=== PATIENT | male | born 1940 | race Caucasian/White ===

== ENCOUNTER 2020-01-06 02:38 | Emergency (ER) | payer MEDICARE, SELFPAY ==
[2020-01-06 02:37] VITALS: BP 156/94; PULSE 100; RESP 24; TEMP 36.9; O2SAT 93
[2020-01-06 03:03] LABS: Basophils Absolute Auto 0.1 K/mm3 (0.0-0.1); Basophils Percent Auto 0.7 % (0.2-1.2); Eosinophils Absolute Auto 0.2 K/mm3 (0-0.3); Eosinophils Percent Auto 2.2 % (0-4.4); Hematocrit 47.7 % (42.0-52.0); Hemoglobin 14.7 g/dL (14.0-18.0); Immature Granulocyte Absolute 0.06 K/mm3 (0.00-0.031); Immature Granulocyte Percent A 0.6 % (0-0.5); Lymphocytes Absolute Auto 1.24 K/mm3 (0.9-3.2); Lymphocytes Percent Auto 13.1 % (18.3-44.2); Mean Corpuscular HGB Conc 30.8 g/dl (32-36); Mean Corpuscular Hemoglobin 24.8 pg (26-34); Mean Corpuscular Volume 80.4 fl (80-100); Mean Platelet Volume 10.3 fl (7.4-10.4); Monocytes Absolute Auto 0.8 K/mm3 (0.1-0.6); Monocytes Percent Auto 8.5 % (2.6-8.5); Neutrophils Absolute Auto 7.1 K/mm3 (1.3-6.7); Neutrophils Percent Auto 74.9 % (45.5-73.1); Platelet Count Result 261 k/mm3 (150-375); Red Blood Count 5.93 M/mm3 (4.6-6.20); Red Cell Distribution Width 16.4 % (11.5-14.5); White Blood Count 9.5 K/mm3 (4.5-10.0)
[2020-01-06 03:16] LABS: INR 2.8
[2020-01-06 03:17] LABS: Partial Thromboplastin Time 42.1 SECONDS (22.3-36.8)
--- NOTE | 2020-01-06 04:16 | ED.EPISTAXIS ---
HPI - Epistaxis General Chief complaint: Epistaxis Stated complaint: EPISTAXIS Time Seen by Provider: 01/06/20 02:44 Source: RN notes reviewed History of Present Illness HPI Narrative: Patient presents emergency department from home via EMS for epistaxis. Patient states approximately 1 hour ago he began to have bleeding out of his right nostril. He states that at this time he replaces pressure on his right nostril began to bleed out of his left nostril. He states he is on Coumadin and his INR is not been checked in the past several months he is he has not been out of his house since the beginning of the COVID pandemic. He denies any trauma or injury denies any other symptoms at this time Related Data Allergies Allergy/AdvReac Type Severity Reaction Status Date / Time No Known Allergies Allergy Mild Verified 01/06/20 02:59 Review of Systems Review of Systems: Narrative: Gen.: Denies fevers or chills Eyes: Denies eye pain or visual change ENT: See HPI Respiratory: Denies shortness of breath CV: Denies chest pain GI: Denies abdominal pain nausea, emesis Neuro: Denies headache or weakness Skin: Denies rash Except as documented, all other systems reviewed and negative FOR[facility]LY [facility] Past Medical History Medical History (Updated 01/06/20 @ 04:20 by Hipolito Veras DO) Atrial fibrillation Family History Family History (Updated 01/12/14 @ 07:13 by DOCTOR UNKNOWN) Sibling Family history of heart disease in male family member before age 55 Father Acute myocardial infarction Other Diabetes mellitus Family history of cardiovascular disease Hypertension Social History Social History Smoking status: Former smoker Smoking end date: 05/18/79 Alcohol intake: never Exam Narrative: Exam Narrative: APPEARANCE: No acute distress, nontoxic, resting in bed EYES: EOMI HEENT: Normocephalic, atraumatic, oral mucosa moist, blood seen in posterior pharynx, active epistaxis out of the right nare left nare with dried blood RESPIRATORY: No respiratory distress Clear to auscultation bilaterally with no rhonchi wheezing or rales. CARDIOVASCULAR: Regular rate and rhythm without murmurs rubs or gallops. ABDOMINAL: Soft, nontender, MUSCULOSKELETAl: Moves all extremities. NEURO: Awake and alert. Following commands, speech normal, no focal deficits SKIN:: Warm, dry. No rashes lesions or abrasions PSYCHIATRIC: Normal affect/mood, Course Course Emergency Course: Rapid Rhino placed in right nare with resolution of bleeding Discussed with patient results of workup and diagnosis. Discussed need for follow-up with primary care, proper use of medication, and reasons to return to the emergency department. Patient understands and agrees to current treatment plan Vital Signs Vital signs: Vital Signs Temperature 98.4 F 01/06/20 02:37 Pulse Rate 100 01/06/20 02:37 Respiratory Rate 24 H 01/06/20 02:37 Blood Pressure 156/94 H 01/06/20 02:37 Pulse Oximetry 93 01/06/20 02:37 Temperature 98.4 F 01/06/20 02:37 Pulse Rate 100 01/06/20 02:37 Respiratory Rate 24 H 01/06/20 02:37 Blood Pressure 156/94 H 01/06/20 02:37 Pulse Oximetry 93 01/06/20 02:37 Procedures Epistaxis Control right: Direct Inspection: yes and unable to visualize Clots Removed by: blowing nose Device Inserted: nasal tampon (5.5 cm rapid Rhino) Patient Tolerated Procedure: well MDM - Epistaxis Lab Data Result diagrams: 01/06/20 02:58 Labs: Lab Results 01/06/20 01/06/20 Range/Units 02:58 02:58 WBC 9.5 (4.5-10.0) K/mm3 RBC 5.93 (4.6-6.20) M/mm3 Hgb 14.7 (14.0-18.0) g/dL Hct 47.7 (42.0-52.0) % MCV 80.4 (80-100) fl MCH 24.8 L (26-34) pg MCHC 30.8 L (32-36) g/dl RDW 16.4 H (11.5-14.5) % Plt Count 261 (150-375) k/mm3 MPV 10.3 (7.4-10.4) fl Immature Gran % (Auto) 0.6 H (0-0.5) % Neut % (Au
[2020-01-06 04:45] VITALS: BP 133/84; PULSE 79; RESP 20; O2SAT 93
== END 2020-01-06 04:45 | disposition home or self-care (01) ==
PROVIDERS: Emergency Provider Emergency Medicine; PCP Internal Medicine
DX: R04.0 Epistaxis (principal); I48.91 Unspecified atrial fibrillation; Z79.01 Long term (current) use of anticoagulants; Z87.891 Personal history of nicotine dependence
CPT/HCPCS: 30901; 36415; 85025; 85610; 85730; 99283; A9270

== ENCOUNTER 2021-03-14 13:55 | Outpatient (CLI) | payer MEDICARE, SELFPAY ==
[2021-03-14 14:41] LABS: Alanine Aminotransferase 18 U/L (4-50); Albumin Level 4.1 g/dL (3.5-5.1); Alkaline Phosphatase 92 U/L (38-126); Anion Gap 10 mmol/L (8-16); Aspartate Amino Transferase 19 U/L (17-59); Bilirubin,Total 0.4 mg/dL (0.2-1.3); Blood Urea Nitrogen 21 mg/dL (9-20); Calcium 9.2 mg/dL (8.4-10.2); Carbon Dioxide 27 mmol/L (22-30); Chloride 102 mmol/L (98-107); Cholesterol 156 mg/dL (0-200); Estimated Glomerular Filt Rate 58; Glucose 111 mg/dL (65-110); HDL Direct 46 mg/dL; Potassium 4.4 mmol/L (3.4-5.0); Sodium 139 mmol/L (137-145); Triglycerides 98 mg/dL (<150)
[2021-03-14 14:52] LABS: LDL Cholesterol Direct 86 mg/dL
[2021-03-14 15:08] LABS: Creatinine Urine 51.6 mg/dL
[2021-03-14 15:13] LABS: MALB Creatinine Ratio 137.2 mg/g (0-30); Microalbumin Urine Random 70.8 mg/L (0-16.7)
== END 2021-03-14 13:56 | disposition home or self-care (01) ==
PROVIDERS: PCP Internal Medicine; Visit Provider Nurse Practitioner
DX: R79.89 Other specified abnormal findings of blood chemistry (principal); I10 Essential (primary) hypertension; Z79.899 Other long term (current) drug therapy; E11.9 Type 2 diabetes mellitus without complications; E78.5 Hyperlipidemia, unspecified
CPT/HCPCS: 36415; 80053; 80061; 82043; 83036; 84443

== ENCOUNTER 2021-05-06 14:33 | Inpatient (IN) | payer MEDICARE, MEDICAID, SELFPAY ==
[2021-05-06] VITALS (22 sets, daily range): BP systolic 132–219; BP diastolic 84–170; PULSE 79–99; RESP 13–28; O2SAT 76–100
--- NOTE | ~2021-05-06 | XR_ITS ---
XR chest 2V 05/06/2021 15:26 Indication: Shortness of breath. Bilateral lower extremity swelling. Procedure: 2 view chest Comparison: 11/22/2011 Findings: Cardiomegaly. Bilateral airspace disease, most likely interstitial edema. Pneumonia less fa vored. No significant effusion or pneumothorax. Impression: 1: Diffuse bilateral airspace disease, likely edema. Pneumonia less favored. Reviewed, dictated and finalized at location A. STANT OPERATIONS MANAGER Impression: 1: Diffuse bilateral airspace disease, likely edema. Pneumonia less favored.
--- NOTE | ~2021-05-06 | XR_ITS ---
EXAMINATION: XR chest 1V portable DATE: 05/08/2021 09:39 INDICATION: Pulmonary edema. TECHNIQUE: A single frontal view of the chest was obtained. COMPARISON: Chest 2 views 05/06/2021, chest CT 11/30/2015 FINDINGS: Sensitivity is decreased by obesity. There are mild bilateral perihilar airspace opacities. No pleural effusion or pneumothorax. Cardiomegaly is noted. IMPRESSION: 1. Mild bilateral perihilar airspace opacities, likely mild pulmonary edema. Pneumonia is less likely . 2. Cardiomegaly. Reviewed, dictated and finalized at location A. INE OPERATOR IMPRESSION: 1. Mild bilateral perihilar airspace opacities, likely mild pulmonary edema. Pn eumonia is less likely. 2. Cardiomegaly.
--- NOTE | ~2021-05-06 | CT_ITS ---
EXAMINATION:CT diagnostic chest wo con DATE: 05/08/2021 15:00 INDICATION: Congestive heart failure. TECHNIQUE: Computed tomography (CT) of the chest was performed without intravenous contrast. Automate d exposure control and iterative reconstruction technique were employed. The dose-length product (DLP ) was 969.42 mGy-cm. COMPARISON: Chest CT 11/30/2015, chest single view 05/08/2021 FINDINGS: The lungs demonstrate mosaic attenuation, likely small airways disease. There is smooth sep belinda thickening in the lungs, consistent with mild pulmonary edema. There is a 7 mm nodule in right up per lobe. There is a 5 mm nodule in right middle lobe. No pleural effusion. Cardiomegaly is noted. No pericardial effusion. There are coronary artery calcifications. There is severe osteoarthritis of th e glenohumeral joints. There are bridging endplate osteophytes at multiple levels in the spine, consi stent with diffuse idiopathic skeletal hyperostosis (DISH). There is mild chronic anterior wedging of multiple vertebral bodies. IMPRESSION: 1. Mild pulmonary edema. 2. Mosaic attenuation in the lungs, likely small airways disease. 3. 7 mm and 5 mm pulmonary nodules, probably benign. Noncontrast low-dose chest CT is recommended in 6 months. Reviewed, dictated and finalized at location A. CTURAL IRON WORKER
--- NOTE | ~2021-05-06 | CT_ITS ---
EXAMINATION: CT brain wo con DATE: 05/06/2021 15:22 INDICATION: Slurred speech TECHNIQUE: Computed tomography (CT) of the head was performed without intravenous contrast. The mA wa s adjusted according to patient size. Iterative reconstruction technique was employed. Exam dose: 75 6.67 mGy-cm total exam DLP. COMPARISON: None FINDINGS: No intracranial mass lesion or hemorrhage or cerebrovascular accident is evident. CT is not sensitive for hyperacute ischemic cerebrovascular accident. No midline shift or mass effect effect. No subdural or epidural hematoma. There is moderate cerebral volume loss consistent with patient age. Paranasal sinuses and mastoid air cells are normally developed and aerated. No fracture or bone destruction of the cranial vault. Orbital contents are unremarkable. IMPRESSION: No acute intracranial finding Reviewed, dictated and finalized at Location A. Reviewed, dictated and finalized at location B. AWAKE COUNSELOR
--- NOTE | 2021-05-06 14:45 | ECG_ITS ---
Measurements Intervals Silver Rate: 89 P: WY: 0 QRS: 74 QRSD: 94 T: -2 QT: 366 QTc: 447 Interpretive Statements ATRIAL FIBRILLATION LOW QRS VOLTAGE IN PRECORDIAL LEADS INCOMPLETE RIGHT BUNDLE BRANCH BLOCK BORDERLINE ST-T WAVE ABNORMALITY- ANT/INF LEADS BASELINE ARTIFACT- I, III, AVR, AVL, AVF, V1 ABNORMAL ECG Electronically Signed On 05-06-2021 15:04:24 SUCTION OPERATOR by Derek Phillips D.O.
[2021-05-06 15:14] LABS: Basophils Absolute Auto 0.1 K/mm3 (0.0-0.1); Basophils Percent Auto 0.6 % (0.2-1.2); Eosinophils Absolute Auto 0.1 K/mm3 (0-0.3); Hematocrit 37.9 % (42.0-52.0); Hemoglobin 10.6 g/dL (14.0-18.0); Immature Granulocyte Absolute 0.05 K/mm3 (0.00-0.031); Immature Granulocyte Percent A 0.5 % (0-0.5); Lymphocytes Percent Auto 6.6 % (18.3-44.2); Mean Corpuscular Hemoglobin 22.5 pg (26-34); Mean Corpuscular Volume 80.3 fl (80-100); Mean Platelet Volume 9.3 fl (7.4-10.4); Monocytes Absolute Auto 1.1 K/mm3 (0.1-0.6); Monocytes Percent Auto 10.2 % (2.6-8.5); Neutrophils Absolute Auto 8.6 K/mm3 (1.3-6.7); Neutrophils Percent Auto 81.1 % (45.5-73.1); Platelet Count Result 280 k/mm3 (150-375); Red Blood Count 4.72 M/mm3 (4.6-6.20); Red Cell Distribution Width 19.8 % (11.5-14.5); White Blood Count 10.6 K/mm3 (4.5-10.0)
[2021-05-06 15:39] LABS: Alveolar/Arterial O2 Gradient 93.8 mmHg; Base Excess ABG 0.3 mEq/l (+/-2.0); Carboxyhemoglobin 1.1 % THb (0-2.0); Fractional Inspired Oxygen 36 %; HCO3 ABG 29.2 mEq/l (22.0-26.0); Methemoglobin ABG 0.2 %THb (0-1.5); Oxygen Content ABG 15.4 %vol (16.0-22.0); Oxygen Saturation ABG 93.6 % (95.0-100.0); Oxyhemoglobin 92.2 % THb (90.0-100.0); PO2 ABG 81.5 mmHg (80.0-100.0); PO2 FiO2 Ratio Arterial Blood 2.26 %; Reduced Hemoglobin 6.5 %THb (0-5.0); Total Hemoglobin 11.8 g/dL (12.0-18.0); pH ABG 7.237 (7.350-7.450)
[2021-05-06 15:40] LABS: PCO2 ABG 70.2 mmHg (35.0-45.0)
[2021-05-06 15:41] LABS: Device NASAL CANNULA; Modified Allen's Test Pass; Site Drawn RIGHT RADIAL
[2021-05-06 15:54] LABS: Alanine Aminotransferase 35 U/L (4-50); Albumin Level 3.7 g/dL (3.5-5.1); Alkaline Phosphatase 102 U/L (38-126); Anion Gap 10 mmol/L (8-16); Aspartate Amino Transferase 26 U/L (17-59); Bilirubin,Total 0.5 mg/dL (0.2-1.3); Blood Urea Nitrogen 29 mg/dL (9-20); Calcium 8.3 mg/dL (8.4-10.2); Carbon Dioxide 29 mmol/L (22-30); Chloride 104 mmol/L (98-107); Estimated Glomerular Filt Rate 53; Glucose 130 mg/dL (65-110); Potassium 4.1 mmol/L (3.4-5.0); Sodium 143 mmol/L (137-145)
[2021-05-06 15:56] LABS: NT Pro B Type Natriuretic Pept 3440 pg/mL (5-100); Troponin I < 0.012 ng/mL (0.000-0.034)
[2021-05-06 16:04] LABS: Anisocytosis 3+ (NORMAL); Hypochromasia 1+ (NORMAL); Platelet Estimate Adequate (Adequate)
--- NOTE | 2021-05-06 16:20 | PC.NURSE ---
pt tolerating cpap well. sleep apnea noted. pt arouses with touch. states is breathing better. family remains at bedside
--- NOTE | 2021-05-06 16:37 | ED.GENADULT ---
HPI - General Adult General Chief complaint: Shortness of Breath/Dyspnea Stated complaint: weak, sob Time Seen by Provider: 05/06/21 14:49 History of Present Illness HPI narrative: Patient is an 81-year-old male who presents ER with weakness and shortness of breath. Patient reports he has had increasing edema for several months in his legs. He has become more short of breath recently. He has difficulty giving any additional details. Son present and reports that patient had been refusing to let them bring him to the hospital over the last couple days. Son feels patient has had facial droop and slurring of his speech for the last 4 days and has also been having. Follow-up left side of his mouth. There is been no extremity weakness. Patient is for the most part bedbound and can only stand up to pee. 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 There is a planned surgery to remove these in late May. Patient had been on immunologic therapy that shrink the tumors prior to that. Related Data Home Medications Medication Instructions Recorded Confirmed buspirone 15 mg PO BID 05/06/21 Allergies Allergy/AdvReac Type Severity Reaction Status Date / Time No Known Allergies Allergy Mild Verified 05/06/21 19:30 Review of Systems Review of Systems: ROS unobtainable: Yes unobtainable due to mental status PMFSH Past Medical History Medical History (Updated 05/06/21 @ 20:43 by Ajay Blake MD) Anxiety Atrial fibrillation Benign prostatic hyperplasia with lower urinary tract symptoms Central apnea Depression Essential (primary) hypertension Mixed hyperlipidemia Type 2 diabetes mellitus without complication, without long-term current use of insulin Surgical History Surgical History (Updated 05/06/21 @ 18:23 by Ajay Blake MD) History of tonsillectomy Family History Family History (Updated 01/12/14 @ 07:13 by DOCTOR UNKNOWN) Sibling Family history of heart disease in male family member before age 55 Father Acute myocardial infarction Other Diabetes mellitus Family history of cardiovascular disease Hypertension Social History Social History (Updated 03/21/21 @ 14:14 by Mere Knight [facility]LY [facility]) Smoking packs per day: 2 Smoking cigarettes per day: 40.0 Years smoked: 24 Smoking pack-years: 48.00 Smoking status: Former smoker Second hand tobacco smoke exposure: No Smoking end date: 05/18/79 Alcohol intake: never Substance use: never Substance use type: does not use Gender identity (if verbalized by the patient): Male Exam Narrative: GENERAL: Chronically ill-appearing, morbidly obese. HEAD: Normocephalic, atraumatic. EYES: PERRL and EOMI. ENT: Mucous membranes moist. CHEST: Clear to auscultation with poor instrument volumes. Moderate respiratory distress. HEART: Irregular regular rate and rhythm. Normal peripheral pulses. ABDOMEN: Soft, nontender, large protuberant abdomen.. EXTREMITIES: Normal range of motion. No edema. SKIN: Warm, dry, no rash. NEURO: Alert and oriented x2. Cranial nerves II through XII intact. PSYCH: Normal mood and affect. Course Course Emergency Course: Admit to the hospitalist service. Patient placed on BiPAP. Increased backup rate to 20 breaths/min. Discussed with patient and son. They would prefer for him to be a full code at this time. Discussed there is a possibility that he fails BiPAP and may need to be on a ventilator. Vital Signs Vital signs: Vital Signs Pulse Rate 99 05/06/21 14:35 Respiratory Rate 20 05/06/21 14:35 Blood Pressure 219/170 H 05/06/21 14:35 Pulse Oximetry 100 05/06/21 14:35 Pulse Rate 85 05/06/21 19:28 Respiratory Rate 23 H 05/06/21 19:28 Blood Pressure 132/102 H 05/06/21 19:28 Pulse Oximetry 99 05/06/21 20:00 Medical Decision Making Vital Signs Vital Signs: Vital Signs Pulse Rate 99 05/06/21 14:35 Respiratory Rate
[2021-05-06 17:11] LABS: INR 2.1; Prothrombin Time 22.9 Seconds (11.1-14.7)
[2021-05-06 17:12] LABS: Partial Thromboplastin Time 40.8 SECONDS (22.3-36.8)
[2021-05-06] MEDS: FUROSEMIDE INJ 40 MG/4 ML VIAL IV PUSH ×2 (17:39→21:21)
[2021-05-06 20:15] LABS: Alveolar/Arterial O2 Gradient 286.7 mmHg; Base Excess ABG -0.8 mEq/l (+/-2.0); Fractional Inspired Oxygen 80 %; Oxygen Content ABG 16.8 %vol (16.0-22.0); Oxygen Saturation ABG 99.1 % (95.0-100.0); Oxyhemoglobin 98.5 % THb (90.0-100.0); PO2 FiO2 Ratio Arterial Blood 2.53 %; Total Hemoglobin 11.8 g/dL (12.0-18.0)
[2021-05-06 20:17] LABS: PCO2 ABG 77.8 mmHg (35.0-45.0); pH ABG 7.189 (7.350-7.450)
[2021-05-06 20:18] LABS: Device NON-INVASIVE VENT; Modified Allen's Test Pass; Non-Invasive Expiratory Pressure 8 CMH2O; Non-Invasive Inspiratory Pressure 16 CMH2O; Non-Invasive Vent Rate 20 /MIN; Site Drawn LEFT RADIAL
--- NOTE | 2021-05-06 20:23 | PM.IMHP ---
H&P: HPI History of Present Illness Date/Time: 05/06/21 20:23 Chief Complaint: Shortness of breath Narrative: Source of information: Patient and family report, review of past medical records 81-year-old male with a past medical history of anxiety, diabetes, CHF and chronic atrial fibrillation on chronic anticoagulation who presented to the ER with progressive shortness of breath and dyspnea on exertion for the last 4 weeks. His symptoms have been accompanied by increased lower extremity swelling. His son reports that the patient has a chronic cough that is worse when the patient tries to speak. The patient does have complex obstructive sleep apnea syndrome for which he never went and had his ASV titration. His son reports that the patient has not been physically active in approximately 10 years. The patient will get up and ambulate to the bathroom and will laid back in bed. He mostly spends his time laying on his left side with the head of the bed elevated. The patient has had increased lower extremity swelling for approximately 4 weeks. He has been compliant with his home Lasix. However son reports that the patient is not good at being compliant with his diet. The patient does not eat iron containing foods and does not follow a low-salt diet. The patient has not had any recent ill contacts. He has never been vaccinated against COVID-19. His son reports that the patient never leaves the home except for to go to doctor's visits. He does not eyes any chest pain or palpitations. He does have a history of AFib but his rate was controlled in the ER. The patient is adequately anticoagulated on Coumadin. He denies any nausea or vomiting. He has had multiple episodes of urinary incontinence after receiving Lasix in the ER. He denies any dysuria. He denies any chest pain. His son as noted stat over the last 4 days the patient has become progressively more short of breath and is having increasingly slurred speech over the last several days. Son was concerned the patient may have had a stroke. Patient has no significant increased localizing weakness. The patient does have an uneven gait due to severe osteoarthritis of bilateral hips. 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 The patient does have poor dentition. He has been having increased depression since onset of COVID and being isolated at home. Patient's son reports the patient has chronic lower extremity edema. He reports the patient always lays on his left side and thusly is left lower extremity is always more swollen than the right. Review of Systems Review of Systems: 12 systems were reviewed with pertinent positives and negatives per HPI. Except as documented in the HPI, all other systems were reviewed and are negative. [facility] Past Medical History Medical History (Updated 05/06/21 @ 23:38 by Arely Mobley DO) Anxiety Atrial fibrillation Benign prostatic hyperplasia with lower urinary tract symptoms CHF (congestive heart failure) Echocardiogram December 2015: Difficult study with poor sonographic images demonstrate mild concentric left ventricular hypertrophy, diastolic dysfunction and increased left heart filling pressures based on elevated E/E. Ejection fraction 55-60%. Mild enlargement of left atrium Complex sleep apnea syndrome Polysomnogram 2018: Mild obstructive sleep apnea. Difficult titration with CPAP and then BiPAP without optimum pressure achieved with emergence of central sleep apnea noted during titration consistent with complex sleep apnea syndrome. ASV titration was recommended Depression Essential (primary) hypertension Mixed hyperlipidemia Type 2 diabetes mellitus without complication, without long-term current use of insulin Surgical History Surgical History (Updated 05/06/21 @ 23:16 by Arely Mobley DO) History of cardiac catheterization (2011) Mild nonobstructive coronary artery disease with 40-50% stenosis of the mid LAD wi
--- NOTE | 2021-05-06 20:59 | PC.NURSE ---
[address] DR ELIAS, SOLU MEDROL 80MG Q 8, RAPID COVID TEST, INSERT MCCARTNEY, AND FOREHEAD PULSE OX.
[2021-05-06 21:21] LABS: EDCOVIDSCREEN Negative (Negative)
--- NOTE | 2021-05-06 21:52 | PC.NURSE ---
bedding changed saturated with urine
[2021-05-06 22:44] LABS: Alveolar/Arterial O2 Gradient 124.7 mmHg; Base Excess ABG -1.9 mEq/l (+/-2.0); Carboxyhemoglobin 0.4 % THb (0-2.0); Fractional Inspired Oxygen 40 %; Methemoglobin ABG 0.3 %THb (0-1.5); Oxygen Content ABG 15.9 %vol (16.0-22.0); Oxygen Saturation ABG 95.7 % (95.0-100.0); Oxyhemoglobin 95.4 % THb (90.0-100.0); PCO2 ABG 59.6 mmHg (35.0-45.0); Reduced Hemoglobin 3.9 %THb (0-5.0); Total Hemoglobin 11.8 g/dL (12.0-18.0); pH ABG 7.258 (7.350-7.450)
[2021-05-06 22:45] LABS: Device NON-INVASIVE VENT; Modified Allen's Test Pass; Non-Invasive Expiratory Pressure 6 CMH2O; Non-Invasive Inspiratory Pressure 18 CMH2O; Non-Invasive Vent Rate 26 /MIN; Site Drawn LEFT RADIAL
[2021-05-06] MEDS: methylPREDNISolone SOD SUCC 125 MG VIAL 80 MG IV PUSH (23:03)
[2021-05-07] VITALS (14 sets, daily range): BP systolic 108–129; BP diastolic 49–73; PULSE 78–102; RESP 20–28; O2SAT 95–100
--- NOTE | 2021-05-07 | ECHO_ITS ---
Patient Info Name: Rommel Bran Age: 81 years : 1940 Gender: Male Ht: 73 in Wt: 418 lbs BSA: 3.23 m2 HR: 78 bpm BP: 129 / 54 mmHg Heart Rhythm: Atrial Fibrillation Technical Quality: Poor Exam Date: 05/07/2021 9:53 AM Exam Location: [facility] Pulmonary Patient Status: Inpatient Admit Date: 05/06/2021 Staff Ordering Physician: Arely Mobley DO Graphic User Interface Designer: Missy Cody RDCS Attending Provider: Erica Sexton MD Referring Physician: Leandra MCCLAIN; Exam Type: CA echo doppler color flow Study Info Indications - lower extremity edema Summary 1. Technically suboptimal study due to poor sonographic images. 2. Definity contrast administered improved wall motion interpretation. 3. Left ventricular chamber dimension is normal. 4. Left ventricular systolic function is normal, estimated at 60-65%. 5. There is moderately increased left ventricular wall thickness. 6. The left ventricular diastolic function is indeterminate. 7. Atrial fibrillation. 8. Left atrial chamber dimension is moderately enlarged. 9. Right atrial chamber dimension is mildly enlarged. 10. No pulmonary hypertension, estimated pulmonary arterial systolic pressure is 14 mmHg. 11. Dilated inferior vena cava with >50% collapse upon inspiration consistent with elevated right atrial pressure, 10 mmHg. 12. There is small circumferential pericardial effusion. No cardiac tamponade. Left Ventricle Technically suboptimal study due to poor sonographic images. Definity contrast administered improved wall motion interpretation. Tissue doppler is not performed. Atrial fibrillation. Left ventricular chamber dimension is normal. Left ventricular systolic function is normal, estimated at 60-65%. There is moderately increased left ventricular wall thickness. The left ventricular diastolic function is indeterminate. Right Ventricle Right ventricular chamber dimension is normal. Right ventricular systolic function is normal. Left Atria Left atrial chamber dimension is moderately enlarged. Right Atria Right atrial chamber dimension is mildly enlarged. Aortic Valve The aortic valve is not well visualized. Cannot determine number of aortic valve leaflets. There is no aortic valve stenosis based on valve area and gradients. There is no aortic valve regurgitation. Pulmonic Valve There is no pulmonic regurgitation. Mitral Valve There is no mitral valve stenosis. There is no mitral valve regurgitation. Tricuspid Valve There is no tricuspid valve regurgitation. No pulmonary hypertension, estimated pulmonary arterial systolic pressure is 14 mmHg. Pericardium/Pleural There is small circumferential pericardial effusion. No cardiac tamponade. Inferior Vena Cava Dilated inferior vena cava with >50% collapse upon inspiration consistent with elevated right atrial pressure, 10 mmHg. Aorta The aortic root size at the sinus of Valsalva is normal. Left Ventricular Outflow Tract Name Value Normal LVOT 2D LVOT Diameter 2.3 cm LVOT Doppler LVOT Peak Gradient 3 mmHg LVOT Mean Gradient
[2021-05-07 03:56] LABS: Glucose Point of Care 134 mg/dl (65-105)
[2021-05-07 06:44] LABS: Hemoglobin 10.1 g/dL (14.0-18.0); Mean Corpuscular HGB Conc 28.9 g/dl (32-36); Mean Corpuscular Hemoglobin 22.5 pg (26-34); Mean Corpuscular Volume 78.1 fl (80-100); Mean Platelet Volume 9.8 fl (7.4-10.4); Platelet Count Result 265 k/mm3 (150-375); Red Blood Count 4.48 M/mm3 (4.6-6.20); Red Cell Distribution Width 19.2 % (11.5-14.5); White Blood Count 10.3 K/mm3 (4.5-10.0)
[2021-05-07] MEDS: methylPREDNISolone SOD SUCC 125 MG VIAL 80 MG IV PUSH ×3 (06:55→20:58)
[2021-05-07 07:20] LABS: Iron 22 ug/dL (49-181)
[2021-05-07 07:29] LABS: Percent Iron Saturation 7 % (20-50)
--- NOTE | 2021-05-07 08:05 | PC.NURSE ---
Attempted to call Dr. Mobley about pt request for Xanex
[2021-05-07 08:09] LABS: Glucose Point of Care 124 mg/dl (65-105)
[2021-05-07 08:45] LABS: Anion Gap 4 mmol/L (8-16); Blood Urea Nitrogen 24 mg/dL (9-20); Calcium 8.2 mg/dL (8.4-10.2); Carbon Dioxide 31 mmol/L (22-30); Chloride 102 mmol/L (98-107); Estimated CRCL calculation 84 ml/min; Estimated Glomerular Filt Rate > 60; Glucose 131 mg/dL (65-110); Potassium 4.4 mmol/L (3.4-5.0); Sodium 137 mmol/L (137-145)
[2021-05-07] MEDS: FUROSEMIDE INJ 40 MG/4 ML VIAL IV PUSH ×2 (09:24→20:58)
--- NOTE | 2021-05-07 10:09 | PC.NURSE ---
Pt back in bed, Cardiology at bedside for Echo
--- NOTE | 2021-05-07 10:27 | PC.NURSE ---
This nurse discussed MRI with pt, and pt refused the MRI. MRI and MD made aware
--- NOTE | 2021-05-07 11:00 | PC.NURSE ---
This nurse placed on 15L O2 NC for meal. Pt will be placed on BIPAP after meal is finished
[2021-05-07] MEDS: PERFLUTREN LIPID MICROSPHERES 1.5 ML VIAL DILUTED TO 10 ML TOTAL VOLUME IV PUSH (11:21)
--- NOTE | 2021-05-07 11:33 | PC.NURSE ---
This nurse notified the pt that pt states that his clothing and phone is at home. This nurse also called for a lunch room tray and coffee for the pt as requested.
--- NOTE | 2021-05-07 11:54 | PM.IMPN ---
Progress Note: A&P Assessment and Plan (1) Acute and chronic respiratory failure with hypercapnia: Code(s): J96.22 - Acute and chronic respiratory failure with hypercapnia Status: Acute Assessment and Plan: Continue BiPAP 18/6 with 40% FiO2. (2) Obesity hypoventilation syndrome: Code(s): E66.2 - Morbid (severe) obesity with alveolar hypoventilation Status: Acute Assessment and Plan: Continue BiPAP night. (3) Chronic anticoagulation: Code(s): Z79.01 - middle or intermediate school principal (current) use of anticoagulants Status: Acute Assessment and Plan: Continue warfarin and monitor daily INR (4) Complex sleep apnea syndrome: Code(s): G47.31 - Primary central sleep apnea Status: Inactive (5) Benign prostatic hyperplasia with lower urinary tract symptoms: Qualifiers: Lower urinary tract symptom detail: urinary frequency Qualified Code(s): N40.1 - Benign prostatic hyperplasia with lower urinary tract symptoms; R35.0 - Frequency of micturition Code(s): N40.1 - Benign prostatic hyperplasia with lower urinary tract symptoms Status: Acute Assessment and Plan: No obstructive symptoms. Continue tamsulosin. (6) Type 2 diabetes mellitus without complication, without long-term current use of insulin: Code(s): E11.9 - Type 2 diabetes mellitus without complications Status: Acute Assessment and Plan: Fasting blood glucose was 131. Accu-Cheks are in the 124-170 range. (7) Iron deficiency anemia: Code(s): D50.9 - Iron deficiency anemia, unspecified Status: Acute Assessment and Plan: Microcytic hypochromic anemia, stable and well tolerated with hemoglobin of 10.1. Baseline hemoglobin in the 13-14 range a couple years ago. Iron stores are on the low side. We ordered daily Venofer 100 mg IV daily for 10 days. Additional Plan Patient has acute on chronic hypercapnic respiratory failure. His affect is hypercapnia is due to a combination of complex obstructive sleep apnea syndrome and obesity hypoventilation plus or minus some underlying previously undiagnosed COPD. The patient had been started on BiPAP in the ER and repeat ABG demonstrated worsening respiratory acidosis with worsening hypercapnia. I subsequently went down to the patient's bedside and made adjustments to BiPAP increasing his inspiratory pressure to 18 and dropping his expiratory pressure to 6 and decreasing his FiO2 down to 40%. Acid increased his respiratory rate from 07/07/2025. Repeat ABG 1-1/2 hours later demonstrated improving pH and pCO2. Given his decreased air movement on exam I did start the patient on IV Solu-Medrol and scheduled nebulizer treatments. His x-ray did appear to be more consistent with pulmonary edema but given he was not vaccinated against COVID-19 a rapid COVID swab was performed and was found to be negative. The patient was started on Lasix in the ER and he had had multiple incontinent voids and in order to adequately monitor his output a Johnson catheter has been ordered. The patient does have chronic atrial fibrillation but his rate is controlled. He is adequately anticoagulated on Coumadin. Will resume warfarin whenever med rec has been verified by nursing staff. Will continue Lasix and will check an echocardiogram to evaluate the patient's cardiac structure and function given his worsening lower extremity edema. I would not be surprised if the patient did not have some right-sided heart failure in addition to his previously known diastolic dysfunction. The patient does have type 2 diabetes mellitus but his glucoses are currently adequately controlled on oral hypoglycemic agents. Will place the patient on sliding scale insulin as Solu-Medrol has been added to his therapeutic regimen. Patient does have new anemia compared to last year. He denies having melena, hematochezia or changes in his bowel movements. His son does report that the patient does not
--- NOTE | 2021-05-07 12:17 | PC.NURSE ---
ordered pt. food tray
[2021-05-07 12:46] LABS: Glucose Point of Care 170 mg/dl (65-105)
--- NOTE | 2021-05-07 14:59 | PC.NURSE ---
This nurse called for pt meal tray for dinner for 1700. Pt made aware.
[2021-05-07 16:42] LABS: Glucose Point of Care 153 mg/dl (65-105)
[2021-05-07] MEDS: WARFARIN (*PBKC) 7.5 MG TABLET PO (18:12)
[2021-05-07 21:02] LABS: Glucose Point of Care 133 mg/dl (65-105)
[2021-05-07] MEDS: busPIRone HCL 5 MG TABLET 15 MG PO (21:52)
[2021-05-07] MEDS: SODIUM CHLORIDE 0.9% IV 50 ML ×2 (21:52→22:14)
[2021-05-07] MEDS: IRON SUCROSE COMPLEX 100 MG in SODIUM CHLORIDE 0.9% IV 50 ML 220 MG IVPB (21:52)
[2021-05-08] VITALS (13 sets, daily range): BP systolic 105–122; BP diastolic 52–89; PULSE 63–104; RESP 18–26; TEMP 36.3–36.9; O2SAT 93–98
[2021-05-08 02:25] LABS: Alveolar/Arterial O2 Gradient 114.2 mmHg; Carboxyhemoglobin 1.2 % THb (0-2.0); Fractional Inspired Oxygen 36 %; Methemoglobin ABG 0.3 %THb (0-1.5); Oxygen Content ABG 14.3 %vol (16.0-22.0); Oxygen Saturation ABG 93.5 % (95.0-100.0); Oxyhemoglobin 91.4 % THb (90.0-100.0); PO2 ABG 72.3 mmHg (80.0-100.0); PO2 FiO2 Ratio Arterial Blood 2.01 %; Reduced Hemoglobin 7.1 %THb (0-5.0); Total Hemoglobin 11.1 g/dL (12.0-18.0); pH ABG 7.354 (7.350-7.450)
[2021-05-08 02:27] LABS: Device NASAL CANNULA; Modified Allen's Test Pass; PCO2 ABG 60.5 mmHg (35.0-45.0); Site Drawn LEFT RADIAL
--- NOTE | 2021-05-08 04:21 | PC.NURSE ---
This patient, Rommel Bran, was received from [ER] on 05/08/21 at 0400. Patient/family oriented to unit policies and routines
[2021-05-08] MEDS: WARFARIN (*PBKC) 7.5 MG TABLET PO ×2 (04:36→17:25)
[2021-05-08 08:39] LABS: Glucose Point of Care 87 mg/dl (65-105)
[2021-05-08] MEDS: TAMSULOSIN HCL 0.4 MG CAPSULE PO (09:19)
[2021-05-08] MEDS: busPIRone HCL 5 MG TABLET 15 MG PO ×3 (09:19→17:24)
[2021-05-08] MEDS: PRAVASTATIN SODIUM 20 MG TABLET BY MOUTH (09:19)
[2021-05-08] MEDS: METOPROLOL SUCCINATE EXT REL 25 MG TABCR BY MOUTH (09:19)
[2021-05-08] MEDS: FUROSEMIDE INJ 40 MG/4 ML VIAL IV PUSH ×2 (09:19→20:21)
[2021-05-08] MEDS: lisinopriL 10 MG TABLET PO (09:20)
[2021-05-08] MEDS: IRON SUCROSE COMPLEX 100 MG in SODIUM CHLORIDE 0.9% IV 50 ML 220 MG IVPB (09:20)
[2021-05-08 12:21] LABS: Glucose Point of Care 92 mg/dl (65-105)
[2021-05-08 12:28] LABS: Influenza Control Positive
[2021-05-08] MEDS: methylPREDNISolone SOD SUCC 125 MG VIAL 80 MG IV PUSH (12:42)
--- NOTE | 2021-05-08 12:52 | PM.CNPUL ---
Assessment and Plan Assessment and plan (1) Acute and chronic respiratory failure with hypercapnia: Code(s): J96.22 - Acute and chronic respiratory failure with hypercapnia Status: Acute Assessment and Plan: this 81-year-old man with a history of morbid obesity, history of obstructive sleep apnea on previous testing 3 years ago, not on any treatment for sleep disordere breathing, history of diastolic heart failure, chronic AFib on anticoagulation presented with progressively increasing shortness of breath and lower extremity edema, and acute on chronic hypercapnic respiratory failure. Hypercapnic respiratory failure has responded to treatment with noninvasive ventilatory support. Patient is currently receiving supplemental oxygen via nasal cannula. the patient has acute hypercapnic respiratory failure which is related to untreated sleep disordered breathing and also possible congestive heart failure as chest x-ray showed bilateral infiltrates compatible with pulmonary edema. We will proceed with chest CT regarding the bilateral infiltrates and to exclude pleural effusions. I would continue with BiPAP support at night using lower pressures for example 14/10 and supplemental oxygen to maintain an O2 saturation greater than 92%. I have discontinued the IV steroids as he has no evidence of COPD exacerbation. I would also decrease the Lasix to once daily. The patient will need a new sleep study for his untreated sleep disordered breathing. (2) Diastolic heart failure: Qualifiers: Heart failure chronicity: unspecified Qualified Code(s): I50.30 - Unspecified diastolic (congestive) heart failure Code(s): I50.30 - Unspecified diastolic (congestive) heart failure Status: Acute (3) Atrial fibrillation: Qualifiers: Atrial fibrillation type: unspecified chronic Qualified Code(s): I48.20 - Chronic atrial fibrillation, unspecified Code(s): I48.91 - Unspecified atrial fibrillation Status: Acute (4) Sleep apnea: Qualifiers: Sleep apnea type: obstructive Qualified Code(s): G47.33 - Obstructive sleep apnea (adult) (pediatric) Code(s): G47.30 - Sleep apnea, unspecified Status: Acute History of Present Illness History of Present Illness Consult date: 05/08/21 Chief complaint: Hypercapnic Respiratory Failure,CHF Exacerbation Narrative: This 81-year-old man was admitted 2 days ago with progressively increasing shortness of breath of 1 month duration. The patient has history of medical problems including diabetes mellitus, chronic atrial fibrillation, congestive heart failure, history of anxiety, history of morbid obesity. He also has history of obstructive sleep apnea, on no treatment. Sleep study in January of 2018 showed mild obstructive apnea with an AHI of 6.3 associated with multiple oxygen desaturations. The patient during that sleep study was difficult to titrate with CPAP and no optimal pressure achieved with CPAP or BiPAP. During the titration, he developed central apneas. ASV titration was recommended but patient never had a repeat sleep study. over the last weeks the patient has developed lower extremity edema and also progressively increasing shortness of breath on exertion. He had no other respiratory symptoms such as fever chills hemoptysis cough or wheezing. When he was evaluated in the emergency room he was found to have acute on chronic hypercapnic respiratory failure. The patient was treated with noninvasive ventilatory support via BiPAP using pressures 16/8 with significant improvement of his hypercapnic respiratory failure. Currently he is on just supplemental oxygen via nasal cannula. Review of Systems Review of Systems: All systems reviewed & are unremarkable except as noted in HPI and below (H andp and below.) [facility] Past Medical History Medical History (Updated 05/08/21 @ 13:02 by Hill Avila MD) Anxiety Atrial fibrillatio
--- NOTE | 2021-05-08 15:52 | PM.IMPN ---
Progress Note: A&P Assessment and Plan (1) Acute and chronic respiratory failure with hypercapnia: Code(s): J96.22 - Acute and chronic respiratory failure with hypercapnia Status: Acute Assessment and Plan: Continue BiPAP 14/10 with 40% FiO2. [facility] history of obstructive sleep apnea on previous testing done 3 years ago. Is not on any treatment for sleep disordered breathing. Apnea link. (2) Obesity hypoventilation syndrome: Code(s): E66.2 - Morbid (severe) obesity with alveolar hypoventilation Status: Acute Assessment and Plan: Continue BiPAP night. (3) Chronic anticoagulation: Code(s): Z79.01 - termite inspector (current) use of anticoagulants Status: Acute Assessment and Plan: Patient is on chronic anticoagulation with Coumadin for atrial fibrillation. Currently INR is therapeutic at 2.1. Continue daily INR monitoring. Patient is currently rate control with daily metoprolol. (4) Complex sleep apnea syndrome: Code(s): G47.31 - Primary central sleep apnea Status: Inactive Assessment and Plan: Apnea link (5) Benign prostatic hyperplasia with lower urinary tract symptoms: Qualifiers: Lower urinary tract symptom detail: urinary frequency Qualified Code(s): N40.1 - Benign prostatic hyperplasia with lower urinary tract symptoms; R35.0 - Frequency of micturition Code(s): N40.1 - Benign prostatic hyperplasia with lower urinary tract symptoms Status: Acute Assessment and Plan: No obstructive symptoms. Continue tamsulosin. (6) Type 2 diabetes mellitus without complication, without long-term current use of insulin: Code(s): E11.9 - Type 2 diabetes mellitus without complications Status: Acute Assessment and Plan: Fasting blood glucose was 131. Accu-Cheks are in the 124-170 range. (7) Iron deficiency anemia: Code(s): D50.9 - Iron deficiency anemia, unspecified Status: Acute Assessment and Plan: Microcytic hypochromic anemia, stable and well tolerated with hemoglobin of 10.1. Baseline hemoglobin in the 13-14 range a couple years ago. Iron stores are on the low side. We ordered daily Venofer 100 mg IV daily for 10 days. (8) Diastolic heart failure: Qualifiers: Heart failure chronicity: unspecified Qualified Code(s): I50.30 - Unspecified diastolic (congestive) heart failure Code(s): I50.30 - Unspecified diastolic (congestive) heart failure Status: Acute Assessment and Plan: Decrease Lasix to once a day Additional Plan Patient has acute on chronic hypercapnic respiratory failure. His affect is hypercapnia is due to a combination of complex obstructive sleep apnea syndrome and obesity hypoventilation plus or minus some underlying previously undiagnosed COPD. The patient had been started on BiPAP in the ER and repeat ABG demonstrated worsening respiratory acidosis with worsening hypercapnia. I subsequently went down to the patient's bedside and made adjustments to BiPAP increasing his inspiratory pressure to 18 and dropping his expiratory pressure to 6 and decreasing his FiO2 down to 40%. Acid increased his respiratory rate from 07/07/2025. Repeat ABG 1-1/2 hours later demonstrated improving pH and pCO2. Given his decreased air movement on exam I did start the patient on IV Solu-Medrol and scheduled nebulizer treatments. His x-ray did appear to be more consistent with pulmonary edema but given he was not vaccinated against COVID-19 a rapid COVID swab was performed and was found to be negative. The patient was started on Lasix in the ER and he had had multiple incontinent voids and in order to adequately monitor his output a Johnson catheter has been ordered. The patient does have chronic atrial fibrillation but his rate is controlled. He is adequately anticoagulated on Coumadin. Will resume warfarin whenever med rec has been verified by nursing staff. Will continue L
[2021-05-08 16:33] LABS: Glucose Point of Care 136 mg/dl (65-105)
[2021-05-08] MEDS: SERTRALINE HCL 50 MG TABLET BY MOUTH (18:04)
--- NOTE | 2021-05-08 19:02 | PC.NURSE ---
This patient, Rommel Bran, was transferred to [[id number]] on 05/08/21 at 1902. Personal belongings sent with patient. Report given to [Vanda @ [phone] ]. Appropriate documentation sent with patient.
[2021-05-08 20:57] LABS: Glucose Point of Care 159 mg/dl (65-105)
[2021-05-09 03:51] VITALS: BP 114/60; PULSE 94; RESP 224; TEMP 36.1; O2SAT 92
[2021-05-09 06:35] LABS: INR 2.1; Prothrombin Time 22.9 Seconds (11.1-14.7)
[2021-05-09 07:43] LABS: Glucose Point of Care 88 mg/dl (65-105)
[2021-05-09 08:34] VITALS: BP 147/67; PULSE 64; RESP 18; TEMP 36.2; O2SAT 95
[2021-05-09] MEDS: busPIRone HCL 5 MG TABLET 15 MG PO ×3 (08:52→17:03)
[2021-05-09] MEDS: lisinopriL 10 MG TABLET PO (08:53)
[2021-05-09] MEDS: METOPROLOL SUCCINATE EXT REL 25 MG TABCR BY MOUTH (08:53)
[2021-05-09] MEDS: SERTRALINE HCL 50 MG TABLET BY MOUTH ×2 (08:53→17:03)
[2021-05-09] MEDS: TAMSULOSIN HCL 0.4 MG CAPSULE PO (08:53)
[2021-05-09] MEDS: FUROSEMIDE INJ 40 MG/4 ML VIAL IV PUSH ×2 (08:53→21:12)
[2021-05-09] MEDS: PRAVASTATIN SODIUM 20 MG TABLET BY MOUTH (08:53)
[2021-05-09 09:04] LABS: Basophils Percent Auto 0.2 % (0.2-1.2); Eosinophils Percent Auto 0.1 % (0-4.4); Hematocrit 33.4 % (42.0-52.0); Hemoglobin 9.5 g/dL (14.0-18.0); Immature Granulocyte Absolute 0.05 K/mm3 (0.00-0.031); Immature Granulocyte Percent A 0.4 % (0-0.5); Lymphocytes Absolute Auto 0.66 K/mm3 (0.9-3.2); Lymphocytes Percent Auto 5.7 % (18.3-44.2); Mean Corpuscular HGB Conc 28.4 g/dl (32-36); Mean Corpuscular Hemoglobin 22.4 pg (26-34); Mean Corpuscular Volume 78.8 fl (80-100); Mean Platelet Volume 10.3 fl (7.4-10.4); Monocytes Absolute Auto 1.3 K/mm3 (0.1-0.6); Monocytes Percent Auto 10.9 % (2.6-8.5); Neutrophils Absolute Auto 9.7 K/mm3 (1.3-6.7); Neutrophils Percent Auto 82.7 % (45.5-73.1); Nucleated Red Blood Cells Perc 0.2 % (0.0-0.2); Platelet Count Result 265 k/mm3 (150-375); Red Blood Count 4.24 M/mm3 (4.6-6.20); Red Cell Distribution Width 19.2 % (11.5-14.5); White Blood Count 11.7 K/mm3 (4.5-10.0)
[2021-05-09 09:13] LABS: Anion Gap 7 mmol/L (8-16); Blood Urea Nitrogen 34 mg/dL (9-20); Calcium 8.1 mg/dL (8.4-10.2); Carbon Dioxide 32 mmol/L (22-30); Chloride 99 mmol/L (98-107); Estimated CRCL calculation 67 ml/min; Estimated Glomerular Filt Rate 53; Glucose 98 mg/dL (65-110); Potassium 4.2 mmol/L (3.4-5.0); Sodium 138 mmol/L (137-145)
[2021-05-09 09:24] LABS: Platelet Estimate Adequate (Adequate)
[2021-05-09 09:25] LABS: Hypochromasia 2+ (NORMAL); Microcytosis 1+ (NORMAL)
--- NOTE | 2021-05-09 10:05 | WPDNEURCNPN ---
Assessment and Plan Additional Plan negative CT scan of the head with respiratory failure, congestive heart failure with atrial fibrillation will follow question possibility of TIA Consult date: 05/09/21 HPI: Rommel Bran is a 81 year old male admitted to the hospital through the ER for the complaints of progressive shortness of breath of 4 weeks duration along with the edema of lower extremities patient reportedly has not been active for the last 10 years as per the information from the family he does carry the ongoing diagnosis of atrial fibrillation and has been on Coumadin lately he has had multiple episodes of bladder incontinence recently has been the coming more short of breath in addition to developing the dysarthria over the last several days and question has been raised regarding the possibility of stroke. As mentioned before his past history is consistent with 1. Atrial fibrillation 2. Congestive heart failure 3. Complex sleep apnea syndrome 4. Hypertension and 5. Type 2 diabetes mellitus. He history of smoking pack years 48 but at present former smoker and does not drink alcohol. Evaluation up until now included the EKG which is compatible with atrial fibrillation, routine labs with mild leukocytosis, BUN 34 and serology for influenza type BB and starts COVID are negative in addition initial CT scan of the head revealed no evidence of bleed or space-occupying lesion as well as x-ray of the chest compatible with cardiomegaly, patient has already been seen by the heel seat laster with documentation of acute and chronic respiratory failure with hypercapnia Review of Systems Review of Systems: All systems reviewed & are unremarkable except as noted in HPI and below PMFSH Past Medical History Medical History Anxiety Atrial fibrillation Benign prostatic hyperplasia with lower urinary tract symptoms CHF (congestive heart failure) Echocardiogram December 2015: Difficult study with poor sonographic images demonstrate mild concentric left ventricular hypertrophy, diastolic dysfunction and increased left heart filling pressures based on elevated E/E. Ejection fraction 55-60%. Mild enlargement of left atrium Complex sleep apnea syndrome Polysomnogram 2018: Mild obstructive sleep apnea. Difficult titration with CPAP and then BiPAP without optimum pressure achieved with emergence of central sleep apnea noted during titration consistent with complex sleep apnea syndrome. ASV titration was recommended Depression Essential (primary) hypertension Mixed hyperlipidemia Type 2 diabetes mellitus without complication, without long-term current use of insulin Surgical History Surgical History History of cardiac catheterization (2011) Mild nonobstructive coronary artery disease with 40-50% stenosis of the mid LAD with preserved left ventricular systolic function with EF of 60 65% History of tonsillectomy Family History Family History Sibling Family history of heart disease in male family member before age 55 Father Acute myocardial infarction Other Diabetes mellitus Hypertension Social History Social History Social History: He lives with his of over 50 years. He is for the most part bedbound. He and his have 5 children. He does not drink alcohol. Primary care physician: Dr. Von Mayfield Code status: Full code Surrogate decision maker: Smoking packs per day: 2 Smoking cigarettes per day: 40.0 Years smoked: 24 Smoking pack-years: 48.00 Smoking status: Former smoker Second hand tobacco smoke exposure: No Smoking end date: 05/18/79 Alcohol intake: never Substance use: never Substance use type: does not use Gender identity (if verbalized by the patient): Male Spiritual care concerns: No M
--- NOTE | 2021-05-09 11:00 | PM.IMPN ---
Progress Note: A&P Assessment and Plan (1) Acute and chronic respiratory failure with hypercapnia: Code(s): J96.22 - Acute and chronic respiratory failure with hypercapnia Status: Acute Assessment and Plan: Continue BiPAP 28/02 with 40% FiO2. [employer] [employer] [facility] [employer] history of obstructive sleep apnea on previous testing done 3 years ago. Is not on any treatment for sleep disordered breathing. Apnea link. (2) Obesity hypoventilation syndrome: Code(s): E66.2 - Morbid (severe) obesity with alveolar hypoventilation Status: Acute Assessment and Plan: Continue BiPAP night. Home oxygen set up. (3) Chronic anticoagulation: Code(s): Z79.01 - skilled nursing (current) use of anticoagulants Status: Acute Assessment and Plan: Patient is on chronic anticoagulation with Coumadin for atrial fibrillation. Currently INR is therapeutic at 2.1. Continue daily INR monitoring. Patient is currently rate control with daily metoprolol. (4) Complex sleep apnea syndrome: Code(s): G47.31 - Primary central sleep apnea Status: Inactive Assessment and Plan: Apnea link. Please evaluate for CPAP as an outpatient. Referral to Pulmonary for sleep study at discharge. (5) Benign prostatic hyperplasia with lower urinary tract symptoms: Qualifiers: Lower urinary tract symptom detail: urinary frequency Qualified Code(s): N40.1 - Benign prostatic hyperplasia with lower urinary tract symptoms; R35.0 - Frequency of micturition Code(s): N40.1 - Benign prostatic hyperplasia with lower urinary tract symptoms Status: Acute Assessment and Plan: No obstructive symptoms. Continue tamsulosin. (6) Type 2 diabetes mellitus without complication, without long-term current use of insulin: Code(s): E11.9 - Type 2 diabetes mellitus without complications Status: Acute Assessment and Plan: Fasting blood glucose was 98. Accu-Cheks are in the 88-201 range. (7) Iron deficiency anemia: Code(s): D50.9 - Iron deficiency anemia, unspecified Status: Acute Assessment and Plan: Microcytic hypochromic anemia, stable and well tolerated with hemoglobin of 10.1. Baseline hemoglobin in the 13-14 range a couple years ago. Iron stores are on the low side. We ordered daily Venofer 100 mg IV daily for 10 days. (8) Diastolic heart failure: Qualifiers: Heart failure chronicity: unspecified Qualified Code(s): I50.30 - Unspecified diastolic (congestive) heart failure Code(s): I50.30 - Unspecified diastolic (congestive) heart failure Status: Acute Assessment and Plan: Decrease Lasix to once a day Subjective Date/time seen: 05/09/21 12:07 S: Patient was examined at the bedside. He still desaturates at bedtime. Persistent lower extremity swelling and shortness of breath with minimal effort. He refused BiPAP support class night. Patient is awake alert and oriented. Review of Systems Review of Systems: All systems reviewed & are unremarkable except as noted in HPI and below Constitutional: Constitutional: Reports as per HPI, Reports no additional constitutional complaints, Denies chills, Reports daytime sleepiness, Denies fever(s), Denies headache(s) and Denies night sweats Eyes: Eyes: Reports as per HPI and Denies blurry vision ENT: Reports system reviewed and no additional complaints, except as documented and Denies epistaxis Cardiovascular: Cardiovascular: Reports as per HPI, Reports pedal edema, Reports dyspnea, Reports dyspnea on exertion and Reports orthopnea Respiratory: Respiratory: Reports as per HPI, Denies cough, Reports dyspnea, Reports dyspnea on exertion, Reports snoring and Denies wheezing Gastrointestinal: Gastrointestinal: Reports as per HPI, Denies abdominal pain, Denies nausea and Denies vomiting Genitourinary: Genitourinary: Reports no additional male genitourinary complaints and Reports as per HPI Musculoskele
--- NOTE | 2021-05-09 11:04 | PM.PNPUL ---
Progress Note: A&P Assessment and Plan (1) Acute and chronic respiratory failure with hypercapnia: Code(s): J96.22 - Acute and chronic respiratory failure with hypercapnia Status: Acute Assessment and Plan: Patient with history of morbid obesity, Atrial fibrillation, sleep disordered breathing, on no treatment presented with shortness of breath and lower extremity edema. Respiratory status significantly improved following treatment with BiPAP support and diuretics. patient refuses BiPAP support. I had a discussion with the patient regarding a repeat sleep study with CPAP titration. The patient was not keen about having this sleep study but the time to decide. If he decides to undergo sleep study he may need to be bridged with BiPAP support at home until the sleep study. I would continue with current regimen at this point. (2) Obesity hypoventilation syndrome: Code(s): E66.2 - Morbid (severe) obesity with alveolar hypoventilation Status: Acute (3) Diastolic heart failure: Qualifiers: Heart failure chronicity: unspecified Qualified Code(s): I50.30 - Unspecified diastolic (congestive) heart failure Code(s): I50.30 - Unspecified diastolic (congestive) heart failure Status: Acute (4) Atrial fibrillation: Qualifiers: Atrial fibrillation type: unspecified chronic Qualified Code(s): I48.20 - Chronic atrial fibrillation, unspecified Code(s): I48.91 - Unspecified atrial fibrillation Status: Acute Subjective Date/time seen: 05/09/21 11:04 Patient refused BiPAP support last night. He remains on supplemental oxygen via nasal cannula. He feels better. He continues to have lower extremity edema. He remains fully awake and cooperative. Review of Systems Review of Systems: All systems reviewed & are unremarkable except as noted in HPI and below Exam Narrative: GENERAL APPEARANCE: Well developed, well nourished, alert and cooperative, morbidly obese man who appears in mild respiratory distress while on supplemental oxygen via nasal cannula. HEENT: Sclerae anicteric and conjunctivae pink and moist. Extraocular movements were intact and pupils were equal, round. NECK: Supple. There was no thyroid enlargement, and no tenderness, or masses were felt. LUNGS: Auscultation of the lungs revealed Crackles at bases posteriorly no wheezing CARDIAC: There was a regular rate and rhythm without any murmurs, gallops, rubs. ABDOMEN: Soft and nontender with normal bowel sounds. LYMPH NODES: No lymphadenopathy was appreciated in the neck. EXTREMITIES: No cyanosis, clubbing 2+ pedal edema. NEUROLOGIC: Alert and oriented x 3. Normal affect. Objective Data Vital Signs Vital Signs: Vital Signs - 24 hr 05/08/21 16:00 05/08/21 19:51 05/08/21 20:00 Temperature 36.3 C L 36.9 C Pulse Rate 91 91 Respiratory Rate 18 22 H Blood Pressure 105/52 L 121/89 Pulse Oximetry 94 93 95 05/08/21 23:40 05/08/21 23:48 05/09/21 03:51 Temperature 36.6 C 36.1 C L Pulse Rate 63 94 Respiratory Rate 20 224 H Blood Pressure 108/54 L 114/60 Pulse Oximetry 95 93 92 05/09/21 08:34 Temperature 36.2 C L Pulse Rate 64 Respiratory Rate 18 Blood Pressure 147/67 H Pulse Oximetry 95 Intake/Output Intake/Output: Intake & Output 05/06/21 05/07/21 05/08/21 05/09/21 23:59 23:59 23:59 23:59 Intake Total 155 1015 430 Output Total 2850 1000 1200 Balance -2695 15 -770 Meds/Results Medications: Active Medications Generic Name Dose Route Start Last Admin Trade Name Freq PRN Reason Stop Dose Admin Acetaminophen 650 mg 05/06/21 16:57 Acetaminophen 325 Mg Tablet PO Q4H PRN Mild Pain (1-3) or Fever Hydrocodone Bitart/Acetaminophen 1 tab 05/06/21 16:57 Hydrocodone/Acetaminophen (*Crx) 5-325 Mg Tablet PO Q4H PRN Pain Rated 4-6 Buspirone HCl 15 mg 05/07/21 20:45 05/09/21 08:52 Buspirone Hcl 5 Mg Tablet PO 15 mg TID [facility] Ad
[2021-05-09 11:30] LABS: Glucose Point of Care 201 mg/dl (65-105)
[2021-05-09] MEDS: INSULIN ASPART (*BKC) 100 UNITS/ML SUB-Q (12:24)
[2021-05-09] MEDS: IRON SUCROSE COMPLEX 100 MG in SODIUM CHLORIDE 0.9% IV 50 ML 220 MG IVPB (12:35)
[2021-05-09 16:27] LABS: Glucose Point of Care 126 mg/dl (65-105)
[2021-05-09] MEDS: WARFARIN (*PBKC) 7.5 MG TABLET PO (17:02)
[2021-05-09 17:04] VITALS: BP 138/74; PULSE 84; RESP 18; TEMP 36.2; O2SAT 93
[2021-05-09 19:53] VITALS: O2SAT 93
[2021-05-09 20:52] LABS: Glucose Point of Care 138 mg/dl (65-105)
[2021-05-09 21:22] VITALS: BP 105/77; PULSE 61; RESP 22; TEMP 36.2; O2SAT 93
[2021-05-09 21:30] VITALS: PULSE 69; O2SAT 94
[2021-05-10] VITALS (8 sets, daily range): BP systolic 119–145; BP diastolic 54–99; PULSE 66–93; RESP 22–24; TEMP 35.8–36.2; O2SAT 95–98
[2021-05-10 05:44] LABS: Basophils Percent Auto 0.2 % (0.2-1.2); Eosinophils Absolute Auto 0.1 K/mm3 (0-0.3); Eosinophils Percent Auto 0.6 % (0-4.4); Hematocrit 33.7 % (42.0-52.0); Hemoglobin 9.5 g/dL (14.0-18.0); Immature Granulocyte Absolute 0.08 K/mm3 (0.00-0.031); Immature Granulocyte Percent A 0.7 % (0-0.5); Lymphocytes Absolute Auto 0.61 K/mm3 (0.9-3.2); Lymphocytes Percent Auto 5.3 % (18.3-44.2); Mean Corpuscular HGB Conc 28.2 g/dl (32-36); Mean Corpuscular Hemoglobin 22.1 pg (26-34); Mean Corpuscular Volume 78.6 fl (80-100); Mean Platelet Volume 10.2 fl (7.4-10.4); Monocytes Absolute Auto 1.3 K/mm3 (0.1-0.6); Monocytes Percent Auto 11.4 % (2.6-8.5); Neutrophils Absolute Auto 9.5 K/mm3 (1.3-6.7); Neutrophils Percent Auto 81.8 % (45.5-73.1); Platelet Count Result 253 k/mm3 (150-375); Red Blood Count 4.29 M/mm3 (4.6-6.20); Red Cell Distribution Width 19.3 % (11.5-14.5); White Blood Count 11.5 K/mm3 (4.5-10.0)
[2021-05-10 05:48] LABS: INR 2.2; Prothrombin Time 24.1 Seconds (11.1-14.7)
[2021-05-10 07:48] LABS: Anisocytosis 2+ (NORMAL); Hypochromasia 2+ (NORMAL); Microcytosis 1+ (NORMAL); Platelet Estimate Adequate (Adequate)
[2021-05-10 08:23] LABS: Glucose Point of Care 84 mg/dl (65-105)
[2021-05-10] MEDS: METOPROLOL SUCCINATE EXT REL 25 MG TABCR BY MOUTH (08:55)
[2021-05-10] MEDS: PRAVASTATIN SODIUM 20 MG TABLET BY MOUTH (08:55)
[2021-05-10] MEDS: SERTRALINE HCL 50 MG TABLET BY MOUTH ×2 (08:55→16:57)
[2021-05-10] MEDS: busPIRone HCL 5 MG TABLET 15 MG PO ×3 (08:55→16:56)
[2021-05-10] MEDS: TAMSULOSIN HCL 0.4 MG CAPSULE PO (08:55)
[2021-05-10] MEDS: FUROSEMIDE INJ 40 MG/4 ML VIAL IV PUSH ×2 (08:55→16:57)
[2021-05-10] MEDS: lisinopriL 10 MG TABLET PO (08:55)
[2021-05-10] MEDS: IRON SUCROSE COMPLEX 100 MG in SODIUM CHLORIDE 0.9% IV 50 ML 220 MG IVPB (08:55)
--- NOTE | 2021-05-10 09:31 | PM.PNPUL ---
Progress Note: A&P Assessment and Plan (1) Acute and chronic respiratory failure with hypercapnia: Code(s): J96.22 - Acute and chronic respiratory failure with hypercapnia Status: Acute Assessment and Plan: Patient with history of morbid obesity, Atrial fibrillation, sleep disordered breathing, on no treatment presented with shortness of breath and lower extremity edema. Respiratory status significantly improved following treatment with BiPAP support and diuretics. patient refuses BiPAP support. I had a discussion with the patient regarding a repeat sleep study with CPAP titration. The patient was not keen about having this sleep study but needed time to decide.He may consider Auto CPAP treatment without new sleep study. I have discontinued the IV lasix ? creatinine higher. Consider po Lasix starting on 05/11. (2) Obesity hypoventilation syndrome: Code(s): E66.2 - Morbid (severe) obesity with alveolar hypoventilation Status: Acute (3) Diastolic heart failure: Qualifiers: Heart failure chronicity: unspecified Qualified Code(s): I50.30 - Unspecified diastolic (congestive) heart failure Code(s): I50.30 - Unspecified diastolic (congestive) heart failure Status: Acute (4) Atrial fibrillation: Qualifiers: Atrial fibrillation type: unspecified chronic Qualified Code(s): I48.20 - Chronic atrial fibrillation, unspecified Code(s): I48.91 - Unspecified atrial fibrillation Status: Acute Subjective Date/time seen: 05/10/21 09:31 Patient has no new respiratory symptoms. He stated he slept well last night on just supplemental oxygen. Currently out of bed in chair having breakfast. Fully alert cooperative. Review of Systems Review of Systems: All systems reviewed & are unremarkable except as noted in HPI and below Exam Narrative: GENERAL APPEARANCE: Well developed, well nourished, alert and cooperative, morbidly obese man who appears in mild respiratory distress while on supplemental oxygen via nasal cannula. HEENT: Sclerae anicteric and conjunctivae pink and moist. Extraocular movements were intact and pupils were equal, round. NECK: Supple. There was no thyroid enlargement, and no tenderness, or masses were felt. LUNGS: Auscultation of the lungs revealed Crackles at bases posteriorly no wheezing CARDIAC: There was a regular rate and rhythm without any murmurs, gallops, rubs. ABDOMEN: Soft and nontender with normal bowel sounds. LYMPH NODES: No lymphadenopathy was appreciated in the neck. EXTREMITIES: No cyanosis, clubbing 2+ pedal edema. NEUROLOGIC: Alert and oriented x 3. Normal affect. Objective Data Vital Signs Vital Signs: Vital Signs - 24 hr 05/09/21 17:04 05/09/21 19:53 05/09/21 21:22 Temperature 36.2 C L 36.2 C L Pulse Rate 84 61 Respiratory Rate 18 22 H Blood Pressure 138/74 105/77 Pulse Oximetry 93 93 93 05/09/21 21:30 05/10/21 00:00 05/10/21 04:04 Temperature 35.8 C L 36.1 C L Pulse Rate 69 74 92 Respiratory Rate 22 H 22 H Blood Pressure 125/58 L 127/69 Pulse Oximetry 94 95 96 05/10/21 08:55 05/10/21 09:00 Temperature Pulse Rate 66 Respiratory Rate Blood Pressure Pulse Oximetry 96 Intake/Output Intake/Output: Intake & Output 05/07/21 05/08/21 05/09/21 05/10/21 23:59 23:59 23:59 23:59 Intake Total 155 1015 1085 770 Output Total 2850 1000 1750 600 Balance -2695 15 -665 170 Meds/Results Medications: Active Medications Generic Name Dose Route Start Last Admin Trade Name Freq PRN Reason Stop Dose Admin Acetaminophen 650 mg 05/06/21 16:57 Acetaminophen 325 Mg Tablet PO Q4H PRN Mild Pain (1-3) or Fever Hydrocodone Bitart/Acetaminophen 1 tab 05/06/21 16:57 Hydrocodone/Acetaminophen (*Crx) 5-325 Mg Tablet PO Q4H PRN Pain Rated 4-6 Buspirone HCl 15 mg 05/07/21 20:45 05/10/21 08:55 Buspirone Hcl 5 Mg Tablet PO 15 mg TID RODNEY Administration
--- NOTE | 2021-05-10 11:13 | PM.IMPN ---
Progress Note: A&P Assessment and Plan (1) Acute and chronic respiratory failure with hypercapnia: Code(s): J96.22 - Acute and chronic respiratory failure with hypercapnia Status: Acute Assessment and Plan: Continue BiPAP 28/02 with 40% FiO2. [facility] history of obstructive sleep apnea on previous testing done 3 years ago. Is not on any treatment for sleep disordered breathing. Apnea link. (2) Obesity hypoventilation syndrome: Code(s): E66.2 - Morbid (severe) obesity with alveolar hypoventilation Status: Acute Assessment and Plan: Continue BiPAP night. Home oxygen set up. (3) Chronic anticoagulation: Code(s): Z79.01 - halfway (current) use of anticoagulants Status: Acute Assessment and Plan: Patient is on chronic anticoagulation with Coumadin for atrial fibrillation. Currently INR is therapeutic at 2.1. Continue daily INR monitoring. Patient is currently rate control with daily metoprolol. (4) Complex sleep apnea syndrome: Code(s): G47.31 - Primary central sleep apnea Status: Inactive Assessment and Plan: Apnea link. Please evaluate for CPAP as an outpatient. Referral to Pulmonary for sleep study at discharge. (5) Benign prostatic hyperplasia with lower urinary tract symptoms: Qualifiers: Lower urinary tract symptom detail: urinary frequency Qualified Code(s): N40.1 - Benign prostatic hyperplasia with lower urinary tract symptoms; R35.0 - Frequency of micturition Code(s): N40.1 - Benign prostatic hyperplasia with lower urinary tract symptoms Status: Acute Assessment and Plan: No obstructive symptoms. Continue tamsulosin. (6) Type 2 diabetes mellitus without complication, without long-term current use of insulin: Code(s): E11.9 - Type 2 diabetes mellitus without complications Status: Acute Assessment and Plan: Fasting blood glucose was 98. Accu-Cheks are in the 88-201 range. (7) Iron deficiency anemia: Code(s): D50.9 - Iron deficiency anemia, unspecified Status: Acute Assessment and Plan: Microcytic hypochromic anemia, stable and well tolerated with hemoglobin of 10.1. Baseline hemoglobin in the 13-14 range a couple years ago. Iron stores are on the low side. We ordered daily Venofer 100 mg IV daily for 10 days. (8) Diastolic heart failure: Qualifiers: Heart failure chronicity: unspecified Qualified Code(s): I50.30 - Unspecified diastolic (congestive) heart failure Code(s): I50.30 - Unspecified diastolic (congestive) heart failure Status: Acute Assessment and Plan: Decrease Lasix to once a day Additional Plan 05/10/2021. Patient is feeling slightly better. Has few crackles at the left lung base. Will continue diuresis. If stays okay will discharge back to [facility] tomorrow morning. Subjective Date/time seen: 05/10/21 11:13 Patient was seen during the morning rounds today. Mild shortness of breath no chest pain. No abdominal pain, nausea, no vomiting. Mood stable. Review of Systems Review of Systems: All systems reviewed & are unremarkable except as noted in HPI and below ROS unobtainable: Yes unobtainable due to medical condition Constitutional: Constitutional: Reports as per HPI, Reports no additional constitutional complaints, Denies chills, Reports daytime sleepiness, Denies fever(s), Denies headache(s), Denies night sweats and Reports snoring Eyes: Eyes: Reports as per HPI and Denies blurry vision ENT: Reports system reviewed and no additional complaints, except as documented, Denies headache(s) and Denies epistaxis Cardiovascular: Cardiovascular: Reports as per HPI, Reports pedal edema, Reports dyspnea, Reports dyspnea on exertion and Reports orthopnea Respiratory: Respiratory: Reports as per HPI, Denies cough, Reports dyspnea, Reports dyspnea on exertion, Reports snoring and Denies wheezing Gastrointestinal: Ga
[2021-05-10 12:14] LABS: Glucose Point of Care 118 mg/dl (65-105)
--- NOTE | 2021-05-10 13:12 | PCRCNOTE ---
RN STATED PT D/C TO SNF.
[2021-05-10 16:48] LABS: Glucose Point of Care 131 mg/dl (65-105)
[2021-05-10] MEDS: WARFARIN (*PBKC) 7.5 MG TABLET PO (16:57)
[2021-05-10 21:41] LABS: Glucose Point of Care 157 mg/dl (65-105)
[2021-05-11] VITALS (8 sets, daily range): BP systolic 118–133; BP diastolic 74–84; PULSE 80–102; RESP 18–20; TEMP 36.1–36.7; O2SAT 90–96
[2021-05-11 05:40] LABS: INR 2.4; Prothrombin Time 25.7 Seconds (11.1-14.7)
--- NOTE | 2021-05-11 07:31 | PM.IMPN ---
Progress Note: A&P Assessment and Plan (1) Acute and chronic respiratory failure with hypercapnia: Code(s): J96.22 - Acute and chronic respiratory failure with hypercapnia Status: Acute Assessment and Plan: Continue BiPAP 28/02 with 40% FiO2. [facility] history of obstructive sleep apnea on previous testing done 3 years ago. Is not on any treatment for sleep disordered breathing. Apnea link. (2) Obesity hypoventilation syndrome: Code(s): E66.2 - Morbid (severe) obesity with alveolar hypoventilation Status: Acute Assessment and Plan: Continue BiPAP night. Home oxygen set up. (3) Chronic anticoagulation: Code(s): Z79.01 - senior living (current) use of anticoagulants Status: Acute Assessment and Plan: Patient is on chronic anticoagulation with Coumadin for atrial fibrillation. Currently INR is therapeutic at 2.1. Continue daily INR monitoring. Patient is currently rate control with daily metoprolol. (4) Complex sleep apnea syndrome: Code(s): G47.31 - Primary central sleep apnea Status: Inactive Assessment and Plan: Apnea link. Please evaluate for CPAP as an outpatient. Referral to Pulmonary for sleep study at discharge. (5) Benign prostatic hyperplasia with lower urinary tract symptoms: Qualifiers: Lower urinary tract symptom detail: urinary frequency Qualified Code(s): N40.1 - Benign prostatic hyperplasia with lower urinary tract symptoms; R35.0 - Frequency of micturition Code(s): N40.1 - Benign prostatic hyperplasia with lower urinary tract symptoms Status: Acute Assessment and Plan: No obstructive symptoms. Continue tamsulosin. (6) Type 2 diabetes mellitus without complication, without long-term current use of insulin: Code(s): E11.9 - Type 2 diabetes mellitus without complications Status: Acute Assessment and Plan: Fasting blood glucose was 98. Accu-Cheks are in the 88-201 range. (7) Iron deficiency anemia: Code(s): D50.9 - Iron deficiency anemia, unspecified Status: Acute Assessment and Plan: Microcytic hypochromic anemia, stable and well tolerated with hemoglobin of 10.1. Baseline hemoglobin in the 13-14 range a couple years ago. Iron stores are on the low side. We ordered daily Venofer 100 mg IV daily for 10 days. (8) Diastolic heart failure: Qualifiers: Heart failure chronicity: unspecified Qualified Code(s): I50.30 - Unspecified diastolic (congestive) heart failure Code(s): I50.30 - Unspecified diastolic (congestive) heart failure Status: Acute Assessment and Plan: Decrease Lasix to once a day Additional Plan 05/10/2021. Patient is feeling slightly better. Has few crackles at the left lung base. Will continue diuresis. If stays okay will discharge back to long term tomorrow morning. 05/11/2021 Patient still have crackles in the lungs and edema the lower extremity Plan is to continue with IV Lasix for today his stays okay will discharge in the morning. Subjective Date/time seen: 05/11/21 07:31 Patient was seen during the morning rounds today. Feeling slightly better. Decreased shortness of breath. No chest pain. No abdominal pain, no nausea, no vomiting. Mood stable. Review of Systems Review of Systems: All systems reviewed & are unremarkable except as noted in HPI and below ROS unobtainable: Yes unobtainable due to medical condition Constitutional: Constitutional: Reports as per HPI, Reports no additional constitutional complaints, Denies chills, Reports daytime sleepiness, Denies fever(s), Denies headache(s), Denies night sweats and Reports snoring Eyes: Eyes: Reports as per HPI and Denies blurry vision ENT: Reports system reviewed and no additional complaints, except as documented, Denies headache(s) and Denies epistaxis Cardiovascular: Cardiovascular: Reports as per HPI, Reports pedal edema, Reports dyspnea, Reports d
[2021-05-11 07:46] LABS: Glucose Point of Care 136 mg/dl (65-105)
[2021-05-11] MEDS: PRAVASTATIN SODIUM 20 MG TABLET BY MOUTH (08:55)
[2021-05-11] MEDS: SERTRALINE HCL 50 MG TABLET BY MOUTH ×2 (08:55→17:05)
[2021-05-11] MEDS: IRON SUCROSE COMPLEX 100 MG in SODIUM CHLORIDE 0.9% IV 50 ML 220 MG IVPB (08:55)
[2021-05-11] MEDS: METOPROLOL SUCCINATE EXT REL 25 MG TABCR BY MOUTH (08:55)
[2021-05-11] MEDS: TAMSULOSIN HCL 0.4 MG CAPSULE PO (08:55)
[2021-05-11] MEDS: busPIRone HCL 5 MG TABLET 15 MG PO ×3 (08:58→17:05)
[2021-05-11] MEDS: FUROSEMIDE INJ 40 MG/4 ML VIAL IV PUSH ×2 (08:58→17:05)
[2021-05-11] MEDS: POTASSIUM CHLORIDE 20 MEQ PACKET (FOR LIQUID) PO (08:58)
[2021-05-11] MEDS: lisinopriL 10 MG TABLET PO (08:58)
[2021-05-11 11:44] LABS: Glucose Point of Care 174 mg/dl (65-105)
[2021-05-11 16:52] LABS: Glucose Point of Care 157 mg/dl (65-105)
[2021-05-11] MEDS: WARFARIN (*PBKC) 7.5 MG TABLET PO (17:05)
[2021-05-11 21:39] LABS: Glucose Point of Care 140 mg/dl (65-105)
[2021-05-11] MEDS: SIMETHICONE 80 MG TAB.CHEW PO (23:32)
[2021-05-12 05:28] LABS: Anion Gap 4 mmol/L (8-16); Blood Urea Nitrogen 38 mg/dL (9-20); Calcium 8.2 mg/dL (8.4-10.2); Carbon Dioxide 34 mmol/L (22-30); Chloride 99 mmol/L (98-107); Estimated CRCL calculation 44 ml/min; Estimated Glomerular Filt Rate 32; Glucose 132 mg/dL (65-110); Potassium 4.9 mmol/L (3.4-5.0); Sodium 137 mmol/L (137-145)
[2021-05-12 05:30] LABS: INR 2.6; Prothrombin Time 27.4 Seconds (11.1-14.7)
[2021-05-12 06:00] VITALS: BP 140/75; PULSE 97; RESP 18; TEMP 36.6; O2SAT 95
[2021-05-12 07:48] LABS: Glucose Point of Care 121 mg/dl (65-105)
[2021-05-12] MEDS: POTASSIUM CHLORIDE 20 MEQ PACKET (FOR LIQUID) PO (08:08)
[2021-05-12] MEDS: FUROSEMIDE INJ 40 MG/4 ML VIAL IV PUSH ×2 (08:08→17:56)
[2021-05-12] MEDS: lisinopriL 10 MG TABLET PO (08:08)
[2021-05-12] MEDS: IRON SUCROSE COMPLEX 100 MG in SODIUM CHLORIDE 0.9% IV 50 ML 220 MG IVPB (08:08)
[2021-05-12 08:09] VITALS: PULSE 72
[2021-05-12] MEDS: PRAVASTATIN SODIUM 20 MG TABLET BY MOUTH (08:09)
[2021-05-12] MEDS: METOPROLOL SUCCINATE EXT REL 25 MG TABCR BY MOUTH (08:09)
[2021-05-12] MEDS: MAGNESIUM OXIDE 400 MG TABLET PO (08:09)
[2021-05-12] MEDS: busPIRone HCL 5 MG TABLET 15 MG PO ×3 (08:09→17:57)
[2021-05-12] MEDS: TAMSULOSIN HCL 0.4 MG CAPSULE PO (08:09)
[2021-05-12] MEDS: SERTRALINE HCL 50 MG TABLET BY MOUTH ×2 (08:10→17:56)
[2021-05-12 08:20] VITALS: O2SAT 95
[2021-05-12] MEDS: SIMETHICONE 80 MG TAB.CHEW PO (08:24)
--- NOTE | 2021-05-12 10:27 | PCOTNOTE ---
Spoke with hospitalist Melvin, who reports pt. is Activity as Tolerated , and will cancel current bedrest, up to commode orders
--- NOTE | 2021-05-12 10:39 | PM.IMPN ---
Progress Note: A&P Assessment and Plan (1) Acute and chronic respiratory failure with hypercapnia: Code(s): J96.22 - Acute and chronic respiratory failure with hypercapnia Status: Acute Assessment and Plan: Continue BiPAP 28/02 with 40% FiO2. [facility] history of obstructive sleep apnea on previous testing done 3 years ago. Is not on any treatment for sleep disordered breathing. Apnea link. (2) Obesity hypoventilation syndrome: Code(s): E66.2 - Morbid (severe) obesity with alveolar hypoventilation Status: Acute Assessment and Plan: Continue BiPAP night. Home oxygen set up. (3) Chronic anticoagulation: Code(s): Z79.01 - alf (current) use of anticoagulants Status: Acute Assessment and Plan: Patient is on chronic anticoagulation with Coumadin for atrial fibrillation. Currently INR is therapeutic at 2.1. Continue daily INR monitoring. Patient is currently rate control with daily metoprolol. (4) Complex sleep apnea syndrome: Code(s): G47.31 - Primary central sleep apnea Status: Inactive Assessment and Plan: Apnea link. Please evaluate for CPAP as an outpatient. Referral to Pulmonary for sleep study at discharge. (5) Benign prostatic hyperplasia with lower urinary tract symptoms: Qualifiers: Lower urinary tract symptom detail: urinary frequency Qualified Code(s): N40.1 - Benign prostatic hyperplasia with lower urinary tract symptoms; R35.0 - Frequency of micturition Code(s): N40.1 - Benign prostatic hyperplasia with lower urinary tract symptoms Status: Acute Assessment and Plan: No obstructive symptoms. Continue tamsulosin. (6) Type 2 diabetes mellitus without complication, without long-term current use of insulin: Code(s): E11.9 - Type 2 diabetes mellitus without complications Status: Acute Assessment and Plan: Fasting blood glucose was 98. Accu-Cheks are in the 88-201 range. (7) Iron deficiency anemia: Code(s): D50.9 - Iron deficiency anemia, unspecified Status: Acute Assessment and Plan: Microcytic hypochromic anemia, stable and well tolerated with hemoglobin of 10.1. Baseline hemoglobin in the 13-14 range a couple years ago. Iron stores are on the low side. We ordered daily Venofer 100 mg IV daily for 10 days. (8) Diastolic heart failure: Qualifiers: Heart failure chronicity: unspecified Qualified Code(s): I50.30 - Unspecified diastolic (congestive) heart failure Code(s): I50.30 - Unspecified diastolic (congestive) heart failure Status: Acute Assessment and Plan: Decrease Lasix to once a day Additional Plan 05/10/2021. Patient is feeling slightly better. Has few crackles at the left lung base. Will continue diuresis. If stays okay will discharge back to alf tomorrow morning. 05/11/2021 Patient still have crackles in the lungs and edema the lower extremity Plan is to continue with IV Lasix for today his stays okay will discharge in the morning. 05/12/2021 Patient is improving gradually and is feeling better now. Patient wants to go to alf. Will arrange alf, continue current treatment present time, activity as tolerated, physical therapy to see patient, discharged to alf when bed available. Subjective Date/time seen: 05/12/21 10:39 Patient was seen during the morning rounds today. Patient is feeling much better. Decreased shortness of breath, no chest pain. No abdominal pain, no vomiting, no nausea. Mood stable. Review of Systems Review of Systems: All systems reviewed & are unremarkable except as noted in HPI and below ROS unobtainable: Yes unobtainable due to medical condition Constitutional: Constitutional: Reports as per HPI, Reports no additional constitutional complaints, Denies chills, Reports daytime sleepiness, Denies fever(s), Denies headache(s), Denies night sweats and Reports sn
[2021-05-12 11:54] LABS: Glucose Point of Care 161 mg/dl (65-105)
--- NOTE | 2021-05-12 12:54 | PM.DS ---
DS: Admitting Diagnosis Discharge Date 05/12/2012 Admitting Diagnosis Acute respiratory failure with hypercapnia acute on chronic diastolic heart failure chronic anticoagulation Type 2 diabetes DS: Discharge Diagnosis Discharge Diagnosis (1) Acute and chronic respiratory failure with hypercapnia: Code(s): J96.22 - Acute and chronic respiratory failure with hypercapnia Status: Acute Assessment and Plan: Continue BiPAP 14/10 with 40% FiO2. [facility] history of obstructive sleep apnea on previous testing done 3 years ago. Is not on any treatment for sleep disordered breathing. Apnea link. (2) Obesity hypoventilation syndrome: Code(s): E66.2 - Morbid (severe) obesity with alveolar hypoventilation Status: Acute Assessment and Plan: Continue BiPAP night. Home oxygen set up. (3) Chronic anticoagulation: Code(s): Z79.01 - [facility] (current) use of anticoagulants Status: Acute Assessment and Plan: Patient is on chronic anticoagulation with Coumadin for atrial fibrillation. Currently INR is therapeutic at 2.1. Continue daily INR monitoring. Patient is currently rate control with daily metoprolol. (4) Complex sleep apnea syndrome: Code(s): G47.31 - Primary central sleep apnea Status: Inactive Assessment and Plan: Apnea link. Please evaluate for CPAP as an outpatient. Referral to Pulmonary for sleep study at discharge. (5) Benign prostatic hyperplasia with lower urinary tract symptoms: Qualifiers: Lower urinary tract symptom detail: urinary frequency Qualified Code(s): N40.1 - Benign prostatic hyperplasia with lower urinary tract symptoms; R35.0 - Frequency of micturition Code(s): N40.1 - Benign prostatic hyperplasia with lower urinary tract symptoms Status: Acute Assessment and Plan: No obstructive symptoms. Continue tamsulosin. (6) Type 2 diabetes mellitus without complication, without long-term current use of insulin: Code(s): E11.9 - Type 2 diabetes mellitus without complications Status: Acute Assessment and Plan: Fasting blood glucose was 98. Accu-Cheks are in the 88-201 range. (7) Iron deficiency anemia: Code(s): D50.9 - Iron deficiency anemia, unspecified Status: Acute Assessment and Plan: Microcytic hypochromic anemia, stable and well tolerated with hemoglobin of 10.1. Baseline hemoglobin in the 13-14 range a couple years ago. Iron stores are on the low side. We ordered daily Venofer 100 mg IV daily for 10 days. (8) Diastolic heart failure: Qualifiers: Heart failure chronicity: unspecified Qualified Code(s): I50.30 - Unspecified diastolic (congestive) heart failure Code(s): I50.30 - Unspecified diastolic (congestive) heart failure Status: Acute Assessment and Plan: Decrease Lasix to once a day DS: Summary Hospital Course Reason for hospitalization: Acute on chronic respiratory failure with hypercapnia Acute on chronic diastolic heart failure Chronic anticoagulation Type 2 diabetes Hospital Course: Patient is 81 years old male was admitted complained of having shortness of breath patient was found to have acute on chronic respiratory failure with hypercapnia. Patient also have diastolic heart failure have edema of the extremity. Patient was given diuresis and continued treatment for diabetes. Patient was given oxygen and continued on anticoagulation. Today patient is feeling better so patient discharged to longterm stable condition. Time spent discussing smoking cessation with patient: more than 10 minutes Status at Discharge Cognitive/behavioral status at discharge: Stable Functional status at discharge: independent ambulation Overall status at discharge: patient is back to baseline Time Spent with Patient Time attestation: Total time spent providing and/or coordinating discharge services: Time spent: Greater than 30 minutes
[2021-05-12 14:00] VITALS: BP 128/65; PULSE 87; RESP 22; TEMP 36.3; O2SAT 95
[2021-05-12 14:26] LABS: EDCOVIDSCREEN Negative (Negative)
--- NOTE | 2021-05-12 16:20 | PM.PNPUL ---
Progress Note: A&P Assessment and Plan (1) Acute and chronic respiratory failure with hypercapnia: Code(s): J96.22 - Acute and chronic respiratory failure with hypercapnia Status: Acute Assessment and Plan: Patient with history of morbid obesity, atrial fibrillation, sleep disordered breathing, on no treatment presented with shortness of breath and lower extremity edema. Respiratory status significantly improved following treatment with BiPAP support and diuretics. He initially refused BiPAP support. He did use it while he was here, and after a discussion with the patient regarding using bipap at discharge, he is agreeable to this. Basedo n his ABG, he is a candidate for NPPV. THe decision regarding NPPV vs BiPAP will depned on where he is going at discharge as some facilities can cover NPPV and others do not. (2) Obesity hypoventilation syndrome: Code(s): E66.2 - Morbid (severe) obesity with alveolar hypoventilation Status: Acute Assessment and Plan: He meets criteria for this, BMI 48, pCO2 > 55, althoug he does have other diagnoses that may contribute. He has dCHF however had high CO2 before the dCHF developed. (3) Diastolic heart failure: Qualifiers: Heart failure chronicity: unspecified Qualified Code(s): I50.30 - Unspecified diastolic (congestive) heart failure Code(s): I50.30 - Unspecified diastolic (congestive) heart failure Status: Acute Assessment and Plan: defer to medical team (4) Atrial fibrillation: Qualifiers: Atrial fibrillation type: unspecified chronic Qualified Code(s): I48.20 - Chronic atrial fibrillation, unspecified Code(s): I48.91 - Unspecified atrial fibrillation Status: Acute Assessment and Plan: contrilled rate Subjective Date/time seen: 05/12/21 16:20 Rommel Bran is an 81 year old man who is seen in follow up for acute on chronic respiratory failure, was living at home, will be discharged to [facility] which is a [place] facility in [place]. He is starting a new prescription for supplemental O2. He is not able to return to his home with his at this point because he is in worse condition. He has morbid obesity, atrial fibrillation, sleep disordered breathing, on no treatment for his apnea. He was admitted with shortness of breath and lower extremity edema. Respiratory status significantly improved following treatment with BiPAP support and diuretics. He says that he has been wearing BiPAP since admission. Respiratory therapy notes indicate that he used BiPAP 14/10 with a rate of 12 and 35% with sleep and tolerated this well. He was not using O2 at home prior to this admission, however he will be discharged on O2 at rest and exertion. He is not walking although his RN says that he is not making much effort to walk. He had 2 prior sleep studies, one in 2011 and 2017. In 2018, he had central apneas predominantly, and was recommended to have an ASV titraiton. THis can only be performed in a sleep lab. Since he does not want to have an in-lab study, BiPAP is the next best thing. Review of Systems Review of Systems: He is short of breath, does not feel that he is quite back to his baseline. Exam Narrative: GENERAL APPEARANCE: Well developed, well nourished, alert and cooperative, morbidly obese man who appears in mild respiratory distress while on supplemental oxygen via nasal cannula. On 3 L/min his saturation is 90-95%. LUNGS: Auscultation of the lungs revealed Crackles at bases posteriorly no wheezing CARDIAC: There was a regular rate and rhythm without any murmurs, gallops, rubs. ABDOMEN: Soft and nontender with normal bowel sound
[2021-05-12 17:11] LABS: Glucose Point of Care 103 mg/dl (65-105)
[2021-05-12] MEDS: WARFARIN (*PBKC) 7.5 MG TABLET PO (17:56)
[2021-05-12 20:00] VITALS: O2SAT 95
[2021-05-12 20:58] LABS: Glucose Point of Care 180 mg/dl (65-105)
[2021-05-12 21:32] VITALS: BP 138/89; PULSE 90; RESP 20; TEMP 36.8; O2SAT 97
[2021-05-13 04:40] VITALS: BP 114/63; PULSE 90; RESP 22; TEMP 36.6; O2SAT 97
[2021-05-13 05:52] LABS: INR 3.8; Prothrombin Time 36.2 Seconds (11.1-14.7)
[2021-05-13 07:39] LABS: Glucose Point of Care 122 mg/dl (65-105)
[2021-05-13] MEDS: busPIRone HCL 5 MG TABLET 15 MG PO (08:05)
[2021-05-13] MEDS: PRAVASTATIN SODIUM 20 MG TABLET BY MOUTH (08:05)
[2021-05-13] MEDS: IRON SUCROSE COMPLEX 100 MG in SODIUM CHLORIDE 0.9% IV 50 ML 220 MG IVPB (08:05)
[2021-05-13] MEDS: SERTRALINE HCL 50 MG TABLET BY MOUTH (08:05)
[2021-05-13] MEDS: METOPROLOL SUCCINATE EXT REL 25 MG TABCR BY MOUTH (08:05)
[2021-05-13] MEDS: lisinopriL 10 MG TABLET PO (08:06)
[2021-05-13] MEDS: MAGNESIUM OXIDE 400 MG TABLET PO (08:06)
[2021-05-13] MEDS: TAMSULOSIN HCL 0.4 MG CAPSULE PO (08:06)
[2021-05-13] MEDS: POTASSIUM CHLORIDE 20 MEQ PACKET (FOR LIQUID) PO (08:06)
[2021-05-13] MEDS: FUROSEMIDE INJ 40 MG/4 ML VIAL IV PUSH (08:07)
--- NOTE | 2021-05-13 08:21 | PCRCNOTE ---
Confirmed with Glass Silverer, Radhika, that bipap at [facility] has been arranged. Instructed Radhika to call Respiratory with any additional discharge needs.
[2021-05-13 11:47] LABS: Glucose Point of Care 153 mg/dl (65-105)
--- NOTE | 2021-05-13 12:26 | PCNWS ---
Weekly nutritional screen. Patient is tolerating current diet with adequate intake. No weight loss reported. No nutritional needs at this time.
== END 2021-05-13 13:00 | DRG 189 ==
LOC: ANHED 14:59 → ANHICU 20:43 → ANH2MED 05-12 12:54 → ANHICU 05-15 15:26 → ANHIMU 05-15 15:26
PROVIDERS: Emergency Medicine; Internal Medicine; Nurse Practitioner; Admitting Provider Family Medicine; Emergency Provider Emergency Medicine; PCP Internal Medicine; Visit Provider Internal Medicine
DX: J96.22 Acute and chronic respiratory failure with hypercapnia (principal); I50.33 Acute on chronic diastolic (congestive) heart failure; E66.2 Morbid (severe) obesity with alveolar hypoventilation; I48.20 Chronic atrial fibrillation, unspecified; Z68.43 Body mass index [BMI] 50.0-59.9, adult; I11.0 Hypertensive heart disease with heart failure; Z20.822 Contact with and (suspected) exposure to COVID-19; G47.31 Primary central sleep apnea; E78.2 Mixed hyperlipidemia; N40.1 Benign prostatic hyperplasia with lower urinary tract symptoms; R35.0 Frequency of micturition; E11.9 Type 2 diabetes mellitus without complications; D50.9 Iron deficiency anemia, unspecified; Z79.01 Long term (current) use of anticoagulants; Z79.84 Long term (current) use of oral hypoglycemic drugs; Z79.899 Other long term (current) drug therapy; Z87.891 Personal history of nicotine dependence
CPT/HCPCS: 36415; 36600; 70450; 71045; 71046; 71250; 80048; 80053; 82375; 82607; 82728; 82746; 82805; 82948; 83050; 83540; 83550; 83880; 84443; 84484; 85025; 85027; 85610; 85730; 87426; 87804; 93005; 93306; 94002; 94003; 94762; 96374; 97110; 97161; 97166; 97530; 97535; 99291; A9270; C9803; G0378; J1756; J1815; J1940; J2930; Q9957

== ENCOUNTER 2021-05-19 10:40 | Inpatient (IN) | payer MEDICARE, SELFPAY ==
[2021-05-19] VITALS (7 sets, daily range): BP systolic 98–146; BP diastolic 53–87; PULSE 96–121; RESP 19–28; TEMP 37.5; O2SAT 93–99
--- NOTE | ~2021-05-19 | CT_ITS ---
EXAMINATION: CT abdomen pelvis wo con EXAM DATE: 05/19/2021 12:48 INDICATION: Abdominal pain. TECHNIQUE: Spiral CT of the abdomen and pelvis was performed without contrast. Axial, coronal and s agittal images of the abdomen and pelvis were reviewed. The dose-length product (DLP) for this exami [place] was 1777.96 mGy-cm. The exposure was tailored according to patient size (auto mA exposure con trol), and iterative reconstruction (ASIR) was used as additional dose reduction technique. There is no prior study for comparison. FINDINGS: Bilateral lateral regions of subcutaneous fat, and portion of the left side of the abdomen unable to be imaged with wide [id number]. Portion of the descending colon was not imaged. There is cardiomegaly. Small pleural and pericardial effusions. Bibasilar subsegmental atelectasis. L iver, spleen, adrenal glands, pancreas are unremarkable. Mild bilateral renal atrophy. Johnson catheter within collapsed bladder. There is inflammation surrounding the bladder with wall thickening. Some i nflammation along the right renal pelvis, possible upper urinary tract infection. There are left johan l peripelvic cysts. Prostate unremarkable. There is mild sigmoid colonic diverticulosis. There is no adjacent inflammatory change to suggest diverticulitis. Normal appendix. No small bowel obstruction. No retroperitoneal or pelvic lymphadenopathy. Mild reactive right inguinal lymph node. Moderate-size d umbilical fat-containing hernia. There are no osteoblastic or osteolytic lesions identified. IMPRESSION: 1. Cystitis and possible right-sided upper urinary tract infection. Johnson in position. 2. Cardiomegaly. Small pleural and pericardial effusions. 3. Basilar subsegmental atelectasis. 4. Limitations from patient's body habitus. Reviewed, dictated and finalized at location A. EMBEDDED SOFTWARE ENGINEER IMPRESSION: 1. Cystitis and possible right-sided upper urinary tract infection. Johnson in p osition. 2. Cardiomegaly. Small pleural and pericardial effusions. 3. Basilar subsegmental atelectasis. 4. Limitations from patient's body habitus.
--- NOTE | ~2021-05-19 | XR_ITS ---
EXAMINATION: XR chest 1V portable DATE: 05/27/2021 06:13 INDICATION: Pneumonia TECHNIQUE: frontal view of the chest was obtained. COMPARISON: Chest radiograph dated 05/21/2021 FINDINGS: Persistent opacities in the left mid and lower lung zones. New bandlike opacity at the right midlung zone. No pneumothorax or right-sided pleural effusion. Small left pleural effusion not excludable. Mi ld cardiomegaly. Atherosclerotic aorta. IMPRESSION: 1. Persistent opacities in the left mid and lower lung zone which could represent atelectasis, pneumo edd, small pleural effusion or some combination thereof. 2. New bandlike opacity at the right midlung zone and favor atelectasis over pneumonia. 3. Cardiomegaly. Reviewed, dictated and finalized at location A. GER TRADE MARKETING IMPRESSION: 1. Persistent opacities in the left mid and lower lung zone which could represe nt atelectasis, pneumonia, small pleural effusion or some combination thereof. 2. New bandlike opacity at the right midlung zone and favor atelectasis over pn eumonia. 3. Cardiomegaly.
--- NOTE | ~2021-05-19 | XR_ITS ---
XR chest 1V portable DATE: 05/21/2021 06:15 INDICATION: Respiratory failure TECHNIQUE: Portable AP chest on 05/21/2021 at 0541 hours COMPARISON: 05/19/2021 portable AP chest at 1122 hours FINDINGS: Limited portable single AP examination with patient rotated to the left. Cardiomegaly. Aortic calcification. Bilateral primarily central and particularly lower lung zone infiltrates and/or atelectasis, increase d since 05/20/2021. Small pleural effusions are not excluded. No pneumothorax. Diffuse osteopenia. Extensive scoliosis and degenerative spurring of the thoracic spine. IMPRESSION: Patchy central and particularly lower lung zone infiltrates, increased since 05/19/2021. Di fferential diagnosis includes pulmonary edema as well as pneumonia. Reviewed, dictated and finalized at location A. PUMPING STATION HELPER IMPRESSION: Patchy central and particularly lower lung zone infiltrates, increa sed since 05/19/2021. Differential diagnosis includes pulmonary edema as well as pneumonia.
--- NOTE | ~2021-05-19 | XR_ITS ---
EXAMINATION: XR chest 1V portable EXAM DATE: 05/19/2021 11:25 INDICATION: Cough and fluid retention. TECHNIQUE: Portable AP frontal chest x-ray was obtained. Comparison is made to prior examination from 05/08/2021. FINDINGS: There is cardiomegaly. Small right, small to moderate left pleural effusions. Bibasilar salma ma or pneumonia. No pneumothorax. There are bony degenerative changes. There is aortic arterioscleros is. IMPRESSION: 1. Findings consistent with CHF exacerbation. 2. Pneumonia not excludable. Reviewed, dictated and finalized at location A. E CLEANER
--- NOTE | 2021-05-19 10:47 | ECG_ITS ---
Measurements Intervals [place] Rate: 110 P: FL: 0 QRS: 73 QRSD: 85 T: 17 QT: 298 QTc: 404 Interpretive Statements ATRIAL FIBRILLATION WITH RAPID VENTRICULAR RESPONSE INCOMPLETE RIGHT BUNDLE BRANCH BLOCK LOW QRS VOLTAGE IN PRECORDIAL LEADS BASELINE ARTIFACT- II, III, AVF, V1-V6 ABNORMAL ECG Electronically Signed On 05-19-2021 17:28:43 [employer] by Derek Phillips D.O.
[2021-05-19 11:23] LABS: Alveolar/Arterial O2 Gradient 68.3 mmHg; Base Excess ABG -0.4 mEq/l (+/-2.0); Fractional Inspired Oxygen 28 %; Oxygen Content ABG 14.3 %vol (16.0-22.0); Oxygen Saturation ABG 93.1 % (95.0-100.0); Oxyhemoglobin 90.5 % THb (90.0-100.0); PCO2 ABG 50.8 mmHg (35.0-45.0); PO2 ABG 71.4 mmHg (80.0-100.0); PO2 FiO2 Ratio Arterial Blood 2.55 %; Total Hemoglobin 11.2 g/dL (12.0-18.0); pH ABG 7.327 (7.350-7.450)
[2021-05-19 11:24] LABS: Device NASAL CANNULA; Site Drawn LEFT BRACHIAL
[2021-05-19 11:28] LABS: Basophils Percent Auto 0.1 % (0.2-1.2); Eosinophils Percent Auto 0.1 % (0-4.4); Hematocrit 34.4 % (42.0-52.0); Hemoglobin 9.9 g/dL (14.0-18.0); Immature Granulocyte Absolute 0.11 K/mm3 (0.00-0.031); Immature Granulocyte Percent A 0.7 % (0-0.5); Lymphocytes Absolute Auto 0.23 K/mm3 (0.9-3.2); Lymphocytes Percent Auto 1.5 % (18.3-44.2); Mean Corpuscular HGB Conc 28.8 g/dl (32-36); Mean Corpuscular Hemoglobin 22.3 pg (26-34); Mean Corpuscular Volume 77.5 fl (80-100); Mean Platelet Volume 11.1 fl (7.4-10.4); Monocytes Absolute Auto 0.9 K/mm3 (0.1-0.6); Monocytes Percent Auto 5.9 % (2.6-8.5); Neutrophils Absolute Auto 14.2 K/mm3 (1.3-6.7); Neutrophils Percent Auto 91.7 % (45.5-73.1); Nucleated Red Blood Cells Perc 0.1 % (0.0-0.2); Platelet Count Result 292 k/mm3 (150-375); Red Blood Count 4.44 M/mm3 (4.6-6.20); Red Cell Distribution Width 19.2 % (11.5-14.5); White Blood Count 15.5 K/mm3 (4.5-10.0)
[2021-05-19 11:38] LABS: INR 4.6; Prothrombin Time 42.2 Seconds (11.1-14.7)
[2021-05-19 11:39] LABS: Alanine Aminotransferase 23 U/L (4-50); Alkaline Phosphatase 92 U/L (38-126); Anion Gap 7 mmol/L (8-16); Aspartate Amino Transferase 27 U/L (17-59); Bilirubin,Total 0.4 mg/dL (0.2-1.3); Blood Urea Nitrogen 83 mg/dL (9-20); Calcium 8.5 mg/dL (8.4-10.2); Carbon Dioxide 31 mmol/L (22-30); Chloride 99 mmol/L (98-107); Estimated CRCL calculation 39 ml/min; Estimated Glomerular Filt Rate 32; Glucose 116 mg/dL (65-110); Lipase 59 U/L (23-300); Partial Thromboplastin Time 75.4 SECONDS (22.3-36.8); Potassium 5.3 mmol/L (3.4-5.0); Sodium 137 mmol/L (137-145)
[2021-05-19 11:40] LABS: Lactic Acid Reflex 1.1 mmol/L (0.7-2.1)
[2021-05-19 11:51] LABS: NT Pro B Type Natriuretic Pept 4350 pg/mL (5-100); Troponin I 0.018 ng/mL (0.000-0.034)
--- NOTE | 2021-05-19 12:00 | PC.NURSE ---
indwelling esparza removed with chunks noted to cath. new esparza placed with 1500 cc cloudy, thick, red tinged urine drained. at bedside.
[2021-05-19 12:11] LABS: Add Urine Microscopic? YES; Appearance Urine Turbid (Clear); Bilirubin Urine Negative (Negative); Blood Urine 3+ (Negative); Color Urine Yellow (Yellow); Glucose Urine UA Negative (Negative); Ketones Urine Negative (Negative); Leukocyte Esterase Ur 2+ LEU/UL (Negative); Nitrate Urine Negative (Negative); Protein Urine 2+ mg/dL (Negative); RBC Urine >75 /hpf (0-2); Squamous Epithelial Cell Urine Occasional /hpf (Few); Urobilinogen Urine Negative mg/dL (<2.0); WBC Urine >75 /hpf
[2021-05-19] MEDS: MORPHINE SULFATE (*CRX) 4 MG/ML INJ 2 MG IV PUSH (12:21)
--- NOTE | 2021-05-19 13:41 | ED.GENADULT ---
HPI - General Adult General Chief complaint: Shortness of Breath/Dyspnea Stated complaint: Altered Source: RN notes reviewed History of Present Illness HPI narrative: Patient presents emergency department from [facility] via EMS for shortness of breath. Per staff the patient was noted to be short of breath at facility and EMS was called the patient is normally on 2 L nasal cannula at all times and was noted to have an O2 saturation of 90 and was placed on nonrebreather that time patient states he has been having abdominal pain for the past day and a half and has a chronic indwelling Johnson he is unsure when it was last changed she denies any fevers or chills chest pain nausea vomiting diarrhea or any other Related Data Home Medications Medication Instructions Recorded Confirmed buspirone 15 mg PO TID 05/06/21 05/07/21 Allergies Allergy/AdvReac Type Severity Reaction Status Date / Time No Known Allergies Allergy Mild Verified 05/07/21 10:54 Review of Systems Review of Systems: Gen.: Denies fevers or chills ENT: Denies congestion Respiratory: Denies shortness of breath or cough CV: Denies chest pain or palpitations GI: Reports abdominal pain denies nausea vomiting diarrhea chronic indwelling Johnson Musculoskeletal: Denies back pain or muscle pain Neuro: Denies numbness, tingling, weakness or focal weakness Skin: Denies rash Except as documented, all other systems reviewed and negative [facility] Past Medical History Medical History Anxiety Atrial fibrillation Benign prostatic hyperplasia with lower urinary tract symptoms CHF (congestive heart failure) Echocardiogram December 2015: Difficult study with poor sonographic images demonstrate mild concentric left ventricular hypertrophy, diastolic dysfunction and increased left heart filling pressures based on elevated E/E. Ejection fraction 55-60%. Mild enlargement of left atrium Complex sleep apnea syndrome Polysomnogram 2018: Mild obstructive sleep apnea. Difficult titration with CPAP and then BiPAP without optimum pressure achieved with emergence of central sleep apnea noted during titration consistent with complex sleep apnea syndrome. ASV titration was recommended Depression Essential (primary) hypertension Mixed hyperlipidemia Type 2 diabetes mellitus without complication, without long-term current use of insulin Surgical History Surgical History History of cardiac catheterization (2011) Mild nonobstructive coronary artery disease with 40-50% stenosis of the mid LAD with preserved left ventricular systolic function with EF of 60 65% History of tonsillectomy Family History Family History Sibling Family history of heart disease in male family member before age 55 Father Acute myocardial infarction Other Diabetes mellitus Hypertension Social History Social History Social History: He lives with his of over 50 years. He is for the most part bedbound. He and his have 5 children. He does not drink alcohol. Primary care physician: Dr. Von Mayfield Code status: Full code Surrogate decision maker: Smoking packs per day: 2 Smoking cigarettes per day: 40.0 Years smoked: 24 Smoking pack-years: 48.00 Smoking status: Former smoker Second hand tobacco smoke exposure: No Smoking end date: 05/18/79 Alcohol intake: never Substance use: never Substance use type: does not use Gender identity (if verbalized by the patient): Male Spiritual care concerns: No Exam Narrative: APPEARANCE: No acute distress, nontoxic, resting in bed EYES: EOMI HEENT: Normocephalic, atraumatic, OMM RESPIRATORY: No respiratory distress crackles in bilateral lung bases CARDIOVASCULAR: Irregular irregular without murmurs rubs or gallop
[2021-05-19 16:50] LABS: Troponin I 0.029 ng/mL (0.000-0.034)
[2021-05-19 19:06] LABS: Troponin I 0.028 ng/mL (0.000-0.034)
[2021-05-20] VITALS (23 sets, daily range): BP systolic 68–129; BP diastolic 40–74; PULSE 80–116; RESP 20–33; TEMP 36–36.8; O2SAT 91–100; BMI 47.9
[2021-05-20 03:38] LABS: Glucose Point of Care 112 mg/dl (65-105)
--- NOTE | 2021-05-20 03:38 | PC.NURSE ---
RN to pt room when pt found to have systolic pressure in the 70's and O2 sat in the 80's. Pt placed on 2L non rebreather at this time, sats back up to mid 90's. Second IV placed. supervisor billposting and charge nurse at bedside. Waiting for hospitalist to arrive. Multiple RN's in room.
[2021-05-20] MEDS: SODIUM CHLORIDE 0.9% IV 1,000 ML 50 ML IV CONT (03:48)
--- NOTE | 2021-05-20 04:42 | PM.IMHP ---
H&P: HPI History of Present Illness Date/Time: 05/20/21 04:42 Chief Complaint: low oxygen staurations Narrative: 81-year-old male with a past medical history of central sleep apnea, atrial fibrillation, diastolic CHF, elevated right atrial pressures, hypertension and diabetes who presented to the ER from [facility] in [place] due to low oxygen saturations. The patient is on chronic home O2 of 2 L after his recent hospitalization in May 06 through the due to CHF and acute hypercapnic respiratory failure. The patient was satting 90% when EMS arrived to the facility. He was brought in on a non-rebreather. The patient was switched to 4 L nasal cannula. However as the night progressed he had episodes of hypoxia. It is unclear if the patient was using his BiPAP at the shelter. He was not receiving his BiPAP in the ER either as he was boarded due to since his. When I arrived in the patient's release at 100% on non-rebreather. He had coarse crackles and accessory muscle use. The patient had a frequent cough that sounded moist. His temperature on arrival to the ER was 99.5. Repeat temperature has not been documented since he arrived to the ER. The patient is NOT vaccinated against COVID-19 he was alert oriented to person place and date. However, he would mumble many answers in made history process difficult. And from what I can understand of what he was saying he was stated I do not know or was requesting water. The patient had a Johnson catheter in place when he arrived to the ER as he was discharged with the Johnson catheter during his last hospitalization. His the catheter was exchanged while in the ER. He has had at least 2.2 L of urine output overnight. His urine was noted to be cloudy thick and reddish brown in appearance. He was started on empiric antibiotic therapy with Rocephin and blood cultures were obtained. Around 1:00 a.m. the patient's blood pressures dropped as low as the 60s. The patient had not received any antihypertensive medications or diuretic therapy. He does have generalized edema which is pretty much his baseline. His x-ray was suggestive of CHF however given the patient's low-grade temperature, recent hospitalization and group living situation I requested the patient be COVID swab. The patient's COVID antigen testing was positive. I suspect the patient's x-ray findings are more due to COVID pneumonia. The patient placed on gentle IV fluid hydration and after an hour and half on in as at 50 mL an hour patient's blood pressures rebounded to 110 systolic. The patient was in AFib but for most part rate was in the low 100s. Review of Systems Review of Systems: patient is a poor historian and states I don't know when asked ROSRogerio [facility] Past Medical History Medical History (Updated 05/20/21 @ 07:15 by Arely Mobley DO) Anxiety Atrial fibrillation Benign prostatic hyperplasia with lower urinary tract symptoms CHF (congestive heart failure) Echocardiogram December 2015: Difficult study with poor sonographic images demonstrate mild concentric left ventricular hypertrophy, diastolic dysfunction and increased left heart filling pressures based on elevated E/E. Ejection fraction 55-60%. Mild enlargement of left atrium Complex sleep apnea syndrome Polysomnogram 2018: Mild obstructive sleep apnea. Difficult titration with CPAP and then BiPAP without optimum pressure achieved with emergence of central sleep apnea noted during titration consistent with complex sleep apnea syndrome. ASV titration was recommended Depression Essential (primary) hypertension Iron deficiency anemia Mixed hyperlipidemia Type 2 diabetes mellitus without complication, without long-term current use of insulin Surgical History Surgical History History of cardiac catheterization (2011) Mild nonobstructive coronary artery disease with 40-50% stenosis of the
[2021-05-20 04:47] LABS: Basophils Percent Auto 0.2 % (0.2-1.2); Eosinophils Percent Auto 0.3 % (0-4.4); Hematocrit 33.9 % (42.0-52.0); Hemoglobin 9.4 g/dL (14.0-18.0); Immature Granulocyte Percent A 0.9 % (0-0.5); Lymphocytes Absolute Auto 0.39 K/mm3 (0.9-3.2); Lymphocytes Percent Auto 3.7 % (18.3-44.2); Mean Corpuscular HGB Conc 27.7 g/dl (32-36); Mean Corpuscular Volume 79.2 fl (80-100); Mean Platelet Volume 11.2 fl (7.4-10.4); Monocytes Absolute Auto 0.8 K/mm3 (0.1-0.6); Monocytes Percent Auto 7.9 % (2.6-8.5); Neutrophils Absolute Auto 9.2 K/mm3 (1.3-6.7); Platelet Count Result 301 k/mm3 (150-375); Red Blood Count 4.28 M/mm3 (4.6-6.20); Red Cell Distribution Width 19.4 % (11.5-14.5); White Blood Count 10.6 K/mm3 (4.5-10.0)
[2021-05-20 04:55] LABS: EDCOVIDSCREEN Positive (Negative)
[2021-05-20 05:31] LABS: INR 3.8; Prothrombin Time 36.3 Seconds (11.1-14.7)
[2021-05-20 05:39] LABS: Ovalocytes 1+ (NORMAL); Platelet Estimate Adequate (Adequate)
[2021-05-20 05:40] LABS: Anisocytosis 2+ (NORMAL)
[2021-05-20 05:51] LABS: Alanine Aminotransferase 25 U/L (4-50); Alkaline Phosphatase 82 U/L (38-126); Anion Gap 6 mmol/L (8-16); Aspartate Amino Transferase 33 U/L (17-59); Bilirubin,Total 0.3 mg/dL (0.2-1.3); Blood Urea Nitrogen 96 mg/dL (9-20); Calcium 8.4 mg/dL (8.4-10.2); Carbon Dioxide 31 mmol/L (22-30); Chloride 99 mmol/L (98-107); Estimated CRCL calculation 41 ml/min; Estimated Glomerular Filt Rate 34; Glucose 111 mg/dL (65-110); Potassium 5.4 mmol/L (3.4-5.0); Sodium 136 mmol/L (137-145)
[2021-05-20] MEDS: REMDESIVIR 200 MG/NS 250 ML 200 MG/250 ML BAG 250 MG IVPB (07:42)
--- NOTE | 2021-05-20 08:24 | PC.NURSE ---
Hospitalist contacted regarding patient vitals. 500ml LR bolus ordered.
[2021-05-20] MEDS: IPRATROPIUM BR 0.02% INH SOLN 0.5 MG/2.5 ML VIAL INHALATION ×3 (08:46→21:35)
--- NOTE | 2021-05-20 08:54 | PM.IMPN ---
Progress Note: A&P Assessment and Plan (1) Sepsis: Qualifiers: Acute renal failure type: unspecified Sepsis acute organ dysfunction status: with acute organ dysfunction Sepsis type: sepsis due to unspecified organism Severe sepsis acute organ dysfunction type: acute renal failure Severe sepsis shock status: without septic shock Qualified Code(s): A41.9 - Sepsis, unspecified organism; R65.20 - Severe sepsis without septic shock; N17.9 - Acute kidney failure, unspecified Code(s): A41.9 - Sepsis, unspecified organism Status: Acute Assessment and Plan: Likely multifactorial in the setting of sepsis, COVID pneumonia. (2) Acute UTI: Code(s): N39.0 - Urinary tract infection, site not specified Status: Acute Assessment and Plan: Curled triggers have been sent and pending at the time of this dictation. Patient was started on Rocephin. (3) Pneumonia due to COVID-19 virus: Code(s): U07.1 - COVID-19; J12.82 - Pneumonia due to coronavirus disease 2018 Status: Acute Assessment and Plan: Patient presented with acute on chronic respiratory failure. He was diagnosed with COVID-19 pneumonia and appropriately started on remdesivir steroid. Due to comorbidities 6, including for possible obstructive sleep apnea, acute on chronic respiratory failure [facility] has been consulted. Patient is currently saturating 95% on BiPAP at 16/10. (4) Acute renal insufficiency: Code(s): N28.9 - Disorder of kidney and ureter, unspecified Status: Acute Assessment and Plan: Acute nonoliguric kidney injury, likely prerenal versus ischemic ATN in the setting of hypotension, sepsis and COVID-19 pneumonia. Baseline creatinine .1-1.3. (5) Sleep apnea: Qualifiers: Sleep apnea type: obstructive Qualified Code(s): G47.33 - Obstructive sleep apnea (adult) (pediatric) Code(s): G47.30 - Sleep apnea, unspecified Status: Acute Assessment and Plan: Apnea link. Sleep study as an outpatient. (6) Type 2 diabetes mellitus without complication, without long-term current use of insulin: Code(s): E11.9 - Type 2 diabetes mellitus without complications Status: Acute Assessment and Plan: Monitor Accu-Chek every 6 hours. Continue insulin sliding scale coverage. (7) Supratherapeutic INR: Code(s): R79.1 - Abnormal coagulation profile Status: Acute (8) CHF (congestive heart failure): Qualifiers: Heart failure chronicity: chronic Heart failure type: unspecified Qualified Code(s): I50.9 - Heart failure, unspecified Code(s): I50.9 - Heart failure, unspecified Status: Acute Assessment and Plan: Currently patient is symptomatic with worsening respiratory status, and congestion on chest x-ray. He would benefit from diarrhea S is. However patient is hypotensive; will attempt cautious diuresis when he improved hemodynamically. Additional Plan The patient has sepsis that is likely multifactorial. Patient has Johnson catheter with a UA that is suggestive of UTI. He has been placed on empiric antibiotic therapy with Rocephin. Urine cultures and blood cultures are pending. Given the patient's respiratory symptoms in his recent healthcare exposures and the fact that he is not vaccinated against COVID-19 left him at higher risk for COVID infection. Subsequently COVID antigen testing was completed and was positive. Patient has subsequently been placed on isolation. Will start therapy with Decadron, Remdesivir and baricitinib. Will also place patient on nebulizer treatments with Xopenex and Atrovent. The patient does have acute renal insufficiency a suspect due to his sepsis. Will continue gentle IV fluid hydration. There may have been some component of urinary retention with obstructing the patient's Johnson catheter as he had 2.2 L of urine output after his catheter was exchanged in the ER. Will monitor urine output silvia
[2021-05-20] MEDS: LACTATED RINGERS 500 ML 999 ML IV CONT (08:55)
[2021-05-20] MEDS: BARICITINIB 2 MG TABLET PO (09:04)
--- NOTE | 2021-05-20 11:54 | P.CDI_ITS ---
CDI Query Clarification Request -UTI has been documented -Chronic indwelling esparza catheter has been documented Please clarify if UTI is: * Due to /associated with chronic indwelling catheter * Not due to/associated with chronic indwelling catheter * Unable to determine
--- NOTE | 2021-05-20 11:54 | WPDCDIQUERY2 ---
CDI Query Clarification Request -UTI has been documented -Chronic indwelling esparza catheter has been documented Please clarify if UTI is: Due to /associated with chronic indwelling catheter Not due to/associated with chronic indwelling catheter Unable to determine
[2021-05-20 17:50] LABS: Glucose Point of Care 94 mg/dl (65-105)
--- NOTE | 2021-05-20 18:00 | ADMGEN ---
This patient, Rommel Bran, was admitted to IMU Room 209-. Patient/family oriented to hospital policies and general routines including ID bracelet, bed and alarms, visiting hours, pain management, procedures, bathroom and other care routines, personal items, smoking policy, room service/diet, and visiting hours. Information on how to activate the Rapid Response Team has been discussed. Patient/Family are encouraged to report perceived risks to care and to ask questions if they do not understand what they are told or what they should do.
[2021-05-20 21:11] LABS: Glucose Point of Care 83 mg/dl (65-105)
[2021-05-21] VITALS (22 sets, daily range): BP systolic 106–130; BP diastolic 53–90; PULSE 87–109; RESP 18–22; TEMP 36.4–36.8; O2SAT 90–96
[2021-05-21] MEDS: IPRATROPIUM BR 0.02% INH SOLN 0.5 MG/2.5 ML VIAL INHALATION ×3 (03:25→20:40)
[2021-05-21 06:34] LABS: Hematocrit 32.9 % (42.0-52.0); Hemoglobin 9.2 g/dL (14.0-18.0); Mean Corpuscular Hemoglobin 21.7 pg (26-34); Mean Corpuscular Volume 77.8 fl (80-100); Mean Platelet Volume 10.6 fl (7.4-10.4); Platelet Count Result 313 k/mm3 (150-375); Red Blood Count 4.23 M/mm3 (4.6-6.20); White Blood Count 9.2 K/mm3 (4.5-10.0)
[2021-05-21 06:35] LABS: INR 3.8; Prothrombin Time 36.6 Seconds (11.1-14.7)
[2021-05-21 06:36] LABS: Alanine Aminotransferase 38 U/L (4-50); Estimated CRCL calculation 58 ml/min; Estimated Glomerular Filt Rate 45
[2021-05-21 07:49] LABS: Anion Gap 7 mmol/L (8-16); Blood Urea Nitrogen 90 mg/dL (9-20); Calcium 8.4 mg/dL (8.4-10.2); Carbon Dioxide 31 mmol/L (22-30); Chloride 100 mmol/L (98-107); Estimated CRCL calculation 55 ml/min; Estimated Glomerular Filt Rate 42; Glucose 104 mg/dL (65-110); Potassium 4.7 mmol/L (3.4-5.0); Sodium 138 mmol/L (137-145)
[2021-05-21 08:41] LABS: Aspartate Amino Transferase 89 U/L (17-59)
--- NOTE | 2021-05-21 09:06 | PCWOUND ---
WOCN NOTE wound photo taken on 05-21-2021 has the wrong patient retail loss prevention investigator it. the photo is the correct patient of Rommel Bran.
[2021-05-21] MEDS: BARICITINIB 2 MG TABLET PO (09:30)
[2021-05-21] MEDS: REMDESIVIR 100 MG/NS 250 ML 100 MG/250 ML BAG 250 MG IVPB (11:30)
--- NOTE | 2021-05-21 13:43 | PM.IMPN ---
Progress Note: A&P Assessment and Plan (1) Pneumonia due to COVID-19 virus: Code(s): U07.1 - COVID-19; J12.82 - Pneumonia due to coronavirus disease 2018 Status: Acute (2) Supratherapeutic INR: Code(s): R79.1 - Abnormal coagulation profile Status: Acute (3) Sepsis: Qualifiers: Acute renal failure type: unspecified Sepsis acute organ dysfunction status: with acute organ dysfunction Sepsis type: sepsis due to unspecified organism Severe sepsis acute organ dysfunction type: acute renal failure Severe sepsis shock status: without septic shock Qualified Code(s): A41.9 - Sepsis, unspecified organism; R65.20 - Severe sepsis without septic shock; N17.9 - Acute kidney failure, unspecified Code(s): A41.9 - Sepsis, unspecified organism Status: Acute (4) CHF (congestive heart failure): Qualifiers: Heart failure chronicity: chronic Heart failure type: unspecified Qualified Code(s): I50.9 - Heart failure, unspecified Code(s): I50.9 - Heart failure, unspecified Status: Acute (5) Acute UTI: Code(s): N39.0 - Urinary tract infection, site not specified Status: Acute (6) Acute renal insufficiency: Code(s): N28.9 - Disorder of kidney and ureter, unspecified Status: Acute (7) Sleep apnea: Qualifiers: Sleep apnea type: obstructive Qualified Code(s): G47.33 - Obstructive sleep apnea (adult) (pediatric) Code(s): G47.30 - Sleep apnea, unspecified Status: Acute Additional Plan # COVID-19 pneumonia # acute hypercapnic and hypoxic respiratory failure -diagnosed positive 05/20/2021 -keep oxygen saturation greater than 90%, up to 7 L oxygen by high-flow nasal cannula, with his hypercarbia and acidosis he will benefit from BiPAP as needed when sleeping. BiPAP is essentially on always other than when eating meals -treatment: Continue baricitinib renal dose, remdesivir -DuoNebs -bowel regimen: P.r.n. Dulcolax, Mag citrate # supratherapeutic INR -holding home warfarin, home regimen is warfarin 1 mg Thursday and 2 mg other days # persistent atrial fibrillation -holding anticoagulation warfarin because of elevated INR # urinary tract infection secondary to indwelling Johnson present on admission -patient was recently discharged with Johnson catheter after fluid overload hospitalization, now presenting with urinary tract infection from Johnson catheter -antibiotic: Continue Rocephin, will have extended course for catheter-related infection -on Flomax # acute kidney injury -IV fluids given # chronic conditions -hyperlipidemia: Continue Lipitor -anxiety/depression: Continue home BuSpar 15 mg t.i.d., sertraline -BPH: Flomax Diet: Cardiac diabetic diet DVT prophylaxis: Supratherapeutic INR, SCDs Code status: Do not resuscitate Disposition: Pending clinical course, continue in IMU with p.r.n. BiPAP Subjective Date/time seen: 05/21/21 13:43 Patient seen and examined. Patient is on BiPAP for somnolence and hypercapnia. He is doing much better. PH is normalizing. Patient to use BiPAP whenever sleeping and overnight. Otherwise he is on 7 L high-flow oxygen, continue COVID-19 treatment. We are also treating his urinary tract infection. Likely had urinary tract infection secondary to indwelling Johnson catheter present on admission. His supratherapeutic INRs being trended. IV fluids for prerenal azotemia. Nurse states patient is tolerating p.o. diet very well. BiPAP is only for as needed when sleeping. Patient denies fever, chills, nausea vomiting, diarrhea. He feels comfortable on the BiPAP. Review of Systems Review of Systems: Somnolent this morning, more alert in the afternoon on re-evaluation All systems reviewed & are unremarkable except as noted in HPI and below Exam Narrative: - GENERAL: Morbidly obese male chronically ill-appearing breathing comfortably with BiPAP - EYES: EOMI. Anicteric. -
--- NOTE | 2021-05-21 13:47 | PCRCNOTE ---
Window of time for administration has passed. See next scheduled administration.
[2021-05-21 15:25] LABS: Lymphocytes Absolute Manual 0.55 K/mm3 (1.1-4.5); Monocytes Absolute Manual 0.55 K/mm3 (0.1-0.90); Monocytes Percent Manual 6 % (3-9); Neutrophils Percent Manual 88 % (46-73); Platelet Estimate Adequate (Adequate); Total Cells Counted 100
[2021-05-21 15:26] LABS: Anisocytosis 2+ (NORMAL); Hypochromasia 1+ (NORMAL)
[2021-05-21] MEDS: ATORVASTATIN 20 MG TABLET PO (18:39)
[2021-05-21] MEDS: busPIRone HCL 10 MG TABLET PO (18:39)
[2021-05-21] MEDS: busPIRone HCL 5 MG TABLET PO (18:40)
[2021-05-21] MEDS: TAMSULOSIN HCL 0.4 MG CAPSULE PO (18:40)
[2021-05-21 20:29] LABS: Glucose Point of Care 116 mg/dl (65-105)
[2021-05-21] MEDS: SERTRALINE HCL 50 MG TABLET PO (20:52)
[2021-05-22] VITALS (22 sets, daily range): BP systolic 100–125; BP diastolic 43–86; PULSE 79–110; RESP 16–26; TEMP 36.4–36.8; O2SAT 91–98; BMI 10.0; BMI 47.3
[2021-05-22] MEDS: IPRATROPIUM BR 0.02% INH SOLN 0.5 MG/2.5 ML VIAL INHALATION ×3 (02:32→22:19)
[2021-05-22 05:45] LABS: Alveolar/Arterial O2 Gradient 158.3 mmHg; Base Excess ABG 4.9 mEq/l (+/-2.0); Carboxyhemoglobin 0.6 % THb (0-2.0); Device BIPAP; Fractional Inspired Oxygen 40 %; HCO3 ABG 30.6 mEq/l (22.0-26.0); Methemoglobin ABG 0.3 %THb (0-1.5); Modified Allen's Test Pass; Oxygen Content ABG 12.6 %vol (16.0-22.0); Oxygen Saturation ABG 92.9 % (95.0-100.0); Oxyhemoglobin 92.7 % THb (90.0-100.0); PCO2 ABG 51.9 mmHg (35.0-45.0); PO2 ABG 67.2 mmHg (80.0-100.0); PO2 FiO2 Ratio Arterial Blood 1.68 %; Reduced Hemoglobin 6.4 %THb (0-5.0); Site Drawn RIGHT RADIAL; Total Hemoglobin 9.6 g/dL (12.0-18.0); pH ABG 7.389 (7.350-7.450)
[2021-05-22 05:46] LABS: Expiratory Pressure 10 cmH2O; Inspiratory Pressure 16 cmH2O
[2021-05-22 07:13] LABS: Alanine Aminotransferase 39 U/L (4-50); Albumin Level 2.7 g/dL (3.5-5.1); Alkaline Phosphatase 72 U/L (38-126); Anion Gap 4 mmol/L (8-16); Aspartate Amino Transferase 64 U/L (17-59); Bilirubin,Total 0.2 mg/dL (0.2-1.3); Blood Urea Nitrogen 70 mg/dL (9-20); Calcium 8.1 mg/dL (8.4-10.2); Carbon Dioxide 29 mmol/L (22-30); Chloride 104 mmol/L (98-107); Estimated CRCL calculation 72 ml/min; Estimated Glomerular Filt Rate 58; Glucose 98 mg/dL (65-110); Potassium 4.7 mmol/L (3.4-5.0); Sodium 137 mmol/L (137-145)
[2021-05-22 07:15] LABS: Basophils Percent Auto 0.1 % (0.2-1.2); Eosinophils Percent Auto 0.5 % (0-4.4); Hematocrit 31.7 % (42.0-52.0); Hemoglobin 8.7 g/dL (14.0-18.0); Immature Granulocyte Absolute 0.09 K/mm3 (0.00-0.031); Immature Granulocyte Percent A 1.1 % (0-0.5); Lymphocytes Absolute Auto 0.53 K/mm3 (0.9-3.2); Lymphocytes Percent Auto 6.3 % (18.3-44.2); Mean Corpuscular HGB Conc 27.4 g/dl (32-36); Mean Corpuscular Hemoglobin 22.2 pg (26-34); Mean Corpuscular Volume 80.9 fl (80-100); Mean Platelet Volume 11.1 fl (7.4-10.4); Monocytes Absolute Auto 0.7 K/mm3 (0.1-0.6); Monocytes Percent Auto 7.9 % (2.6-8.5); Neutrophils Absolute Auto 7.1 K/mm3 (1.3-6.7); Neutrophils Percent Auto 84.1 % (45.5-73.1); Nucleated Red Blood Cells Perc 0.2 % (0.0-0.2); Platelet Count Result 329 k/mm3 (150-375); Red Blood Count 3.92 M/mm3 (4.6-6.20); Red Cell Distribution Width 19.3 % (11.5-14.5); White Blood Count 8.5 K/mm3 (4.5-10.0)
[2021-05-22 07:20] LABS: INR 4.6; Prothrombin Time 41.7 Seconds (11.1-14.7)
[2021-05-22 08:11] LABS: Anisocytosis 2+ (NORMAL); Hypochromasia 2+ (NORMAL); Platelet Estimate Adequate (Adequate)
[2021-05-22 08:52] LABS: Glucose Point of Care 78 mg/dl (65-105)
--- NOTE | 2021-05-22 09:31 | PM.IMPN ---
Progress Note: A&P Assessment and Plan (1) Pneumonia due to COVID-19 virus: Code(s): U07.1 - COVID-19; J12.82 - Pneumonia due to coronavirus disease 2018 Status: Acute (2) Supratherapeutic INR: Code(s): R79.1 - Abnormal coagulation profile Status: Acute (3) Sepsis: Qualifiers: Acute renal failure type: unspecified Sepsis acute organ dysfunction status: with acute organ dysfunction Sepsis type: sepsis due to unspecified organism Severe sepsis acute organ dysfunction type: acute renal failure Severe sepsis shock status: without septic shock Qualified Code(s): A41.9 - Sepsis, unspecified organism; R65.20 - Severe sepsis without septic shock; N17.9 - Acute kidney failure, unspecified Code(s): A41.9 - Sepsis, unspecified organism Status: Acute (4) CHF (congestive heart failure): Qualifiers: Heart failure chronicity: chronic Heart failure type: unspecified Qualified Code(s): I50.9 - Heart failure, unspecified Code(s): I50.9 - Heart failure, unspecified Status: Acute (5) Acute UTI: Code(s): N39.0 - Urinary tract infection, site not specified Status: Acute (6) Acute renal insufficiency: Code(s): N28.9 - Disorder of kidney and ureter, unspecified Status: Acute Additional Plan # COVID-19 pneumonia # acute hypercapnic and hypoxic respiratory failure -diagnosed positive 05/20/2021 -keep oxygen saturation greater than 90%, down to 6L oxygen by high-flow nasal cannula -off continuous BiPAP, his pH has normalized and pCO2 50 likely baseline -treatment: Continue baricitinib renal dose, remdesivir -DuoNebs # supratherapeutic INR -INR 4.6, continue holding warfarin -holding home warfarin, home regimen is warfarin 1 mg Thursday and 2 mg other days # persistent atrial fibrillation -holding anticoagulation warfarin because of elevated INR -restarting home metoprolol 25 mg daily which was held for hypotension on admission # urinary tract infection secondary to indwelling Johnson present on admission -patient was recently discharged with Johnson catheter after fluid overload hospitalization, now presenting with urinary tract infection from Johnson catheter -antibiotic: Continue Rocephin 05/20- -on Flomax -patient should not use Johnson catheter for life, discussed removing Johnson catheter however he was reluctant as he has limited mobility, will consult PT and OT, plan for removing Johnson catheter tomorrow # acute kidney injury, resolved -IV fluids given # chronic conditions -hyperlipidemia: Continue Lipitor -anxiety/depression: Continue home BuSpar 15 mg t.i.d., sertraline -BPH: Flomax -borderline type 2 diabetic as per patient: Blood sugars have been stable, held home metformin, checking hemoglobin A1c -home Lasix has been held for hypertension and patient had acute kidney injury from hypovolemia on admission, may need to restart soon -essential hypertension: Lisinopril, metoprolol -chronic constipation: P.r.n. 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 He is doing much better today. ABG shows normal pH, his mentation is back to baseline. He is doing well on the high-flow oxygen 6 L. Continue weaning with COVID-19 treatment plan. For his urine infection, labs are normalizing, he appears to be urinating well, we discussed taking Johnson catheter out as he only had Johnson catheter placed from last hospitalization a week prior to admission for retention. He is not a long-term chronic indw
[2021-05-22] MEDS: BARICITINIB 2 MG TABLET PO (09:50)
[2021-05-22] MEDS: REMDESIVIR 100 MG/NS 250 ML 100 MG/250 ML BAG 250 MG IVPB (09:50)
[2021-05-22] MEDS: busPIRone HCL 10 MG TABLET PO ×3 (09:51→17:37)
[2021-05-22] MEDS: ATORVASTATIN 20 MG TABLET PO (09:51)
[2021-05-22] MEDS: TAMSULOSIN HCL 0.4 MG CAPSULE PO (09:51)
[2021-05-22] MEDS: busPIRone HCL 5 MG TABLET PO ×3 (09:51→17:37)
[2021-05-22] MEDS: SERTRALINE HCL 50 MG TABLET PO ×2 (09:51→21:27)
--- NOTE | 2021-05-22 10:25 | PCPTNOTE ---
attempted PT eval ~ 1015, pt was not available, was on the bed maynard having a bowel movement;
[2021-05-22 13:05] LABS: Glucose Point of Care 147 mg/dl (65-105)
--- NOTE | 2021-05-22 14:49 | PCRCNOTE ---
Past window of treatment time.
[2021-05-22 17:54] LABS: Glucose Point of Care 117 mg/dl (65-105)
[2021-05-23] VITALS (19 sets, daily range): BP systolic 112–128; BP diastolic 55–96; PULSE 78–110; RESP 20–24; TEMP 36.3–36.7; O2SAT 90–98
[2021-05-23] MEDS: IPRATROPIUM BR 0.02% INH SOLN 0.5 MG/2.5 ML VIAL INHALATION ×3 (02:16→14:32)
[2021-05-23 05:15] LABS: Basophils Percent Auto 0.1 % (0.2-1.2); Eosinophils Percent Auto 0.4 % (0-4.4); Hematocrit 29.3 % (42.0-52.0); Hemoglobin 8.4 g/dL (14.0-18.0); Immature Granulocyte Percent A 1.4 % (0-0.5); Lymphocytes Absolute Auto 0.81 K/mm3 (0.9-3.2); Lymphocytes Percent Auto 10.9 % (18.3-44.2); Mean Corpuscular HGB Conc 28.7 g/dl (32-36); Mean Corpuscular Hemoglobin 22.3 pg (26-34); Mean Corpuscular Volume 77.7 fl (80-100); Mean Platelet Volume 10.6 fl (7.4-10.4); Monocytes Absolute Auto 0.7 K/mm3 (0.1-0.6); Neutrophils Absolute Auto 5.7 K/mm3 (1.3-6.7); Neutrophils Percent Auto 77.2 % (45.5-73.1); Nucleated Red Blood Cells Perc 0.3 % (0.0-0.2); Platelet Count Result 332 k/mm3 (150-375); Red Blood Count 3.77 M/mm3 (4.6-6.20); White Blood Count 7.4 K/mm3 (4.5-10.0)
[2021-05-23 05:28] LABS: INR 2.3; Prothrombin Time 24.8 Seconds (11.1-14.7)
[2021-05-23 05:31] LABS: Alanine Aminotransferase 41 U/L (4-50); Anion Gap 1 mmol/L (8-16); Aspartate Amino Transferase 56 U/L (17-59); Blood Urea Nitrogen 49 mg/dL (9-20); Calcium 7.7 mg/dL (8.4-10.2); Carbon Dioxide 35 mmol/L (22-30); Chloride 100 mmol/L (98-107); Estimated CRCL calculation 72 ml/min; Estimated Glomerular Filt Rate 58; Glucose 98 mg/dL (65-110); Potassium 4.4 mmol/L (3.4-5.0); Sodium 136 mmol/L (137-145)
[2021-05-23 06:47] LABS: Anisocytosis 2+ (NORMAL); Hypochromasia 1+ (NORMAL); Ovalocytes 1+ (NORMAL); Platelet Estimate Adequate (Adequate)
[2021-05-23 08:47] LABS: Glucose Point of Care 102 mg/dl (65-105)
[2021-05-23] MEDS: ATORVASTATIN 20 MG TABLET PO (10:23)
[2021-05-23] MEDS: BARICITINIB 2 MG TABLET PO (10:23)
[2021-05-23] MEDS: METOPROLOL SUCCINATE EXT REL 25 MG TABCR PO (10:23)
[2021-05-23] MEDS: busPIRone HCL 5 MG TABLET PO ×3 (10:23→16:19)
[2021-05-23] MEDS: TAMSULOSIN HCL 0.4 MG CAPSULE PO (10:24)
[2021-05-23] MEDS: SERTRALINE HCL 50 MG TABLET PO ×2 (10:24→20:32)
[2021-05-23] MEDS: REMDESIVIR 100 MG/NS 250 ML 100 MG/250 ML BAG 250 MG IVPB (10:25)
[2021-05-23] MEDS: busPIRone HCL 10 MG TABLET PO ×3 (10:25→16:19)
[2021-05-23 11:21] LABS: Hemoglobin A1C 6.3 % (<5.7)
[2021-05-23 13:18] LABS: Glucose Point of Care 172 mg/dl (65-105)
--- NOTE | 2021-05-23 14:20 | PM.IMPN ---
Progress Note: A&P Assessment and Plan (1) Acute and chronic respiratory failure: Code(s): J96.20 - Acute and chronic respiratory failure, unspecified whether with hypoxia or hypercapnia Status: Acute Assessment and Plan: Patient is on chronic home O2 at 2 L after his last hospitalization on May 06. He is also known to have chronic hypercapnia. He has been compliant with noninvasive ventilation here. Blood gas yesterday shows 7.39/52/67 on BiPAP. He has been able to be weaned to 6 L. Continue to wean oxygen as tolerated. (2) Pneumonia due to COVID-19 virus: Code(s): U07.1 - COVID-19; J12.82 - Pneumonia due to coronavirus disease 2019 Status: Acute Assessment and Plan: Patient presented with acute on chronic respiratory failure. He was diagnosed with COVID-19 pneumonia by rapid testing on 05/20/2021. He is currently on remdesivir, dexamethasone and baricitinib. Continues to improved. Continue noninvasive ventilation at night and with naps. Wean oxygen down to his baseline 2 L as tolerated. Continue nebulized treatments. Urine culture felt to be contaminant or colonizer. Blood cultures no growth today. He has completed 5 days of Rocephin so will stop. (3) Supratherapeutic INR: Code(s): R79.1 - Abnormal coagulation profile Status: Acute Assessment and Plan: INR was 4.6 on admission as trend down to 2.3 today. Will resume Coumadin today. Daily INR (4) Acute renal insufficiency: Code(s): N28.9 - Disorder of kidney and ureter, unspecified Status: Acute Assessment and Plan: Baseline creatinine is normal. Patient was here on 05/12 with a creatinine 2.0. When patient was admitted on 05/19/2021, his creatinine was 2.0 but since that time has trended downward to 1.2 which is within his baseline. It appears his acute kidney injury has resolved. It was felt that acute kidney injury was related to ATN, hypotension, sepsis and COVID. Resume low-dose Lasix to see how he tolerates this. Monitor closely. (5) Sepsis: Qualifiers: Acute renal failure type: unspecified Sepsis acute organ dysfunction status: with acute organ dysfunction Sepsis type: sepsis due to unspecified organism Severe sepsis acute organ dysfunction type: acute renal failure Severe sepsis shock status: without septic shock Qualified Code(s): A41.9 - Sepsis, unspecified organism; R65.20 - Severe sepsis without septic shock; N17.9 - Acute kidney failure, unspecified Code(s): A41.9 - Sepsis, unspecified organism Status: Acute Assessment and Plan: Present admission with leukocytosis, tachycardia acute respiratory failure related to COVID. He also became hypotensive on 05/20/2021. Treatment as above. (6) CHF (congestive heart failure): Qualifiers: Heart failure chronicity: chronic Heart failure type: unspecified Qualified Code(s): I50.9 - Heart failure, unspecified Code(s): I50.9 - Heart failure, unspecified Status: Acute Assessment and Plan: BNP is 4300. Chest x-ray could be consistent with CHF or least a component of such. Lasix was held because of the hypotension and acute kidney injury. Creatinine has normalized. Will resume half dose of Lasix tonight to see how he tolerates this. (7) Acute UTI: Code(s): N39.0 - Urinary tract infection, site not specified Status: Acute Assessment and Plan: UA noted. Urine culture more suggestive of colonization. He has completed 5 days of Rocephin. Stop antibiotics. UTI ruled out. (8) DVT prophylaxis: Code(s): Z29.9 - Encounter for prophylactic measures, unspecified Status: Acute Subjective Date/time seen: 05/23/21 14:20 Interval history: 81yo male with AFib on [facility] anticoagulation, chronic resp failure on 2L (since 05/06 from a recent hospitalization), chronic indwelling Johnson, central sleep apnea, HTN and DM here for hyp
[2021-05-23] MEDS: WARFARIN (*PBKC) 2 MG TABLET PO (16:18)
[2021-05-23 17:36] LABS: Glucose Point of Care 114 mg/dl (65-105)
[2021-05-23 20:13] LABS: Glucose Point of Care 132 mg/dl (65-105)
[2021-05-23] MEDS: FUROSEMIDE 20 MG TABLET PO (20:32)
[2021-05-24] VITALS (12 sets, daily range): BP systolic 106–122; BP diastolic 56–76; PULSE 75–106; RESP 14–21; TEMP 36.2–36.9; O2SAT 90–99; BMI 10.0
--- NOTE | 2021-05-24 00:06 | PCRCNOTE ---
Window of time for administration has passed. See next scheduled administration.
--- NOTE | 2021-05-24 01:09 | PC.NURSE ---
patient transferred to [facility] med surg at 0045.
--- NOTE | 2021-05-24 01:34 | PC.NURSE ---
Patient was transferred from IMU 209 at 0110 to room 309. All belongings were transferred with the patient and are at the bedside. Patient was oriented to the room and equipment use. Patient is currently on 6 L Hi Flow NC.
[2021-05-24] MEDS: IPRATROPIUM BR 0.02% INH SOLN 0.5 MG/2.5 ML VIAL INHALATION ×3 (02:58→14:53)
[2021-05-24 06:42] LABS: Basophils Percent Auto 0.1 % (0.2-1.2); Eosinophils Percent Auto 0.6 % (0-4.4); Hematocrit 30.8 % (42.0-52.0); Hemoglobin 8.5 g/dL (14.0-18.0); Immature Granulocyte Absolute 0.13 K/mm3 (0.00-0.031); Immature Granulocyte Percent A 1.8 % (0-0.5); Lymphocytes Absolute Auto 0.96 K/mm3 (0.9-3.2); Lymphocytes Percent Auto 13.6 % (18.3-44.2); Mean Corpuscular HGB Conc 27.6 g/dl (32-36); Mean Corpuscular Hemoglobin 21.8 pg (26-34); Mean Platelet Volume 10.3 fl (7.4-10.4); Monocytes Absolute Auto 0.7 K/mm3 (0.1-0.6); Monocytes Percent Auto 9.6 % (2.6-8.5); Neutrophils Absolute Auto 5.2 K/mm3 (1.3-6.7); Neutrophils Percent Auto 74.3 % (45.5-73.1); Platelet Count Result 354 k/mm3 (150-375); Red Cell Distribution Width 19.1 % (11.5-14.5); White Blood Count 7.1 K/mm3 (4.5-10.0)
[2021-05-24 06:54] LABS: INR 1.6; Prothrombin Time 18.4 Seconds (11.1-14.7)
[2021-05-24 07:00] LABS: Alanine Aminotransferase 47 U/L (4-50); Albumin Level 2.6 g/dL (3.5-5.1); Anion Gap 1 mmol/L (8-16); Aspartate Amino Transferase 51 U/L (17-59); Blood Urea Nitrogen 33 mg/dL (9-20); Calcium 7.6 mg/dL (8.4-10.2); Carbon Dioxide 36 mmol/L (22-30); Chloride 101 mmol/L (98-107); Estimated CRCL calculation 77 ml/min; Estimated Glomerular Filt Rate > 60; Glucose 98 mg/dL (65-110); Potassium 4.7 mmol/L (3.4-5.0); Sodium 138 mmol/L (137-145)
[2021-05-24 07:41] LABS: Hypochromasia 1+ (NORMAL); Platelet Estimate Adequate (Adequate)
[2021-05-24 07:42] LABS: Anisocytosis 1+ (NORMAL); Ovalocytes 1+ (NORMAL); Target Cells 1+ (NORMAL)
[2021-05-24] MEDS: REMDESIVIR 100 MG/NS 250 ML 100 MG/250 ML BAG 250 MG IVPB (10:56)
--- NOTE | 2021-05-24 11:52 | PCNFU ---
Nutrition Follow-Up Complete: Inadequate oral intake related to sepsi, UTI, and acute renal insufficiency as evidenced by reported intake of 10% Goal: Meet nutritional needs Pt. is progressing towards goal. No new goal at this time. Pt current nutrition is a diabetic consistent carbohydrate diet as well as a heart healthy diet. Last recorded weight is 164 kg. Recommend re-weighing pt. prior to discharge to assess any significant weight fluctuations. Bowel Motility: + BM 05/24/2021 Labs Reviewed: Hgb 8.5, Hct 30.8, Alb 2.6, BUN 33 Meds Noted: Lipitor, Bisacodyl, Lasix, Atrovent neb, Zoloft, Toprol Xl, Coumadin, Flomax Skin: left buttocks deep tissue pressure injury and a medial coccyx pressure injury Additional Notes: Pt. is COVID positive so unable to physically speak with him regarding current nutritional status. He has a decent appetite consuming on average 71% of meals ordered. He is also receiving Glucerna BID providing an additional 220 calories and 10 grams of protein to increase oral intake as well as aid in wound healing. He is on oxygen as tolerated. Will monitor pt labs, medications, wt, and reported intake every 3 days.
[2021-05-24] MEDS: BARICITINIB 2 MG TABLET PO (12:17)
[2021-05-24] MEDS: TAMSULOSIN HCL 0.4 MG CAPSULE PO (12:17)
[2021-05-24] MEDS: METOPROLOL SUCCINATE EXT REL 25 MG TABCR PO (12:17)
[2021-05-24] MEDS: ATORVASTATIN 20 MG TABLET PO (12:18)
[2021-05-24] MEDS: busPIRone HCL 5 MG TABLET PO ×2 (12:18→18:23)
[2021-05-24] MEDS: busPIRone HCL 10 MG TABLET PO ×2 (12:18→18:23)
[2021-05-24] MEDS: SERTRALINE HCL 50 MG TABLET PO ×2 (12:18→20:28)
--- NOTE | 2021-05-24 14:01 | PM.IMPN ---
Progress Note: A&P Assessment and Plan (1) Acute and chronic respiratory failure: Code(s): J96.20 - Acute and chronic respiratory failure, unspecified whether with hypoxia or hypercapnia Status: Acute Assessment and Plan: Patient is on chronic home O2 at 2 L after his last hospitalization on May 06. He is also known to have chronic hypercapnia. He has been compliant with noninvasive ventilation here. He has been weaned to RA (despite requiring O2 chronically). Resolved. Continue to monitor. Placement being arranged. (2) Pneumonia due to COVID-19 virus: Code(s): U07.1 - COVID-19; J12.82 - Pneumonia due to coronavirus disease 2018 Status: Acute Assessment and Plan: Patient presented with acute on chronic respiratory failure. He was diagnosed with COVID-19 pneumonia by rapid testing on 05/20/2021. He has completed remdesivir. He remains on dexamethasone and baricitinib. He continues to improve. He was weaned to RA today. Continue noninvasive ventilation at night and with naps. Continue nebulized treatments but change to prn. Urine culture felt to be contaminant or colonizer. Blood cultures negative. He completed 5 days of Rocephin. Given that he has been weaned to room air, will stop dexamethasone and baricitinib. (3) Acute renal insufficiency: Code(s): N28.9 - Disorder of kidney and ureter, unspecified Status: Acute Assessment and Plan: Baseline creatinine is normal. Patient was here on 05/12 with a creatinine 2.0. When patient was admitted on 05/19/2021, his creatinine was 2.0 but since that time has trended downward to 1.1 today which is within his baseline. It appears his acute kidney injury has resolved. It was felt that acute kidney injury was related to ATN, hypotension, sepsis and COVID. Advance Lasix. (4) Atrial fibrillation: Qualifiers: Atrial fibrillation type: unspecified chronic Qualified Code(s): I48.20 - Chronic atrial fibrillation, unspecified Code(s): I48.91 - Unspecified atrial fibrillation Status: Acute Assessment and Plan: HR stable. Continue Toprol. Warfarin resumed yesterday. INR subtherapeutic now. Extra Coumadin today. May need bridging if INR does not improve in 1-2 days. (5) Supratherapeutic INR: Code(s): R79.1 - Abnormal coagulation profile Status: Acute Assessment and Plan: INR was 4.6 on admission as trend down to 2.3 yesterday. Coumadin was resumed and INR 1.6 today. Suspect this will improve tomorrow. Extra dose of Coumadin today. Continue daily INR. (6) Sepsis: Qualifiers: Acute renal failure type: unspecified Sepsis acute organ dysfunction status: with acute organ dysfunction Sepsis type: sepsis due to unspecified organism Severe sepsis acute organ dysfunction type: acute renal failure Severe sepsis shock status: without septic shock Qualified Code(s): A41.9 - Sepsis, unspecified organism; R65.20 - Severe sepsis without septic shock; N17.9 - Acute kidney failure, unspecified Code(s): A41.9 - Sepsis, unspecified organism Status: Acute Assessment and Plan: Present on admission with leukocytosis, tachycardia and acute respiratory failure related to COVID. He also became hypotensive on 05/20/2021. BP better. Treatment as above. (7) CHF (congestive heart failure): Qualifiers: Heart failure chronicity: chronic Heart failure type: unspecified Qualified Code(s): I50.9 - Heart failure, unspecified Code(s): I50.9 - Heart failure, unspecified Status: Acute Assessment and Plan: BNP is 4300. Chest x-ray could be consistent with CHF or least a component of such. Lasix was held because of the hypotension and acute kidney injury. Creatinine has normalized. We resumed half dose of Lasix and he tolerated this. Will advance Lasix to home dose (8) Acute UTI: Code(s): N39.0 - Urinary tract infection, site not
[2021-05-24] MEDS: WARFARIN (*PBKC) 1 MG TABLET PO ×2 (18:23)
[2021-05-24] MEDS: FUROSEMIDE 40 MG TABLET PO (20:54)
[2021-05-25] VITALS (11 sets, daily range): BP systolic 113–140; BP diastolic 58–94; PULSE 72–82; RESP 12–22; TEMP 36.5–37.3; O2SAT 90–96
[2021-05-25 08:11] LABS: Albumin Level 2.6 g/dL (3.5-5.1); Anion Gap 4 mmol/L (8-16); Blood Urea Nitrogen 26 mg/dL (9-20); Calcium 7.5 mg/dL (8.4-10.2); Carbon Dioxide 34 mmol/L (22-30); Chloride 100 mmol/L (98-107); Estimated CRCL calculation 77 ml/min; Estimated Glomerular Filt Rate > 60; Glucose 104 mg/dL (65-110); Magnesium 1.9 mg/dL (1.6-2.3); Potassium 4.6 mmol/L (3.4-5.0); Sodium 138 mmol/L (137-145)
[2021-05-25 08:40] LABS: Basophils Percent Auto 0.2 % (0.2-1.2); Eosinophils Percent Auto 0.4 % (0-4.4); Hematocrit 30.9 % (42.0-52.0); Hemoglobin 8.7 g/dL (14.0-18.0); Immature Granulocyte Absolute 0.24 K/mm3 (0.00-0.031); Immature Granulocyte Percent A 2.5 % (0-0.5); Lymphocytes Absolute Auto 1.06 K/mm3 (0.9-3.2); Mean Corpuscular HGB Conc 28.2 g/dl (32-36); Mean Corpuscular Hemoglobin 22.3 pg (26-34); Mean Corpuscular Volume 79.2 fl (80-100); Mean Platelet Volume 10.4 fl (7.4-10.4); Monocytes Absolute Auto 0.7 K/mm3 (0.1-0.6); Monocytes Percent Auto 7.7 % (2.6-8.5); Neutrophils Absolute Auto 7.6 K/mm3 (1.3-6.7); Neutrophils Percent Auto 78.2 % (45.5-73.1); Nucleated Red Blood Cells Perc 0.2 % (0.0-0.2); Platelet Count Result 390 k/mm3 (150-375); Red Cell Distribution Width 19.1 % (11.5-14.5); White Blood Count 9.7 K/mm3 (4.5-10.0)
[2021-05-25 08:55] LABS: INR 1.5; Prothrombin Time 17.6 Seconds (11.1-14.7)
[2021-05-25 09:10] LABS: Hypochromasia 2+ (NORMAL); Ovalocytes 1+ (NORMAL); Platelet Estimate Adequate (Adequate)
[2021-05-25 09:11] LABS: Tear Drop Cells 1+ (NORMAL)
[2021-05-25] MEDS: busPIRone HCL 5 MG TABLET PO ×3 (09:42→18:02)
[2021-05-25] MEDS: METOPROLOL SUCCINATE EXT REL 25 MG TABCR PO (09:42)
[2021-05-25] MEDS: busPIRone HCL 10 MG TABLET PO ×3 (09:42→18:02)
[2021-05-25] MEDS: TAMSULOSIN HCL 0.4 MG CAPSULE PO (09:42)
[2021-05-25] MEDS: SERTRALINE HCL 50 MG TABLET PO ×2 (09:42→20:12)
[2021-05-25] MEDS: ATORVASTATIN 20 MG TABLET PO (09:43)
--- NOTE | 2021-05-25 13:20 | PM.IMPN ---
Progress Note: A&P Assessment and Plan (1) Acute and chronic respiratory failure: Code(s): J96.20 - Acute and chronic respiratory failure, unspecified whether with hypoxia or hypercapnia Status: Acute Assessment and Plan: Patient is on chronic home O2 at 2 L after his last hospitalization on May 06. He is also known to have chronic hypercapnia. He has been compliant with noninvasive ventilation here. Blood gas yesterday shows 7.39/52/67 on BiPAP. He has been able to be weaned to 6 L. Continue to wean oxygen as tolerated. More somnolent today will recheck his ABG does not look like he was on a BiPAP last night oxygen requirement has gone up from yesterday as well. (2) Pneumonia due to COVID-19 virus: Code(s): U07.1 - COVID-19; J12.82 - Pneumonia due to coronavirus disease 2019 Status: Acute Assessment and Plan: Patient presented with acute on chronic respiratory failure. He was diagnosed with COVID-19 pneumonia by rapid testing on 05/20/2021. He is currently on remdesivir, dexamethasone and baricitinib. Continues to improved. Continue noninvasive ventilation at night and with naps. Wean oxygen down to his baseline 2 L as tolerated. Continue nebulized treatments. Urine culture felt to be contaminant or colonizer. Blood cultures no growth today. He has completed 5 days of Rocephin so will stop. (3) Supratherapeutic INR: Code(s): R79.1 - Abnormal coagulation profile Status: Acute Assessment and Plan: INR was 4.6 on admission as trend down to 2.3 today. Will resume Coumadin today. Daily INR (4) Acute renal insufficiency: Code(s): N28.9 - Disorder of kidney and ureter, unspecified Status: Acute Assessment and Plan: Baseline creatinine is normal. Patient was here on 05/12 with a creatinine 2.0. When patient was admitted on 05/19/2021, his creatinine was 2.0 but since that time has trended downward to 1.2 which is within his baseline. It appears his acute kidney injury has resolved. It was felt that acute kidney injury was related to ATN, hypotension, sepsis and COVID. Resume low-dose Lasix to see how he tolerates this. Monitor closely. (5) Sepsis: Qualifiers: Acute renal failure type: unspecified Sepsis acute organ dysfunction status: with acute organ dysfunction Sepsis type: sepsis due to unspecified organism Severe sepsis acute organ dysfunction type: acute renal failure Severe sepsis shock status: without septic shock Qualified Code(s): A41.9 - Sepsis, unspecified organism; R65.20 - Severe sepsis without septic shock; N17.9 - Acute kidney failure, unspecified Code(s): A41.9 - Sepsis, unspecified organism Status: Acute Assessment and Plan: Present admission with leukocytosis, tachycardia acute respiratory failure related to COVID. He also became hypotensive on 05/20/2021. Treatment as above. (6) CHF (congestive heart failure): Qualifiers: Heart failure chronicity: chronic Heart failure type: unspecified Qualified Code(s): I50.9 - Heart failure, unspecified Code(s): I50.9 - Heart failure, unspecified Status: Acute Assessment and Plan: BNP is 4300. Chest x-ray could be consistent with CHF or least a component of such. Lasix was held because of the hypotension and acute kidney injury. Creatinine has normalized. Will resume half dose of Lasix tonight to see how he tolerates this. (7) Acute UTI: Code(s): N39.0 - Urinary tract infection, site not specified Status: Acute Assessment and Plan: UA noted. Urine culture more suggestive of colonization. He has completed 5 days of Rocephin. Stop antibiotics. UTI ruled out. (8) DVT prophylaxis: Code(s): Z29.9 - Encounter for prophylactic measures, unspecified Status: Acute Assessment and Plan: subtherapeutic INR currently after warfarin has been held since admission. Vaughn
[2021-05-25 14:29] LABS: Alveolar/Arterial O2 Gradient 55.1 mmHg; Fractional Inspired Oxygen 28 %; HCO3 ABG 35.3 mEq/l (22.0-26.0); Oxygen Content ABG 12.8 %vol (16.0-22.0); Oxygen Saturation ABG 91.7 % (95.0-100.0); Oxyhemoglobin 91.3 % THb (90.0-100.0); PO2 ABG 66.9 mmHg (80.0-100.0); PO2 FiO2 Ratio Arterial Blood 2.39 %; Total Hemoglobin 9.9 g/dL (12.0-18.0); pH ABG 7.347 (7.350-7.450)
[2021-05-25 14:31] LABS: Device NASAL CANNULA; Modified Allen's Test Pass; PCO2 ABG 65.8 mmHg (35.0-45.0); Site Drawn LEFT RADIAL
[2021-05-25] MEDS: WARFARIN (*PBKC) 1 MG TABLET PO (18:02)
[2021-05-25] MEDS: WARFARIN (*PBKC) 2 MG TABLET PO (18:02)
[2021-05-25] MEDS: FUROSEMIDE 40 MG TABLET PO (20:12)
[2021-05-26] VITALS (8 sets, daily range): BP systolic 106–145; BP diastolic 47–96; PULSE 69–86; RESP 14–21; TEMP 35.9–36.8; O2SAT 90–97
[2021-05-26 06:47] LABS: Basophils Percent Auto 0.2 % (0.2-1.2); Immature Granulocyte Absolute 0.29 K/mm3 (0.00-0.031); Immature Granulocyte Percent A 2.2 % (0-0.5); Lymphocytes Absolute Auto 0.52 K/mm3 (0.9-3.2); Mean Corpuscular Hemoglobin 22.4 pg (26-34); Mean Corpuscular Volume 77.1 fl (80-100); Mean Platelet Volume 10.5 fl (7.4-10.4); Monocytes Absolute Auto 0.8 K/mm3 (0.1-0.6); Monocytes Percent Auto 6.3 % (2.6-8.5); Neutrophils Absolute Auto 11.4 K/mm3 (1.3-6.7); Neutrophils Percent Auto 87.3 % (45.5-73.1); Nucleated Red Blood Cells Perc 0.2 % (0.0-0.2); Platelet Count Result 444 k/mm3 (150-375); Red Blood Count 4.02 M/mm3 (4.6-6.20)
[2021-05-26 06:56] LABS: Alanine Aminotransferase 49 U/L (4-50); Albumin Level 2.8 g/dL (3.5-5.1); Alkaline Phosphatase 89 U/L (38-126); Anion Gap 4 mmol/L (8-16); Aspartate Amino Transferase 38 U/L (17-59); Bilirubin,Total 0.4 mg/dL (0.2-1.3); Blood Urea Nitrogen 24 mg/dL (9-20); Calcium 7.5 mg/dL (8.4-10.2); Carbon Dioxide 33 mmol/L (22-30); Chloride 98 mmol/L (98-107); Estimated CRCL calculation 78 ml/min; Estimated Glomerular Filt Rate > 60; Glucose 108 mg/dL (65-110); Potassium 4.7 mmol/L (3.4-5.0); Sodium 135 mmol/L (137-145)
[2021-05-26 07:15] LABS: INR 1.4; Prothrombin Time 16.7 Seconds (11.1-14.7)
[2021-05-26 08:04] LABS: Alveolar/Arterial O2 Gradient 73.2 mmHg; Base Excess ABG 9.3 mEq/l (+/-2.0); Device NASAL CANNULA; Fractional Inspired Oxygen 28 %; Modified Allen's Test Pass; Oxygen Content ABG 13.2 %vol (16.0-22.0); Oxygen Saturation ABG 92.1 % (95.0-100.0); Oxyhemoglobin 91.7 % THb (90.0-100.0); PO2 ABG 62.7 mmHg (80.0-100.0); PO2 FiO2 Ratio Arterial Blood 2.24 %; Site Drawn LEFT RADIAL; Total Hemoglobin 10.2 g/dL (12.0-18.0); pH ABG 7.429 (7.350-7.450)
[2021-05-26] MEDS: ATORVASTATIN 20 MG TABLET PO (10:19)
[2021-05-26] MEDS: busPIRone HCL 10 MG TABLET PO ×3 (10:19→17:47)
[2021-05-26] MEDS: TAMSULOSIN HCL 0.4 MG CAPSULE PO (10:19)
[2021-05-26] MEDS: busPIRone HCL 5 MG TABLET PO ×3 (10:19→17:47)
[2021-05-26] MEDS: SERTRALINE HCL 50 MG TABLET PO ×2 (10:20→20:47)
[2021-05-26] MEDS: METOPROLOL SUCCINATE EXT REL 25 MG TABCR PO (10:20)
[2021-05-26] MEDS: WARFARIN (*PBKC) 2 MG TABLET PO (17:48)
[2021-05-26] MEDS: FUROSEMIDE 40 MG TABLET PO (20:46)
[2021-05-27] VITALS: BP 121/64; PULSE 70; RESP 18; TEMP 36.7; O2SAT 97
[2021-05-27 08:00] VITALS: BP 120/51; PULSE 76; RESP 14; TEMP 36.2; O2SAT 99
[2021-05-27 08:14] LABS: Hematocrit 31.1 % (42.0-52.0); Hemoglobin 8.6 g/dL (14.0-18.0); Mean Corpuscular HGB Conc 27.7 g/dl (32-36); Mean Corpuscular Hemoglobin 21.8 pg (26-34); Mean Corpuscular Volume 78.7 fl (80-100); Mean Platelet Volume 10.5 fl (7.4-10.4); Platelet Count Result 466 k/mm3 (150-375); Red Blood Count 3.95 M/mm3 (4.6-6.20); Red Cell Distribution Width 19.4 % (11.5-14.5); White Blood Count 10.2 K/mm3 (4.5-10.0)
[2021-05-27 08:26] LABS: INR 1.3; Prothrombin Time 16.1 Seconds (11.1-14.7)
[2021-05-27] MEDS: ATORVASTATIN 20 MG TABLET PO (10:01)
[2021-05-27] MEDS: AZITHROMYCIN 250 MG TABLET PO (10:01)
[2021-05-27 10:02] VITALS: PULSE 76
[2021-05-27] MEDS: SERTRALINE HCL 50 MG TABLET PO ×2 (10:02→20:57)
[2021-05-27] MEDS: busPIRone HCL 10 MG TABLET PO ×3 (10:02→17:27)
[2021-05-27] MEDS: METOPROLOL SUCCINATE EXT REL 25 MG TABCR PO (10:02)
[2021-05-27] MEDS: busPIRone HCL 5 MG TABLET PO ×3 (10:02→17:27)
[2021-05-27] MEDS: TAMSULOSIN HCL 0.4 MG CAPSULE PO (10:02)
[2021-05-27 11:54] VITALS: BP 102/50; PULSE 78; RESP 20; TEMP 36.2; O2SAT 95
--- NOTE | 2021-05-27 12:00 | PM.IMPN ---
Progress Note: A&P Assessment and Plan (1) Acute and chronic respiratory failure: Code(s): J96.20 - Acute and chronic respiratory failure, unspecified whether with hypoxia or hypercapnia Status: Acute Assessment and Plan: Patient is on chronic home O2 at 2 L after his last hospitalization in April. He is also known to have chronic hypercapnia. He has been compliant with noninvasive ventilation here. Blood gas yesterday shows 7.42/54/63 on BiPAP. He has been able to be weaned to 2L. Continue to wean oxygen as tolerated. (2) Pneumonia due to COVID-19 virus: Code(s): U07.1 - COVID-19; J12.82 - Pneumonia due to coronavirus disease 2019 Status: Acute Assessment and Plan: Patient presented with acute on chronic respiratory failure. He was diagnosed with COVID-19 pneumonia by rapid testing on 05/20/2021. He completed 5 days of remdesivir. Was also on baricitinib but stopped when he was weaned to baseline O2 requirement. He has been continued on Dexamethasone. Blood cultures negative. He completed 5 days of Rocephin and now Azithro added. Back down to 2L O2. Will continue noninvasive ventilation at night and with naps. Continue nebulized treatments. (3) Atrial fibrillation: Qualifiers: Atrial fibrillation type: unspecified chronic Qualified Code(s): I48.20 - Chronic atrial fibrillation, unspecified Code(s): I48.91 - Unspecified atrial fibrillation Status: Acute Assessment and Plan: Ruba has chronic AFib. HR well controlled. His INR remains subtherapeutic despite being back on his Coumadin. Last admission, he was on 7.5mg daily but now listed as 1mg/2mg alternating. Will have GI see before deciding on changing Coumadin dosing. (4) Supratherapeutic INR: Code(s): R79.1 - Abnormal coagulation profile Status: Acute Assessment and Plan: INR was 4.6 on admission and trended down. Resolved. Continue Coumadin. Continue daily INR. As above. (5) Acute renal insufficiency: Code(s): N28.9 - Disorder of kidney and ureter, unspecified Status: Acute Assessment and Plan: Baseline creatinine is normal. Patient was here on 05/12 with a creatinine 2.0. When patient was admitted on 05/19/2021, his creatinine was 2.0 but since that time has trended downward to 1.1 which is within his baseline. It was felt that acute kidney injury was related to ATN, hypotension, sepsis and COVID. It appears his acute kidney injury has resolved. Lasix was held but has since be resumed and he is toelrating this. Monitor closely. (6) Sepsis: Qualifiers: Acute renal failure type: unspecified Sepsis acute organ dysfunction status: with acute organ dysfunction Sepsis type: sepsis due to unspecified organism Severe sepsis acute organ dysfunction type: acute renal failure Severe sepsis shock status: without septic shock Qualified Code(s): A41.9 - Sepsis, unspecified organism; R65.20 - Severe sepsis without septic shock; N17.9 - Acute kidney failure, unspecified Code(s): A41.9 - Sepsis, unspecified organism Status: Acute Assessment and Plan: Present on admission with leukocytosis, tachycardia acute respiratory failure related to COVID. He also became hypotensive on 05/20/2021. Symptoms have resolved. Treatment as above. (7) CHF (congestive heart failure): Qualifiers: Heart failure chronicity: chronic Heart failure type: unspecified Qualified Code(s): I50.9 - Heart failure, unspecified Code(s): I50.9 - Heart failure, unspecified Status: Acute Assessment and Plan: BNP is 4300. Chest x-ray could be consistent with CHF or least a component of such. Lasix was held because of the hypotension and acute kidney injury. Creatinine has normalized. Lasix resumed and he is tolerating this. CXR from today reviewed and feel more likely related to COVID then CHF. (8) Acute UTI: Code(s): N3
--- NOTE | 2021-05-27 12:21 | PCNFU ---
Nutrition Follow-Up Complete: Inadequate oral intake related to sepsi, UTI, and acute renal insufficiency as evidenced by reported intake of 10% Goal: Meet nutritional needs Pt is progressing towards goal Pt current nutrition is carb consistent/heart healthy diet and dietary supplement Last recorded weight is 167 kg. Bowel Motility: +BM 05/26/21 Labs Reviewed: hgb 8.6, hct 31.1, alb 2.8, Na 135, CO2 33, Ca 7.5, BUN 24 Meds Noted: lipitor, zithromax, buspar, toprol XL, zoloft, flomax Skin: medial coccyx wound, left buttock pressure ulcer, left elbow skin tear Additional Notes: Unable to visit with pt due to following covid precautions. Per EMR, pt is on a carb consistent/heart healthy diet and dietary supplement of glucerna shake BID providing an additional 220kcal and 10g of protein to increase caloric intake and aid in wound healing. Per EMR, reported intake is 100% x4 and 75%. Recommend increasing glucerna shake from BID to TID if intake is under 50%. Agree with diet order at this time. Will continue to follow. Will monitor pt labs, medications, wt, and reported intake every 5 days.
[2021-05-27] MEDS: MENTHOL 10% / METHYL SALICYLATE 15% 57 GM TUBE 1 APPLIC TOPICAL (13:42)
[2021-05-27 15:23] LABS: Iron 37 ug/dL (49-181); Percent Iron Saturation 17 % (20-50)
[2021-05-27 16:00] VITALS: BP 113/53; PULSE 77; RESP 18; TEMP 37.1; O2SAT 96
[2021-05-27] MEDS: WARFARIN (*PBKC) 5 MG TABLET PO (17:26)
[2021-05-27] MEDS: PANTOPRAZOLE 40 MG TABLET PO ×2 (17:27→20:57)
[2021-05-27 17:41] LABS: IFOB Positive Control Positive; Immunochemical Fecal Occult Bl Positive (N)
--- NOTE | 2021-05-27 17:50 | WPDGICN ---
Assessment and Plan Assessment and plan (1) Iron deficiency anemia: Code(s): D50.9 - Iron deficiency anemia, unspecified Status: Acute Assessment and Plan: hb low but has been stable since admission I do not think that right now is best timing to complete work up for ALFREDO since he is still recovering from respiratory failure due to COVID pneumonia and he is on isolation he can make an appointment to see me in office in 3-4 weeks after fully recovered and then we can set up scopes if indicated he has been on coumadin for over 4-5 years and denies overt gib, ok to continue of course if obvious GIB then will need to do it while he is in the hospital (2) Pneumonia due to COVID-19 virus: Code(s): U07.1 - COVID-19; J12.82 - Pneumonia due to coronavirus disease 2019 Status: Acute Assessment and Plan: on treatment, still on isolation (3) Acute and chronic respiratory failure: Code(s): J96.20 - Acute and chronic respiratory failure, unspecified whether with hypoxia or hypercapnia Status: Acute Assessment and Plan: improved (4) Sleep apnea: Qualifiers: Sleep apnea type: obstructive Qualified Code(s): G47.33 - Obstructive sleep apnea (adult) (pediatric) Code(s): G47.30 - Sleep apnea, unspecified Status: Acute (5) Obesity hypoventilation syndrome: Code(s): E66.2 - Morbid (severe) obesity with alveolar hypoventilation Status: Acute (6) Type 2 diabetes mellitus without complication, without long-term current use of insulin: Code(s): E11.9 - Type 2 diabetes mellitus without complications Status: Acute (7) Chronic anticoagulation: Code(s): Z79.01 - correction (current) use of anticoagulants Status: Acute Assessment and Plan: on coumading because pAfib GI Consult Note Consult date/time: 05/27/21 17:50 Reason for consult: ALFREDO HPI: Rommel Bran is a 81 year old male with past medical history of central sleep apnea, atrial fibrillation who has been on coumadin for almost 5 years, diastolic CHF, hypertension and diabetes who presented to the ER from [facility] in [place] with progressive respiratory distress and diagnosis with COVID pneumonia on 05/20/21. The patient is on chronic home O2 of 2 L after his recent hospitalization in May 06 through the due to CHF and acute hypercapnic respiratory failure. He also was treated for sepsis and slowly recovering from COVID but still feeling tired. He also has anemia with hb 8.5-9, denies overt gib or change in bowels. He says that had both egd and colonoscopy about 10 years ago. He is diagnosed with ALFREDO. Review of Systems Constitutional: Constitutional: Reports fatigue Eyes: Eyes: Reports no additional eye complaints ENT: Reports Normal hearing present Cardiovascular: Cardiovascular: Denies chest pain Respiratory: Respiratory: Reports dyspnea on exertion Gastrointestinal: Gastrointestinal: Denies bloating and Denies nausea Genitourinary: Genitourinary: Denies dysuria Musculoskeletal: Musculoskeletal: Denies neck pain Integumentary/Breasts: Skin/Breast: Denies dry skin Neurologic: Denies headache(s) Psychiatric: Psychiatric: Denies behavioral changes [facility] Past Medical History Medical History (Updated 05/27/21 @ 17:54 by Ed Singer MD) Anxiety Atrial fibrillation Benign prostatic hyperplasia with lower urinary tract symptoms CHF (congestive heart failure) Echocardiogram December 2015: Difficult study with poor sonographic images demonstrate mild concentric left ventricular hypertrophy, diastolic dysfunction and increased left heart filling pressures based on elevated E/E. Ejection fraction 55-60%. Mild enlargement of left atrium Complex sleep apnea syndrome Polysomnogram 2018: Mild obstructive sleep apnea. Difficult titration with CPAP and then BiPAP without optimum pressure achieved with emergence o
[2021-05-27 20:00] VITALS: BP 112/73; PULSE 88; RESP 18; TEMP 36.9; O2SAT 95
[2021-05-27] MEDS: FUROSEMIDE 40 MG TABLET PO (20:57)
[2021-05-28] VITALS (7 sets, daily range): BP systolic 100–142; BP diastolic 57–85; PULSE 72–81; RESP 14–18; TEMP 35.7–36.5; O2SAT 90–94
[2021-05-28 06:46] LABS: Hematocrit 30.9 % (42.0-52.0); Hemoglobin 8.7 g/dL (14.0-18.0); Mean Corpuscular HGB Conc 28.2 g/dl (32-36); Mean Corpuscular Hemoglobin 22.4 pg (26-34); Mean Corpuscular Volume 79.4 fl (80-100); Mean Platelet Volume 10.4 fl (7.4-10.4); Platelet Count Result 455 k/mm3 (150-375); Red Blood Count 3.89 M/mm3 (4.6-6.20); White Blood Count 10.3 K/mm3 (4.5-10.0)
[2021-05-28 07:03] LABS: INR 1.3; Prothrombin Time 16.4 Seconds (11.1-14.7)
[2021-05-28 07:08] LABS: Anion Gap 5 mmol/L (8-16); Blood Urea Nitrogen 20 mg/dL (9-20); Calcium 7.6 mg/dL (8.4-10.2); Carbon Dioxide 35 mmol/L (22-30); Chloride 94 mmol/L (98-107); Estimated CRCL calculation 70 ml/min; Estimated Glomerular Filt Rate 58; Glucose 130 mg/dL (65-110); Potassium 4.2 mmol/L (3.4-5.0); Sodium 134 mmol/L (137-145)
[2021-05-28] MEDS: METOPROLOL SUCCINATE EXT REL 25 MG TABCR PO (10:44)
[2021-05-28] MEDS: busPIRone HCL 10 MG TABLET PO ×3 (10:44→16:51)
[2021-05-28] MEDS: PANTOPRAZOLE 40 MG TABLET PO ×2 (10:44→20:34)
[2021-05-28] MEDS: ATORVASTATIN 20 MG TABLET PO (10:44)
[2021-05-28] MEDS: AZITHROMYCIN 250 MG TABLET PO (10:44)
[2021-05-28] MEDS: busPIRone HCL 5 MG TABLET PO ×3 (10:44→16:51)
[2021-05-28] MEDS: FERROUS SULFATE 324 MG TABLET PO ×2 (10:44→16:51)
[2021-05-28] MEDS: SERTRALINE HCL 50 MG TABLET PO ×2 (10:44→20:34)
[2021-05-28] MEDS: TAMSULOSIN HCL 0.4 MG CAPSULE PO (10:45)
--- NOTE | 2021-05-28 13:03 | PM.IMPN ---
Progress Note: A&P Assessment and Plan (1) Acute and chronic respiratory failure: Code(s): J96.20 - Acute and chronic respiratory failure, unspecified whether with hypoxia or hypercapnia Status: Acute Assessment and Plan: Patient is on chronic home O2 at 2 L after his last hospitalization in April. He is also known to have chronic hypercapnia. He has been mostly compliant with noninvasive ventilation here. Blood gas 05/26/21 shows 7.42/54/63 on BiPAP. He has been able to be weaned to 2L. Continue to wean oxygen as tolerated. (2) Pneumonia due to COVID-19 virus: Code(s): U07.1 - COVID-19; J12.82 - Pneumonia due to coronavirus disease 2019 Status: Acute Assessment and Plan: Patient presented with acute on chronic respiratory failure. He was diagnosed with COVID-19 pneumonia by rapid testing on 05/20/2021. He completed 5 days of remdesivir. Was also on baricitinib but stopped when he was weaned to baseline O2 requirement. He has been continued on Dexamethasone. Blood cultures negative. He completed 5 days of Rocephin and now Azithro added. Back down to 2L O2. Will continue noninvasive ventilation at night and with naps. Continue nebulized treatments. (3) Atrial fibrillation: Qualifiers: Atrial fibrillation type: unspecified chronic Qualified Code(s): I48.20 - Chronic atrial fibrillation, unspecified Code(s): I48.91 - Unspecified atrial fibrillation Status: Acute Assessment and Plan: Ruba has chronic AFib. HR well controlled. His INR remains subtherapeutic despite being back on his Coumadin. Last admission, he was on 7.5mg daily but now listed as 1mg/2mg alternating. GI holding off on further evaluation and was okay with resuming COumadin. He received 5mg dose last night but INR still 1.3. Will advance to 7.5mg and follow. (4) Supratherapeutic INR: Code(s): R79.1 - Abnormal coagulation profile Status: Acute Assessment and Plan: INR was 4.6 on admission and trended down. Resolved. Continue Coumadin. Continue daily INR. As above. (5) Acute renal insufficiency: Code(s): N28.9 - Disorder of kidney and ureter, unspecified Status: Acute Assessment and Plan: Baseline creatinine is normal. On admission (05/18/21), his creatinine was 2.0 but since that time has trended downward to 1.2 which is within his baseline. It was felt that acute kidney injury was related to ATN, hypotension, sepsis and COVID. It appears his acute kidney injury has resolved. Lasix was held but has since be resumed and he is tolerating this. Monitor closely. (6) Sepsis: Qualifiers: Acute renal failure type: unspecified Sepsis acute organ dysfunction status: with acute organ dysfunction Sepsis type: sepsis due to unspecified organism Severe sepsis acute organ dysfunction type: acute renal failure Severe sepsis shock status: without septic shock Qualified Code(s): A41.9 - Sepsis, unspecified organism; R65.20 - Severe sepsis without septic shock; N17.9 - Acute kidney failure, unspecified Code(s): A41.9 - Sepsis, unspecified organism Status: Acute Assessment and Plan: Present on admission with leukocytosis, tachycardia acute respiratory failure related to COVID. He also became hypotensive on 05/20/2021. Symptoms have resolved. Treatment as above. (7) CHF (congestive heart failure): Qualifiers: Heart failure chronicity: chronic Heart failure type: unspecified Qualified Code(s): I50.9 - Heart failure, unspecified Code(s): I50.9 - Heart failure, unspecified Status: Acute Assessment and Plan: BNP is 4300. Chest x-ray could be consistent with CHF or least a component of such vs COVID. Lasix was held because of the hypotension and acute kidney injury. Creatinine has normalized. Lasix resumed and he is tolerating this well. CXR 05/27 showing persistent findings but probbaly more COVID then
--- NOTE | 2021-05-28 13:29 | WPDGIPROGNO ---
Progress Note: A&P Assessment and Plan (1) Iron deficiency anemia: Code(s): D50.9 - Iron deficiency anemia, unspecified Status: Acute Assessment and Plan: hb low but has been stable for some time, no signs of overt gib occult blood positive instructed patient to follow-up in office in 3-4 weeks after he is fully recoved from pneumonia and covid, then we can complete endoscopic evaluation call if questions (2) Occult blood in stools: Code(s): R19.5 - Other fecal abnormalities Status: Acute Assessment and Plan: hb stable, no melena (3) Acute and chronic respiratory failure: Code(s): J96.20 - Acute and chronic respiratory failure, unspecified whether with hypoxia or hypercapnia Status: Acute Assessment and Plan: improving (4) Pneumonia due to COVID-19 virus: Code(s): U07.1 - COVID-19; J12.82 - Pneumonia due to coronavirus disease 2018 Status: Acute (5) Type 2 diabetes mellitus without complication, without long-term current use of insulin: Code(s): E11.9 - Type 2 diabetes mellitus without complications Status: Acute (6) Atrial fibrillation: Qualifiers: Atrial fibrillation type: unspecified chronic Qualified Code(s): I48.20 - Chronic atrial fibrillation, unspecified Code(s): I48.91 - Unspecified atrial fibrillation Status: Acute Assessment and Plan: on coumadin for 4-5 years (7) Supratherapeutic INR: Code(s): R79.1 - Abnormal coagulation profile Status: Acute Subjective Date/time seen: 05/28/21 13:29 Interval history: no new events, no signs of gib Review of Systems Review of Systems: All systems reviewed & are unremarkable except as noted in HPI and below Exam Const: General: comfortable Other: obese, using oxygen HENMT: General nose exam: Normal nares present Eyes: General: appearance normal, both eyes and all related structures Neck: Neck: supple Resp: Auscultation: diminished lung sounds Cardio: Rhythm: abnormal rhythm irregularly irregular GI: Inspection: non-distended GI Palp: Yes Soft to palpation and No Tenderness to palpation present (GI) Auscultation: normal bowel sounds Skin: General skin exam: no rashes or lesions noted Neuro: Speech: normal speech Motor exam (neuro): Normal motor muscle tone present throughout Extrem: General: pedal edema (trace edema) Psych: Mental Status: mental status grossly normal Objective Data Vital Signs Vital Signs: Vital Signs - 24 hr 05/27/21 16:00 05/27/21 20:00 05/28/21 00:00 Temperature 98.8 F 98.4 F 97.2 F L Pulse Rate 77 88 72 Respiratory Rate 18 18 18 Blood Pressure 113/53 L 112/73 136/85 Pulse Oximetry 96 95 93 05/28/21 04:00 05/28/21 08:00 05/28/21 10:44 Temperature 96.3 F L 96.9 F L Pulse Rate 80 77 77 Respiratory Rate 14 16 Blood Pressure 114/57 L 102/61 Pulse Oximetry 92 90 05/28/21 11:59 Temperature 97.1 F L Pulse Rate 73 Respiratory Rate 16 Blood Pressure 100/58 L Pulse Oximetry 92 Intake/Output Intake/Output: Intake & Output 05/25/21 05/26/21 05/27/21 05/28/21 23:59 23:59 23:59 23:59 Intake Total 2850 3170 2888 600 Output Total 2450 2400 1050 1350 Balance 222 914 2646 -750 Meds/Results Medications: Active Medications Generic Name Dose Route Start Last Admin Trade Name Freq PRN Reason Stop Dose Admin Atorvastatin Calcium 20 mg 05/21/21 14:30 05/28/21 10:44 Atorvastatin 20 Mg Tablet PO 20 mg DAILY RODNEY Administration Azithromycin 250 mg 05/27/21 09:00 05/28/21 10:44 Azithromycin 250 Mg Tablet PO 05/30/21 09:01 250 mg DAILY RODNEY Administration Bisacodyl 10 mg 05/21/21 13:41 Bisacodyl 10 Mg Suppository RECTAL DAILY PRN Constipation Buspirone HCl 10 mg 05/21/21 17:00 05/28/21 10:44 Buspirone Hcl 10 Mg Tablet PO 10 mg TID RODNEY Administration Buspirone HCl 5 mg 05/21/21 17:00 05/28/21 10:44 Buspirone Hcl 5 Mg Table
--- NOTE | 2021-05-28 13:30 | PCPTNOTE ---
The patient treatment was not able to be completed on 05/28 due to pt not feeling too well this afternoon. Will plan to continue treatment per plan of care.
[2021-05-28] MEDS: ENOXAPARIN 40 MG/0.4 ML SYRINGE SUB-Q (14:35)
[2021-05-28] MEDS: WARFARIN (*PBKC) 7.5 MG TABLET PO (16:51)
[2021-05-28] MEDS: FUROSEMIDE 40 MG TABLET PO (20:34)
[2021-05-29] VITALS: BP 125/80; PULSE 79; RESP 18; TEMP 36.3; O2SAT 94
[2021-05-29 01:38] VITALS: O2SAT 95
--- NOTE | 2021-05-29 01:45 | PCRCNOTE ---
PT. REFUSED BIPAP, SAID WAITING TO SPEAK TO DOCTOR IN THE MORNING. PT. STATES CLAUSTROPHOBIC & THE MASK IS TOO SMALL, I CHANGED MASK & PT. STILL REFUSED BIPAP UNTIL SPEAKS WITH DOCTOR
[2021-05-29 04:00] VITALS: BP 133/75; PULSE 87; RESP 18; TEMP 36.3; O2SAT 95
[2021-05-29 07:34] LABS: Hematocrit 31.7 % (42.0-52.0); Mean Corpuscular HGB Conc 28.4 g/dl (32-36); Mean Corpuscular Volume 77.5 fl (80-100); Mean Platelet Volume 10.5 fl (7.4-10.4); Platelet Count Result 484 k/mm3 (150-375); Red Blood Count 4.09 M/mm3 (4.6-6.20); Red Cell Distribution Width 20.2 % (11.5-14.5)
[2021-05-29 07:55] LABS: Albumin Level 2.8 g/dL (3.5-5.1); Anion Gap 4 mmol/L (8-16); Blood Urea Nitrogen 20 mg/dL (9-20); CRP 1.7 mg/dL (<1.0); Calcium 7.6 mg/dL (8.4-10.2); Carbon Dioxide 36 mmol/L (22-30); Chloride 93 mmol/L (98-107); Estimated CRCL calculation 76 ml/min; Estimated Glomerular Filt Rate > 60; Glucose 95 mg/dL (65-110); Phosphorus 3.3 mg/dL (2.5-4.5); Potassium 4.3 mmol/L (3.4-5.0); Sodium 133 mmol/L (137-145)
[2021-05-29 08:00] VITALS: BP 137/73; PULSE 83; RESP 14; TEMP 35.9; O2SAT 91
[2021-05-29 08:07] LABS: INR 1.4; Prothrombin Time 17.2 Seconds (11.1-14.7)
[2021-05-29] MEDS: ENOXAPARIN 40 MG/0.4 ML SYRINGE SUB-Q (08:12)
[2021-05-29] MEDS: busPIRone HCL 5 MG TABLET PO ×2 (08:14→12:39)
[2021-05-29] MEDS: FERROUS SULFATE 324 MG TABLET PO (08:14)
[2021-05-29] MEDS: busPIRone HCL 10 MG TABLET PO ×2 (08:14→12:39)
[2021-05-29] MEDS: PANTOPRAZOLE 40 MG TABLET PO (08:14)
[2021-05-29] MEDS: AZITHROMYCIN 250 MG TABLET PO (08:14)
[2021-05-29 08:15] VITALS: PULSE 80
[2021-05-29] MEDS: ATORVASTATIN 20 MG TABLET PO (08:15)
[2021-05-29] MEDS: TAMSULOSIN HCL 0.4 MG CAPSULE PO (08:15)
[2021-05-29] MEDS: SERTRALINE HCL 50 MG TABLET PO (08:15)
[2021-05-29] MEDS: METOPROLOL SUCCINATE EXT REL 25 MG TABCR PO (08:15)
[2021-05-29] MEDS: FUROSEMIDE 20 MG TABLET PO (11:38)
[2021-05-29] MEDS: APIXABAN 5 MG TABLET PO (11:38)
[2021-05-29 12:00] VITALS: BP 135/66; PULSE 80; RESP 14; TEMP 36.8; O2SAT 91
--- NOTE | 2021-05-29 12:14 | PM.DS ---
DS: Admitting Diagnosis Discharge Date 05/29/21 Admitting Diagnosis Hypoxia DS: Discharge Diagnosis Discharge Diagnosis (1) Acute and chronic respiratory failure: Code(s): J96.20 - Acute and chronic respiratory failure, unspecified whether with hypoxia or hypercapnia Status: Acute Assessment and Plan: Patient is on chronic home O2 at 2 L after his last hospitalization in April. He is also known to have chronic hypercapnia. It was felt that his symptoms were multifactorial from COVID, CHF, PHUONG. He has been mostly compliant with noninvasive ventilation here. Blood gas 05/26/21 shows 7.42/54/63 on BiPAP. He was able to be weaned to 2L. He did not wear o2 prior to his initial hospitalization in April. (2) Pneumonia due to COVID-19 virus: Code(s): U07.1 - COVID-19; J12.82 - Pneumonia due to coronavirus disease 2019 Status: Acute Assessment and Plan: Patient presented with acute on chronic respiratory failure. He was diagnosed with COVID-19 pneumonia by rapid testing on 05/20/2021. He completed a curse of dexamethasone and remdesivir. Was also on baricitinib but stopped when he was weaned to baseline O2 requirement. Blood cultures negative. He completed 5 days of Rocephin; Azithro added for productive cough. He was weaned back down to 2L O2. Will continue noninvasive ventilation at night and with naps and O2 while awake at the facility. (3) Atrial fibrillation: Qualifiers: Atrial fibrillation type: unspecified chronic Qualified Code(s): I48.20 - Chronic atrial fibrillation, unspecified Code(s): I48.91 - Unspecified atrial fibrillation Status: Acute Assessment and Plan: Ruba has chronic AFib. HR well controlled. His INR was supratherapeutic on admission so Coumadin held. INR drifted down ans COumadin resumed at 1mg/2mg alternating. INR continued to drop and it was discovered that he was on 7.5mg last admission in April. Since he was subtherapeutic, it was decided to change him to Elquis after discussing with him and his . (4) Supratherapeutic INR: Code(s): R79.1 - Abnormal coagulation profile Status: Acute Assessment and Plan: INR was 4.6 on admission and trended down. Resolved. As above. (5) Acute renal insufficiency: Code(s): N28.9 - Disorder of kidney and ureter, unspecified Status: Acute Assessment and Plan: Baseline creatinine is normal. On admission (05/18/21), his creatinine was 2.0 but since that time has trended downward to 1.1 today which is within his baseline. It was felt that acute kidney injury was related to ATN, hypotension, sepsis and COVID. Lasix was held but was able to be resumed which he tolerated well. (6) Sepsis: Qualifiers: Acute renal failure type: unspecified Sepsis acute organ dysfunction status: with acute organ dysfunction Sepsis type: sepsis due to unspecified organism Severe sepsis acute organ dysfunction type: acute renal failure Severe sepsis shock status: without septic shock Qualified Code(s): A41.9 - Sepsis, unspecified organism; R65.20 - Severe sepsis without septic shock; N17.9 - Acute kidney failure, unspecified Code(s): A41.9 - Sepsis, unspecified organism Status: Acute Assessment and Plan: Present on admission with leukocytosis, tachycardia acute respiratory failure related to COVID. He also became hypotensive on 05/20/2021. Symptoms have resolved. Treatment as above. (7) CHF (congestive heart failure): Qualifiers: Heart failure chronicity: chronic Heart failure type: unspecified Qualified Code(s): I50.9 - Heart failure, unspecified Code(s): I50.9 - Heart failure, unspecified Status: Acute Assessment and Plan: BNP is 4300. Chest x-ray could be consistent with CHF or least a component of such vs COVID. Lasix was held because of the hypotension and acute kidney injury. Creatinine normaliz
--- NOTE | 2021-05-29 15:33 | PC.NURSE ---
[facility] picked up this patient at 1540. This nurse accidentally discharged pt at wrong time.
== END 2021-05-29 14:36 | DRG 871 ==
LOC: ANHED 11:26 → ANH3MEDSUR 15:34 → ANHIMU 05-21 00:34 → ANH3MEDSUR 05-29 11:19 → ANHIMU 06-17 14:07
PROVIDERS: Internal Medicine; Admitting Provider Student in an Organized Health Care Education/Training Program; Emergency Provider Emergency Medicine; PCP Internal Medicine; Visit Provider Internal Medicine
DX: A41.89 Other specified sepsis (principal); U07.1 COVID-19; J12.82 Pneumonia due to coronavirus disease 2019; J96.22 Acute and chronic respiratory failure with hypercapnia; N17.0 Acute kidney failure with tubular necrosis; I48.19 Other persistent atrial fibrillation; I50.32 Chronic diastolic (congestive) heart failure; Z68.42 Body mass index [BMI] 45.0-49.9, adult; E66.2 Morbid (severe) obesity with alveolar hypoventilation; R65.20 Severe sepsis without septic shock; I11.0 Hypertensive heart disease with heart failure; G47.33 Obstructive sleep apnea (adult) (pediatric); R79.1 Abnormal coagulation profile; N40.1 Benign prostatic hyperplasia with lower urinary tract symptoms; D50.9 Iron deficiency anemia, unspecified; E78.2 Mixed hyperlipidemia; E11.9 Type 2 diabetes mellitus without complications; M16.12 Unilateral primary osteoarthritis, left hip; M19.011 Primary osteoarthritis, right shoulder; F41.8 Other specified anxiety disorders; Z79.01 Long term (current) use of anticoagulants; Z99.81 Dependence on supplemental oxygen; Z87.891 Personal history of nicotine dependence; Z79.84 Long term (current) use of oral hypoglycemic drugs
CPT/HCPCS: 36415; 36600; 71045; 74176; 80048; 80053; 80069; 81001; 82274; 82375; 82565; 82728; 82805; 82948; 83036; 83050; 83540; 83550; 83605; 83690; 83735; 83880; 84450; 84460; 84484; 85025; 85027; 85610; 85730; 86140; 87040; 87086; 87088; 87426; 87804; 93005; 94002; 94003; 94640; 96365; 96375; 97110; 97162; 97167; 97530; 97535; 99291; A9270; C9803; J0696; J1100; J1650; J2270; J7030; J7120

== ENCOUNTER 2021-06-30 10:26 | Inpatient (IN) | payer MEDICARE, MEDICAID, SELFPAY ==
[2021-06-30] VITALS (36 sets, daily range): BP systolic 97–123; BP diastolic 56–73; PULSE 96–128; RESP 17–40; TEMP 36.4–37; O2SAT 87–100
--- NOTE | ~2021-06-30 | XR_ITS ---
EXAMINATION: XR chest 1V portable DATE: 06/30/2021 12:24 INDICATION: Dehydration. TECHNIQUE: A single frontal view of the chest was obtained. COMPARISON: Chest single view 05/27/2021, CT abdomen and pelvis 05/19/2021 FINDINGS: There are airspace opacities throughout the lungs bilaterally. No pleural effusion or pneum othorax. Cardiomegaly is noted. IMPRESSION: 1. Worsened diffuse lung disease, consistent with pulmonary edema versus pneumonia. 2. Cardiomegaly. Reviewed, dictated and finalized at location A. RER IMPRESSION: 1. Worsened diffuse lung disease, consistent with pulmonary edema versus pneumo edd. 2. Cardiomegaly.
--- NOTE | ~2021-06-30 | US_ITS ---
EXAMINATION: US venous doppler UE RT DATE: 07/01/2021 14:43 INDICATION: Right upper limb edema. TECHNIQUE: Grayscale ultrasound images without and with compression and Doppler ultrasound images of the right upper extremity veins were obtained. COMPARISON: None. FINDINGS: The visualized portions of the right internal jugular vein, subclavian vein, axillary vein, brachial veins, basilic vein, cephalic vein, radial vein, and ulnar vein are patent. IMPRESSION: 1. No deep venous thrombosis. Reviewed, dictated and finalized at location A. ER BARREL
--- NOTE | ~2021-06-30 | US_ITS ---
EXAMINATION: US venous doppler [facility] DATE: 07/01/2021 11:57 INDICATION: Right lower limb edema. TECHNIQUE: Grayscale ultrasound images without and with compression and Doppler ultrasound images of the bilateral lower extremity veins were obtained. COMPARISON: Ultrasound 12/26/2011 FINDINGS: The visualized portions of right common femoral vein, profunda (deep) femoral vein, femoral vein, pop liteal vein, peroneal veins, posterior tibial veins, and greater saphenous vein outflow are patent. The visualized portions of left common femoral vein, profunda femoral vein, femoral vein, popliteal v ein, peroneal veins, posterior tibial veins, and greater saphenous vein outflow are patent. IMPRESSION: 1. No deep venous thrombosis. Reviewed, dictated and finalized at location A. [facility] [employer]
[2021-06-30 11:18] LABS: Alanine Aminotransferase 12 U/L (4-50); Albumin Level 2.8 g/dL (3.5-5.1); Alkaline Phosphatase 110 U/L (38-126); Anion Gap 4 mmol/L (8-16); Aspartate Amino Transferase 19 U/L (17-59); Bilirubin,Total 0.2 mg/dL (0.2-1.3); Blood Urea Nitrogen 42 mg/dL (9-20); Calcium 8.7 mg/dL (8.4-10.2); Carbon Dioxide 37 mmol/L (22-30); Chloride 95 mmol/L (98-107); Estimated Glomerular Filt Rate 42; Glucose 113 mg/dL (65-110); Potassium 4.5 mmol/L (3.4-5.0); Sodium 136 mmol/L (137-145)
--- NOTE | 2021-06-30 11:30 | ECG_ITS ---
Measurements Intervals Goff Rate: 106 P: SC: 0 QRS: 55 QRSD: 82 T: 8 QT: 321 QTc: 427 Interpretive Statements ATRIAL FIBRILLATION WITH RAPID VENTRICULAR RESPONSE INCOMPLETE RIGHT BUNDLE BRANCH BLOCK LOW QRS VOLTAGE IN PRECORDIAL LEADS BORDERLINE ST-T WAVE ABNORMALITY- ANT/INF LEADS BASELINE ARTIFACT- II, III, AVF ABNORMAL ECG Electronically Signed On 06-30-2021 15:24:04 INTERVENTIONAL RADIOLOG[employer] TECHNOLOGIST by Derek Phillips D.O.
[2021-06-30] MEDS: SODIUM CHLORIDE 0.9% IV 1,000 ML 500 ML IV CONT (12:05)
--- NOTE | 2021-06-30 12:06 | ED.GENADULT ---
HPI - General Adult General Chief complaint: Recheck/Abnormal Lab/Rx Stated complaint: ABN Labs Time Seen by Provider: 06/30/21 11:23 Source: EMS and RN notes reviewed Mode of arrival: EMS Related Data Home Medications Medication Instructions Recorded Confirmed buspirone 15 mg PO TID 05/06/21 05/20/21 Fleet Enema 118 ml RECTAL DAILY PRN 05/20/21 05/20/21 atorvastatin 20 mg PO DAILY 05/20/21 05/20/21 bisacodyl [Dulcolax (bisacodyl)] 10 mg RECTAL DAILY PRN 05/20/21 05/20/21 furosemide 40 mg PO HS 05/20/21 05/20/21 magnesium citrate 300 ml PO DAILY PRN 05/20/21 05/20/21 metformin 1,000 mg PO BID 05/20/21 05/20/21 metoprolol succinate 25 mg PO DAILY 05/20/21 05/20/21 sertraline [Zoloft] 50 mg PO BID 05/20/21 05/20/21 Allergies Allergy/AdvReac Type Severity Reaction Status Date / Time No Known Allergies Allergy Mild Verified 05/07/21 10:54 [facility] Past Medical History Medical History (Updated 06/30/21 @ 13:23 by Jazmyn Rutledge MD) Anxiety Atrial fibrillation Benign prostatic hyperplasia with lower urinary tract symptoms CHF (congestive heart failure) Echocardiogram December 2015: Difficult study with poor sonographic images demonstrate mild concentric left ventricular hypertrophy, diastolic dysfunction and increased left heart filling pressures based on elevated E/E. Ejection fraction 55-60%. Mild enlargement of left atrium Complex sleep apnea syndrome Polysomnogram 2018: Mild obstructive sleep apnea. Difficult titration with CPAP and then BiPAP without optimum pressure achieved with emergence of central sleep apnea noted during titration consistent with complex sleep apnea syndrome. ASV titration was recommended Depression Essential (primary) hypertension Iron deficiency anemia Mixed hyperlipidemia Occult blood in stools Type 2 diabetes mellitus without complication, without long-term current use of insulin Surgical History Surgical History History of cardiac catheterization (2011) Mild nonobstructive coronary artery disease with 40-50% stenosis of the mid LAD with preserved left ventricular systolic function with EF of 60 65% History of tonsillectomy Family History Family History Sibling Family history of heart disease in male family member before age 55 Father Acute myocardial infarction Other Diabetes mellitus Hypertension Social History Social History (Updated 05/20/21 @ 07:18 by Arely Mobley DO) Social History: He lives with his of over 50 years. He is for the most part bedbound. He and his have 5 children. He does not drink alcohol. Primary care physician: Dr. Von Mayfield Code status: DNR/DNI Surrogate decision maker: Smoking packs per day: 2 Smoking cigarettes per day: 40.0 Years smoked: 24 Smoking pack-years: 48.00 Smoking status: Former smoker Second hand tobacco smoke exposure: No Alcohol intake: never Substance use: never Substance use type: does not use Gender identity (if verbalized by the patient): Male Spiritual care concerns: No Course Vital Signs Vital signs: Vital Signs Temperature 37.0 C 06/30/21 10:25 Pulse Rate 112 H 06/30/21 10:25 Respiratory Rate 28 H 06/30/21 10:25 Blood Pressure 115/63 06/30/21 10:25 Pulse Oximetry 99 06/30/21 10:25 Temperature 37.0 C 06/30/21 10:25 Pulse Rate 112 H 06/30/21 16:31 Respiratory Rate 18 06/30/21 16:31 Blood Pressure 97/69 L 06/30/21 16:31 Pulse Oximetry 95 06/30/21 16:31 Medical Decision Making Vital Signs Vital Signs: Vital Signs Temperature 37.0 C 06/30/21 10:25 Pulse Rate 112 H 06/30/21 10:25 Respiratory Rate 28 H 06/30/21 10:25 Blood Pressure 115/63 06/30/21 10:25 Pulse Oximetry 99 06/30/21 10:25 Temperature 37.0 C 06/30/21 10:25 Pulse Rate 112 H 06/30/21 16:31 Respiratory Rate 18 06/30/21
[2021-06-30 12:11] LABS: Partial Thromboplastin Time 47.8 SECONDS (22.3-36.8)
[2021-06-30 12:21] LABS: INR > 19.0; Prothrombin Time > 120.0 Seconds (11.1-14.7)
[2021-06-30 12:27] LABS: Add Urine Microscopic? YES; Appearance Urine Cloudy (Clear); Bilirubin Urine Negative (Negative); Blood Urine 1+ (Negative); Color Urine Yellow (Yellow); Glucose Urine UA Negative (Negative); Ketones Urine Negative (Negative); Leukocyte Esterase Ur 3+ LEU/UL (Negative); Nitrate Urine Negative (Negative); Protein Urine 1+ mg/dL (Negative); Specific Grav Ur 1.015 (1.001-1.035); Urobilinogen Urine 0.2 mg/dL (<2.0); pH Urine 5.5 (5.0-9.0)
[2021-06-30 12:33] LABS: Basophils Percent Auto 0.4 % (0.2-1.2); Eosinophils Percent Auto 0.4 % (0-4.4); Hemoglobin 9.4 g/dL (14.0-18.0); Immature Granulocyte Absolute 0.15 K/mm3 (0.00-0.031); Immature Granulocyte Percent A 1.5 % (0-0.5); Lymphocytes Absolute Auto 0.72 K/mm3 (0.9-3.2); Lymphocytes Percent Auto 7.2 % (18.3-44.2); Mean Corpuscular HGB Conc 26.9 g/dl (32-36); Mean Corpuscular Hemoglobin 22.2 pg (26-34); Mean Corpuscular Volume 82.7 fl (80-100); Mean Platelet Volume 9.8 fl (7.4-10.4); Monocytes Absolute Auto 0.7 K/mm3 (0.1-0.6); Monocytes Percent Auto 7.1 % (2.6-8.5); Neutrophils Absolute Auto 8.3 K/mm3 (1.3-6.7); Neutrophils Percent Auto 83.4 % (45.5-73.1); Platelet Count Result 373 k/mm3 (150-375); Red Blood Count 4.23 M/mm3 (4.6-6.20)
[2021-06-30 12:39] LABS: Platelet Estimate Adequate (Adequate)
[2021-06-30 12:40] LABS: Hypochromasia 1+ (NORMAL)
[2021-06-30 12:55] LABS: Bacteria Urine Trace /hpf; Mucus Urine Rare /lpf; Squamous Epithelial Cell Urine Rare /hpf (Few); WBC Clumps Urine Present /HPF; WBC Urine >75 /hpf
[2021-06-30 13:11] LABS: NT Pro B Type Natriuretic Pept 4620 pg/mL (5-100)
[2021-06-30] MEDS: MORPHINE SULFATE (*CRX) 4 MG/ML INJ IV PUSH (13:55)
[2021-06-30] MEDS: ONDANSETRON INJ 4 MG/2 ML VIAL IV PUSH (13:55)
[2021-06-30] MEDS: FUROSEMIDE INJ 40 MG/4 ML VIAL IV PUSH (14:00)
--- NOTE | 2021-06-30 14:07 | PC.NURSE ---
Pt given pain medication and was repositioned for comfort. Pulled up in bed and pillows repositioned under buttocks. Updated on admission.
--- NOTE | 2021-06-30 18:13 | ADMGEN ---
This patient, Rommel Bran, was admitted to IMU Room 204-01. Patient/family oriented to hospital policies and general routines including ID bracelet, bed and alarms, visiting hours, pain management, procedures, bathroom and other care routines, personal items, smoking policy, room service/diet, and visiting hours. Information on how to activate the Rapid Response Team has been discussed. Patient/Family are encouraged to report perceived risks to care and to ask questions if they do not understand what they are told or what they should do.
--- NOTE | 2021-06-30 22:50 | PM.IMHP ---
H&P: HPI History of Present Illness Date/Time: 06/30/212199 this is an 81-year-old male patient who was admitted and discharged from our facility last month. The patient was discharged to a senior living facility. The patient is a very poor historian and I was not able to get much information from the patient. However he is also very hard of hearing. The patient has a very foul smelling chronic left buttock wound. The patient has a creatinine 1.6. And sodium of 136. He is on Lasix daily for congestive heart failure. The patient has edema to his right arm and right leg which could just be dependent edema. His albumin was also low at 2.8. The patient was given IV fluids in the emergency room, morphine, Zofran, and Lasix in the emergency room. Chest x-ray was read as worsened diffuse lung disease, consistent with pulmonary edema versus pneumonia. Cardiomegaly. The patient was placed on 10 L per nasal cannula. Last documentation I could tell he was on 3 are to 4 per nasal cannula. He is chronically on oxygen but I am not sure his rate. The patient does need to be on a CPAP machine at rest. The patient is being admitted to inpatient services on the date of service 06/30/2021. Chief Complaint: Shortness of breath Review of Systems Review of Systems: ROS unobtainable: Yes unobtainable due to mental status PMFSH Past Medical History Medical History Anxiety Atrial fibrillation Benign prostatic hyperplasia with lower urinary tract symptoms CHF (congestive heart failure) Echocardiogram December 2015: Difficult study with poor sonographic images demonstrate mild concentric left ventricular hypertrophy, diastolic dysfunction and increased left heart filling pressures based on elevated E/E. Ejection fraction 55-60%. Mild enlargement of left atrium Complex sleep apnea syndrome Polysomnogram 2018: Mild obstructive sleep apnea. Difficult titration with CPAP and then BiPAP without optimum pressure achieved with emergence of central sleep apnea noted during titration consistent with complex sleep apnea syndrome. ASV titration was recommended Depression Essential (primary) hypertension Iron deficiency anemia Mixed hyperlipidemia Occult blood in stools Type 2 diabetes mellitus without complication, without long-term current use of insulin Surgical History Surgical History History of cardiac catheterization (2012) Mild nonobstructive coronary artery disease with 40-50% stenosis of the mid LAD with preserved left ventricular systolic function with EF of 60 65% History of tonsillectomy Family History Family History Sibling Family history of heart disease in male family member before age 55 Father Acute myocardial infarction Other Diabetes mellitus Hypertension Social History Social History (Updated 06/30/21 @ 22:59 by Gris Nuñez NP) Social History: He lived with his of over 50 years. He is currently and snf. He is for the most part bedbound. He and his have 5 children. He does not drink alcohol. Primary care physician: Dr. Von Mayfield Code status: DNR/DNI Surrogate decision maker: Smoking packs per day: 2 Smoking cigarettes per day: 40.0 Years smoked: 24 Smoking pack-years: 48.00 Smoking status: Former smoker Second hand tobacco smoke exposure: No Alcohol intake: never Substance use: never Substance use type: does not use Gender identity (if verbalized by the patient): Male Spiritual care concerns: No Meds Home Medications and Allergies Home Medications Medication Instructions Recorded Confirmed Type tamsulosin 0.4 mg capsule 0.4 mg PO DAILY #90 cap 09/07/20 06/30/21 Rx buspirone 15 mg PO TID 05/06/21 06/30/21 History Fleet Enema 118 ml RECTAL DAILY PRN 05/20/21 06/30/21 History atorvastati
[2021-07-01] VITALS (15 sets, daily range): BP systolic 91–137; BP diastolic 47–89; PULSE 91–119; RESP 14–24; TEMP 36.1–36.6; O2SAT 93–100; BMI 43.8
[2021-07-01] MEDS: APIXABAN 5 MG TABLET PO ×2 (00:35→09:06)
[2021-07-01 05:21] LABS: Basophils Absolute Auto 0.1 K/mm3 (0.0-0.1); Basophils Percent Auto 0.4 % (0.2-1.2); Hemoglobin 9.2 g/dL (14.0-18.0); Immature Granulocyte Absolute 0.29 K/mm3 (0.00-0.031); Immature Granulocyte Percent A 2.1 % (0-0.5); Lymphocytes Absolute Auto 0.71 K/mm3 (0.9-3.2); Lymphocytes Percent Auto 5.2 % (18.3-44.2); Mean Corpuscular HGB Conc 26.3 g/dl (32-36); Mean Corpuscular Hemoglobin 22.3 pg (26-34); Mean Corpuscular Volume 84.7 fl (80-100); Mean Platelet Volume 9.5 fl (7.4-10.4); Monocytes Absolute Auto 0.7 K/mm3 (0.1-0.6); Monocytes Percent Auto 4.8 % (2.6-8.5); Neutrophils Percent Auto 87.5 % (45.5-73.1); Platelet Count Result 364 k/mm3 (150-375); Red Blood Count 4.13 M/mm3 (4.6-6.20); Red Cell Distribution Width 19.9 % (11.5-14.5); White Blood Count 13.7 K/mm3 (4.5-10.0)
[2021-07-01 05:39] LABS: Alanine Aminotransferase 14 U/L (4-50); Albumin Level 2.9 g/dL (3.5-5.1); Alkaline Phosphatase 109 U/L (38-126); Anion Gap 9 mmol/L (8-16); Aspartate Amino Transferase 21 U/L (17-59); Bilirubin,Total 0.3 mg/dL (0.2-1.3); Blood Urea Nitrogen 42 mg/dL (9-20); Calcium 8.6 mg/dL (8.4-10.2); Carbon Dioxide 34 mmol/L (22-30); Chloride 91 mmol/L (98-107); Estimated CRCL calculation 44 ml/min; Estimated Glomerular Filt Rate 34; Glucose 103 mg/dL (65-110); Magnesium 1.6 mg/dL (1.6-2.3); Potassium 4.9 mmol/L (3.4-5.0); Sodium 134 mmol/L (137-145)
[2021-07-01] MEDS: busPIRone HCL 5 MG TABLET 15 MG PO ×2 (09:05→12:53)
[2021-07-01] MEDS: PANTOPRAZOLE 40 MG TABLET PO (09:06)
[2021-07-01] MEDS: METOPROLOL SUCCINATE EXT REL 25 MG TABCR PO (09:06)
[2021-07-01] MEDS: THERAPEUTIC MULTIVITAMINS/MINERALS TAB (*BKC) 1 TABLET PO (09:06)
[2021-07-01] MEDS: TAMSULOSIN HCL 0.4 MG CAPSULE PO (09:06)
[2021-07-01] MEDS: FUROSEMIDE INJ 40 MG/4 ML VIAL IV PUSH (09:06)
[2021-07-01] MEDS: FERROUS SULFATE 324 MG TABLET PO (09:06)
[2021-07-01] MEDS: AZITHROMYCIN 250 MG TABLET PO (09:06)
[2021-07-01] MEDS: SERTRALINE HCL 50 MG TABLET PO (09:06)
[2021-07-01] MEDS: ATORVASTATIN 20 MG TABLET PO (09:06)
[2021-07-01] MEDS: INSULIN ASPART (*BKC) 100 UNITS/ML SUB-Q (12:54)
--- NOTE | 2021-07-01 13:15 | PM.IMPN ---
Progress Note: A&P Assessment and Plan (1) Decubitus ulcer: Qualifiers: Laterality: unspecified laterality Pressure injury location: buttock Pressure injury stage: stage 4 Qualified Code(s): L89.304 - Pressure ulcer of unspecified buttock, stage 4 Code(s): L89.90 - Pressure ulcer of unspecified site, unspecified stage Status: Acute (2) Edema: Qualifiers: Edema type: localized Qualified Code(s): R60.0 - Localized edema Code(s): R60.9 - Edema, unspecified Status: Acute (3) Coagulopathy: Code(s): D68.9 - Coagulation defect, unspecified Status: Acute (4) Urinary tract infection, chronic: Code(s): N39.0 - Urinary tract infection, site not specified Status: Acute (5) Anemia: Qualifiers: Anemia type: unspecified type Qualified Code(s): D64.9 - Anemia, unspecified Code(s): D64.9 - Anemia, unspecified Status: Acute (6) Indwelling Johnson catheter present: Code(s): Z97.8 - Presence of other specified devices Status: Acute (7) BPH associated with nocturia: Code(s): N40.1 - Benign prostatic hyperplasia with lower urinary tract symptoms; R35.1 - Nocturia Status: Acute (8) Supratherapeutic INR: Code(s): R79.1 - Abnormal coagulation profile Status: Acute (9) Sepsis: Qualifiers: Acute renal failure type: unspecified Sepsis acute organ dysfunction status: with acute organ dysfunction Sepsis type: sepsis due to unspecified organism Severe sepsis acute organ dysfunction type: acute renal failure Severe sepsis shock status: without septic shock Qualified Code(s): A41.9 - Sepsis, unspecified organism; R65.20 - Severe sepsis without septic shock; N17.9 - Acute kidney failure, unspecified Code(s): A41.9 - Sepsis, unspecified organism Status: Acute (10) Acute UTI: Code(s): N39.0 - Urinary tract infection, site not specified Status: Acute (11) Acute renal insufficiency: Code(s): N28.9 - Disorder of kidney and ureter, unspecified Status: Acute (12) Mixed hyperlipidemia: Code(s): E78.2 - Mixed hyperlipidemia Status: Acute (13) Essential (primary) hypertension: Code(s): I10 - Essential (primary) hypertension Status: Acute (14) Chronic atrial fibrillation: Code(s): I48.20 - Chronic atrial fibrillation, unspecified Status: Acute (15) Obesity hypoventilation syndrome: Code(s): E66.2 - Morbid (severe) obesity with alveolar hypoventilation Status: Acute (16) Acute and chronic respiratory failure with hypercapnia: Code(s): J96.22 - Acute and chronic respiratory failure with hypercapnia Status: Acute (17) Diastolic heart failure: Qualifiers: Heart failure chronicity: unspecified Qualified Code(s): I50.30 - Unspecified diastolic (congestive) heart failure Code(s): I50.30 - Unspecified diastolic (congestive) heart failure Status: Acute (18) Sleep apnea: Qualifiers: Sleep apnea type: obstructive Qualified Code(s): G47.33 - Obstructive sleep apnea (adult) (pediatric) Code(s): G47.30 - Sleep apnea, unspecified Status: Acute (19) Type 2 diabetes mellitus without complication, without long-term current use of insulin: Code(s): E11.9 - Type 2 diabetes mellitus without complications Status: Acute (20) Catheter-associated urinary tract infection: Code(s): T83.511A - Infection and inflammatory reaction due to indwelling urethral catheter, initial encounter; N39.0 - Urinary tract infection, site not specified Status: Acute Additional Plan 07/01/21 foul smelling decubitus ulcer c/s surg, zosyn /vanc UTI on zosyn, cultures pending INR > 19 Eliquis discontinued repeat INR ordered if elevated Vit K to reverse lasix 40mg IV QD RUE edema US ordered morbid obesity in bariatric bed PT/OT Subjective Date/time seen:
[2021-07-01 13:36] LABS: INR 2.1; Prothrombin Time 22.6 Seconds (11.1-14.7)
[2021-07-01] MEDS: SOD HYPOCHLORITE 1/4 STRENGTH 473 ML 1 APPLIC TOPICAL ×2 (14:00→20:57)
--- NOTE | 2021-07-01 14:38 | PM.CNGS ---
Assessment and Plan Assessment and plan (1) Sacral decubitus ulcer: Code(s): L89.159 - Pressure ulcer of sacral region, unspecified stage Status: Acute Assessment and Plan: Patient presents with a large unstageable necrotic sacral decubitus ulcer. This certainly could be a source for sepsis and we would recommend proceeding with surgical debridement in the OR. The patient has multiple co-morbidities that increases his risks for surgery and post-operative respiratory failure. I discussed this with the patient and his via the phone at the bedside. Description of the procedure, risks, benefits, and expected outcomes were discussed with the patient and his in detail. Even following surgical debridement, we would expect this to require long-term wound care and there is potential to have future complications with this wound. I have discussed the case with Dr. Dominique and we will plan to add him onto the OR schedule tomorrow for excisional debridement of the necrotic sacral decubitus ulcer. Continue IV antibiotics, frequent turning, and local wound care with Dakin's soaked gauze dressing changes for now. Will make him NPO after midnight. Thank you for allowing us to see the patient in consultation and we will continue to follow along with you. (2) Sepsis: Qualifiers: Acute renal failure type: unspecified Sepsis acute organ dysfunction status: with acute organ dysfunction Sepsis type: sepsis due to unspecified organism Severe sepsis acute organ dysfunction type: acute renal failure Severe sepsis shock status: without septic shock Qualified Code(s): A41.9 - Sepsis, unspecified organism; R65.20 - Severe sepsis without septic shock; N17.9 - Acute kidney failure, unspecified Code(s): A41.9 - Sepsis, unspecified organism Status: Acute Assessment and Plan: Criteria met with leukocytosis, tachycardia, and presence of infection. Urinary versus necrotic sacral decubitus ulcer. Continue broad-spectrum IV antibiotics. Blood, urine, and wound cultures pending. Plan to go to OR for debridement. (3) Coagulopathy: Code(s): D68.9 - Coagulation defect, unspecified Status: Acute Assessment and Plan: INR > 19 on admission. Patient currently on Eliquis, with last dose this morning. Does not appears that he was given any reversal agents. Repeat labs today showed INR 2.1 and PT 22. Discussed with Hospitalist, felt the coagulopathy is a lab error. Will monitor labs. Continue to hold Eliquis and they have started therapeutic-dosed Lovenox. (4) Catheter-associated urinary tract infection: Code(s): T83.511A - Infection and inflammatory reaction due to indwelling urethral catheter, initial encounter; N39.0 - Urinary tract infection, site not specified Status: Acute (5) Acute and chronic respiratory failure: Code(s): J96.20 - Acute and chronic respiratory failure, unspecified whether with hypoxia or hypercapnia Status: Acute Assessment and Plan: Increase in oxygen requirements on admission, he is chronically on O2 via nasal cannula. Management per Hospitalist. (6) CHF (congestive heart failure): Qualifiers: Heart failure chronicity: chronic Heart failure type: unspecified Qualified Code(s): I50.9 - Heart failure, unspecified Code(s): I50.9 - Heart failure, unspecified Status: Acute Assessment and Plan: Being diuresed. Management per primary service. 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 Switched to Eliquis
--- NOTE | 2021-07-01 15:09 | PCPTNOTE ---
PT initial evaluation attempted at this time. Pt was unarousable despite multiple attempts this date. RN notified. Will attempt initial evaluation again tomorrow.
--- NOTE | 2021-07-01 15:10 | PCOTNOTE ---
Attempted to see pt. for occupational therapy evaluation. Pt. was unable to be aroused.
[2021-07-01 18:00] LABS: Glucose Point of Care 81 mg/dl (65-105)
[2021-07-01 18:45] LABS: Alveolar/Arterial O2 Gradient 169.6 mmHg; Base Excess ABG 4.9 mEq/l (+/-2.0); Carboxyhemoglobin 0.3 % THb (0-2.0); Fractional Inspired Oxygen 48 %; HCO3 ABG 34.3 mEq/l (22.0-26.0); Methemoglobin ABG 0.3 %THb (0-1.5); Oxygen Content ABG 13.1 %vol (16.0-22.0); Oxygen Saturation ABG 92.2 % (95.0-100.0); Oxyhemoglobin 93.2 % THb (90.0-100.0); PO2 ABG 77.4 mmHg (80.0-100.0); PO2 FiO2 Ratio Arterial Blood 1.61 %; Reduced Hemoglobin 6.2 %THb (0-5.0); Total Hemoglobin 9.9 g/dL (12.0-18.0)
[2021-07-01 18:47] LABS: Device HIGH FLOW NASAL CANN; Modified Allen's Test Pass; PCO2 ABG 84.3 mmHg (35.0-45.0); Site Drawn LEFT RADIAL; pH ABG 7.227 (7.350-7.450)
[2021-07-01 20:23] LABS: Glucose Point of Care 90 mg/dl (65-105)
[2021-07-02] VITALS (29 sets, daily range): BP systolic 86–196; BP diastolic 47–121; PULSE 57–114; RESP 10–22; TEMP 36.2–37.1; O2SAT 90–100
[2021-07-02 08:01] LABS: Glucose Point of Care 107 mg/dl (65-105)
--- NOTE | 2021-07-02 08:14 | PCOTNOTE ---
Patient is going to surgery today 07/02/2021, will discharge from OT at this time, can re-order when medically appropriate.
--- NOTE | 2021-07-02 08:21 | PCPTNOTE ---
Patient is going to surgery today 07/02/2021, will discharge from PT at this time, can re-order when medically appropriate.
--- NOTE | 2021-07-02 08:25 | P.CDI_ITS ---
CDI Query Clarification Request -Sepsis with acute organ failure documented -Catheter associated UTI documented -Stage 4 decubitus ulcer that is foul smelling documented Please clarify cause of Sepsis: * Catheter associated UTi * Stage 4 decubitus ulcer * other * unable to determine <Lia Higuera - Last Filed: 07/02/21 08:33> Provider Comments STAGE 4 decubitus UNSURE ABOUT UTI <Erica Sexton MD - Last Filed: 07/03/21 16:12>
[2021-07-02] MEDS: METOPROLOL SUCCINATE EXT REL 25 MG TABCR PO (08:41)
[2021-07-02] MEDS: FUROSEMIDE INJ 40 MG/4 ML VIAL IV PUSH (08:41)
[2021-07-02] MEDS: PANTOPRAZOLE 40 MG TABLET PO (08:42)
[2021-07-02] MEDS: ATORVASTATIN 20 MG TABLET PO (08:42)
--- NOTE | 2021-07-02 08:43 | WPDCDIQUERY2 ---
CDI Query Clarification Request -Diastolic CHF has been documented -06/30 BNP 4620 -06/30 CXR impression Worsened diffuse lung disease, consistent with pulmonary edema versus pneumonia. -Lasix 40mg IV given 06/30, 07/01, 07/02 Please further clarify type and acuity of CHF: *Acute *Chronic *Acute on Chronic *Unable to determine <Lia Higuera - Last Filed: 07/02/21 08:51> Provider Comments ACUTE ON CHRONIC CHF <Erica Sexton MD - Last Filed: 07/03/21 16:12>
--- NOTE | 2021-07-02 10:30 | PC.NURSE ---
To OR per [bed ], IV [saline locked ]. Report given to [Daisha RN @ [id number] ].
[2021-07-02] MEDS: LACTATED RINGERS 1,000 ML 30 ML IV CONT (10:45)
--- NOTE | 2021-07-02 11:13 | WPDANESEPPF ---
Anes - Initial Pre Proc Eval Procedure: Operation Date: 07/02/21 12:00 Proposed Procedures p Debridement Sacral Decubitus Ulcer - Marlon Dominique DO Date/Time: 07/02/21 11:13 Surgeon: Boyd Andrade MD Pre Op Diagnosis: CHF, chronic urinary infection-catheter related AK Patient Data Age: 81 Gender: M Height: 1.88 m Weight: 154.7 kg Last Vital Signs Temp 36.2 C L 07/02/21 10:42 Pulse 97 07/02/21 10:42 Resp 22 H 07/02/21 10:42 BP 109/59 L 07/02/21 10:42 Pulse Ox 97 07/02/21 10:42 Allergies Allergy/AdvReac Type Severity Reaction Status Date / Time No Known Allergies Allergy Mild Verified 05/07/21 10:54 Home Medications Medication Instructions Recorded Confirmed Type tamsulosin 0.4 mg capsule 0.4 mg PO DAILY #90 cap 09/07/20 06/30/21 Rx buspirone 15 mg PO TID 05/06/21 06/30/21 History Fleet Enema 118 ml RECTAL DAILY PRN 05/20/21 06/30/21 History atorvastatin 20 mg PO DAILY 05/20/21 06/30/21 History bisacodyl [Dulcolax (bisacodyl)] 10 mg RECTAL DAILY PRN 05/20/21 06/30/21 History furosemide 40 mg PO 1700 05/20/21 06/30/21 History magnesium citrate 300 ml PO DAILY PRN 05/20/21 06/30/21 History metformin 1,000 mg PO BID 05/20/21 06/30/21 History metoprolol succinate 25 mg PO DAILY 05/20/21 06/30/21 History sertraline [Zoloft] 50 mg PO BID 05/20/21 06/30/21 History apixaban [Eliquis] 5 mg PO Q12HR #60 tablet 05/29/21 06/30/21 Rx azithromycin [Zithromax] 250 mg PO DAILY #1 tablet 05/29/21 06/30/21 Rx ferrous sulfate 324 mg PO BIDWM #60 tablet 05/29/21 06/30/21 Rx furosemide 20 mg PO DAILY #30 tablet 05/29/21 06/30/21 Rx pantoprazole 40 mg PO DAILY #30 tablet 05/29/21 06/30/21 Rx multivitamin with iron-mineral 1 tablet PO DAILY 06/30/21 06/30/21 History [Multivitamin-Minerals] Laboratory Tests 07/01/21 07/01/21 07/01/21 12:58 17:51 18:29 PT 22.6 Seconds H D Seconds (11.1-14.7) INR 2.1 Puncture Site Left radial ABG pH 7.227 L* (7.350-7.450) ABG pCO2 84.3 mmHg H* mmHg (35.0-45.0) ABG pO2 77.4 mmHg L mmHg (80.0-100.0) ABG PO2/FiO2 Ratio 1.61 % % ABG HCO3 34.3 mEq/l H mEq/l (22.0-26.0) ABG O2 Saturation 92.2 % L % (95.0-100.0) ABG O2 Content 13.1 %vol L %vol (16.0-22.0) ABG Base Excess 4.9 mEq/l mEq/l (+/-2.0) A-a Gradient 169.6 mmHg mmHg Oxyhemoglobin 93.2 % THb % THb (90.0-100.0) Carboxyhemoglobin 0.3 % THb % THb (0-2.0) Methemoglobin 0.3 %THb %THb (0-1.5) Reduced Hemoglobin 6.2 %THb H %THb (0-5.0) Total Hemoglobin 9.9 g/dL L g/dL (12.0-18.0) O2 Delivery Device High flow nasal licha O2 Liters/Min 6.0 LPM LPM FiO2 48 % % POC Capillary Glucose 81 mg/dl mg/dl (65-105) 07/01/21 07/02/21 20:02 07:39 PT INR Puncture Site ABG pH ABG pCO2 ABG pO2 ABG PO2/FiO2 Ratio ABG HCO3 ABG O2 Saturation ABG O2 Content ABG Base Excess A-a Gradient Oxyhemoglobin Carboxyhemoglobin Methemoglobin Reduced Hemoglobin Total Hemoglobin O2 Delivery Device O2 Liters/Min FiO2 POC Capillary Glucose 90 mg/dl mg/dl 107 mg/dl H mg/dl (65-105) (65-105) Patient hx anesthesia problems: none Family hx anesthesia problems: none Results Review: All pre-operative results and documents have been reviewed as part of the pre-operative evaluation. [facility] Past Medical History Medical History Anxiety Atrial fibrillation Benign prostatic hyperplasia with lower urinary tract symptoms CHF (congestive heart failure) Echocardiogram December 2015: Difficult study with poor sonographic images demonstrate mild concentric left ventricular h
--- NOTE | 2021-07-02 11:53 | WPDHPUPDATE1 ---
History and Physical Update Update Date/Time: 07/02/21 11:53 History and Physical has been reviewed, including an updated exam of the patient. There are NO changes in the patient's condition. Risks, benefits, and alternatives have been discussed and questions answered. Patient agrees to proceed with procedure.
--- NOTE | 2021-07-02 13:17 | PM.IMPN ---
Progress Note: A&P Assessment and Plan (1) Decubitus ulcer: Qualifiers: Laterality: unspecified laterality Pressure injury location: buttock Pressure injury stage: stage 4 Qualified Code(s): L89.304 - Pressure ulcer of unspecified buttock, stage 4 Code(s): L89.90 - Pressure ulcer of unspecified site, unspecified stage Status: Acute Assessment and Plan: Wound care consult was greatly be appreciated. May consider cultures. This appears to be chronic. However there is a foul smell. May also consider a CT of the abdomen and pelvis once his renal function has improved. (2) Edema: Qualifiers: Edema type: localized Qualified Code(s): R60.0 - Localized edema Code(s): R60.9 - Edema, unspecified Status: Acute (3) Coagulopathy: Code(s): D68.9 - Coagulation defect, unspecified Status: Acute (4) Urinary tract infection, chronic: Code(s): N39.0 - Urinary tract infection, site not specified Status: Acute (5) Anemia: Qualifiers: Anemia type: unspecified type Qualified Code(s): D64.9 - Anemia, unspecified Code(s): D64.9 - Anemia, unspecified Status: Acute (6) Indwelling Johnson catheter present: Code(s): Z97.8 - Presence of other specified devices Status: Acute (7) BPH associated with nocturia: Code(s): N40.1 - Benign prostatic hyperplasia with lower urinary tract symptoms; R35.1 - Nocturia Status: Acute Assessment and Plan: Continue tamsulosin (8) Supratherapeutic INR: Code(s): R79.1 - Abnormal coagulation profile Status: Acute (9) Sepsis: Qualifiers: Acute renal failure type: unspecified Sepsis acute organ dysfunction status: with acute organ dysfunction Sepsis type: sepsis due to unspecified organism Severe sepsis acute organ dysfunction type: acute renal failure Severe sepsis shock status: without septic shock Qualified Code(s): A41.9 - Sepsis, unspecified organism; R65.20 - Severe sepsis without septic shock; N17.9 - Acute kidney failure, unspecified Code(s): A41.9 - Sepsis, unspecified organism Status: Acute (10) Acute UTI: Code(s): N39.0 - Urinary tract infection, site not specified Status: Acute (11) Acute renal insufficiency: Code(s): N28.9 - Disorder of kidney and ureter, unspecified Status: Acute Assessment and Plan: The patient was given a L of IV fluids in the emergency room however the patient has depended edema to right upper extremity and right lower extremity. (12) Mixed hyperlipidemia: Code(s): E78.2 - Mixed hyperlipidemia Status: Acute Assessment and Plan: Continue with atorvastatin. (13) Essential (primary) hypertension: Code(s): I10 - Essential (primary) hypertension Status: Acute (14) Chronic atrial fibrillation: Code(s): I48.20 - Chronic atrial fibrillation, unspecified Status: Acute Assessment and Plan: Continue with Eliquis and metoprolol (15) Obesity hypoventilation syndrome: Code(s): E66.2 - Morbid (severe) obesity with alveolar hypoventilation Status: Acute Assessment and Plan: Auto titrate CPAP (16) Acute and chronic respiratory failure with hypercapnia: Code(s): J96.22 - Acute and chronic respiratory failure with hypercapnia Status: Acute (17) Diastolic heart failure: Qualifiers: Heart failure chronicity: unspecified Qualified Code(s): I50.30 - Unspecified diastolic (congestive) heart failure Code(s): I50.30 - Unspecified diastolic (congestive) heart failure Status: Acute (18) Sleep apnea: Qualifiers: Sleep apnea type: obstructive Qualified Code(s): G47.33 - Obstructive sleep apnea (adult) (pediatric) Code(s): G47.30 - Sleep apnea, unspecified Status: Acute (19) Type 2 diabetes mellitus without complication, without long-term current use of insulin
[2021-07-02 13:32] LABS: Glucose Point of Care 100 mg/dl (65-105)
--- NOTE | 2021-07-02 13:43 | W.PM.PROC2 ---
Procedure Note - Detailed Date of Procedure 07/02/21 Pre-op Diagnosis Stage 4 Sacral Decubitus Ulcer Post-op Diagnosis same Procedure Performed Sharp excisional debridement of stage 4 sacral decubitus ulcer including skin, fat, muscle, and fascia measuring 14cm x 8cm Surgeon Marlon Dominique, DO Anesthesia general Indications This is an 81-year-old man who presented to the emergency department from a [facility] facility with a sacral wound. He has limited mobility and has been essentially bed ridden for the past couple months. He started out with a small wound on his left buttock near the sacrum and this has progressed into a very large open wound with necrotic tissue. Decision was made to proceed with debridement of sacral decubitus ulcer. Findings Sharp excisional debridement of the sacral decubitus ulcer measuring 14 cm by 8 cm was performed using curved Vigil scissors. There was necrotic skin, muscle, subcutaneous fat, and fascia that all appeared necrotic. There was also purulence drainage coming from the inferior subcutaneous tissue. The tunneling extended up the superior left side of the sacrum. An incision was made over the a skin to open this area wide enough to allow for adequate debridement and packing. There was about 80-90% healthy appearing tissue after completing the debridement. The wound was then packed with Dakin soaked Kerlix gauze. Two 4 in rolls were placed within the ulcer cavity. Description of Procedure Procedure as well as risks, benefits, and alternatives were discussed with the patient's . Written consent was obtained and placed in chart prior to procedure. Patient was brought back to surgical suite. He was placed supine on operating table. Time-out was done to confirm patient and procedure. He was then intubated by the anesthesia department. He was then repositioned into a right lateral decubitus position. His perirectal and sacral area was prepped and draped in sterile fashion using Betadine prep. Sharp excisional debridement was then performed using curved Vigil scissors. All of the necrotic tissue within the wound bed was excised back to healthy, bleeding tissue. A large curette was then also used to scrape some of the fascia along the wound bed to where it appeared healthy as well. I then had to extend the wound opening cephalad using a 10 blade scalpel by about 5 cm. This allowed me to adequately debride the area that was tunneling further cephalad. Hemostasis was then achieved with electrocautery. After all of the necrotic appearing skin, subcu fat, muscle, and fascia was debrided, the wound was then irrigated with sterile saline. No other significant abnormalities were noted. The wound was then packed with Dakin's soaked Kerlix gauze. A total of two 4 rolls were packed within the wound bed. Fluffed gauze, ABD pads, and tape were then applied. Patient was then awakened from anesthesia, extubated, and transferred to recovery. Estimated Blood Loss -150.0 Urine Output -100.0 Packing Yes ( 4 in Kerlix gauze x2) Pathology none sent Complications No immediate complications Condition stable Disposition other ([facility])
[2021-07-02] MEDS: fentaNYL CITRATE INJ (*CRX) 100 MCG/2 ML VIAL 25 MCG IV PUSH ×2 (14:25→14:34)
--- NOTE | 2021-07-02 15:33 | SUR.PHASEI ---
1530 sbar faxed floor notified
--- NOTE | 2021-07-02 16:26 | PC.NURSE ---
Returned from OR per [bed ]. Report received from [Sánchez RN @ [phone]].
[2021-07-02] MEDS: AZITHROMYCIN 250 MG TABLET PO (16:32)
[2021-07-02] MEDS: TAMSULOSIN HCL 0.4 MG CAPSULE PO (16:33)
[2021-07-02] MEDS: busPIRone HCL 5 MG TABLET 15 MG PO (16:34)
[2021-07-02] MEDS: FERROUS SULFATE 324 MG TABLET PO (16:34)
[2021-07-02] MEDS: SERTRALINE HCL 50 MG TABLET PO (16:35)
[2021-07-02 17:12] LABS: Glucose Point of Care 120 mg/dl (65-105)
[2021-07-02 21:18] LABS: Glucose Point of Care 128 mg/dl (65-105)
[2021-07-03] VITALS (10 sets, daily range): BP systolic 98–111; BP diastolic 42–68; PULSE 93–100; RESP 16–23; TEMP 35.8–37.6; O2SAT 94–100
--- NOTE | 2021-07-03 04:14 | PC.NURSE ---
This patient, Rommel Bran, was transferred to [facility] on 07/02/21 at 2200. Personal belongings sent with patient. Report given to Abdirizak WEBB. Appropriate documentation sent with patient.
[2021-07-03 08:08] LABS: Glucose Point of Care 120 mg/dl (65-105)
[2021-07-03] MEDS: FERROUS SULFATE 324 MG TABLET PO ×2 (08:37→17:33)
[2021-07-03] MEDS: AZITHROMYCIN 250 MG TABLET PO (08:37)
[2021-07-03] MEDS: ATORVASTATIN 20 MG TABLET PO (08:37)
[2021-07-03] MEDS: METOPROLOL SUCCINATE EXT REL 25 MG TABCR PO (08:38)
[2021-07-03] MEDS: busPIRone HCL 5 MG TABLET 15 MG PO ×3 (08:38→17:32)
[2021-07-03] MEDS: THERAPEUTIC MULTIVITAMINS/MINERALS TAB (*BKC) 1 TABLET PO (08:39)
[2021-07-03] MEDS: SERTRALINE HCL 50 MG TABLET PO ×2 (08:40→17:33)
[2021-07-03] MEDS: FUROSEMIDE INJ 40 MG/4 ML VIAL IV PUSH (08:41)
[2021-07-03] MEDS: PANTOPRAZOLE 40 MG TABLET PO (08:41)
[2021-07-03] MEDS: TAMSULOSIN HCL 0.4 MG CAPSULE PO (08:41)
--- NOTE | 2021-07-03 10:21 | PM.PNGS ---
Progress Note: A&P Assessment and Plan (1) Sacral decubitus ulcer: Code(s): L89.159 - Pressure ulcer of sacral region, unspecified stage Status: Acute Assessment and Plan: Continue daily packing changes. Wound still looks a little bloody but should improve with time. Hold Lovenox/anticoagulation for another day. (2) Coagulopathy: Code(s): D68.9 - Coagulation defect, unspecified Status: Acute (3) Diastolic heart failure: Qualifiers: Heart failure chronicity: unspecified Qualified Code(s): I50.30 - Unspecified diastolic (congestive) heart failure Code(s): I50.30 - Unspecified diastolic (congestive) heart failure Status: Acute (4) Type 2 diabetes mellitus without complication, without long-term current use of insulin: Code(s): E11.9 - Type 2 diabetes mellitus without complications Status: Acute Subjective Subjective Date/Time Seen: 07/03/21 10:21 Post Op day: 1 (s/p debridement sacral decub 07/02) Interval history: More alert today. No complaints. Exam Skin: Other: Wound changed at bedside. Bloody packing with clot removed. Some dripping blood remains. Mostly healthy appearing wound bed, slightly dusky looking skin at inferior edge of wound. Kerlix gauze re-packed. Objective Data Vital Signs Vital Signs: Vital Signs - 24 hr 07/02/21 10:42 07/02/21 12:00 07/02/21 13:25 Temperature 36.2 C L 37.1 C Pulse Rate 97 104 H 85 Respiratory Rate 22 H 16 Blood Pressure 109/59 L 121/75 Pulse Oximetry 97 95 07/02/21 13:40 07/02/21 13:55 07/02/21 14:10 Temperature Pulse Rate 93 104 H 101 H Respiratory Rate 14 16 16 Blood Pressure 126/84 196/106 H Pulse Oximetry 99 99 99 07/02/21 14:25 07/02/21 14:40 07/02/21 15:05 Temperature Pulse Rate 104 H 97 107 H Respiratory Rate 16 10 L 20 Blood Pressure 188/121 H 112/90 107/59 L Pulse Oximetry 96 100 92 07/02/21 15:21 07/02/21 15:40 07/02/21 16:00 Temperature Pulse Rate 108 H 114 H 110 H Respiratory Rate 12 12 Blood Pressure 86/55 L 91/49 L Pulse Oximetry 92 96 90 07/02/21 16:24 07/02/21 16:54 07/02/21 17:54 Temperature 37.1 C 37.1 C 37.1 C Pulse Rate 108 H 57 L 106 H Respiratory Rate 20 20 20 Blood Pressure 95/47 L 103/49 L 110/64 Pulse Oximetry 98 98 96 07/02/21 18:00 07/02/21 19:15 07/02/21 20:00 Temperature 36.7 C Pulse Rate 107 H 103 H Respiratory Rate 18 Blood Pressure 108/54 L Pulse Oximetry 92 94 07/02/21 20:15 07/02/21 20:38 07/02/21 21:15 Temperature 36.7 C 36.7 C Pulse Rate 104 H 98 101 H Respiratory Rate 20 20 Blood Pressure 125/54 L 106/56 L Pulse Oximetry 94 94 94 07/02/21 22:00 07/02/21 23:18 07/03/21 00:24 Temperature 36.9 C Pulse Rate 103 H 100 Respiratory Rate 18 21 H Blood Pressure 104/52 L Pulse Oximetry 93 98 99 07/03/21 01:13 07/03/21 05:32 07/03/21 08:37 Temperature 37.6 C 37.2 C Pulse Rate 96 98 96 Respiratory Rate 16 16 Blood Pressure 111/42 L 111/68 Pulse Oximetry 95 100 94 07/03/21 08:38 Temperature Pulse Rate 96 Respiratory Rate Blood Pressure Pulse Oximetry Intake/Output Intake/Output: Intake & Output 06/30/21 07/01/21 07/02/21 07/03/21 23:59 23:59 23:59 23:59 Intake Total 1000 1480 1650 1100 Output Total 750 750 750 Balance 1000 730 900 350 Meds/Results Medications: Active Medications Generic Name Dose Route Start Last Admin Trade Name Freq PRN Reason Stop Dose Admin Atorvastatin Calcium 20 mg 07/01/21 09:00 07/03/21 08:37 Atorvastatin 20 Mg Tablet PO 20 mg DAILY RODNEY Administration Azithromycin 250 mg 07/01/21 09:00 07/03/21 08:37 Azithromycin 250 Mg Tablet PO 250 mg DAILY RODNEY Administration Bisacodyl 10 mg 06/30/21 22:54 Bisacodyl 10 Mg Suppository RECTAL DAILY PRN Constipation Buspirone HCl 15 mg 07/01/21 09:00 07/03/21 08:38 Buspirone Hcl 5 Mg Tablet PO 15 mg TID RODNEY Administration Dextrose 12.5 g
[2021-07-03] MEDS: SOD HYPOCHLORITE 1/4 STRENGTH 473 ML 1 APPLIC TOPICAL (10:38)
--- NOTE | 2021-07-03 11:15 | WPDANESPN ---
Anes - Prog Note Post-Op Date/Time: 07/03/21 11:15 Cardiovascular status: normal Respiratory status: normal Airway patency: baseline Mental status: baseline Post-Op hydration status: normal Vital Signs: Last Vital Signs Temp 37.2 C 07/03/21 05:32 Pulse 96 07/03/21 08:38 Resp 16 07/03/21 05:32 BP 111/68 07/03/21 05:32 Pulse Ox 94 07/03/21 08:37 Pain Score (VAS): 0 I/O: Intake & Output 07/02/21 07/03/21 07/03/21 23:59 07:59 15:59 Intake Total 50 1100 Output Total 450 750 Balance -400 350 Laboratory Tests 07/01/21 04:31 07/01/21 04:31 07/02/21 07/02/21 07/02/21 13:29 17:07 21:15 POC Capillary Glucose 100 120 H 128 H 07/03/21 07:56 POC Capillary Glucose 120 H Microbiology 07/01/21 03:42 Buttock Wound Culture - Preliminary Pseudomonas aeruginosa 06/30/21 12:12 Unspecified Urine Culture - Final Pseudomonas aeruginosa Enterococcus species Post-procedural complaints: none Patient Feedback: Patient satisfied with anesthetic care.
[2021-07-03 12:12] LABS: Glucose Point of Care 131 mg/dl (65-105)
--- NOTE | 2021-07-03 13:22 | P.PNIM_ITS ---
Progress Note: A&P Assessment and Plan (1) Decubitus ulcer: Qualifiers: Laterality: unspecified laterality Pressure injury location: buttock Pressure injury stage: stage 4 Qualified Code(s): L89.304 - Pressure ulcer of unspecified buttock, stage 4 Code(s): L89.90 - Pressure ulcer of unspecified site, unspecified stage Status: Acute Assessment and Plan: Pt is sp excisional debridement of the necrotic sacral decubitus ulcer. POD day 1 seen by surgery team follow recommendations. (2) Edema: Qualifiers: Edema type: localized Qualified Code(s): R60.0 - Localized edema Code(s): R60.9 - Edema, unspecified Status: Acute (3) Coagulopathy: Code(s): D68.9 - Coagulation defect, unspecified Status: Acute (4) Urinary tract infection, chronic: Code(s): N39.0 - Urinary tract infection, site not specified Status: Acute (5) Anemia: Qualifiers: Anemia type: unspecified type Qualified Code(s): D64.9 - Anemia, unspecified Code(s): D64.9 - Anemia, unspecified Status: Acute (6) Indwelling Johnson catheter present: Code(s): Z97.8 - Presence of other specified devices Status: Acute (7) BPH associated with nocturia: Code(s): N40.1 - Benign prostatic hyperplasia with lower urinary tract symptoms; R35.1 - Nocturia Status: Acute Assessment and Plan: Continue tamsulosin (8) Supratherapeutic INR: Code(s): R79.1 - Abnormal coagulation profile Status: Acute (9) Sepsis: Qualifiers: Acute renal failure type: unspecified Sepsis acute organ dysfunction status: with acute organ dysfunction Sepsis type: sepsis due to unspecified organism Severe sepsis acute organ dysfunction type: acute renal failure Severe sepsis shock status: without septic shock Qualified Code(s): A41.9 - Sepsis, unspecified organism; R65.20 - Severe sepsis without septic shock; N17.9 - Acute kidney failure, unspecified Code(s): A41.9 - Sepsis, unspecified organism Status: Acute (10) Acute UTI: Code(s): N39.0 - Urinary tract infection, site not specified Status: Acute (11) Acute renal insufficiency: Code(s): N28.9 - Disorder of kidney and ureter, unspecified Status: Acute (12) Mixed hyperlipidemia: Code(s): E78.2 - Mixed hyperlipidemia Status: Acute Assessment and Plan: Continue with atorvastatin. (13) Essential (primary) hypertension: Code(s): I10 - Essential (primary) hypertension Status: Acute (14) Chronic atrial fibrillation: Code(s): I48.20 - Chronic atrial fibrillation, unspecified Status: Acute Assessment and Plan: Continue with Eliquis and metoprolol (15) Obesity hypoventilation syndrome: Code(s): E66.2 - Morbid (severe) obesity with alveolar hypoventilation Status: Acute Assessment and Plan: Auto titrate CPAP (16) Acute and chronic respiratory failure with hypercapnia: Code(s): J96.22 - Acute and chronic respiratory failure with hypercapnia Status: Acute (17) Diastolic heart failure: Qualifiers: Heart failure chronicity: unspecified Qualified Code(s): I50.30 - Unspecified diastolic (congestive) heart failure Code(s): I50.30 - Unspecified diastolic (congestive) heart failure Status: Acute (18) Sleep apnea: Qualifiers: Sleep apnea type: obstructive Qualified Code(s): G47.33 - Obstructive sleep apnea (adult) (pediatric) Code(s):
--- NOTE | 2021-07-03 14:48 | PC.NURSE ---
On 07/03/21, the student, Farrah De Leon, provided care and completed [facility] documentation on this patient. I have reviewed the student's documentation and agree with the findings.
--- NOTE | 2021-07-03 15:26 | PCNFU ---
Nutrition Follow-Up Complete: Increased protein needs related to wounds as evidenced by Stage IV left buttock pressure ulcer Goal: Pt to meet 75% of estimated nutritional needs Pt is slowly progressing towards goal Pt current nutrition is diabetic carb consistent/heart healthy diet and dietary supplements Last recorded weight is 154.5 kg, down 0.2kg since last reported weight on 07/02/21. Bowel Motility: No new BM reported Labs Reviewed: Glu 131 Meds Noted: lipitor, zithromax, buspar, ferrous sulfate, lasix, toprol, multivitamin, protonix, zosyn, zoloft, flomax, vancomycin Skin: left buttock pressure ulcer - stage IV Additional Notes: Current nutrition is a diabetic carb consistent/heart healthy diet and dietary supplements of Robel BID providing an additional 80kcal and 14g of protein to aid in wound healing. No intake reported in EMR at this time. Spoke with nursing staff who reports that they are unsure of intake but thinks it was poor. Nursing staff reports that pt was previously NPO due to excisional debridement of the necrotic sacral decubitus ulcer. Nursing staff reports that pt likes cold items. RDN placed orders for Frozen Nutritional Treat BID to provide an additional 300kcal and 9g of protein to increase caloric intake. Diet office has been notified. Recommend continuing to encourage intake of diabetic carb consistent/heart healthy diet and dietary supplements. Agree with diet orders at this time. Will continue to follow. Will monitor labs, medication, wt, and reported intake every 3 days
[2021-07-03 16:21] LABS: Glucose Point of Care 140 mg/dl (65-105)
[2021-07-03 21:27] LABS: Glucose Point of Care 168 mg/dl (65-105)
[2021-07-04] VITALS (7 sets, daily range): BP systolic 108–118; BP diastolic 48–56; PULSE 94–99; RESP 20–22; TEMP 36–36.1; O2SAT 94–100
[2021-07-04 02:42] LABS: Estimated CRCL calculation 37 ml/min; Estimated Glomerular Filt Rate 27
[2021-07-04 02:45] LABS: Vancomycin Trough 26.3 ug/mL (10.0-20.0)
[2021-07-04 07:59] LABS: Glucose Point of Care 115 mg/dl (65-105)
[2021-07-04 08:22] LABS: Anion Gap 2 mmol/L (8-16); Blood Urea Nitrogen 54 mg/dL (9-20); Calcium 7.8 mg/dL (8.4-10.2); Carbon Dioxide 35 mmol/L (22-30); Chloride 94 mmol/L (98-107); Estimated CRCL calculation 35 ml/min; Estimated Glomerular Filt Rate 26; Glucose 124 mg/dL (65-110); Potassium 4.2 mmol/L (3.4-5.0); Sodium 131 mmol/L (137-145)
[2021-07-04 08:39] LABS: Glucose Point of Care 122 mg/dl (65-105)
[2021-07-04] MEDS: FERROUS SULFATE 324 MG TABLET PO ×2 (09:25→17:59)
[2021-07-04] MEDS: ATORVASTATIN 20 MG TABLET PO (09:26)
[2021-07-04] MEDS: AZITHROMYCIN 250 MG TABLET PO (09:30)
[2021-07-04] MEDS: METOPROLOL SUCCINATE EXT REL 25 MG TABCR PO (09:30)
[2021-07-04] MEDS: busPIRone HCL 5 MG TABLET 15 MG PO ×3 (09:30→17:59)
[2021-07-04] MEDS: TAMSULOSIN HCL 0.4 MG CAPSULE PO (09:30)
[2021-07-04] MEDS: PANTOPRAZOLE 40 MG TABLET PO (09:30)
[2021-07-04] MEDS: THERAPEUTIC MULTIVITAMINS/MINERALS TAB (*BKC) 1 TABLET PO (09:31)
[2021-07-04] MEDS: FUROSEMIDE INJ 40 MG/4 ML VIAL IV PUSH (09:31)
[2021-07-04] MEDS: SERTRALINE HCL 50 MG TABLET PO ×2 (09:31→18:00)
[2021-07-04] MEDS: SOD HYPOCHLORITE 1/4 STRENGTH 473 ML 1 APPLIC TOPICAL ×2 (11:06→23:34)
--- NOTE | 2021-07-04 11:07 | PM.PNGS ---
Progress Note: A&P Assessment and Plan (1) Sacral decubitus ulcer: Code(s): L89.159 - Pressure ulcer of sacral region, unspecified stage Status: Acute Assessment and Plan: Continue Dakin's soaked gauze packing changes. Wound progressing well with no bloody oozing today. Okay to resume anticoagulation tonight. (2) Coagulopathy: Code(s): D68.9 - Coagulation defect, unspecified Status: Acute (3) Diastolic heart failure: Qualifiers: Heart failure chronicity: unspecified Qualified Code(s): I50.30 - Unspecified diastolic (congestive) heart failure Code(s): I50.30 - Unspecified diastolic (congestive) heart failure Status: Acute (4) Type 2 diabetes mellitus without complication, without long-term current use of insulin: Code(s): E11.9 - Type 2 diabetes mellitus without complications Status: Acute Additional Plan I have discussed the patient's case and plan of care with Dr. Dominique. Subjective Subjective Date/Time Seen: 07/04/21 11:07 Post Op day: 2 Patient reports: no new complaints, bowel movement and afebrile Interval history: Patient seen and examined today with wound care nurses. When entering the room, the nurse and some other staff had the patient on his side cleaning him up from a large BM with the sacral dressing removed. Nursing denies any issues with bleeding from the sacral wound or saturated dressing, she reports a moderate amount of bloody drainage on the dressing they removed prior to my arrival. Exam Const: General: alert Nutritional Appearance: obese Orientation/consciousness: patient oriented x3 Skin: Other: Dressing already removed on my exam, no oozing or bleeding from the wound. Majority of the wound bed appears to be healthy with some granulation tissue forming in some areas. There is still some dusky skin at inferior and right edge of the wound. Dakin's solution soaked kerlex gauze packed. Objective Data Vital Signs Vital Signs: Vital Signs - 24 hr 07/03/21 14:00 07/03/21 20:00 07/03/21 22:00 Temperature 96.5 F L 96.9 F L Pulse Rate 100 93 Respiratory Rate 16 22 H Blood Pressure 101/53 L 98/53 L Pulse Oximetry 96 98 99 07/03/21 22:30 07/04/21 02:51 07/04/21 06:00 Temperature 96.8 F L Pulse Rate 97 99 94 Respiratory Rate 23 H 22 H 20 Blood Pressure 108/48 L Pulse Oximetry 98 98 94 07/04/21 09:21 07/04/21 09:30 Temperature Pulse Rate 94 Respiratory Rate Blood Pressure Pulse Oximetry 94 Intake/Output Intake/Output: Intake & Output 07/01/21 07/02/21 07/03/21 07/04/21 23:59 23:59 23:59 23:59 Intake Total 1480 1650 1200 250 Output Total 750 750 750 750 Balance 730 900 450 -500 Meds/Results Medications: Active Medications Generic Name Dose Route Start Last Admin Trade Name Freq PRN Reason Stop Dose Admin Atorvastatin Calcium 20 mg 07/01/21 09:00 07/04/21 09:26 Atorvastatin 20 Mg Tablet PO 20 mg DAILY RODNEY Administration Azithromycin 250 mg 07/01/21 09:00 07/04/21 09:30 Azithromycin 250 Mg Tablet PO 250 mg DAILY RODNEY Administration Bisacodyl 10 mg 06/30/21 22:54 Bisacodyl 10 Mg Suppository RECTAL DAILY PRN Constipation Buspirone HCl 15 mg 07/01/21 09:00 07/04/21 09:30 Buspirone Hcl 5 Mg Tablet PO 15 mg TID RODNEY Administration Dextrose 12.5 gm 06/30/21 22:32 Dextrose 50% 25 Gm/50 Ml Syringe IV PUSH PRN PRN Hypoglycemia Protocol Enoxaparin Sodium 150 mg 07/01/21 21:00 Enoxaparin 80 Mg/0.8 Ml Syringe SUB-Q Q12HR RODNEY Ferrous Sulfate 324 mg 07/01/21 08:00 07/04/21 09:25 Ferrous Sulfate 324 Mg Tablet PO 324 mg BIDWM RODNEY Administration Furosemide 40 mg 07/01/21 09:00 07/04/21 09:31 Furosemide Inj 40 Mg/4 Ml Vial IV PUSH 40 mg DAILY RODNEY Administration Glucagon 1 mg 06/30/21 22:32 Glucagon For Inj 1 Mg Vial IM PRN PRN Hypoglycemia Protocol Glucose 15 gm
--- NOTE | 2021-07-04 11:09 | PCSTNOTE ---
Please refer to the Bedside Swallow Evaluation in the EMR. Please note, silent aspiration cannot be ruled out at bedside.
[2021-07-04 12:07] LABS: Glucose Point of Care 126 mg/dl (65-105)
--- NOTE | 2021-07-04 12:27 | PC.NURSE ---
On 07/04/21, the student, [ Marilee Gotti], provided care and completed [facility] documentation on this patient. I have reviewed the student's documentation and agree with the findings.
[2021-07-04 16:20] LABS: Glucose Point of Care 120 mg/dl (65-105)
[2021-07-04] MEDS: APIXABAN 5 MG TABLET PO (23:34)
[2021-07-05] VITALS (16 sets, daily range): BP systolic 98–122; BP diastolic 50–86; PULSE 82–96; RESP 16–23; TEMP 35.9–36.6; O2SAT 92–100
[2021-07-05 06:44] LABS: Alveolar/Arterial O2 Gradient 149.1 mmHg; Base Excess ABG 8.1 mEq/l (+/-2.0); Fractional Inspired Oxygen 40 %; HCO3 ABG 33.2 mEq/l (22.0-26.0); Oxygen Content ABG 10.6 %vol (16.0-22.0); Oxygen Saturation ABG 95.8 % (95.0-100.0); Oxyhemoglobin 93.9 % THb (90.0-100.0); PCO2 ABG 50.1 mmHg (35.0-45.0); PO2 ABG 78.5 mmHg (80.0-100.0); PO2 FiO2 Ratio Arterial Blood 1.96 %; pH ABG 7.439 (7.350-7.450)
[2021-07-05 06:45] LABS: Modified Allen's Test Unable to perform; Site Drawn LEFT RADIAL; Total Hemoglobin 7.9 g/dL (12.0-18.0)
[2021-07-05 06:46] LABS: Device HIGH FLOW NASAL CANN
[2021-07-05] MEDS: MORPHINE SULFATE (*CRX) 4 MG/ML INJ IV PUSH ×3 (06:47→18:32)
[2021-07-05 07:20] LABS: Hematocrit 24.1 % (42.0-52.0); Mean Corpuscular HGB Conc 28.6 g/dl (32-36); Mean Corpuscular Hemoglobin 22.3 pg (26-34); Mean Corpuscular Volume 77.7 fl (80-100); Platelet Count Result 275 k/mm3 (150-375); Red Cell Distribution Width 19.9 % (11.5-14.5); White Blood Count 11.9 K/mm3 (4.5-10.0)
[2021-07-05 07:33] LABS: Anion Gap 3 mmol/L (8-16); Blood Urea Nitrogen 50 mg/dL (9-20); Calcium 7.9 mg/dL (8.4-10.2); Carbon Dioxide 35 mmol/L (22-30); Chloride 93 mmol/L (98-107); Estimated CRCL calculation 40 ml/min; Estimated Glomerular Filt Rate 31; Glucose 105 mg/dL (65-110); Potassium 4.1 mmol/L (3.4-5.0); Sodium 131 mmol/L (137-145)
[2021-07-05 07:43] LABS: Vancomycin Random 19.7 ug/mL (10-20)
[2021-07-05 08:00] LABS: Hemoglobin 6.9 g/dL (14.0-18.0)
[2021-07-05 08:31] LABS: Glucose Point of Care 76 mg/dl (65-105)
[2021-07-05] MEDS: busPIRone HCL 5 MG TABLET 15 MG PO ×3 (09:35→18:32)
[2021-07-05] MEDS: TAMSULOSIN HCL 0.4 MG CAPSULE PO (09:36)
[2021-07-05] MEDS: ATORVASTATIN 20 MG TABLET PO (09:36)
[2021-07-05] MEDS: PANTOPRAZOLE 40 MG TABLET PO (09:36)
[2021-07-05] MEDS: AZITHROMYCIN 250 MG TABLET PO (09:36)
[2021-07-05] MEDS: METOPROLOL SUCCINATE EXT REL 25 MG TABCR PO (09:36)
[2021-07-05] MEDS: FUROSEMIDE INJ 40 MG/4 ML VIAL IV PUSH (09:36)
[2021-07-05] MEDS: SERTRALINE HCL 50 MG TABLET PO ×2 (09:36→18:34)
[2021-07-05] MEDS: THERAPEUTIC MULTIVITAMINS/MINERALS TAB (*BKC) 1 TABLET PO (09:36)
[2021-07-05] MEDS: FERROUS SULFATE 324 MG TABLET PO ×2 (09:36→18:33)
[2021-07-05] MEDS: APIXABAN 5 MG TABLET PO ×2 (09:37→21:43)
[2021-07-05 11:42] LABS: Glucose Point of Care 117 mg/dl (65-105)
[2021-07-05] MEDS: SOD HYPOCHLORITE 1/4 STRENGTH 473 ML 1 APPLIC TOPICAL ×2 (12:35→21:45)
--- NOTE | 2021-07-05 13:24 | PCNFU ---
Nutrition Follow-Up Complete: Increased protein needs related to wounds as evidenced by Stage IV left buttock pressure ulcer Goal: Pt to meet 75% of estimated nutritional needs Pt is progressing towards goal Pt current nutrition is diabetic carb consistent/heart healthy diet and dietary supplements Last recorded weight is 155 kg, up .4kg since last reported weight on 07/04/21. Bowel Motility:+BM 07/04 reported - loose Labs Reviewed: hgb 6.9, hct 24.1, Ca 7.9, Na 131, Cl 93, GFR 31, BUN 50, Cr 2.1 Meds Noted: eliquis, lipitor, zithromax, buspar, ferrous sulfate, lasix, toprol, morphine sulfate, multivitamin, protonix, zosyn, zoloft, flomax Skin: left buttock pressure ulcer - stage IV Additional Notes: Spoke with nursing. Current nutrition is a diabetic carb consistent/heart healthy diet and dietary supplements of Robel BID providing an additional 80kcal and 14g of protein to aid in wound healing and Frozen Nutritional Treat BID providing an additional 300kcal and 9g of protein to increase caloric intake. PO intake appears to be improving. Reported intake is 80%, 100%, and 50%. Agree with diet orders at this time. Will continue to follow. Will monitor labs, medication, wt, and reported intake every 5 days
--- NOTE | 2021-07-05 14:01 | PM.PNGS ---
Progress Note: A&P Assessment and Plan (1) Sacral decubitus ulcer: Qualifiers: Pressure injury stage: stage 4 Qualified Code(s): L89.154 - Pressure ulcer of sacral region, stage 4 Code(s): L89.159 - Pressure ulcer of sacral region, unspecified stage Status: Acute Assessment and Plan: Continue Dakin's soaked gauze packing changes. Wound progressing well with no bloody oozing today. OK to discharge if no further signs of bleeding after transfusion (2) Acute blood loss anemia: Code(s): D62 - Acute posthemorrhagic anemia Status: Acute Assessment and Plan: Patient's wound was pretty bloody at time of surgery and on POD#1. After Eliquis had been held a couple days, bleeding appears to have stopped. Monitor for any more signs of bleeding as anticoagulation is resumed. (3) Coagulopathy: Code(s): D68.9 - Coagulation defect, unspecified Status: Acute (4) Diastolic heart failure: Qualifiers: Heart failure chronicity: unspecified Qualified Code(s): I50.30 - Unspecified diastolic (congestive) heart failure Code(s): I50.30 - Unspecified diastolic (congestive) heart failure Status: Acute (5) Type 2 diabetes mellitus without complication, without long-term current use of insulin: Code(s): E11.9 - Type 2 diabetes mellitus without complications Status: Acute Subjective Subjective Date/Time Seen: 07/05/21 14:01 Interval history: No further bleeding noted from sacral wound. Patient tolerating wound dressing changes. Exam Const: General: alert Nutritional Appearance: obese Orientation/consciousness: patient oriented x3 Skin: Other: Majority of the wound bed appears to be healthy with some granulation tissue forming in some areas. There is still some dusky skin at inferior and right edge of the wound. Objective Data Vital Signs Vital Signs: Vital Signs - 24 hr 07/04/21 20:00 07/04/21 22:00 07/05/21 02:35 Temperature 36.1 C L Pulse Rate 95 90 Respiratory Rate 20 22 H Blood Pressure 118/56 L Pulse Oximetry 100 100 99 07/05/21 05:33 07/05/21 09:36 Temperature 36.4 C Pulse Rate 96 82 Respiratory Rate 20 Blood Pressure 106/50 L Pulse Oximetry 95 Intake/Output Intake/Output: Intake & Output 07/02/21 07/03/21 07/04/21 07/05/21 23:59 23:59 23:59 23:59 Intake Total 1650 1200 1710 200 Output Total 301 013 9349 700 Balance 900 450 210 -500 Meds/Results Medications: Active Medications Generic Name Dose Route Start Last Admin Trade Name Freq PRN Reason Stop Dose Admin Apixaban 5 mg 07/04/21 21:00 07/05/21 09:37 Apixaban 5 Mg Tablet PO 5 mg Q12HR RODNEY Administration Atorvastatin Calcium 20 mg 07/01/21 09:00 07/05/21 09:36 Atorvastatin 20 Mg Tablet PO 20 mg DAILY RODNEY Administration Azithromycin 250 mg 07/01/21 09:00 07/05/21 09:36 Azithromycin 250 Mg Tablet PO 250 mg DAILY RODNEY Administration Bisacodyl 10 mg 06/30/21 22:54 Bisacodyl 10 Mg Suppository RECTAL DAILY PRN Constipation Buspirone HCl 15 mg 07/01/21 09:00 07/05/21 12:35 Buspirone Hcl 5 Mg Tablet PO 15 mg TID RODNEY Administration Dextrose 12.5 gm 06/30/21 22:32 Dextrose 50% 25 Gm/50 Ml Syringe IV PUSH PRN PRN Hypoglycemia Protocol Ferrous Sulfate 324 mg 07/01/21 08:00 07/05/21 09:36 Ferrous Sulfate 324 Mg Tablet PO 324 mg BIDWM RODNEY Administration Furosemide 40 mg 07/01/21 09:00 07/05/21 09:36 Furosemide Inj 40 Mg/4 Ml Vial IV PUSH 40 mg DAILY RODNEY Administration Glucagon 1 mg 06/30/21 22:32 Glucagon For Inj 1 Mg Vial IM PRN PRN Hypoglycemia Protocol Glucose 15 gm 06/30/21 22:32 Glucose Oral Gel 15 Gm Of Glucse In 37.5 Gm Tube PO PRN PRN Hypoglycemia Protocol Dextrose 1,000 mls @ 100 mls/hr 06/30/21 22:32 Dextrose 5% 1,000 Ml IVPB PRN PRN Hypoglycemia Protocol Vancomycin
[2021-07-05] MEDS: SODIUM CHLORIDE 0.9% IV 250 ML 30 ML IV CONT (14:13)
[2021-07-05] MEDS: TUBING, BLOOD PLUM PUMP TUBING 1 EACH XX (14:14)
[2021-07-05 16:25] LABS: Glucose Point of Care 121 mg/dl (65-105)
[2021-07-06] VITALS (10 sets, daily range): BP systolic 104–124; BP diastolic 49–87; PULSE 79–93; RESP 18–20; TEMP 36–36.4; O2SAT 94–100
[2021-07-06 07:16] LABS: Basophils Percent Auto 0.2 % (0.2-1.2); Eosinophils Absolute Auto 0.2 K/mm3 (0-0.3); Eosinophils Percent Auto 1.3 % (0-4.4); Hemoglobin 8.2 g/dL (14.0-18.0); Immature Granulocyte Absolute 0.29 K/mm3 (0.00-0.031); Immature Granulocyte Percent A 2.4 % (0-0.5); Lymphocytes Absolute Auto 0.97 K/mm3 (0.9-3.2); Lymphocytes Percent Auto 8.1 % (18.3-44.2); Mean Corpuscular HGB Conc 29.3 g/dl (32-36); Mean Corpuscular Hemoglobin 23.6 pg (26-34); Mean Corpuscular Volume 80.7 fl (80-100); Mean Platelet Volume 9.4 fl (7.4-10.4); Monocytes Absolute Auto 0.9 K/mm3 (0.1-0.6); Monocytes Percent Auto 7.7 % (2.6-8.5); Neutrophils Absolute Auto 9.6 K/mm3 (1.3-6.7); Neutrophils Percent Auto 80.3 % (45.5-73.1); Platelet Count Result 257 k/mm3 (150-375); Red Blood Count 3.47 M/mm3 (4.6-6.20); Red Cell Distribution Width 19.2 % (11.5-14.5); White Blood Count 11.9 K/mm3 (4.5-10.0)
[2021-07-06 07:38] LABS: Vancomycin Random 16.2 ug/mL (10-20)
[2021-07-06 07:45] LABS: Anisocytosis 1+ (NORMAL); Hypochromasia 1+ (NORMAL); Ovalocytes 1+ (NORMAL); Platelet Estimate Adequate (Adequate); Tear Drop Cells 1+ (NORMAL)
[2021-07-06 08:11] LABS: Glucose Point of Care 99 mg/dl (65-105)
[2021-07-06] MEDS: APIXABAN 5 MG TABLET PO (08:43)
[2021-07-06] MEDS: PANTOPRAZOLE 40 MG TABLET PO (08:43)
[2021-07-06] MEDS: ATORVASTATIN 20 MG TABLET PO (08:43)
[2021-07-06] MEDS: FERROUS SULFATE 324 MG TABLET PO (08:43)
[2021-07-06] MEDS: AZITHROMYCIN 250 MG TABLET PO (08:43)
[2021-07-06] MEDS: busPIRone HCL 5 MG TABLET 15 MG PO ×2 (08:43→13:17)
[2021-07-06] MEDS: SERTRALINE HCL 50 MG TABLET PO (08:43)
[2021-07-06] MEDS: THERAPEUTIC MULTIVITAMINS/MINERALS TAB (*BKC) 1 TABLET PO (08:44)
[2021-07-06] MEDS: TAMSULOSIN HCL 0.4 MG CAPSULE PO (08:44)
[2021-07-06] MEDS: METOPROLOL SUCCINATE EXT REL 25 MG TABCR PO (08:44)
[2021-07-06] MEDS: FUROSEMIDE INJ 40 MG/4 ML VIAL IV PUSH (08:44)
--- NOTE | 2021-07-06 09:20 | PM.DS ---
DS: Admitting Diagnosis Discharge Date 07/06/2021 Admitting Diagnosis Decubitus ulcer Acute UTI DS: Discharge Diagnosis Discharge Diagnosis (1) Decubitus ulcer: Qualifiers: Laterality: unspecified laterality Pressure injury location: buttock Pressure injury stage: stage 4 Qualified Code(s): L89.304 - Pressure ulcer of unspecified buttock, stage 4 Code(s): L89.90 - Pressure ulcer of unspecified site, unspecified stage Status: Acute Assessment and Plan: Pt is sp excisional debridement of the necrotic sacral decubitus ulcer. POD day 1 seen by surgery team follow recommendations. (2) Edema: Qualifiers: Edema type: localized Qualified Code(s): R60.0 - Localized edema Code(s): R60.9 - Edema, unspecified Status: Acute (3) Coagulopathy: Code(s): D68.9 - Coagulation defect, unspecified Status: Acute (4) Urinary tract infection, chronic: Code(s): N39.0 - Urinary tract infection, site not specified Status: Acute (5) Anemia: Qualifiers: Anemia type: unspecified type Qualified Code(s): D64.9 - Anemia, unspecified Code(s): D64.9 - Anemia, unspecified Status: Acute (6) Indwelling Johnson catheter present: Code(s): Z97.8 - Presence of other specified devices Status: Acute (7) BPH associated with nocturia: Code(s): N40.1 - Benign prostatic hyperplasia with lower urinary tract symptoms; R35.1 - Nocturia Status: Acute Assessment and Plan: Continue tamsulosin (8) Supratherapeutic INR: Code(s): R79.1 - Abnormal coagulation profile Status: Acute (9) Sepsis: Qualifiers: Acute renal failure type: unspecified Sepsis acute organ dysfunction status: with acute organ dysfunction Sepsis type: sepsis due to unspecified organism Severe sepsis acute organ dysfunction type: acute renal failure Severe sepsis shock status: without septic shock Qualified Code(s): A41.9 - Sepsis, unspecified organism; R65.20 - Severe sepsis without septic shock; N17.9 - Acute kidney failure, unspecified Code(s): A41.9 - Sepsis, unspecified organism Status: Acute (10) Acute UTI: Code(s): N39.0 - Urinary tract infection, site not specified Status: Acute (11) Acute renal insufficiency: Code(s): N28.9 - Disorder of kidney and ureter, unspecified Status: Acute (12) Mixed hyperlipidemia: Code(s): E78.2 - Mixed hyperlipidemia Status: Acute Assessment and Plan: Continue with atorvastatin. (13) Essential (primary) hypertension: Code(s): I10 - Essential (primary) hypertension Status: Acute (14) Chronic atrial fibrillation: Code(s): I48.20 - Chronic atrial fibrillation, unspecified Status: Acute Assessment and Plan: Continue with Eliquis and metoprolol (15) Obesity hypoventilation syndrome: Code(s): E66.2 - Morbid (severe) obesity with alveolar hypoventilation Status: Acute Assessment and Plan: Auto titrate CPAP (16) Acute and chronic respiratory failure with hypercapnia: Code(s): J96.22 - Acute and chronic respiratory failure with hypercapnia Status: Acute (17) Diastolic heart failure: Qualifiers: Heart failure chronicity: unspecified Qualified Code(s): I50.30 - Unspecified diastolic (congestive) heart failure Code(s): I50.30 - Unspecified diastolic (congestive) heart failure Status: Acute (18) Sleep apnea: Qualifiers: Sleep apnea type: obstructive Qualified Code(s): G47.33 - Obstructive sleep apnea (adult) (pediatric) Code(s): G47.30 - Sleep apnea, unspecified Status: Acute (19) Type 2 diabetes mellitus without complication, without long-term current use of insulin: Code(s): E11.9 - Type 2 diabetes mellitus without complications Status: Acute Assessment and Plan: Continue with Accu-Cheks AC and HS. S
[2021-07-06] MEDS: traMADol HCL (*CRX) 50 MG TABLET PO (10:35)
[2021-07-06] MEDS: SOD HYPOCHLORITE 1/4 STRENGTH 473 ML 1 APPLIC TOPICAL (10:38)
[2021-07-06 12:00] LABS: Glucose Point of Care 153 mg/dl (65-105)
--- NOTE | 2021-07-06 12:17 | PM.PNGS ---
Progress Note: A&P Assessment and Plan (1) Sacral decubitus ulcer: Qualifiers: Pressure injury stage: stage 4 Qualified Code(s): L89.154 - Pressure ulcer of sacral region, stage 4 Code(s): L89.159 - Pressure ulcer of sacral region, unspecified stage Status: Acute Assessment and Plan: Continue current wound care. Surgically stable for discharge. (2) Acute blood loss anemia: Code(s): D62 - Acute posthemorrhagic anemia Status: Acute Assessment and Plan: H/H stable after transfusion yesterday. No further active bleeding. Subjective Subjective Date/Time Seen: 07/06/21 12:17 Interval history: No new complaints today. Patient expresses concern about going back to SNF and wound becoming worse. Exam Const: General: alert Nutritional Appearance: obese Orientation/consciousness: patient oriented x3 Skin: Other: Majority of the wound bed appears to be healthy with some granulation tissue forming in some areas. There is still some dusky skin at inferior and right edge of the wound. Objective Data Vital Signs Vital Signs: Vital Signs - 24 hr 07/05/21 14:15 07/05/21 14:30 07/05/21 14:52 Temperature 36.4 C L 36.4 C Pulse Rate 93 82 Respiratory Rate 22 H 16 Blood Pressure 112/56 L 122/66 Pulse Oximetry 97 97 93 07/05/21 15:30 07/05/21 16:30 07/05/21 17:41 Temperature 36.6 C 36.0 C L 36.1 C L Pulse Rate 88 87 96 Respiratory Rate 16 16 18 Blood Pressure 120/69 109/86 101/64 Pulse Oximetry 98 97 97 07/05/21 20:00 07/05/21 20:47 07/05/21 21:32 Temperature Pulse Rate 86 89 Respiratory Rate Blood Pressure Pulse Oximetry 98 99 99 07/05/21 21:52 07/05/21 21:53 07/05/21 22:00 Temperature 35.9 C L Pulse Rate 92 87 Respiratory Rate 23 H 20 Blood Pressure 98/53 L Pulse Oximetry 98 100 100 07/06/21 02:42 07/06/21 02:58 07/06/21 03:58 Temperature 36.1 C L 36.1 C L 36.1 C L Pulse Rate 82 85 87 Respiratory Rate 20 20 18 Blood Pressure 104/67 110/51 L 104/52 L Pulse Oximetry 100 100 100 07/06/21 04:58 07/06/21 05:58 07/06/21 08:44 Temperature 36.0 C L 36.1 C L Pulse Rate 79 83 85 Respiratory Rate 18 20 Blood Pressure 111/49 L 116/51 L Pulse Oximetry 100 95 Intake/Output Intake/Output: Intake & Output 07/03/21 07/04/21 07/05/21 07/06/21 23:59 23:59 23:59 23:59 Intake Total 1200 1760 2171 1060 Output Total 750 1500 1350 750 Balance 450 260 821 310 Meds/Results Medications: Active Medications Generic Name Dose Route Start Last Admin Trade Name Freq PRN Reason Stop Dose Admin Apixaban 5 mg 07/04/21 21:00 07/06/21 08:43 Apixaban 5 Mg Tablet PO 5 mg Q12HR RODNEY Administration Atorvastatin Calcium 20 mg 07/01/21 09:00 07/06/21 08:43 Atorvastatin 20 Mg Tablet PO 20 mg DAILY RODNEY Administration Azithromycin 250 mg 07/01/21 09:00 07/06/21 08:43 Azithromycin 250 Mg Tablet PO 250 mg DAILY RODNEY Administration Bisacodyl 10 mg 06/30/21 22:54 Bisacodyl 10 Mg Suppository RECTAL DAILY PRN Constipation Buspirone HCl 15 mg 07/01/21 09:00 07/06/21 08:43 Buspirone Hcl 5 Mg Tablet PO 15 mg TID RODNEY Administration Dextrose 12.5 gm 06/30/21 22:32 Dextrose 50% 25 Gm/50 Ml Syringe IV PUSH PRN PRN Hypoglycemia Protocol Ferrous Sulfate 324 mg 07/01/21 08:00 07/06/21 08:43 Ferrous Sulfate 324 Mg Tablet PO 324 mg BIDWM RODNEY Administration Furosemide 40 mg 07/01/21 09:00 07/06/21 08:44 Furosemide Inj 40 Mg/4 Ml Vial IV PUSH 40 mg DAILY RODNEY Administration Glucagon 1 mg 06/30/21 22:32 Glucagon For Inj 1 Mg Vial IM PRN PRN Hypoglycemia Protocol Glucose 15 gm 06/30/21 22:32 Glucose Oral Gel 15 Gm Of Glucse In 37.5 Gm Tube PO PRN PRN Hypoglycemia Protocol Dextrose 1,000 mls @ 100 mls/hr 06/30/21 22:32 Dextrose 5% 1,000 Ml IVPB PRN PRN Hypoglycemia Protocol Piperacillin
== END 2021-07-06 16:42 | DRG 853 ==
LOC: ANHED 13:26 → ANHIMU 18:47 → ANH3MEDSUR 07-03 13:11 → ANHIMU 07-09 10:59
PROVIDERS: Family Medicine; Hospitalist; Nurse Practitioner; Surgery; Admitting Provider Internal Medicine; Emergency Provider Emergency Medicine; PCP Internal Medicine; Visit Provider Internal Medicine
PROC: 0JB70ZZ Excision of Back Subcutaneous Tissue and Fascia, Open Approach (ICD-10-PCS; CPT 46040; principal; 2021-07-02 12:00)
DX: A41.9 Sepsis, unspecified organism (principal); L89.154 Pressure ulcer of sacral region, stage 4; J96.22 Acute and chronic respiratory failure with hypercapnia; I50.33 Acute on chronic diastolic (congestive) heart failure; T83.511A Infection and inflammatory reaction due to indwelling urethral catheter, initial encounter; N39.0 Urinary tract infection, site not specified; N17.9 Acute kidney failure, unspecified; E66.2 Morbid (severe) obesity with alveolar hypoventilation; Z68.41 Body mass index [BMI] 40.0-44.9, adult; I48.19 Other persistent atrial fibrillation; D62 Acute posthemorrhagic anemia; R65.20 Severe sepsis without septic shock; N40.1 Benign prostatic hyperplasia with lower urinary tract symptoms; R35.1 Nocturia; F32.9 Major depressive disorder, single episode, unspecified; F41.9 Anxiety disorder, unspecified; E78.2 Mixed hyperlipidemia; R79.1 Abnormal coagulation profile; T45.515A Adverse effect of anticoagulants, initial encounter; Z79.01 Long term (current) use of anticoagulants; E11.9 Type 2 diabetes mellitus without complications; D50.9 Iron deficiency anemia, unspecified; Z66 Do not resuscitate; Z87.891 Personal history of nicotine dependence; Z99.81 Dependence on supplemental oxygen
CPT/HCPCS: 36415; 36430; 36600; 71045; 80048; 80053; 80202; 81001; 82375; 82565; 82728; 82805; 82948; 83050; 83735; 83880; 84443; 85025; 85027; 85610; 85730; 86850; 86900; 86901; 86920; 87040; 87070; 87077; 87086; 87088; 87186; 87205; 92610; 93005; 93970; 93971; 94002; 94003; 99285; A9270; J1100; J1815; J1940; J2270; J2405; J2543; J2704; J3010; J3370; J7030; J7050; J7120; P9016

== ENCOUNTER 2021-08-29 12:47 | Inpatient (IN) | payer MEDICARE, MEDICAID, SELFPAY ==
--- NOTE | ~2021-08-29 | CT_ITS ---
EXAMINATION: CT abdomen pelvis wo con DATE: 08/29/2021 14:09 INDICATION: Abdominal pain. TECHNIQUE: Computed tomography (CT) of the abdomen and pelvis was performed without intravenous contr ast. Automated exposure control and iterative reconstruction technique were employed. The dose-length product was 1653.51 mGy-cm. COMPARISON: CT abdomen and pelvis 05/19/2021 FINDINGS: There are small pleural effusions. The visualized portions of the lung bases demonstrate mi ld atelectasis. Cardiomegaly is noted. There are coronary artery calcifications. There is a trace per icardial effusion. The liver is normal. The gallbladder is distended. The spleen, pancreas, adrenal g lands are normal. There is a 17 mm cyst in right kidney. There is moderate bilateral hydronephrosis a nd hydroureter. The bladder is distended. There is an umbilical hernia containing fat. There is diver ticulosis of the colon without evidence of diverticulitis. The appendix is normal. There are no dilat ed loops of bowel. There are no pathologically enlarged lymph nodes. There is no free intraperitoneal fluid. The Johnson catheter balloon is in the bulbar urethra. There is a moderate thoracolumbar spondy losis. There is a large sacral decubitus ulcer. There is absence of bone in the proximal coccyx. IMPRESSION: 1. Johnson balloon inflated in the bulbar urethra with distended bladder and moderate bilateral hydrone phrosis and hydroureter. I called this finding to Dr. Veras. 2. Small pleural effusions. 3. Gallbladder distention, which may be secondary to fasting. Correlate with physical exam to exclude acute cholecystitis. 4. Large sacral decubitus ulcer. New absence of bone in the proximal coccyx may be from osteomyelitis or debridement. Reviewed, dictated and finalized at location A. IMPRESSION: 1. Johnson balloon inflated in the bulbar urethra with distended bladder and mode rate bilateral hydronephrosis and hydroureter. I called this finding to Dr. Mary gar. 2. Small pleural effusions. 3. Gallbladder distention, which may be secondary to fasting. Correlate with ph ysical exam to exclude acute cholecystitis. 4. Large sacral decubitus ulcer. New absence of bone in the proximal coccyx may be from osteomyelitis or debridement.
--- NOTE | ~2021-08-29 | XR_ITS ---
EXAMINATION: XR chest 1V portable EXAM DATE: 08/29/2021 13:16 INDICATION: SOB . TECHNIQUE: Portable AP frontal chest x-ray was obtained. Comparison is made to prior examination from 06/30/2021. FINDINGS: Cardiomegaly and pulmonary vascular congestion. Moderate amount of bilateral edema or pneum onia, actually with interval improvement compared to appearance in June. There is aortic arterios clerosis. There is no pneumothorax suspected. Possible small pleural effusions. Advanced bilateral gl enohumeral osteoarthritis. IMPRESSION: Findings consistent with CHF exacerbation. Pneumonia not excludable. Reviewed, dictated and finalized at location B. IMPRESSION: Findings consistent with CHF exacerbation. Pneumonia not excludable .
--- NOTE | ~2021-08-29 | CT_ITS ---
EXAMINATION: CT brain wo con DATE: 08/29/2021 14:08 INDICATION: Altered mental state. TECHNIQUE: Computed tomography (CT) of the head was performed without intravenous contrast. The mA wa s adjusted according to patient size. Iterative reconstruction technique was employed. Exam dose: 68 1.00 mGy-cm total exam DLP. COMPARISON: 05/06/2021 CT brain FINDINGS: There is central and cerebral cortical atrophy and cerebellar atrophy. There is bilateral carotid siphon internal carotid artery calcification. There is nonspecific diminis hed attenuation of the cerebral white matter, likely due to chronic small vessel ischemic changes. No recent cerebrovascular accident. No midline shift or mass effect. No subdural or epidural hematoma . The paranasal sinuses are normally developed and aerated. Small mucous retention cyst along the lower lateral wall of the right maxillary sinus. Small right frontal osteoma. No fracture or bone destruction of the cranial vault. IMPRESSION: Cerebral and cerebellar atrophy Cerebral atherosclerosis and chronic small vessel ischemic changes of the cerebral white matter No acute intracranial finding or significant change since 05/06/2021 Reviewed, dictated and finalized at Location A. Reviewed, dictated and finalized at location A. IMPRESSION: Cerebral and cerebellar atrophy Cerebral atherosclerosis and chronic small vessel ischemic changes of the cereb ral white matter No acute intracranial finding or significant change since 05/06/2021
--- NOTE | ~2021-08-29 | US_ITS ---
EXAMINATION: US renal BI DATE: 08/30/2021 12:18 INDICATION: Abnormal kidney function tests. TECHNIQUE: Multiple ultrasound grayscale images of the kidneys were obtained. COMPARISON: CT abdomen and pelvis 08/29/2021 FINDINGS: The right kidney measures 12.2 x 5.7 x 6.2 cm. The left kidney measures 13.7 x 4.9 x 6.1 cm. The kidn eys demonstrate normal parenchymal echogenicity. There is no hydronephrosis. The bladder is decompres sed by a Johnson catheter. IMPRESSION: 1. Normal kidneys. No hydronephrosis. Reviewed, dictated and finalized at location A.
--- NOTE | ~2021-08-29 | CT_ITS ---
EXAMINATION: CT brain wo con DATE: 09/01/2021 14:24 INDICATION: altered mental status TECHNIQUE: Computed tomography (CT) of the head was performed without intravenous contrast. The mA wa s adjusted according to patient size. Iterative reconstruction technique was employed. The dose-lengt h product was 983.67 mGy-cm. COMPARISON: 08/29/2021. FINDINGS: No acute intracranial hemorrhage or extra-axial fluid collection. No hydrocephalus, mass, or herniation. No acute ischemic infarct. Unremarkable dural venous sinus attenuation. No acute osseous abnormality. Bilateral mastoid effusions, small left and trace on the right. Retention cyst or polyp in the inferi or right maxillary sinus. Right frontal osteoma. Otherwise the aerated spaces are clear. Moderate atr ophy and chronic white matter change. Atherosclerotic intracranial calcifications. IMPRESSION: No acute intracranial process. Reviewed, dictated and finalized at location K.
[2021-08-29 12:52] VITALS: BP 140/95; PULSE 114; RESP 20; TEMP 36.4; O2SAT 97
--- NOTE | 2021-08-29 13:08 | ECG_ITS ---
Measurements Intervals [place] Rate: 105 P: RI: 0 QRS: 71 QRSD: 88 T: 24 QT: 324 QTc: 428 Interpretive Statements ATRIAL FIBRILLATION WITH RAPID VENTRICULAR RESPONSE LOW QRS VOLTAGE [QRS DEFLECTION < 0.5/1.0 mV IN LIMB/CHEST LEADS] POSSIBLE RIGHT VENTRICULAR CONDUCTION DELAY [RSR (QR) IN V1/V2] NONSPECIFIC T-WAVE ABNORMALITY ABNORMAL ECG COMPARED TO ECG 06/30/2021 12:02:45 NO SIGNIFICANT CHANGES Electronically Signed On 08-29-2021 17:04:59 CDT by Skyler Tay M.D.
[2021-08-29 13:28] LABS: Alveolar/Arterial O2 Gradient 91.5 mmHg; Base Excess ABG -8.6 mEq/l (+/-2.0); Fractional Inspired Oxygen 32 %; HCO3 ABG 16.3 mEq/l (22.0-26.0); Oxygen Content ABG 12.3 %vol (16.0-22.0); Oxygen Saturation ABG 97.3 % (95.0-100.0); Oxyhemoglobin 96.2 % THb (90.0-100.0); PCO2 ABG 31.2 mmHg (35.0-45.0); PO2 ABG 100.2 mmHg (80.0-100.0); PO2 FiO2 Ratio Arterial Blood 3.13 %; pH ABG 7.336 (7.350-7.450)
[2021-08-29 13:30] VITALS: PULSE 102
[2021-08-29 13:30] LABS: Device ROOM AIR; Modified Allen's Test Pass; Site Drawn LEFT RADIAL
[2021-08-29 13:33] LABS: Basophils Percent Auto 0.1 % (0.2-1.2); Eosinophils Percent Auto 0.1 % (0-4.4); Immature Granulocyte Absolute 0.19 K/mm3 (0.00-0.031); Immature Granulocyte Percent A 1.3 % (0-0.5); Lymphocytes Absolute Auto 1.06 K/mm3 (0.9-3.2); Lymphocytes Percent Auto 7.1 % (18.3-44.2); Mean Corpuscular HGB Conc 29.6 g/dl (32-36); Mean Corpuscular Hemoglobin 25.7 pg (26-34); Mean Corpuscular Volume 86.8 fl (80-100); Mean Platelet Volume 8.8 fl (7.4-10.4); Monocytes Absolute Auto 0.6 K/mm3 (0.1-0.6); Monocytes Percent Auto 4.2 % (2.6-8.5); Neutrophils Percent Auto 87.2 % (45.5-73.1); Platelet Count Result 476 k/mm3 (150-375); Red Blood Count 3.11 M/mm3 (4.6-6.20); Red Cell Distribution Width 24.7 % (11.5-14.5); White Blood Count 14.9 K/mm3 (4.5-10.0)
[2021-08-29 13:40] LABS: Alanine Aminotransferase 13 U/L (4-50); Albumin Level 2.1 g/dL (3.5-5.1); Alkaline Phosphatase 120 U/L (38-126); Anion Gap 7 mmol/L (8-16); Aspartate Amino Transferase 18 U/L (17-59); Bilirubin,Total 0.3 mg/dL (0.2-1.3); Blood Urea Nitrogen 42 mg/dL (9-20); Calcium 7.1 mg/dL (8.4-10.2); Carbon Dioxide 19 mmol/L (22-30); Chloride 105 mmol/L (98-107); Estimated Glomerular Filt Rate 31; Glucose 87 mg/dL (65-110); Potassium 5.6 mmol/L (3.4-5.0); Sodium 131 mmol/L (137-145)
[2021-08-29 13:42] LABS: Platelet Estimate Adequate (Adequate)
[2021-08-29 13:43] LABS: Anisocytosis 1+ (NORMAL); Hypochromasia 1+ (NORMAL); INR 2.4; Ovalocytes 2+ (NORMAL); Prothrombin Time 25.3 Seconds (11.1-14.7)
[2021-08-29 13:44] LABS: Partial Thromboplastin Time 48.8 SECONDS (22.3-36.8); Stomatocytes 1+ (NORMAL); Target Cells 1+ (NORMAL)
--- NOTE | 2021-08-29 14:00 | PC.NURSE ---
Per EDP Eda, do not administer IV fluid bolus.
[2021-08-29 14:12] LABS: NT Pro B Type Natriuretic Pept 4440 pg/mL (5-100); Troponin I < 0.012 ng/mL (0.000-0.034)
--- NOTE | 2021-08-29 14:30 | ED.WEAKNESS ---
HPI - Weakness General Chief complaint: Weakness Stated complaint: DECREASE PO INTAKE/ NOT RESPONDING APPROPRIATELY Time Seen by Provider: 08/29/21 12:58 Source: RN notes reviewed History of Present Illness HPI Narrative: Patient presents emergency department from [facility] via EMS for altered mental status. Per the staff at [facility] the patient was altered this morning not answering questions appropriately patient is improved at this time per the patient he does have a decubitus ulcer that is been getting worse patient states he does have chronic Johnson catheter and is chronically on oxygen he states he has not had much of an appetite but he attributes this more effective the food is not good at the [facility] he is at he denies any fevers or chills chest pain shortness of breath abdominal pain or any other symptoms Related Data Home Medications Medication Instructions Recorded Confirmed buspirone 15 mg PO TID 05/06/21 06/30/21 Fleet Enema 118 ml RECTAL DAILY PRN 05/20/21 06/30/21 atorvastatin 20 mg PO DAILY 05/20/21 06/30/21 bisacodyl [Dulcolax (bisacodyl)] 10 mg RECTAL DAILY PRN 05/20/21 06/30/21 magnesium citrate 300 ml PO DAILY PRN 05/20/21 06/30/21 metformin 1,000 mg PO BID 05/20/21 06/30/21 metoprolol succinate 25 mg PO DAILY 05/20/21 06/30/21 sertraline [Zoloft] 50 mg PO BID 05/20/21 06/30/21 multivitamin with iron-mineral 1 tablet PO DAILY 06/30/21 06/30/21 Allergies Allergy/AdvReac Type Severity Reaction Status Date / Time No Known Allergies Allergy Mild Verified 05/07/21 10:54 Review of Systems Review of Systems: Gen.: Denies fevers or chills ENT: Denies congestion Respiratory: Denies shortness of breath or cough CV: Denies chest pain or palpitations GI: Denies abdominal pain nausea, emesis or diarrhea reports decreased appetite ports chronic Johnson catheter Musculoskeletal: Denies back pain or muscle pain Neuro: Reports altered mental status Skin: Reports decubitus ulcer Except as documented, all other systems reviewed and negative [facility] Past Medical History Medical History Anxiety Atrial fibrillation Benign prostatic hyperplasia with lower urinary tract symptoms CHF (congestive heart failure) Echocardiogram December 2015: Difficult study with poor sonographic images demonstrate mild concentric left ventricular hypertrophy, diastolic dysfunction and increased left heart filling pressures based on elevated E/E. Ejection fraction 55-60%. Mild enlargement of left atrium Complex sleep apnea syndrome Polysomnogram 2018: Mild obstructive sleep apnea. Difficult titration with CPAP and then BiPAP without optimum pressure achieved with emergence of central sleep apnea noted during titration consistent with complex sleep apnea syndrome. ASV titration was recommended Depression Essential (primary) hypertension Iron deficiency anemia Mixed hyperlipidemia Occult blood in stools Type 2 diabetes mellitus without complication, without long-term current use of insulin Surgical History Surgical History History of cardiac catheterization (2011) Mild nonobstructive coronary artery disease with 40-50% stenosis of the mid LAD with preserved left ventricular systolic function with EF of 60 65% History of tonsillectomy Family History Family History Sibling Family history of heart disease in male family member before age 55 Father Acute myocardial infarction Other Diabetes mellitus Hypertension Social History Social History Social History: He lived with his of over 50 years. He is currently and snf. He is for the most part bedbound. He and his have 5 children. He does not drink alcohol. Primary care physician: Dr. Von Mayfield Code status: DNR/DNI Surrogate decision maker: Smoking pac
[2021-08-29 15:02] LABS: Appearance Urine Cloudy (Clear); Bilirubin Urine Negative (Negative); Blood Urine 2+ (Negative); Color Urine Yellow (Yellow); Glucose Urine UA Negative (Negative); Ketones Urine Negative (Negative); Leukocyte Esterase Ur 3+ LEU/UL (Negative); Nitrate Urine Positive (Negative); Protein Urine 2+ mg/dL (Negative); Urobilinogen Urine 0.2 mg/dL (<2.0); pH Urine 8.5 (5.0-9.0)
[2021-08-29 15:11] LABS: Bacteria Urine 3+ /hpf; Mucus Urine Heavy /lpf; Squamous Epithelial Cell Urine Few /hpf (Few); WBC Urine >75 /hpf
[2021-08-29 15:14] LABS: Add Urine Microscopic? YES
[2021-08-29] MEDS: FUROSEMIDE INJ 40 MG/4 ML VIAL IV PUSH (15:47)
[2021-08-29 15:52] VITALS: BP 140/77; PULSE 106; RESP 17; O2SAT 97
--- NOTE | 2021-08-29 15:52 | PC.NURSE ---
Attempted to swab patient's wound for culture. Patient refusing to turn onto side due to pain. MATHEW Slaughter in room, states to wait and swab patient when he gets upstairs into hospital bed.
[2021-08-29 15:56] LABS: SARS-CoV-2 RNA PCR Negative
--- NOTE | 2021-08-29 16:25 | PM.CNGS ---
Assessment and Plan Assessment and plan (1) Sacral decubitus ulcer, stage IV: Code(s): L89.154 - Pressure ulcer of sacral region, stage 4 Status: Acute Assessment and Plan: Chronic stage IV sacral decubitus ulcer that does have bone exposed and appears stable. This does not appear infected and actually looks much better since our last encounter. Do not suspect that this is a source for his leukocytosis. There is no indication for surgical intervention at this time. Would recommend to continue with local wound care. I applied a wet to dry dressing now and will consult wound care tomorrow to get their opinion on appropriate dressings. Continue to work on pressure offloading and if he will be admitted for at least a few days, then could consider a specialty mattress while hospitalized. Thank you for allowing us to see the patient in consultation. (2) Acute UTI: Code(s): N39.0 - Urinary tract infection, site not specified Status: Acute Assessment and Plan: Continue antibiotics and management per Hospitalist. Esparza was replaced in the ER. (3) CHF (congestive heart failure): Code(s): I50.9 - Heart failure, unspecified Status: Acute (4) Chronic renal insufficiency: Code(s): N18.9 - Chronic kidney disease, unspecified Status: Acute (5) Acute hyperkalemia: Code(s): E87.5 - Hyperkalemia Status: Acute (6) Atrial fibrillation: Qualifiers: Atrial fibrillation type: persistent (not longstanding) Qualified Code(s): I48.19 - Other persistent atrial fibrillation Code(s): I48.91 - Unspecified atrial fibrillation Status: Acute (7) Chronic anticoagulation: Code(s): Z79.01 - MCFP (current) use of anticoagulants Status: Acute (8) Indwelling Esparza catheter present: Code(s): Z97.8 - Presence of other specified devices Status: Acute Assessment and Plan: Esparza was replaced in the ER. (9) Type 2 diabetes mellitus without complication, without long-term current use of insulin: Code(s): E11.9 - Type 2 diabetes mellitus without complications Status: Acute (10) Obesity: Code(s): E66.9 - Obesity, unspecified Status: Acute Additional Plan I have discussed the patient's case and plan of care with Dr. Dominique. History of Present Illness Consult details Consult date: 08/29/21 Reason for consult: wound care (Stage IV sacral decubitus ulcer) Requesting physician: Hipolito Veras DO Narrative: This is an 81-year-old male with multiple medical problems who is known to our service for previous treatment of a sacral decubitus ulcer in June of 2021. He was found to be septic and had a necrotic sacral decubitus ulcer. He underwent excisional debridement in the OR on 07/02/[address] Dominique. He was taking Eliquis and had a good amount of oozing during and after surgery, and did require a blood transfusion. Once this improved he was discharged to [facility] and has been there since discharge. He was brought back into the ER today via EMS for decreased oral intake and altered mental status. Head CT showed no acute intracranial findings. Chest x-ray showed findings consistent with a CHF exacerbation, possible pneumonia. CT of the abdomen and pelvis showed his esparza balloon inflated int he bulbar urethra with distended bladder and moderate bilateral hydronephrosis and hydroureter, small pleural effusions, gallbladder distention possibly secondary to fasting, and a large sacral decubitus ulcer with new absence of bone int he proximal coccyx. Labs showed a WBC of 14,000, mild hyponatremia, hyperkalemia, and creatinine of 2.1. Lactic acid 1.0. Urinalysis suggests urinary tract infection. The ER physician consulted our service for surgical evaluation of the stage IV sacral decubitus ulcer. The patient is now seen in the ER. He is alert and oriented x 3, but his answers to questions do not correlate with his electronic medical
--- NOTE | 2021-08-29 16:41 | PM.IMHP ---
H&P: HPI History of Present Illness Date/Time: 08/29/21 16:41 Chief Complaint: Acute metabolic encephalopathy Narrative: Patient is an 81-year-old male with a past medical history of anxiety, atrial fibrillation, CHF, hypertension, iron deficiency anemia, type 2 diabetes who presented the ED from the intermediate for evaluation of altered mental status. According to ED sees note patient was noted to be not answering questions appropriately at the nursing facility. However the patient did not state that. He did say that he feels tired and that he is having pain in his but where the wound is. He is also stating that his right shoulder hurts well. He does admit to having a good appetite however he has not been eating much due to the quality of the food that he has been served. He did state that he has a Johnson but he cannot tell me when the last time it was changed out prior to this visit. He also stated that he is thirsty all the time. It was noted that patient's catheter was in the urethra upon arrival. Catheter has been changed out per nursing staff. Patient denies any chest pain, shortness of breath, nausea, vomiting, diarrhea, constipation. Patient did state that he does get short of breath sometimes with activity. He does seem to have a little bit of slurred speech upon exam. Patient denies any pain in the abdominal area related to the urinary catheter. Patient also states he is on his home O2 amount and that he has noticed that his feet have been swollen the last couple days. Abdominal CT did show a large sacral decubitus ulcer with new absence of the bone which may be from osteomyelitis and debridement. Was trying to help the nurse get a wound culture however the patient refused to let us chart has unless we gave him a pain pill and waited 30 minutes. I did explain to the patient that we need to get the wound culture in order to treat him appropriately. Patient stated that his primary care physician told him never did to move without his pain pill 1st. Even with offering him IV pain medication patient still was not okay with moving until he gets pain medication 1st. Wound culture still needs to be obtained. Wound consult is also and as well. Review of Systems Review of Systems: All systems reviewed & are unremarkable except as noted in HPI and below PMFSH Past Medical History Medical History Anxiety Atrial fibrillation Benign prostatic hyperplasia with lower urinary tract symptoms CHF (congestive heart failure) Echocardiogram December 2015: Difficult study with poor sonographic images demonstrate mild concentric left ventricular hypertrophy, diastolic dysfunction and increased left heart filling pressures based on elevated E/E. Ejection fraction 55-60%. Mild enlargement of left atrium Complex sleep apnea syndrome Polysomnogram 2018: Mild obstructive sleep apnea. Difficult titration with CPAP and then BiPAP without optimum pressure achieved with emergence of central sleep apnea noted during titration consistent with complex sleep apnea syndrome. ASV titration was recommended Depression Essential (primary) hypertension Iron deficiency anemia Mixed hyperlipidemia Occult blood in stools Type 2 diabetes mellitus without complication, without long-term current use of insulin Surgical History Surgical History History of cardiac catheterization (2011) Mild nonobstructive coronary artery disease with 40-50% stenosis of the mid LAD with preserved left ventricular systolic function with EF of 60 65% History of tonsillectomy Family History Family History Sibling Family history of heart disease in male family member before age 55 Father Acute myocardial infarction Other Diabetes mellitus Hypertension Social History Social History (Updated 08/29/21 @ 16:55 by Libby
[2021-08-29 17:17] VITALS: BP 131/69; PULSE 112; RESP 15; O2SAT 93
--- NOTE | 2021-08-29 19:23 | ADMGEN ---
This patient, Rommel Bran, was admitted to Medical Room 342-01. Patient/family oriented to hospital policies and general routines including ID bracelet, bed and alarms, visiting hours, pain management, procedures, bathroom and other care routines, personal items, smoking policy, room service/diet, and visiting hours. Information on how to activate the Rapid Response Team has been discussed. Patient/Family are encouraged to report perceived risks to care and to ask questions if they do not understand what they are told or what they should do.
[2021-08-29 19:29] LABS: Anion Gap 6 mmol/L (8-16); Blood Urea Nitrogen 42 mg/dL (9-20); Carbon Dioxide 19 mmol/L (22-30); Chloride 104 mmol/L (98-107); Estimated Glomerular Filt Rate 31; Glucose 111 mg/dL (65-110); Sodium 129 mmol/L (137-145)
[2021-08-29 19:41] LABS: Troponin I < 0.012 ng/mL (0.000-0.034)
[2021-08-29 20:00] VITALS: PULSE 112; RESP 18; O2SAT 98
[2021-08-29 21:01] VITALS: BP 106/64; PULSE 112; RESP 18; TEMP 36.7; O2SAT 98
[2021-08-29] MEDS: busPIRone HCL 5 MG TABLET 15 MG PO (21:25)
[2021-08-29] MEDS: SERTRALINE HCL 50 MG TABLET PO (21:26)
[2021-08-29] MEDS: APIXABAN 5 MG TABLET PO (21:26)
[2021-08-29 22:12] LABS: Troponin I < 0.012 ng/mL (0.000-0.034)
[2021-08-30] VITALS (11 sets, daily range): BP systolic 90–106; BP diastolic 64–85; PULSE 57–113; RESP 16–18; TEMP 36.7–37; O2SAT 91–93; BMI 38.5
[2021-08-30] MEDS: traMADol HCL (*CRX) 50 MG TABLET PO ×2 (01:25→17:53)
[2021-08-30 05:48] LABS: Alanine Aminotransferase 13 U/L (4-50); Alkaline Phosphatase 123 U/L (38-126); Anion Gap 4 mmol/L (8-16); Aspartate Amino Transferase 15 U/L (17-59); Bilirubin,Total 0.3 mg/dL (0.2-1.3); Blood Urea Nitrogen 41 mg/dL (9-20); Calcium 6.9 mg/dL (8.4-10.2); Carbon Dioxide 22 mmol/L (22-30); Chloride 103 mmol/L (98-107); Estimated Glomerular Filt Rate 29; Glucose 104 mg/dL (65-110); Magnesium 1.1 mg/dL (1.6-2.3); Potassium 4.9 mmol/L (3.4-5.0); Sodium 129 mmol/L (137-145)
[2021-08-30 06:09] LABS: Basophils Percent Auto 0.1 % (0.2-1.2); Eosinophils Percent Auto 0.2 % (0-4.4); Hemoglobin 8.1 g/dL (14.0-18.0); Immature Granulocyte Absolute 0.18 K/mm3 (0.00-0.031); Immature Granulocyte Percent A 1.1 % (0-0.5); Lymphocytes Absolute Auto 0.95 K/mm3 (0.9-3.2); Lymphocytes Percent Auto 5.9 % (18.3-44.2); Mean Corpuscular HGB Conc 31.2 g/dl (32-36); Mean Corpuscular Volume 83.6 fl (80-100); Monocytes Absolute Auto 0.9 K/mm3 (0.1-0.6); Monocytes Percent Auto 5.9 % (2.6-8.5); Neutrophils Absolute Auto 13.9 K/mm3 (1.3-6.7); Neutrophils Percent Auto 86.8 % (45.5-73.1); Platelet Count Result 483 k/mm3 (150-375); Red Blood Count 3.11 M/mm3 (4.6-6.20); Red Cell Distribution Width 24.7 % (11.5-14.5)
[2021-08-30 07:23] LABS: Glucose Point of Care 112 mg/dl (65-105)
[2021-08-30] MEDS: THERAPEUTIC MULTIVITAMINS/MINERALS TAB (*BKC) 1 TABLET PO (08:25)
[2021-08-30] MEDS: busPIRone HCL 5 MG TABLET 15 MG PO ×3 (08:25→16:42)
[2021-08-30] MEDS: METOPROLOL SUCCINATE EXT REL 25 MG TABCR PO (08:25)
[2021-08-30] MEDS: APIXABAN 5 MG TABLET PO ×2 (08:25→21:10)
[2021-08-30] MEDS: TAMSULOSIN HCL 0.4 MG CAPSULE PO (08:25)
[2021-08-30] MEDS: PANTOPRAZOLE 40 MG TABLET PO (08:25)
[2021-08-30] MEDS: FERROUS SULFATE 324 MG TABLET PO (08:25)
[2021-08-30] MEDS: SERTRALINE HCL 50 MG TABLET PO ×2 (08:25→16:43)
--- NOTE | 2021-08-30 08:25 | PM.IMPN ---
Progress Note: A&P Assessment and Plan (1) Acute on chronic kidney failure: Code(s): N17.9 - Acute kidney failure, unspecified; N18.9 - Chronic kidney disease, unspecified Status: Acute Assessment and Plan: Patient's Cr has worsened today 2.2 (2.1). Baseline C since July 09 has been 1.1-1.6, but was normal before that time. Patient still taking 40mg Lasix PO, but otherwise avoiding nephrotoxic agents. We are avoiding fluid resuscitation at this time due to patient's heart failure. Patient has hypoalbuminemia. Nephrology consulted and we do appreciate their inputs on this patient. nephrology has ordered renal ultrasound Continue to trend labs. Urine electrolytes and CPK Consider albumin if creatinine continues to rise. hold home Lasix trial fluid resuscitation for renal functions & hypotension. (2) Abnormal urinalysis: Code(s): R82.90 - Unspecified abnormal findings in urine Status: Acute Assessment and Plan: Preliminary urine culture shows gram - rods, sensitivity results pending. WBC incrs to 16 (14.9). Secondary to chronic esparza catheter and obstruction with CT showin hydronephrosis and hydroureter. I/Os yesterday: 500/700 with good output. Continue Zosyn empirically as prior stay urine culture showed pseudomonas. Adjust therapy as indicated by sensitivity results Daily I/Os Continue to monitor infectious markers/symptoms Blood cultures obtained today. (3) CHF (congestive heart failure): Code(s): I50.9 - Heart failure, unspecified Status: Acute Assessment and Plan: New episode of borderline hypotension with BP 90/64 this afternoon. Patient oxygenating at 92% on 1L supplemental O2. Patient clinically fluid overloaded with peripheral edema and CXR showing cardiomegaly and bilateral pulmonary edema (CT abdomen shownig lung bases with small pleural effusons and atelectasis) consistent with CHF exacerbation. CT abdomen also showed trace pericardial effusion, also present in 05/07 echocardiogram, which also showed EF of 60-65% with an indeterminate diastolic dysfunction. Patient difficult to diurese due to co-occurring LANETTE. BNP elevated at 4440 yesterday. D/C home lasix and providing light fluid resuscitation to support blood pressure and address LANETTE at this time. Will monitor pt closely for any difficulty breathing. Hold metoprolol 25 mg p.o. due to HR in the 50s this AM Trend urine output Daily weights. (4) Decubitus ulcer: Qualifiers: Laterality: unspecified laterality Pressure injury location: buttock Pressure injury stage: stage 4 Qualified Code(s): L89.304 - Pressure ulcer of unspecified buttock, stage 4 Code(s): L89.90 - Pressure ulcer of unspecified site, unspecified stage Status: Acute Assessment and Plan: CT abdomen and pelvis showed large decubitus ulcer new absence of bone in the proximal coccyx maybe from osteomyelitis or debridement. General surgery consulted and advised it appears that at wet to dry dressings have been placed and the wound bed appears healthy with good granulation tissue. There is some tunneling, but there does not appear to be a significant amount of necrotic tissue. The tip of the coccyx does appear loose, but the sacrum appears intact and firm. No debridement recommended at this time. Wound care nurses will see the patient to provide any other recommendations. Continuing wet-to-dry dressing changes and follow closely for any other significant changes. Wound cultures show gram + cocci in clusters preliminarily. (5) Iron deficiency anemia: Code(s): D50.9 - Iron deficiency anemia, unspecified Status: Acute Assessment and Plan: Current H&H 8.0/27.0 Hold home iron due to current infection. Trend labs Adjust therapy as indicated (6) Atrial fibrillation: Qualifiers: Atrial fibrillation type: persistent (not l
[2021-08-30] MEDS: SACCHAROMYCES BOULARDII 250 MG CAPSULE PO ×2 (08:26→16:43)
[2021-08-30 09:00] LABS: NT Pro B Type Natriuretic Pept 4150 pg/mL (5-100)
--- NOTE | 2021-08-30 09:40 | PM.CNNEP ---
Assessment and Plan Additional Plan 1. the patient has an elevated creatinine. It was elevated in June when he was here as well. It is at about the same number. His creatinine was normal before that. This could be an extended form of acute kidney injury or possibly he might have lost the function of 1 kidney which would lead to a doubling of his creatinine. He does not look dehydrated so I do not think that the problem. His systolic heart function is good so he would not pre renal from the cardiac standpoint. his chronic osteomyelitis could have a low-grade chronic infection leading to the higher creatinine as well. He does have a mildly high white cell count. to evaluate this I am going to check A renal ultrasound, urine electrolytes CPK, we will check blood cultures, and will get a urine culture as well. 2. The patient does not seem to have chronic kidney disease that we know of right now. 3. The patient has diastolic dysfunction. 4. Patient has swelling. He is not on any medicines that would do this. he does have sleep apnea and a dilated IVC and enlarged right atrial chamber so could have some swelling from these. His albumin level is low. He probably does not eat well and also the chronic osteomyelitis and may be suppressing his albumin level. This can certainly cause swelling as well. He had some protein noted in his urinalysis and so could have nephrotic syndrome from his diabetes. Will check a urine protein to creatinine ratio. He is getting diuretics. Consider albumin if his creatinine rises. 5. Patient has diabetes. he is on Accu-Cheks and sliding scale insulin 6. he has depression and is on sertraline. 7. He has BPH and is on tamsulosin plus chronically catheterized. 8. He has atrial fibrillation and is on Eliquis. 9. He has anemia. Because of infection I would hold off on iron supplements. History of Present Illness Reason for Consult Consult date: 08/30/21 Chief Complaint Chief complaint: Infected Decubitus Ulcer, UTI, Congestive Heart Fa History of Present Illness Narrative: Rommel is a very pleasant 81-year-old gentleman who has multiple medical problems including chronic kidney disease with a baseline creatinine of around 1.6 to 2.2, congestive heart failure mostly diastolic dysfunction, central and obstructive sleep apnea, depression, hypertension, hyperlipidemia, diabetes, atrial fibrillation, BPH , decubitus ulcer.. The patient lives in a fci. He says that he has been a little more short of breath and a lot more swollen over the last few days. He then apparently became confused so he was sent to the emergency room. The patient had an elevated creatinine on admission so renal consultation was requested. The patient has no knowledge of prior history of chronic kidney disease but his chart shows that his creatinine has been mildly high since June but it was normal in May. The patient has had a complex recent history with swelling, diastolic dysfunction, a complex sacral decubitus with probable osteomyelitis, urinary retention with chronic Johnson catheter placement. in the emergency room it was found that his Johnson catheter was in the urethra. This has been replaced. The patient denies any itching or skin rash. He is somewhat short of breath right now with conversation. Review of Systems Constitutional: Constitutional: Reports no additional constitutional complaints Eyes: Eyes: Reports no additional eye complaints ENT: Reports system reviewed and no additional complaints, except as documented Cardiovascular: Cardiovascular: Reports no additional cardiovascular complaints Respiratory: Respiratory: Reports no additional respiratory complaints Gastrointestinal: Gastrointestinal: Reports no additional gastrointestinal complaints Genitourinary: Genitourinary: Reports no additional male genitourinary complaints Musculoskeletal: Musculoskeletal: Reports no additio
[2021-08-30 10:22] LABS: Hemoglobin A1C 4.7 % (<5.7)
[2021-08-30 10:25] LABS: Creatine Kinase < 20 U/L (55-170)
[2021-08-30 11:17] LABS: Glucose Point of Care 113 mg/dl (65-105)
[2021-08-30] MEDS: SILVERGEL (ELTA) 45 ML 1 APPLIC TOPICAL (11:59)
[2021-08-30 12:20] LABS: Creatinine Urine 70.8 mg/dL; Total Protein Urine Random 63 mg/dL; Ur Ttl Prot Creatinine Ratio 0.89 mg/mg (0-0.20)
[2021-08-30 12:21] LABS: Sodium Urine Random 13 meq/L
[2021-08-30 16:26] LABS: Glucose Point of Care 107 mg/dl (65-105)
[2021-08-30] MEDS: SODIUM CHLORIDE 0.9% IV 1,000 ML 100 ML IV CONT (16:42)
[2021-08-30] MEDS: FUROSEMIDE 40 MG TABLET PO (16:43)
--- NOTE | 2021-08-30 18:28 | PC.NURSE ---
Pt refusing to turn and refusing to get wound on buttock changed. RN educated pt on importance of turning and wound changes for healing and decreased infection.
[2021-08-31] VITALS (10 sets, daily range): BP systolic 91–139; BP diastolic 57–67; PULSE 62–105; RESP 16–18; TEMP 35.3–37; O2SAT 99–100
[2021-08-31] MEDS: traMADol HCL (*CRX) 50 MG TABLET PO ×3 (00:17→21:02)
[2021-08-31 04:59] LABS: Glucose Point of Care 115 mg/dl (65-105)
[2021-08-31] MEDS: SODIUM CHLORIDE 0.9% IV 1,000 ML 100 ML IV CONT ×2 (05:00→14:32)
[2021-08-31 05:35] LABS: Basophils Percent Auto 0.1 % (0.2-1.2); Eosinophils Percent Auto 0.1 % (0-4.4); Hemoglobin 7.9 g/dL (14.0-18.0); Immature Granulocyte Absolute 0.17 K/mm3 (0.00-0.031); Lymphocytes Absolute Auto 1.07 K/mm3 (0.9-3.2); Lymphocytes Percent Auto 6.1 % (18.3-44.2); Mean Corpuscular HGB Conc 30.4 g/dl (32-36); Mean Corpuscular Hemoglobin 26.3 pg (26-34); Mean Corpuscular Volume 86.7 fl (80-100); Mean Platelet Volume 8.7 fl (7.4-10.4); Monocytes Absolute Auto 1.1 K/mm3 (0.1-0.6); Monocytes Percent Auto 6.1 % (2.6-8.5); Neutrophils Absolute Auto 15.2 K/mm3 (1.3-6.7); Neutrophils Percent Auto 86.6 % (45.5-73.1); Platelet Count Result 440 k/mm3 (150-375); Red Cell Distribution Width 24.7 % (11.5-14.5); White Blood Count 17.5 K/mm3 (4.5-10.0)
[2021-08-31 05:48] LABS: Alanine Aminotransferase 14 U/L (4-50); Alkaline Phosphatase 133 U/L (38-126); Anion Gap 6 mmol/L (8-16); Aspartate Amino Transferase 16 U/L (17-59); Bilirubin,Total 0.3 mg/dL (0.2-1.3); Blood Urea Nitrogen 45 mg/dL (9-20); Calcium 6.8 mg/dL (8.4-10.2); Carbon Dioxide 20 mmol/L (22-30); Chloride 103 mmol/L (98-107); Estimated CRCL calculation 44 ml/min; Estimated Glomerular Filt Rate 36; Glucose 108 mg/dL (65-110); Potassium 4.2 mmol/L (3.4-5.0); Sodium 129 mmol/L (137-145)
[2021-08-31 07:43] LABS: Glucose Point of Care 123 mg/dl (65-105)
[2021-08-31] MEDS: PANTOPRAZOLE 40 MG TABLET PO (07:50)
[2021-08-31] MEDS: APIXABAN 5 MG TABLET PO ×2 (07:50→20:44)
[2021-08-31] MEDS: SERTRALINE HCL 50 MG TABLET PO ×2 (07:50→16:47)
[2021-08-31] MEDS: busPIRone HCL 5 MG TABLET 15 MG PO ×3 (07:50→16:47)
[2021-08-31] MEDS: SACCHAROMYCES BOULARDII 250 MG CAPSULE PO ×2 (07:50→16:47)
[2021-08-31] MEDS: THERAPEUTIC MULTIVITAMINS/MINERALS TAB (*BKC) 1 TABLET PO (07:50)
--- NOTE | 2021-08-31 10:48 | PM.PNNEP ---
Progress Note: A&P Additional Plan 1. the patient has an elevated creatinine. It was elevated in June when he was here as well. It is at about the same number. His creatinine was normal 1 [address] before [address]. the [address] scan showed hydronephrosis because of a Johnson that was in the urethra. The Johnson has since been changed. The renal ultrasound shows no hydro. So the hydronephrosis improved dramatically once the catheter was changed. CK is normal Urine electrolytes are pre renal. UA shows white cells. Culture shows G negatives. I suspect that the kidney issues are due to mild dehydration and also infection in the urine and the decubitus ulcer. I talked with MAYRA Gu about this. This has staff in the wound and g negatives in the urine we will adjust antibiotics such that he will be on Zosyn plus linezolid. he is getting some IV fluids. He has congestive heart failure so this is being done gingerly. 2. The patient does not seem to have chronic kidney disease that we know of right now. 3. The patient has diastolic dysfunction. 4. The patient has swelling. This is most likely right-sided issues related to sleep apnea and pulmonary issues. He also has diastolic dysfunction which may contribute. 5. Patient has diabetes. he is on Accu-Cheks and sliding scale insulin 6. he has depression and is on sertraline. 7. He has BPH and is on tamsulosin plus chronically catheterized. 8. He has atrial fibrillation and is on Eliquis. 9. He has anemia. Because of infection I would hold off on iron supplements. Subjective Date/time seen: 08/31/21 10:48 Interval history: Rommel is feeling about the same today. No shortness of breath even while lying flat. No chest pain. Review of Systems Cardiovascular: Cardiovascular: Reports no additional cardiovascular complaints Respiratory: Respiratory: Reports no additional respiratory complaints Gastrointestinal: Gastrointestinal: Reports no additional gastrointestinal complaints Genitourinary: Genitourinary: Reports no additional male genitourinary complaints Exam Narrative: WDWN in NAD skin no rash head ncat lungs clear cor reg no rub abd BS+ nontender and soft ext no edema. Objective Data Vital Signs Vital Signs: Vital Signs - 24 hr 08/30/21 12:00 08/30/21 14:00 08/30/21 16:00 Temperature 36.8 C Pulse Rate 94 89 92 Respiratory Rate 16 Blood Pressure 90/64 L Pulse Oximetry 92 08/30/21 20:00 08/30/21 21:01 08/30/21 21:45 Temperature 36.7 C Pulse Rate 70 70 Respiratory Rate 18 18 Blood Pressure 102/68 Pulse Oximetry 91 91 93 08/31/21 00:00 08/31/21 04:00 08/31/21 06:29 Temperature 37.0 C Pulse Rate 95 91 105 H Respiratory Rate 18 Blood Pressure 91/60 L Pulse Oximetry 100 08/31/21 07:49 08/31/21 08:00 Temperature Pulse Rate 103 H Respiratory Rate Blood Pressure 105/67 Pulse Oximetry Intake/Output Intake/Output: Intake & Output 08/28/21 08/29/21 08/30/21 08/31/21 23:59 23:59 23:59 23:59 Intake Total 100 1370 1630 Output Total 1000 550 Balance 648 889 2040 Meds/Results Medications: Active Medications Generic Name Dose Route Start Last Admin Trade Name Freq PRN Reason Stop Dose Admin Apixaban 5 mg 08/29/21 21:00 08/31/21 07:50 Apixaban 5 Mg Tablet PO 5 mg Q12HR RODNEY Administration Bisacodyl 10 mg 08/29/21 19:49 Bisacodyl 10 Mg Suppository RECTAL DAILY PRN Constipation Buspirone HCl 15 mg 08/29/21 19:50 08/31/21 07:50 Buspirone Hcl 5 Mg Tablet PO 15 mg TID RODNEY Administration Calcium Carbonate 500 mg 08/31/21 08:00 Calcium Carbonate (Oscal) 500 Mg Tablet PO BIDWM RODNEY Furosemide 40 mg 08/30/21 17:00 08/30/21 16:43 Furosemide 40 Mg Tablet PO 40 mg 1700 RODNEY Administration Piperacillin/Tazobactam/Dextrose 3.375 gm in 50 mls @ 100 mls/hr 08/29/21 22:00 08/31/21 09:24 Zosyn 3.375 Gm/D5w 50ml Pm IVPB
[2021-08-31] MEDS: MAGNESIUM SULF 1 GM/D5W 100 ML 1 GM/100 ML BAG IVPB (11:29)
[2021-08-31] MEDS: SILVERGEL (ELTA) 45 ML 1 APPLIC TOPICAL (11:31)
[2021-08-31 11:38] LABS: Glucose Point of Care 112 mg/dl (65-105)
--- NOTE | 2021-08-31 11:45 | PCSTNOTE ---
Please refer to the Bedside Swallow Evaluation in the EMR. Please note, silent aspiration cannot be ruled out at bedside.
--- NOTE | 2021-08-31 12:07 | PM.IMPN ---
Progress Note: A&P Assessment and Plan (1) LANETTE (acute kidney injury): Code(s): N17.9 - Acute kidney failure, unspecified Status: Acute Assessment and Plan: Baseline Cr since July 09 has been 1.1-1.6, but was normal before that time. Patient's Cr has improved to 1.8 (2.2) after light fluid rehydration yesterday, which we will continue. We have discontinued his furosemide. Discussed this with nephrology who is investigating etiology and we do appreciate their inputs on this patient. Renal ultrasound showed no hydronephrosis, which has resolved from CT abdomen showing bilateral hydronephrosis and hydroureter. Urine protein to creatinine high at 0.89, urine CK is normal. Urine electrolytes are pre-renal. Continue to trend labs. Continue trial of fluid resuscitation for renal functions & hypotension. (2) Acute UTI: Code(s): N39.0 - Urinary tract infection, site not specified Status: Acute Assessment and Plan: Preliminary urine culture shows gram - rods, sensitivity results pending. WBC continues to incrs to 17.5 (16). Secondary to chronic esparza catheter and obstruction with CT showing hydronephrosis and hydroureter, which has resolved as renal ultrasound yesterday. I/Os yesterday: 1370/1000 with good output. Discussed antibiotic adjustment adding Linezolid with Dr. Che with recent decubitus ulcer cultures showing Staph aureus. Blood cultures showed no growth. Continue Zosyn empirically as prior stay urine culture showed pseudomonas. Start linezolid for Staph aureus from decubitus ulcer. Daily I/Os Continue to monitor infectious markers/symptoms (3) CHF (congestive heart failure): Code(s): I50.9 - Heart failure, unspecified Status: Acute Assessment and Plan: Patient has remained normotensive today, saturating 100% on room air, and is lying completely recumbent during my exam of him. He continues to have significant lower extremity pitting edema. But overall appears to be tolerating light fluid resuscitation for his LANETTE. We also discontinued his home Lasix we will continue to monitor him closely and adjust as needed. During his stay patient has been clinically fluid overloaded with peripheral edema and CXR showing cardiomegaly and bilateral pulmonary edema (CT abdomen showing lung bases with small pleural effusons and atelectasis) consistent with CHF exacerbation. CT abdomen also showed trace pericardial effusion, also present in 05/07 echocardiogram, which also showed EF of 60-65% with an indeterminate diastolic dysfunction. D/C home lasix and continuing with light fluid resuscitation to support blood pressure and address LANETTE at this time. Will monitor pt closely for any difficulty breathing. Continue to hold metoprolol 25 mg p.o. Trend urine output Daily weights. (4) Decubitus ulcer: Qualifiers: Laterality: unspecified laterality Pressure injury location: buttock Pressure injury stage: stage 4 Qualified Code(s): L89.304 - Pressure ulcer of unspecified buttock, stage 4 Code(s): L89.90 - Pressure ulcer of unspecified site, unspecified stage Status: Acute Assessment and Plan: Wound Care saw the patient and advised to apply silver gel to the wound bed for topical antimicrobial coverage and autolytic debridement of yellow slough then to lightly fill with Kerlix roll to help a sore exit and then cover with ABD. Nursing staff confirms they have been doing this daily. Exam today shows no signs or symptoms of infection noted to the surrounding tissue. Wound cultures grew Staph aureus, sensitivities pending. CT abdomen and pelvis showed large decubitus ulcer new absence of bone in the proximal coccyx maybe from osteomyelitis or debridement. General surgery consulted and advised it appears that at wet to dry dressings have been placed and the wound bed appears healthy with good granulation tissue. There is some tunnel
[2021-08-31] MEDS: LINEZOLID 600 MG/300 ML 600 MG/300 ML SOLN 300 MG IVPB ×2 (12:36→21:57)
[2021-08-31] MEDS: CALCIUM CARBONATE (OSCAL) 500 MG TABLET PO ×2 (12:36→16:47)
[2021-08-31 16:20] LABS: Glucose Point of Care 122 mg/dl (65-105)
[2021-08-31 20:55] LABS: Glucose Point of Care 109 mg/dl (65-105)
[2021-09-01] VITALS (10 sets, daily range): BP systolic 95–126; BP diastolic 45–86; PULSE 60–110; RESP 18; TEMP 36.4–36.6; O2SAT 95–98
[2021-09-01] MEDS: SODIUM CHLORIDE 0.9% IV 1,000 ML 100 ML IV CONT ×2 (00:55→13:41)
[2021-09-01 06:02] LABS: Basophils Percent Auto 0.1 % (0.2-1.2); Eosinophils Percent Auto 0.1 % (0-4.4); Hematocrit 25.6 % (42.0-52.0); Hemoglobin 7.8 g/dL (14.0-18.0); Immature Granulocyte Absolute 0.18 K/mm3 (0.00-0.031); Immature Granulocyte Percent A 1.3 % (0-0.5); Lymphocytes Absolute Auto 1.15 K/mm3 (0.9-3.2); Lymphocytes Percent Auto 8.6 % (18.3-44.2); Mean Corpuscular HGB Conc 30.5 g/dl (32-36); Mean Corpuscular Hemoglobin 26.4 pg (26-34); Mean Corpuscular Volume 86.8 fl (80-100); Mean Platelet Volume 8.9 fl (7.4-10.4); Monocytes Absolute Auto 0.9 K/mm3 (0.1-0.6); Monocytes Percent Auto 6.3 % (2.6-8.5); Neutrophils Absolute Auto 11.2 K/mm3 (1.3-6.7); Neutrophils Percent Auto 83.6 % (45.5-73.1); Platelet Count Result 388 k/mm3 (150-375); Red Blood Count 2.95 M/mm3 (4.6-6.20); Red Cell Distribution Width 24.5 % (11.5-14.5); White Blood Count 13.4 K/mm3 (4.5-10.0)
[2021-09-01 06:16] LABS: Alanine Aminotransferase 15 U/L (4-50); Alkaline Phosphatase 124 U/L (38-126); Anion Gap 4 mmol/L (8-16); Aspartate Amino Transferase 17 U/L (17-59); Bilirubin,Total 0.2 mg/dL (0.2-1.3); Blood Urea Nitrogen 42 mg/dL (9-20); Calcium 6.8 mg/dL (8.4-10.2); Carbon Dioxide 21 mmol/L (22-30); Chloride 104 mmol/L (98-107); Estimated CRCL calculation 44 ml/min; Estimated Glomerular Filt Rate 36; Glucose 93 mg/dL (65-110); Phosphorus 2.6 mg/dL (2.5-4.5); Potassium 3.7 mmol/L (3.4-5.0); Sodium 129 mmol/L (137-145)
[2021-09-01 07:26] LABS: Glucose Point of Care 91 mg/dl (65-105)
[2021-09-01] MEDS: LINEZOLID 600 MG/300 ML 600 MG/300 ML SOLN 300 MG IVPB (08:24)
[2021-09-01] MEDS: SACCHAROMYCES BOULARDII 250 MG CAPSULE PO ×2 (08:28→16:41)
[2021-09-01] MEDS: THERAPEUTIC MULTIVITAMINS/MINERALS TAB (*BKC) 1 TABLET PO (08:28)
[2021-09-01] MEDS: busPIRone HCL 5 MG TABLET 15 MG PO (08:29)
[2021-09-01] MEDS: SERTRALINE HCL 50 MG TABLET PO (08:29)
[2021-09-01] MEDS: APIXABAN 5 MG TABLET PO ×2 (08:29→21:13)
[2021-09-01] MEDS: PANTOPRAZOLE 40 MG TABLET PO (08:29)
[2021-09-01] MEDS: CALCIUM CARBONATE (OSCAL) 500 MG TABLET PO ×2 (08:29→16:41)
[2021-09-01] MEDS: traMADol HCL (*CRX) 50 MG TABLET PO (08:35)
--- NOTE | 2021-09-01 09:12 | PM.PNNEP ---
Progress Note: A&P Additional Plan 1. the patient has an elevated creatinine. It was elevated in June when he was here as well. It is at about the same number. His creatinine was normal 1 [address] before [address]. the [address] scan showed hydronephrosis because of a Johnson that was in the urethra. The Johnson has since been changed. The renal ultrasound shows no hydro. So the hydronephrosis improved dramatically once the catheter was changed. CK is normal Urine electrolytes are pre renal. UA shows white cells. Culture shows G negatives. I suspect that the kidney issues are due to mild dehydration and also infection in the urine and the decubitus ulcer. He is eating better. He had 25-50% of breakfast and lunch and 100% of dinner. He looks like he is going to eat all of his breakfast this morning. I will decrease his IV fluids to50cc an hour and see how he eats today. Hopefully we can eventually stop it if he eats and drinks well. He is on linezolid and Zosyn for his decubitus ulcer. His white cell count has come down a little bit. Just to be complete I will check a renal scan tomorrow to make sure both kidneys are working. 2. The patient does not seem to have chronic kidney disease that we know of right now. 3. The patient has diastolic dysfunction. 4. The patient has swelling. Most likely related to cardiopulmonary issues. 5. Patient has diabetes. he is on Accu-Cheks and sliding scale insulin 6. he has depression and is on sertraline. 7. He has BPH and is on tamsulosin plus chronically catheterized. 8. He has atrial fibrillation and is on Eliquis. 9. He has anemia. Because of infection I would hold off on iron supplements. Subjective Date/time seen: 09/01/21 09:12 Interval history: Rommel is feeling about the same today. He is comfortable lying in bed. Exam Narrative: WDWN in NAD skin no rash head ncat lungs clear cor irreg no rub or gallop abd BS+ nontender and soft ext no edema or cyanosis. Objective Data Vital Signs Vital Signs: Vital Signs - 24 hr 08/31/21 12:00 08/31/21 14:00 08/31/21 16:00 Temperature 35.3 C L Pulse Rate 104 H 97 95 Respiratory Rate 16 Blood Pressure 110/58 L Pulse Oximetry 08/31/21 20:00 08/31/21 20:40 09/01/21 00:00 Temperature 36.8 C Pulse Rate 88 62 91 Respiratory Rate 18 Blood Pressure 139/57 L Pulse Oximetry 99 09/01/21 04:00 09/01/21 05:35 Temperature 36.6 C Pulse Rate 99 100 Respiratory Rate 18 Blood Pressure 110/64 Pulse Oximetry 98 Intake/Output Intake/Output: Intake & Output 08/29/21 08/30/21 08/31/21 09/01/21 23:59 23:59 23:59 23:59 Intake Total 100 1370 3960 1400 Output Total 1000 850 400 Balance 086 781 1094 1000 Meds/Results Medications: Active Medications Generic Name Dose Route Start Last Admin Trade Name Freq PRN Reason Stop Dose Admin Apixaban 5 mg 08/29/21 21:00 09/01/21 08:29 Apixaban 5 Mg Tablet PO 5 mg Q12HR RODNEY Administration Bisacodyl 10 mg 08/29/21 19:49 Bisacodyl 10 Mg Suppository RECTAL DAILY PRN Constipation Buspirone HCl 15 mg 08/29/21 19:50 09/01/21 08:29 Buspirone Hcl 5 Mg Tablet PO 15 mg TID RODNEY Administration Calcium Carbonate 500 mg 08/31/21 08:00 09/01/21 08:29 Calcium Carbonate (Oscal) 500 Mg Tablet PO 500 mg BIDWM RODNEY Administration Furosemide 40 mg 08/30/21 17:00 08/30/21 16:43 Furosemide 40 Mg Tablet PO 40 mg 1700 RODNEY Administration Piperacillin/Tazobactam/Dextrose 3.375 gm in 50 mls @ 100 mls/hr 08/29/21 22:00 09/01/21 04:07 Zosyn 3.375 Gm/D5w 50ml Pm IVPB Infused Q6H RODNEY Infusion Sodium Chloride 1,000 mls @ 100 mls/hr 08/30/21 15:25 09/01/21 00:55 Normal Saline Iv IV CONT 100 mls/hr .Q10H RODNEY Administration Linezolid 600 mg in 300 mls @ 300 mls/hr 08/31/21 11:10 09/01/21 08:24 Zyvox IVPB 09/10/21 11:09 300 mls/hr Q12HR RODNEY Administration Metoprolol Succinat
--- NOTE | 2021-09-01 09:14 | PCPTNOTE ---
received orders for PT evaluation; reviewed EMR and discussed pt with JON Vazquez; prior to admission, pt was in an ECF, bed bound and snf care. Skilled PT evaluation and treatment is not indicated for pt. PT eval was not performed.
--- NOTE | 2021-09-01 09:29 | PM.IMPN ---
Progress Note: A&P Assessment and Plan (1) Altered mental status, unspecified: Code(s): R41.82 - Altered mental status, unspecified <Magali RRogerio Thompson PA-C - Last Filed: 09/01/21 16:32> Status: Acute <Magali RRogerio Thompson PA-C - Last Filed: 09/01/21 16:32> Assessment and Plan: Patient had acute change in mental status today upon my exam. He was difficult to arouse, but was oriented to person place and time upon waking. Vitals were taken at the bedside with a new blood pressure of 95/45, pulse 98 beats per minute, respirations 18 per minute, oxygen saturation 96% on room air. Hemoglobin is 7.8 today, the patient is chronically iron deficient anemic, and this is not a large decreased from the day prior. Fingerstick blood glucose was 110. Clinically, patient's infectious markers have improved, and his renal function is returning to baseline. A 500mL fluid bolus was given, CT brain non-con, and ABG were obtained, and linezolid, buspar, sertraline, and tramadol were discontinued. This plan was developed in consultation/collaboration with Dr. Andrade. Given patient's DNR status, and at the patient's request, I spoke with his , Kesha on the phone at 11:00, who stated she did not wish for patient to be placed on pressors or any medications requiring care in the intensive care unit. She requested comfort measures only, but was comfortable with IV fluids and continuing his current course of antibiotic medications and treatment for his kidney injury and pre-existing conditions. His also noted she observed these mental status changes during her visit on the and . She states she felt concerned that he would yesterday based on his behaviors. I reassessed the patient at the bedside this afternoon at 15:30 with his , Kesha, and son, Loyd Norwood, in the room. His mental status remained the same as my earlier exam at 10:30 AM this morning. I discussed the results of our workup: - mild metabolic acidosis on ABG - CT brain without any acute findings - Blood pressure has improved after 500mL fluid bolus. - All serotonergic medications were stopped along with the Linezolid. Kesha said Mr. Bran wouldn't want to live like this and requested no additional fluid boluses be given to support Mr. Bran's blood pressure should it drop low again. She stated we could continue regular IV fluids and continuing his current course of antibiotic medications and treatment for his kidney injury and pre-existing conditions. I advised medications were a likely cause of his mental status change, and it would take a full day for all these medications to get out of his system and for us to be able to reassess his mental status. I reiterated his infection was improving, and reassess our approach in the morning. Pt is currently hemodynamically stable, and we will continue to monitor him through the night. <Magali Thompson PA-C - Last Filed: 09/01/21 16:32> (2) LANETTE (acute kidney injury): Code(s): N17.9 - Acute kidney failure, unspecified <Magali Thompson PA-C - Last Filed: 09/01/21 16:32> Status: Acute <Magali Thompson PA-C - Last Filed: 09/01/21 16:32> Assessment and Plan: Baseline Cr since July 09 has been 1.1-1.6, but was normal before that time. Patient's Cr has improved to 1.8 (2.2) after light fluid rehydration yesterday, which we will continue at a rate of 50 mL/hour. We have discontinued his furosemide. Discussed this with nephrology who is investigating etiology and we do appreciate their inputs on this patient. Renal ultrasound showed no hydronephrosis, likely caused by obstructing esparza catheter in the urethra upon arrival to our ER, which has resolved from CT abdomen showing bilateral hydronephrosis and hydroureter. Urine protein to creatinine high at 0.89, urine CK is normal. Urine electrolytes are pre-renal. Continue to trend labs. Continue trial of fluid resuscita
--- NOTE | 2021-09-01 09:38 | PCOTNOTE ---
Orders received for OT evaluation; reviewed EMR and consulted JON Vazquez; prior to admission, pt was in an ECF, bed bound and alf care. Skilled OT evaluation and treatment is not indicated for pt. OT eval was not performed at this time.
[2021-09-01 09:46] LABS: Magnesium 1.4 mg/dL (1.6-2.3)
[2021-09-01] MEDS: SODIUM CHLORIDE 0.9% IV 500 ML IV CONT (11:21)
[2021-09-01] MEDS: SILVERGEL (ELTA) 45 ML 1 APPLIC TOPICAL (11:26)
[2021-09-01 11:56] LABS: Glucose Point of Care 110 mg/dl (65-105)
[2021-09-01 12:11] LABS: Alveolar/Arterial O2 Gradient 19.4 mmHg; Base Excess ABG -6.1 mEq/l (+/-2.0); Fractional Inspired Oxygen 21 %; HCO3 ABG 19.8 mEq/l (22.0-26.0); Oxygen Content ABG 14.1 %vol (16.0-22.0); Oxyhemoglobin 94.1 % THb (90.0-100.0); PCO2 ABG 40.7 mmHg (35.0-45.0); PO2 ABG 81.6 mmHg (80.0-100.0); PO2 FiO2 Ratio Arterial Blood 3.89 %; Total Hemoglobin 10.6 g/dL (12.0-18.0); pH ABG 7.305 (7.350-7.450)
[2021-09-01 12:12] LABS: Device ROOM AIR; Modified Allen's Test Pass; Site Drawn LEFT RADIAL
[2021-09-01 21:00] LABS: Glucose Point of Care 102 mg/dl (65-105)
[2021-09-02] VITALS (10 sets, daily range): BP systolic 96–112; BP diastolic 55–76; PULSE 78–98; RESP 16–18; TEMP 36.6–36.8; O2SAT 92–96
[2021-09-02 06:01] LABS: Basophils Percent Auto 0.1 % (0.2-1.2); Eosinophils Absolute Auto 0.1 K/mm3 (0-0.3); Eosinophils Percent Auto 0.7 % (0-4.4); Hematocrit 26.1 % (42.0-52.0); Hemoglobin 7.8 g/dL (14.0-18.0); Immature Granulocyte Absolute 0.19 K/mm3 (0.00-0.031); Immature Granulocyte Percent A 1.7 % (0-0.5); Lymphocytes Absolute Auto 1.06 K/mm3 (0.9-3.2); Lymphocytes Percent Auto 9.3 % (18.3-44.2); Mean Corpuscular HGB Conc 29.9 g/dl (32-36); Mean Corpuscular Hemoglobin 26.4 pg (26-34); Mean Corpuscular Volume 88.5 fl (80-100); Mean Platelet Volume 8.8 fl (7.4-10.4); Monocytes Absolute Auto 0.8 K/mm3 (0.1-0.6); Monocytes Percent Auto 6.9 % (2.6-8.5); Neutrophils Absolute Auto 9.3 K/mm3 (1.3-6.7); Neutrophils Percent Auto 81.3 % (45.5-73.1); Platelet Count Result 389 k/mm3 (150-375); Red Blood Count 2.95 M/mm3 (4.6-6.20); Red Cell Distribution Width 24.7 % (11.5-14.5); White Blood Count 11.4 K/mm3 (4.5-10.0)
[2021-09-02 06:12] LABS: Alanine Aminotransferase 16 U/L (4-50); Albumin Level 1.9 g/dL (3.5-5.1); Alkaline Phosphatase 129 U/L (38-126); Anion Gap 6 mmol/L (8-16); Aspartate Amino Transferase 16 U/L (17-59); Bilirubin,Total 0.2 mg/dL (0.2-1.3); Blood Urea Nitrogen 42 mg/dL (9-20); Calcium 6.7 mg/dL (8.4-10.2); Carbon Dioxide 19 mmol/L (22-30); Chloride 105 mmol/L (98-107); Estimated CRCL calculation 50 ml/min; Estimated Glomerular Filt Rate 42; Glucose 88 mg/dL (65-110); Magnesium 1.5 mg/dL (1.6-2.3); Phosphorus 2.6 mg/dL (2.5-4.5); Potassium 3.4 mmol/L (3.4-5.0); Sodium 130 mmol/L (137-145)
[2021-09-02 07:31] LABS: Platelet Estimate Adequate (Adequate)
[2021-09-02 07:32] LABS: Hypersegmented Neutrophils Present; Hypochromasia 1+ (NORMAL); Poikilocytosis 1+ (NORMAL)
[2021-09-02 07:45] LABS: Glucose Point of Care 95 mg/dl (65-105)
--- NOTE | 2021-09-02 08:21 | PM.IMPN ---
Progress Note: A&P Assessment and Plan (1) Altered mental status, unspecified: Code(s): R41.82 - Altered mental status, unspecified Status: Acute Assessment and Plan: Albumin is low today at 1.9, patient continues to be fluid overloaded with soft blood pressures. Spoke with , Kesha, today, while at the bedside. She agreed with the plan as outlined below. Patient had acute change in mental status yesterday upon my exam. Vitals were taken at the bedside with a new blood pressure of 95/45, pulse 98 beats per minute, respirations 18 per minute, oxygen saturation 96% on room air. Hemoglobin is 7.8 today, the patient is chronically iron deficient anemic, and this is not a large decreased from the day prior. Fingerstick blood glucose was 110. Clinically, patient's infectious markers have improved, and his renal function is returning to baseline. Yesterday's workup showed: mild metabolic acidosis on ABG, CT brain without any acute findings, Blood pressure has improved after 500mL fluid bolus. I reassessed the patient at the bedside yesterday afternoon at 15:30 with his , Kesha, and son, Loyd Norwood, in the room. His mental status remained the same as my earlier exam at 10:30 AM yesterday morning. Albumin 25ml Q 60 hrs 20mg lasix 30 mins after albumin, hold for sys BP < 110 Stop IV fluids D/C Buspar, restarted sertraline. (2) LANETTE (acute kidney injury): Code(s): N17.9 - Acute kidney failure, unspecified Status: Acute Assessment and Plan: Cr 1.6 today. Baseline Cr since July 09 has been 1.1-1.6, but was normal before that time. We have discontinued his furosemide. Discussed this with nephrology and we do appreciate their inputs on this patient. Renal ultrasound showed no hydronephrosis, likely caused by obstructing esparza catheter in the urethra upon arrival to our ER, which has resolved from CT abdomen showing bilateral hydronephrosis and hydroureter. Urine protein to creatinine high at 0.89, urine CK is normal. Urine electrolytes are pre-renal. Continue to trend labs. D/C IV fluids. (3) Acute UTI: Code(s): N39.0 - Urinary tract infection, site not specified Status: Acute Assessment and Plan: Urine culture showed Proteus mirabilis, with sensitivity to Ceftriaxone. WBC down today, 13.4 (17.5), and patient remains afebrile, normotensive. I/Os yesterday: 2974/750 poor oral intake. Patient is not eating his meals. Switch from zosyn to Rocephin Daily I/Os Continue to monitor infectious markers/symptoms (4) CHF (congestive heart failure): Code(s): I50.9 - Heart failure, unspecified Status: Acute Assessment and Plan: Patient is saturating well on room air, and is able to lie completely recumbant. He continues to have significant lower extremity pitting edema and appears clinically fluid overloaded. Overall appears to be tolerating light fluid resuscitation for his LANETTE. Weight remains unchanged today from yesterday. During his stay patient has been clinically fluid overloaded with peripheral edema and CXR showing cardiomegaly and bilateral pulmonary edema (CT abdomen showing lung bases with small pleural effusions and atelectasis) consistent with CHF exacerbation. CT abdomen also showed trace pericardial effusion, also present in 05/07 echocardiogram, which also showed EF of 60-65% with an indeterminate diastolic dysfunction. Home Lasix continues to be on hold and continuing with light fluid resuscitation at a decreased rate of 50 mL/hour to support blood pressure and address LANETTE at this time. Will monitor pt closely for any difficulty breathing. Continue to hold metoprolol 25 mg p.o. as patient has not had any episodes of RVR Trend urine output Daily weights. (5) Decubitus ulcer: Qualifiers: Laterality: unspecified laterality Pressure injury location: buttock Pressure injury stage: sta
[2021-09-02] MEDS: SODIUM BICARBONATE TAB 650 MG TABLET PO ×2 (09:12→17:21)
[2021-09-02] MEDS: APIXABAN 5 MG TABLET PO ×2 (09:12→21:33)
[2021-09-02] MEDS: SACCHAROMYCES BOULARDII 250 MG CAPSULE PO ×2 (09:12→17:21)
[2021-09-02] MEDS: CALCIUM CARBONATE (OSCAL) 500 MG TABLET PO ×2 (09:12→17:20)
[2021-09-02] MEDS: THERAPEUTIC MULTIVITAMINS/MINERALS TAB (*BKC) 1 TABLET PO (09:12)
[2021-09-02] MEDS: PANTOPRAZOLE 40 MG TABLET PO (09:12)
[2021-09-02] MEDS: MAGNESIUM SULF 1 GM/D5W 100 ML 1 GM/100 ML BAG IVPB (09:12)
--- NOTE | 2021-09-02 11:29 | PM.PNNEP ---
Progress Note: A&P Additional Plan 1. the patient has an elevated creatinine. the same as it was in june. His creatinine was normal one month before that. the CT scan showed hydronephrosis because of a Johnson that was in the urethra. The Johnson has since been changed. The renal ultrasound shows no hydro. So the hydronephrosis improved dramatically once the catheter was changed. CK is normal Urine electrolytes are pre renal. UA shows white cells. Culture shows G negatives. I suspect that the kidney issues are due to mild dehydration and also infection in the urine and the decubitus ulcer. he ate well then was encephalopathic yesterday and now is just improving. intravascularly dry but has swelling. alb is low. I agree with MAYRA Thompson' assessment to try albumin and lasix. He is on linezolid and Zosyn for his decubitus ulcer. His white cell count has come down a little bit. Just to be complete I will check a renal scan tomorrow to make sure both kidneys are working. 2. The patient does not seem to have chronic kidney disease that we know of right now. 3. The patient has diastolic dysfunction. 4. The patient has swelling. Most likely related to cardiopulmonary issues and low albumin. urine protein not very high. possibly nutritional. trying albumin supplements to help swelling. 5. Patient has diabetes. he is on Accu-Cheks and sliding scale insulin 6. he has depression and is on sertraline. 7. He has BPH and is on tamsulosin plus chronically catheterized. 8. He has atrial fibrillation and is on Eliquis. 9. He has anemia. Because of infection I would hold off on iron supplements. Subjective Date/time seen: 09/02/21 11:29 Interval history: Rommel is feeling about the same today. He is comfortable lying in bed. he is a bit confused, much better than he as yesteday afternoon, per MAYRA Thompson. she stopped the linezolid and he has improved. Exam Narrative: WDWN in NAD skin no rash or sq nodules head ncat lungs clear bilaterally cor irreg no rub or gallop abd BS+ nontender and soft ext 1-2+ bilateral edema Objective Data Vital Signs Vital Signs: Vital Signs - 24 hr 09/01/21 12:00 09/01/21 13:42 09/01/21 16:00 Temperature Pulse Rate 98 98 92 Respiratory Rate 18 Blood Pressure 126/82 Pulse Oximetry 95 09/01/21 20:00 09/01/21 20:10 09/02/21 00:00 Temperature 36.4 C Pulse Rate 96 60 96 Respiratory Rate 18 Blood Pressure 114/86 Pulse Oximetry 95 95 09/02/21 04:00 09/02/21 05:33 Temperature 36.6 C Pulse Rate 98 78 Respiratory Rate 18 Blood Pressure 96/76 L Pulse Oximetry 94 Intake/Output Intake/Output: Intake & Output 08/30/21 08/31/21 09/01/21 09/02/21 23:59 23:59 23:59 23:59 Intake Total 1370 3960 4564 290 Output Total 1000 850 750 400 Balance 370 3110 3814 -110 Meds/Results Medications: Active Medications Generic Name Dose Route Start Last Admin Trade Name Freq PRN Reason Stop Dose Admin Apixaban 5 mg 08/29/21 21:00 09/02/21 09:12 Apixaban 5 Mg Tablet PO 5 mg Q12HR RODNEY Administration Bisacodyl 10 mg 08/29/21 19:49 Bisacodyl 10 Mg Suppository RECTAL DAILY PRN Constipation Calcium Carbonate 500 mg 08/31/21 08:00 09/02/21 09:12 Calcium Carbonate (Oscal) 500 Mg Tablet PO 500 mg BIDWM RODNEY Administration Furosemide 40 mg 08/30/21 17:00 08/30/21 16:43 Furosemide 40 Mg Tablet PO 40 mg 1700 RODNEY Administration Albumin Human 100 mls @ 60 mls/hr 09/02/21 12:00 Albutein IVPB Q6HR RODNEY Ceftriaxone Sodium/Dextrose 1 gm in 50 mls @ 100 mls/hr 09/02/21 12:00 Rocephin 1 Gm/D5w 50 Ml IVPB Q24H [facility] Metoprolol Succinate 25 mg 08/30/21 09:00 08/30/21 08:25 Metoprolol Succinate Ext Rel 25 Mg Tabcr PO 25 mg DAILY RODNEY Administration Multivitamins/Calcium 1 tablet 08/30/21 09:00 09/02/21 09:12 Therapeutic Multivitamins/Minerals Tab (*Bkc) PO 1 tablet [id number]
[2021-09-02 11:39] LABS: Glucose Point of Care 67 mg/dl (65-105)
[2021-09-02 12:12] LABS: Glucose Point of Care 111 mg/dl (65-105)
[2021-09-02] MEDS: ALBUMIN HUMAN 25% 25 GM/100 ML 100 ML IVPB ×2 (13:06→19:19)
[2021-09-02] MEDS: SILVERGEL (ELTA) 45 ML 1 APPLIC TOPICAL (13:07)
--- NOTE | 2021-09-02 15:00 | WPDCDIQUERY2 ---
CDI Query Clarification Request 09/02 Hospitalist documented: - During his stay patient has been clinically fluid overloaded with peripheral edema and CXR showing cardiomegaly and bilateral pulmonary edema (CT abdomen showing lung bases with small pleural effusons and atelectasis) consistent with CHF exacerbation. CT abdomen also showed trace pericardial effusion, also present in 05/07 echocardiogram, which also showed EF of 60-65% with an indeterminate diastolic dysfunction . -D/C home lasix and continuing with light fluid resuscitation to support blood pressure and address LANETTE at this time. -Will monitor pt closely for any difficulty breathing. -Continue to hold metoprolol 25 mg p.o. -Trend urine output -Daily weights. EXAMINATION: XR chest 1V portable EXAM DATE: 08/29/2021 13:16 INDICATION: SOB . TECHNIQUE: Portable AP frontal chest x-ray was obtained. Comparison is made to prior examination from 06/30/2021. -FINDINGS: Cardiomegaly and pulmonary vascular congestion. Moderate amount of bilateral edema or pneumonia, actually with interval improvement compared to appearance in June. There is aortic arteriosclerosis. There is no pneumothorax suspected. Possible small pleural effusions. Advanced bilateral glenohumeral osteoarthritis. IMPRESSION: Findings consistent with CHF exacerbation. Pneumonia not excludable. Please clarify if CHF (Congestive Heart Failure) is: Systolic, Diastolic, Combined, other or unable to determine For coding purposes diagnostic exams cannot be used for diagnosis
[2021-09-02 16:31] LABS: Glucose Point of Care 96 mg/dl (65-105)
[2021-09-02] MEDS: SERTRALINE HCL 50 MG TABLET PO (17:21)
[2021-09-02 20:26] LABS: Glucose Point of Care 96 mg/dl (65-105)
[2021-09-02 21:02] LABS: Free T4 Free Thyroxine Reflex 0.76 ng/dL (0.78-2.19)
[2021-09-03] VITALS (16 sets, daily range): BP systolic 101–112; BP diastolic 52–76; PULSE 74–99; RESP 16–22; TEMP 36.5–37.3; O2SAT 92–97
[2021-09-03] MEDS: ALBUMIN HUMAN 25% 25 GM/100 ML 100 ML IVPB ×5 (01:34→23:25)
[2021-09-03 05:53] LABS: Basophils Percent Auto 0.1 % (0.2-1.2); Eosinophils Absolute Auto 0.1 K/mm3 (0-0.3); Eosinophils Percent Auto 0.6 % (0-4.4); Hematocrit 22.1 % (42.0-52.0); Immature Granulocyte Absolute 0.11 K/mm3 (0.00-0.031); Immature Granulocyte Percent A 1.1 % (0-0.5); Lymphocytes Absolute Auto 0.81 K/mm3 (0.9-3.2); Lymphocytes Percent Auto 8.3 % (18.3-44.2); Mean Corpuscular HGB Conc 30.3 g/dl (32-36); Mean Corpuscular Hemoglobin 26.5 pg (26-34); Mean Corpuscular Volume 87.4 fl (80-100); Mean Platelet Volume 8.6 fl (7.4-10.4); Monocytes Absolute Auto 0.6 K/mm3 (0.1-0.6); Monocytes Percent Auto 5.8 % (2.6-8.5); Neutrophils Absolute Auto 8.2 K/mm3 (1.3-6.7); Neutrophils Percent Auto 84.1 % (45.5-73.1); Platelet Count Result 368 k/mm3 (150-375); Red Blood Count 2.53 M/mm3 (4.6-6.20); Red Cell Distribution Width 24.7 % (11.5-14.5); White Blood Count 9.8 K/mm3 (4.5-10.0)
[2021-09-03 05:55] LABS: Hemoglobin 6.7 g/dL (14.0-18.0)
[2021-09-03 06:06] LABS: Alanine Aminotransferase 14 U/L (4-50); Albumin Level 2.4 g/dL (3.5-5.1); Alkaline Phosphatase 94 U/L (38-126); Anion Gap 6 mmol/L (8-16); Aspartate Amino Transferase 14 U/L (17-59); Bilirubin,Total 0.2 mg/dL (0.2-1.3); Blood Urea Nitrogen 36 mg/dL (9-20); Carbon Dioxide 20 mmol/L (22-30); Chloride 105 mmol/L (98-107); Estimated CRCL calculation 53 ml/min; Estimated Glomerular Filt Rate 45; Glucose 86 mg/dL (65-110); Magnesium 1.7 mg/dL (1.6-2.3); Sodium 131 mmol/L (137-145)
[2021-09-03 07:49] LABS: Glucose Point of Care 82 mg/dl (65-105)
--- NOTE | 2021-09-03 08:24 | PM.PNNEP ---
Progress Note: A&P Additional Plan 1. the patient has an elevated creatinine. the same as it was in june. His creatinine was normal one month before that. the CT scan showed hydronephrosis because of a Johnson that was in the urethra. The Johnson has since been changed. The renal ultrasound shows no hydro. So the hydronephrosis improved dramatically once the catheter was changed. CK is normal Urine electrolytes are pre renal. UA shows white cells. Culture shows G negatives. I suspect that the kidney issues are due to mild dehydration and also infection in the urine and the decubitus ulcer. His creatinine has come down pretty well. I do not think we need to do a renal scan after all because of the improvement in the creatinine. It will not change our treatment. The patient has intravascular volume depletion plus edema. Most likely due to the low albumin. He is getting albumin supplements now. 2. The patient does not seem to have chronic kidney disease that we know of right now. 3. The patient has diastolic dysfunction. 4. The patient has swelling. Most likely related to cardiopulmonary issues and low albumin. Getting albumin supplements. 5. Patient has diabetes. he is on Accu-Cheks and sliding scale insulin 6. he has depression and is on sertraline. 7. He has BPH and is on tamsulosin plus chronically catheterized. 8. He has atrial fibrillation and is on Eliquis. 9. He has anemia. Because of infection I would hold off on iron supplements. Will check a reticulocyte count and give him some Epogen. Subjective Date/time seen: 09/03/21 08:24 Interval history: Rommel is alert and interactive today. Eating some breakfast but not very much. He says he has not eaten very well since April, the last time he was at home. Exam Narrative: WDWN in NAD skin no rash head ncat lungs clear bilaterally cor irreg no rub abd BS+ nontender and soft ext 1-2+ bilateral edema Objective Data Vital Signs Vital Signs: Vital Signs - 24 hr 09/02/21 12:00 09/02/21 14:40 09/02/21 16:00 Temperature 36.8 C Pulse Rate 94 92 94 Respiratory Rate 18 Blood Pressure 105/55 L Pulse Oximetry 96 09/02/21 20:00 09/02/21 20:20 09/02/21 21:39 Temperature 36.8 C Pulse Rate 93 93 Respiratory Rate 16 16 Blood Pressure 112/66 107/58 L Pulse Oximetry 92 92 09/03/21 00:00 09/03/21 03:49 09/03/21 04:00 Temperature 36.8 C Pulse Rate 97 96 97 Respiratory Rate 16 Blood Pressure 101/52 L Pulse Oximetry 94 Intake/Output Intake/Output: Intake & Output 08/31/21 09/01/21 09/02/21 09/03/21 23:59 23:59 23:59 23:59 Intake Total 3960 4564 2000 100 Output Total 850 750 850 650 Balance 3110 3814 1150 -550 Meds/Results Medications: Active Medications Generic Name Dose Route Start Last Admin Trade Name Freq PRN Reason Stop Dose Admin Apixaban 5 mg 08/29/21 21:00 09/02/21 21:33 Apixaban 5 Mg Tablet PO 5 mg Q12HR RODNEY Administration Bisacodyl 10 mg 08/29/21 19:49 Bisacodyl 10 Mg Suppository RECTAL DAILY PRN Constipation Calcium Carbonate 500 mg 08/31/21 08:00 09/02/21 17:20 Calcium Carbonate (Oscal) 500 Mg Tablet PO 500 mg BIDWM RODNEY Administration Furosemide 40 mg 08/30/21 17:00 08/30/21 16:43 Furosemide 40 Mg Tablet PO 40 mg 1700 RODNEY Administration Furosemide 20 mg 09/02/21 14:54 Furosemide Inj 40 Mg/4 Ml Vial IV PUSH 09/05/21 23:59 ONCE PRN Blood Pressure - High Albumin Human 100 mls @ 60 mls/hr 09/02/21 12:00 09/03/21 05:40 Albutein IVPB 60 mls/hr Q6HR RODNEY Administration Ceftriaxone Sodium/Dextrose 1 gm in 50 mls @ 100 mls/hr 09/02/21 12:00 09/02/21 13:37 Rocephin 1 Gm/D5w 50 Ml IVPB Infused Q24H RODNEY Infusion Sodium Chloride 250 mls @ 30 mls/hr 09/03/21 06:18 Normal Saline Iv IV CONT 09/03/21 14:37 .Q8H20M STA Metoprolol Succinate 25 mg 08/30/21 09:00 08/16
[2021-09-03 10:01] LABS: Immature Reticulocyte Fraction 30.8 % (3.0-15.9); Reticulocyte Hemoglobin Conten 34.3 pg (28.2-35.7); Reticulocyte Percent 2.23 % (0.7-4.3); Reticulocytes Absolute 0.06 B/L (32.2-175.7)
[2021-09-03 10:12] LABS: Iron 19 ug/dL (49-181)
[2021-09-03] MEDS: APIXABAN 5 MG TABLET PO ×2 (10:13→21:01)
[2021-09-03] MEDS: SERTRALINE HCL 50 MG TABLET PO ×2 (10:13→17:35)
[2021-09-03] MEDS: THERAPEUTIC MULTIVITAMINS/MINERALS TAB (*BKC) 1 TABLET PO (10:13)
--- NOTE | 2021-09-03 10:13 | PM.IMPN ---
Progress Note: A&P Assessment and Plan (1) Altered mental status, unspecified: Code(s): R41.82 - Altered mental status, unspecified Status: Acute Assessment and Plan: Albumin is low today at 1.9, patient continues to be fluid overloaded with soft blood pressures. PA spoke with , Kesha, yesterday and she agreed with the plan. Patient had acute change in mental status. Vitals: BP 95/45, pulse 98, 96% on room air. Clinically, patient's infectious markers have improved, and his renal function is returning to baseline. CT brain without any acute findings. Blood pressureimproved after 500mL fluid bolus. ABG showing 7.30/41/82 on RA. Linezolid stopped and other medications adjusted. mental status has improved. [place] probably related to medications. Contineu to follow. (2) LANETTE (acute kidney injury): Code(s): N17.9 - Acute kidney failure, unspecified Status: Acute Assessment and Plan: Cr 1.5 today. Baseline Cr since July 09 has been 1.1-1.6, but was normal before that time. We have discontinued his furosemide. Discussed this with nephrology and we do appreciate their inputs on this patient. Renal ultrasound showed no hydronephrosis, likely caused by obstructing esparza catheter in the urethra upon arrival to our ER, which has resolved from CT abdomen showing bilateral hydronephrosis and hydroureter. Urine protein to creatinine high at 0.89, urine CK is normal. Urine electrolytes are pre-renal. IV fluids stopped. Currently on Albumin with improved Albumin level. Phan with Lasix as blood pressure allows. Appreciate Nephrology input. (3) Acute UTI: Code(s): N39.0 - Urinary tract infection, site not specified Status: Acute Assessment and Plan: Urine culture showed Proteus mirabilis, with sensitivity to Ceftriaxone. WBC normal today. Remains afebrile. Complicated UTI with Esparza. Continue Rocephin to complete a course. (4) CHF (congestive heart failure): Code(s): I50.9 - Heart failure, unspecified Status: Acute Assessment and Plan: During his stay patient has been clinically fluid overloaded with peripheral edema and CXR showing cardiomegaly and bilateral pulmonary edema (CT abdomen showing lung bases with small pleural effusions and atelectasis) consistent with CHF exacerbation. CT abdomen also showed trace pericardial effusion, also present in 05/07 echocardiogram, which also showed EF of 60-65% with an indeterminate diastolic dysfunction. Home Lasix continues to be on hold; IV fluids stopped Will monitor pt closely for any difficulty breathing. Resume low dose metoprolol Trend urine output. Daily weights. Resume lasix IV as BP tolerates. (5) Decubitus ulcer: Qualifiers: Laterality: unspecified laterality Pressure injury location: buttock Pressure injury stage: stage 4 Qualified Code(s): L89.304 - Pressure ulcer of unspecified buttock, stage 4 Code(s): L89.90 - Pressure ulcer of unspecified site, unspecified stage Status: Acute Assessment and Plan: CT ab/pelvis showed large decubitus ulcer with new absence of bone in the proximal coccyx maybe from osteomyelitis or debridement. General surgery consulted and advised it appears that at wet to dry dressings have been placed and the wound bed appears healthy with good granulation tissue. There is some tunneling, but there does not appear to be a significant amount of necrotic tissue. No debridement recommended at this time. Wound Care consulted and appreciate their input. Wound cultures grew oxacillin sensitive Staph aureus and Bacteroides but felt more colonization then true infection. Continue current wound care. (6) Iron deficiency anemia: Code(s): D50.9 - Iron deficiency anemia, unspecified Status: Acute Assessment and Plan: Hgb dropped to 6.7 today. Previous lab work up noted. Will repeat B12 (was low last year) and iron studies. Guaiac positive kira
[2021-09-03] MEDS: SACCHAROMYCES BOULARDII 250 MG CAPSULE PO ×2 (10:14→17:35)
[2021-09-03] MEDS: SODIUM BICARBONATE TAB 650 MG TABLET PO ×2 (10:14→17:35)
[2021-09-03] MEDS: CALCIUM CARBONATE (OSCAL) 500 MG TABLET PO ×2 (10:14→17:35)
[2021-09-03] MEDS: EPOETIN ALFA-EPBX 10,000 UNITS/ML VIAL 10000 UNITS SUB-Q (10:15)
[2021-09-03] MEDS: SILVERGEL (ELTA) 45 ML 1 APPLIC TOPICAL (10:18)
[2021-09-03 10:22] LABS: Percent Iron Saturation 24 % (20-50)
[2021-09-03] MEDS: MAGNESIUM SULF 2 GM/WATER 50ML 2 GM/50 ML BAG IVPB (10:22)
[2021-09-03] MEDS: POTASSIUM CHLORIDE 20 MEQ TABLET PO (10:22)
[2021-09-03] MEDS: SODIUM CHLORIDE 0.9% IV 250 ML 30 ML IV CONT (10:23)
[2021-09-03 10:38] LABS: Transferrin < 80 mg/dL (206-381)
[2021-09-03 11:16] LABS: Folic Acid 5.5 ng/mL (2.76->20)
[2021-09-03 11:31] LABS: Glucose Point of Care 90 mg/dl (65-105)
[2021-09-03] MEDS: METOPROLOL TARTRATE 12.5 MG TABLET PO ×2 (12:32→21:01)
--- NOTE | 2021-09-03 13:51 | WPDGICN ---
Assessment and Plan Assessment and plan (1) Acute on chronic anemia: Code(s): D64.9 - Anemia, unspecified Status: Acute Assessment and Plan: chronic anemia and no overt gib on epogen he has many reason to have anemia (renal failure, other chronic medical conditions, use of blood thinner, etc)- unfortunately he is frail and his overall health has been declining, also presented with large decubitus ulcer and UTI associated to esparza if obvious bleeding then will proceed with scopes, monitor for now. (2) Altered mental status, unspecified: Code(s): R41.82 - Altered mental status, unspecified Status: Acute Assessment and Plan: by primary team (3) Acute on chronic kidney failure: Code(s): N17.9 - Acute kidney failure, unspecified; N18.9 - Chronic kidney disease, unspecified Status: Acute Assessment and Plan: medical treatment, nephrology on board (4) CHF (congestive heart failure): Code(s): I50.9 - Heart failure, unspecified Status: Acute Assessment and Plan: treated with diuresis (5) Sacral decubitus ulcer, stage IV: Code(s): L89.154 - Pressure ulcer of sacral region, stage 4 Status: Acute Assessment and Plan: wound care (6) Coagulopathy: Code(s): D68.9 - Coagulation defect, unspecified Status: Acute Assessment and Plan: he was on eliquis (7) Catheter-associated urinary tract infection: Code(s): T83.511A - Infection and inflammatory reaction due to indwelling urethral catheter, initial encounter; N39.0 - Urinary tract infection, site not specified Status: Acute GI Consult Note Consult date/time: 09/03/21 13:51 Reason for consult: acute on chronic will, + FOBT HPI: Rommel Bran is a 81 year old male with past medical history of central sleep apnea, atrial fibrillation on eliquis, diastolic CHF, CKD stage III, hypertension and diabetes who I met earlier this year when he was admitted after COVID, pneumonia and shortness of breath. I was called to see him because had chronic anemia with hb 8-9 but did not complete work up given ongoing respiratory issues and other medical problems. This time [facility] edema, pain at site of complex decubitus ulcer and also confusion. No report of overt gib, hb 7-9. Last time he told me that his last colonoscopy almost 10 years ago. He is awake and alert but poor historian. Review of Systems Constitutional: Constitutional: Reports fatigue Eyes: Eyes: Denies blurry vision ENT: Reports system reviewed and no additional complaints, except as documented Cardiovascular: Cardiovascular: Denies chest pain Respiratory: Respiratory: Denies cough Gastrointestinal: Gastrointestinal: Denies abdominal pain Genitourinary: Comments: esparza [facility] Past Medical History Medical History (Updated 09/03/21 @ 14:20 by Ed Singer MD) Acute on chronic anemia Anxiety Atrial fibrillation Benign prostatic hyperplasia with lower urinary tract symptoms CHF (congestive heart failure) Echocardiogram December 2015: Difficult study with poor sonographic images demonstrate mild concentric left ventricular hypertrophy, diastolic dysfunction and increased left heart filling pressures based on elevated E/E. Ejection fraction 55-60%. Mild enlargement of left atrium Complex sleep apnea syndrome Polysomnogram 2018: Mild obstructive sleep apnea. Difficult titration with CPAP and then BiPAP without optimum pressure achieved with emergence of central sleep apnea noted during titration consistent with complex sleep apnea syndrome. ASV titration was recommended Depression Essential (primary) hypertension Iron deficiency anemia Mixed hyperlipidemia Occult blood in stools Type 2 diabetes mellitus without complication, without long-term current use of insulin Surgical History Surgical History
[2021-09-03 15:30] LABS: Hematocrit 25.4 % (42.0-52.0); Hemoglobin 7.7 g/dL (14.0-18.0)
[2021-09-03 16:35] LABS: Glucose Point of Care 79 mg/dl (65-105)
[2021-09-03] MEDS: PANTOPRAZOLE 40 MG TABLET PO (21:02)
[2021-09-03 21:27] LABS: Glucose Point of Care 94 mg/dl (65-105)
[2021-09-03 22:39] LABS: Hemoglobin 7.9 g/dL (14.0-18.0)
[2021-09-03] MEDS: ACETAMINOPHEN 325 MG TABLET 650 MG PO (23:25)
[2021-09-04] VITALS (10 sets, daily range): BP systolic 96–124; BP diastolic 50–71; PULSE 60–101; RESP 16–20; TEMP 36.5–36.8; O2SAT 92–97
[2021-09-04 05:07] LABS: Basophils Percent Auto 0.1 % (0.2-1.2); Hematocrit 24.1 % (42.0-52.0); Hemoglobin 7.5 g/dL (14.0-18.0); Immature Granulocyte Absolute 0.09 K/mm3 (0.00-0.031); Immature Granulocyte Percent A 0.9 % (0-0.5); Lymphocytes Percent Auto 9.9 % (18.3-44.2); Mean Corpuscular HGB Conc 31.1 g/dl (32-36); Mean Corpuscular Hemoglobin 26.8 pg (26-34); Mean Corpuscular Volume 86.1 fl (80-100); Mean Platelet Volume 8.1 fl (7.4-10.4); Monocytes Absolute Auto 0.7 K/mm3 (0.1-0.6); Monocytes Percent Auto 7.1 % (2.6-8.5); Neutrophils Absolute Auto 8.3 K/mm3 (1.3-6.7); Platelet Count Result 309 k/mm3 (150-375); Red Cell Distribution Width 23.8 % (11.5-14.5); White Blood Count 10.1 K/mm3 (4.5-10.0)
[2021-09-04 05:15] LABS: Albumin Level 2.7 g/dL (3.5-5.1); Anion Gap 6 mmol/L (8-16); Blood Urea Nitrogen 28 mg/dL (9-20); Calcium 7.4 mg/dL (8.4-10.2); Carbon Dioxide 23 mmol/L (22-30); Chloride 107 mmol/L (98-107); Estimated CRCL calculation 56 ml/min; Estimated Glomerular Filt Rate 49; Glucose 87 mg/dL (65-110); Sodium 136 mmol/L (137-145)
[2021-09-04 05:18] LABS: INR 2.8; Prothrombin Time 28.2 Seconds (11.1-14.7)
[2021-09-04] MEDS: ALBUMIN HUMAN 25% 25 GM/100 ML 100 ML IVPB ×2 (06:22→12:08)
[2021-09-04 07:59] LABS: Glucose Point of Care 87 mg/dl (65-105)
[2021-09-04] MEDS: POTASSIUM/PHOSPHORUS/SODIUM 1.5 GM PACKET 1 PACKET PO (08:02)
[2021-09-04] MEDS: METOPROLOL TARTRATE 12.5 MG TABLET PO (08:03)
[2021-09-04] MEDS: POTASSIUM CHLORIDE 20 MEQ TABLET PO (08:03)
[2021-09-04] MEDS: SODIUM BICARBONATE TAB 650 MG TABLET PO (08:03)
[2021-09-04] MEDS: PANTOPRAZOLE 40 MG TABLET PO ×2 (08:03→21:54)
[2021-09-04] MEDS: APIXABAN 5 MG TABLET PO ×2 (08:03→21:53)
[2021-09-04] MEDS: CALCIUM CARBONATE (OSCAL) 500 MG TABLET PO ×2 (08:03→18:31)
[2021-09-04] MEDS: SACCHAROMYCES BOULARDII 250 MG CAPSULE PO ×2 (08:03→18:31)
[2021-09-04] MEDS: SERTRALINE HCL 50 MG TABLET PO ×2 (08:03→18:31)
[2021-09-04] MEDS: THERAPEUTIC MULTIVITAMINS/MINERALS TAB (*BKC) 1 TABLET PO (08:03)
[2021-09-04] MEDS: SILVERGEL (ELTA) 45 ML 1 APPLIC TOPICAL (08:04)
--- NOTE | 2021-09-04 08:48 | PM.PNNEP ---
Progress Note: A&P Additional Plan 1. the patient has an elevated creatinine. the same as it was in june. His creatinine was normal one month before that. the CT scan showed hydronephrosis because of a Johnson that was in the urethra. The Johnson has since been changed. The renal ultrasound shows no hydro. So the hydronephrosis improved dramatically once the catheter was changed. CK is normal Urine electrolytes are pre renal. UA shows white cells. Culture shows G negatives. I suspect that the kidney issues are due to mild dehydration and also infection in the urine and the decubitus ulcer. he received some IV fluids and looks euvolemic now. He is getting antibiotics for his infection. His creatinine continues to slowly drop. 2. The patient does not seem to have chronic kidney disease that we know of right now. 3. The patient has diastolic dysfunction. 4. The patient has swelling. Most likely related to cardiopulmonary issues and low albumin. Getting albumin supplements Along with chasers of Lasix. I/O even. will increase the lasix. 5. Patient has diabetes. he is on Accu-Cheks and sliding scale insulin 6. he has depression and is on sertraline. 7. He has BPH and is on tamsulosin plus chronically catheterized. 8. He has atrial fibrillation and is on Eliquis. 9. He has anemia. Because of infection I would hold off on iron supplements. retic ct 2.23. on epo. Subjective Date/time seen: 09/04/21 08:48 Interval history: Rommel is alert and interactive today. He is eating breakfast slowly. Still not much of an appetite. Exam Narrative: WDWN in NAD skin no rash or subcu nodules head ncat lungs clear bilaterally cor irreg no rub or gallop abd BS+ nontender and soft ext 1-2+ bilateral edema Objective Data Vital Signs Vital Signs: Vital Signs - 24 hr 09/03/21 11:07 09/03/21 11:23 09/03/21 12:00 Temperature 36.5 C 36.5 C Pulse Rate 90 75 99 Respiratory Rate 22 H 22 H Blood Pressure 107/58 L 106/76 Pulse Oximetry 95 95 09/03/21 12:23 09/03/21 13:23 09/03/21 14:07 Temperature 37.3 C 36.8 C 37.1 C Pulse Rate 96 83 75 Respiratory Rate 20 20 20 Blood Pressure 108/67 112/73 102/56 L Pulse Oximetry 97 95 97 09/03/21 15:40 09/03/21 16:56 09/03/21 17:10 Temperature 37.1 C Pulse Rate 80 79 Respiratory Rate 20 Blood Pressure 102/56 L Pulse Oximetry 97 93 09/03/21 19:40 09/03/21 20:00 09/03/21 21:01 Temperature 36.8 C Pulse Rate 88 74 83 Respiratory Rate 16 Blood Pressure 103/62 Pulse Oximetry 92 92 09/04/21 00:00 09/04/21 02:15 09/04/21 04:00 Temperature Pulse Rate 70 74 71 Respiratory Rate 20 Blood Pressure 107/60 Pulse Oximetry 96 09/04/21 05:34 09/04/21 08:02 Temperature 36.7 C Pulse Rate 60 Respiratory Rate 16 Blood Pressure 124/71 Pulse Oximetry 92 94 Intake/Output Intake/Output: Intake & Output 09/01/21 09/02/21 09/03/21 09/04/21 23:59 23:59 23:59 23:59 Intake Total 4564 2000 1220 800 Output Total 292 475 9818 950 Balance 3814 1150 220 -150 Meds/Results Medications: Active Medications Generic Name Dose Route Start Last Admin Trade Name Freq PRN Reason Stop Dose Admin Acetaminophen 650 mg 09/03/21 10:12 09/03/21 23:25 Acetaminophen 325 Mg Tablet PO 650 mg Q4H PRN Administration Mild Pain (1-6) Or Fever Apixaban 5 mg 08/29/21 21:00 09/04/21 08:03 Apixaban 5 Mg Tablet PO 5 mg Q12HR RODNEY Administration Bisacodyl 10 mg 08/29/21 19:49 Bisacodyl 10 Mg Suppository RECTAL DAILY PRN Constipation Calcium Carbonate 500 mg 08/31/21 08:00 09/04/21 08:03 Calcium Carbonate (Oscal) 500 Mg Tablet PO 500 mg BIDWM RODNEY Administration Epoetin Wilfredo-epbx 10,000 units 09/03/21 09:00 09/03/21 10:15 Epoetin Wilfredo-Epbx 10,000 Units/Ml Vial SUB-Q 10,000 units TUTHSA RODNEY Administration Furosemide 40 mg 08/30/21 17:00 08/30/21 1
[2021-09-04] MEDS: FUROSEMIDE INJ 40 MG/4 ML VIAL IV PUSH ×2 (09:24→18:30)
--- NOTE | 2021-09-04 12:00 | PCNFU ---
Nutrition Follow-Up Complete: Increased Protein needs as related to wounds as evidenced by stage IV pressure ulcer reported on saccurm. Goal: Adequate Intake of at least 75% of meals/supplements Patient is progressing towards goal. We will continue current goal. Pt current nutrition is Soft and Bite Sized,Level 6/DBCC. Last recorded weight is 140.5 kg, up from 135.9 kg on admit. Bowel Motility:+BM reported 09/04 Labs Reviewed:Cr 1.4,GFR 49, Na 136, Hct 24.1,Hgb 7.5, BUN 28 Meds Noted:Sodium Bicarbonate,Oscal, Albutein,Lasix, MVI, Protonix,Florastor, Zoloft Skin: Stage IV PU-sacrum Additional Notes: Patient had bedside swallow eval on 08/31-recommending Easy To Chew, Level 7 due to dentition. Patient is tolerating current diet orders. Patient received 1 unit of blood yesterday. Protein Modular of Robel BID has been added for wound healing providing an additional 90 kcals and 2.5 gms protein. Patient is also receiving diet supplements of Glucerna shakes BID providing an additional 220 kcals and 10 gms protein. Agree with diet orders. Monitoring: RD will monitor every 5 days.
[2021-09-04 12:05] LABS: Glucose Point of Care 109 mg/dl (65-105)
--- NOTE | 2021-09-04 14:33 | WPDGIPROGNO ---
Progress Note: A&P Assessment and Plan (1) Acute on chronic anemia: Code(s): D64.9 - Anemia, unspecified Status: Acute Assessment and Plan: hb stable, no overt gib anemia could be multifactorial (2) CHF (congestive heart failure): Code(s): I50.9 - Heart failure, unspecified Status: Acute Assessment and Plan: better with diuretics (3) Sacral decubitus ulcer, stage IV: Code(s): L89.154 - Pressure ulcer of sacral region, stage 4 Status: Acute Assessment and Plan: wound care (4) Catheter-associated urinary tract infection: Code(s): T83.511A - Infection and inflammatory reaction due to indwelling urethral catheter, initial encounter; N39.0 - Urinary tract infection, site not specified Status: Acute Assessment and Plan: on antibiotic Subjective Date/time seen: 09/04/21 14:33 Interval history: he is more alert and oriented today Review of Systems Review of Systems: All systems reviewed & are unremarkable except as noted in HPI and below Exam Const: General: no acute distress Other: awake, alert to person and place but gets disoriented. He looks chronically ill HENMT: General nose exam: Normal nares present Eyes: EOM: EOMs intact bilaterally Neck: Neck: supple Resp: Auscultation: no crackles and diminished lung sounds Cardio: Rhythm: abnormal rhythm irregularly irregular GI: GI Palp: Yes Soft to palpation and No Tenderness to palpation present (GI) Auscultation: normal bowel sounds Urinary Catheter: Urinary Catheter: patent and draining Skin: Other: large decubitus ulcer in coccyx Neuro: Speech: normal speech Extrem: General: pedal edema (1+ pitting edema) bilaterally Psych: Other: awake and alert but slow to respond, sometimes gets confused Objective Data Vital Signs Vital Signs: Vital Signs - 24 hr 09/03/21 15:40 09/03/21 16:56 09/03/21 17:10 Temperature 98.7 F Pulse Rate 80 79 Respiratory Rate 20 Blood Pressure 102/56 L Pulse Oximetry 97 93 09/03/21 19:40 09/03/21 20:00 09/03/21 21:01 Temperature 98.3 F Pulse Rate 88 74 83 Respiratory Rate 16 Blood Pressure 103/62 Pulse Oximetry 92 92 09/04/21 00:00 09/04/21 02:15 09/04/21 04:00 Temperature Pulse Rate 70 74 71 Respiratory Rate 20 Blood Pressure 107/60 Pulse Oximetry 96 09/04/21 05:34 09/04/21 08:02 Temperature 98.1 F Pulse Rate 60 Respiratory Rate 16 Blood Pressure 124/71 Pulse Oximetry 92 94 Intake/Output Intake/Output: Intake & Output 09/01/21 09/02/21 09/03/21 09/04/21 23:59 23:59 23:59 23:59 Intake Total 4564 2000 1220 920 Output Total 596 849 5610 2350 Balance 3814 1150 220 -1430 Meds/Results Medications: Active Medications Generic Name Dose Route Start Last Admin Trade Name Freq PRN Reason Stop Dose Admin Acetaminophen 650 mg 09/03/21 10:12 09/03/21 23:25 Acetaminophen 325 Mg Tablet PO 650 mg Q4H PRN Administration Mild Pain (1-6) Or Fever Apixaban 5 mg 08/29/21 21:00 09/04/21 08:03 Apixaban 5 Mg Tablet PO 5 mg Q12HR RODNEY Administration Bisacodyl 10 mg 08/29/21 19:49 Bisacodyl 10 Mg Suppository RECTAL DAILY PRN Constipation Calcium Carbonate 500 mg 08/31/21 08:00 09/04/21 08:03 Calcium Carbonate (Oscal) 500 Mg Tablet PO 500 mg BIDWM RODNEY Administration Epoetin Wilfredo-epbx 10,000 units 09/03/21 09:00 09/03/21 10:15 Epoetin Wilfredo-Epbx 10,000 Units/Ml Vial SUB-Q 10,000 units TUTHSA RODNEY Administration Furosemide 40 mg 08/30/21 17:00 08/30/21 16:43 Furosemide 40 Mg Tablet PO 40 mg 1700 RODNEY Administration Furosemide 40 mg 09/04/21 09:00 09/04/21 09:24 Furosemide Inj 40 Mg/4 Ml Vial IV PUSH 40 mg BID RODNEY Administration Albumin Human 100 mls @ 60 mls/hr 09/02/21 12:00 09/04/21 12:08 Albutein IVPB 60 mls/hr Q6HR RODNEY Administration Ceftriaxone Sodium/Dextrose 1 gm in 50 mls @ 100 mls/hr 09/02
--- NOTE | 2021-09-04 14:59 | PM.IMPN ---
Progress Note: A&P Assessment and Plan (1) Altered mental status, unspecified: Code(s): R41.82 - Altered mental status, unspecified Status: Acute Assessment and Plan: Patient had acute change in mental status. Possibly related to Linezolid so this was held. CT brain without any acute findings. Blood pressure improved after 500mL fluid bolus. ABG showing 7.30/41/82 on RA. Linezolid stopped and other medications adjusted. Mental status has improved. [place] probably related to medications. Continue to follow. (2) LANETTE (acute kidney injury): Code(s): N17.9 - Acute kidney failure, unspecified Status: Acute Assessment and Plan: Cr 2.2 on admission. Baseline Cr 1.1-1.6, but was normal in May 2021. Lasix was held. Renal ultrasound showed no hydronephrosis. CT abdomen showing bilateral hydronephrosis and hydroureter from Johnson obstructing urethra. Urine protein to creatinine high at 0.89. CK is normal. Urine electrolytes are pre-renal. Cr improved so IV fluids stopped. Currently on Albumin with improved Albumin level. Cr better today. Albumin 2.7. Serum bicarb 23. Will stop Albumin and oral bicarb. Lasix IV for a few doses was started. Plan possible discharge tomorrow if he continues to improve. Appreciate Nephrology input. (3) Acute UTI: Code(s): N39.0 - Urinary tract infection, site not specified Status: Acute Assessment and Plan: Urine culture showed Proteus mirabilis that is pansensitive. Treated with Zosyn but then narrowed to Ceftriaxone. WBC essentially normal. Remains afebrile. Complicated UTI with Johnson. Day 7 of abx so will stop abx now. (4) CHF (congestive heart failure): Code(s): I50.9 - Heart failure, unspecified Status: Acute Assessment and Plan: During his stay patient has been clinically fluid overloaded with peripheral edema and CXR showing cardiomegaly and bilateral pulmonary edema (CT abdomen showing lung bases with small pleural effusions and atelectasis) consistent with Acute/Chronic Diastolic CHF exacerbation. CT abdomen also showed trace pericardial effusion, also present in 05/07 echo which also showed EF of 60-65% with an indeterminate diastolic dysfunction. Resume metoprolol today Trend urine output. Daily weights. Resume lasix as IV today Monitor BP (5) Decubitus ulcer: Qualifiers: Laterality: unspecified laterality Pressure injury location: buttock Pressure injury stage: stage 4 Qualified Code(s): L89.304 - Pressure ulcer of unspecified buttock, stage 4 Code(s): L89.90 - Pressure ulcer of unspecified site, unspecified stage Status: Acute Assessment and Plan: CT abd/pelvis showed large decubitus ulcer with new absence of bone in the proximal coccyx maybe from osteomyelitis or debridement. General surgery consulted and the wound appears healthy with good granulation tissue. There is some tunneling, but there does not appear to be a significant amount of necrotic tissue. No debridement recommended at this time. Wound Care consulted and appreciate their input. Wound cultures grew oxacillin sensitive Staph aureus and Bacteroides but felt more colonization then true infection. Continue current wound care. (6) Iron deficiency anemia: Code(s): D50.9 - Iron deficiency anemia, unspecified Status: Acute Assessment and Plan: Hgb dropped to 6.7 yesterday and transfused. Previous lab work up noted. Repeat B12 normal. Iron studies noted with very low TIBC related to low albumin. Guaiac positive earlier this year with plan for outpatient GI workup. We advanced PPI and consulted GI. Discussed with GI with plans to monitor for now. Hgb up to mid 7 range now. Contineu to monitor. Transfuse as needed. (7) Atrial fibrillation: Qualifiers: Atrial fibrillation type: persistent (not longstanding) Qualified Code(s): I48.19 - Other persistent atrial fibrillation Code(s): I48.
[2021-09-04 16:38] LABS: Glucose Point of Care 98 mg/dl (65-105)
[2021-09-04 22:02] LABS: Glucose Point of Care 126 mg/dl (65-105)
[2021-09-04] MEDS: ACETAMINOPHEN 325 MG TABLET 650 MG PO (22:13)
[2021-09-05 05:58] LABS: Basophils Percent Auto 0.2 % (0.2-1.2); Hematocrit 28.4 % (42.0-52.0); Hemoglobin 8.2 g/dL (14.0-18.0); Immature Granulocyte Absolute 0.14 K/mm3 (0.00-0.031); Immature Granulocyte Percent A 1.3 % (0-0.5); Lymphocytes Absolute Auto 1.25 K/mm3 (0.9-3.2); Lymphocytes Percent Auto 11.9 % (18.3-44.2); Mean Corpuscular HGB Conc 28.9 g/dl (32-36); Mean Corpuscular Hemoglobin 26.4 pg (26-34); Mean Corpuscular Volume 91.3 fl (80-100); Mean Platelet Volume 8.4 fl (7.4-10.4); Monocytes Absolute Auto 0.9 K/mm3 (0.1-0.6); Monocytes Percent Auto 8.6 % (2.6-8.5); Neutrophils Absolute Auto 8.2 K/mm3 (1.3-6.7); Platelet Count Result 330 k/mm3 (150-375); Red Blood Count 3.11 M/mm3 (4.6-6.20); White Blood Count 10.5 K/mm3 (4.5-10.0)
[2021-09-05 06:00] VITALS: BP 127/72; PULSE 75; RESP 18; TEMP 36.7; O2SAT 96
[2021-09-05 06:14] LABS: Albumin Level 2.5 g/dL (3.5-5.1); Anion Gap 6 mmol/L (8-16); Blood Urea Nitrogen 27 mg/dL (9-20); Calcium 7.3 mg/dL (8.4-10.2); Carbon Dioxide 20 mmol/L (22-30); Chloride 109 mmol/L (98-107); Estimated CRCL calculation 61 ml/min; Estimated Glomerular Filt Rate 53; Glucose 95 mg/dL (65-110); Phosphorus 1.5 mg/dL (2.5-4.5); Potassium 3.1 mmol/L (3.4-5.0); Sodium 135 mmol/L (137-145)
[2021-09-05 06:53] LABS: Hypochromasia 1+ (NORMAL); Ovalocytes 1+ (NORMAL); Platelet Estimate Adequate (Adequate)
[2021-09-05 06:54] LABS: Burr Cells 1+ (NORMAL); Schistocytes 1+ (NORMAL)
[2021-09-05 07:34] LABS: Glucose Point of Care 92 mg/dl (65-105)
[2021-09-05 08:00] VITALS: PULSE 75; RESP 18; O2SAT 96
[2021-09-05] MEDS: POTASSIUM CHLORIDE 20 MEQ TABLET 40 MEQ PO (08:37)
[2021-09-05] MEDS: POTASSIUM/PHOSPHORUS/SODIUM 1.5 GM PACKET 1 PACKET PO ×2 (08:37→11:35)
[2021-09-05] MEDS: PANTOPRAZOLE 40 MG TABLET PO (08:38)
[2021-09-05] MEDS: SACCHAROMYCES BOULARDII 250 MG CAPSULE PO (08:38)
[2021-09-05] MEDS: SERTRALINE HCL 50 MG TABLET PO (08:38)
[2021-09-05] MEDS: CALCIUM CARBONATE (OSCAL) 500 MG TABLET PO (08:38)
[2021-09-05] MEDS: THERAPEUTIC MULTIVITAMINS/MINERALS TAB (*BKC) 1 TABLET PO (08:38)
[2021-09-05] MEDS: APIXABAN 5 MG TABLET PO (08:38)
[2021-09-05] MEDS: FUROSEMIDE INJ 40 MG/4 ML VIAL IV PUSH (08:39)
[2021-09-05] MEDS: SILVERGEL (ELTA) 45 ML 1 APPLIC TOPICAL (08:40)
[2021-09-05] MEDS: SODIUM BICARBONATE TAB 325 MG TABLET PO (08:42)
--- NOTE | 2021-09-05 09:51 | PM.PNNEP ---
Progress Note: A&P Additional Plan 1. the patient has an elevated creatinine. the same as it was in june. His creatinine was normal one month before that. the CT scan showed hydronephrosis because of a Johnson that was in the urethra. The Johnson has since been changed. The renal ultrasound shows no hydro. So the hydronephrosis improved dramatically once the catheter was changed. CK is normal Urine electrolytes are pre renal. UA shows white cells. Culture shows G negatives. I suspect that the kidney issues are due to mild dehydration and also infection in the urine and the decubitus ulcer. Patient is euvolemic. He is getting antibiotics for his infection. His creatinine has fallen into the normal range. Not quite to his former baseline though. 2. The patient does not seem to have chronic kidney disease that we know of right now. 3. The patient has diastolic dysfunction. 4. The patient has swelling. Most likely related to cardiopulmonary issues and low albumin. He has been getting albumin plus Lasix. I think we can stop both of these and use Lasix p.r.n.. I encouraged him to increase caloric intake to help heal his wound and keep his albumin in good shape. 5. Patient has diabetes. he is on Accu-Cheks and sliding scale insulin 6. he has depression and is on sertraline. 7. He has BPH and is on tamsulosin plus chronically catheterized. 8. He has atrial fibrillation and is on Eliquis. 9. He has anemia. Because of infection I would hold off on iron supplements. retic ct 2.23. on epo While hospitalized. He does not necessarily need EPO as an outpatient but the hemoglobin should be followed. Subjective Date/time seen: 09/05/21 09:51 Interval history: Rommel is alert and interactive today. He ate some breakfast but not very much. Encouraged to increase p.o. intake. Exam Narrative: WDWN in NAD skin no rash or subcu nodules head ncat lungs clear bilaterally cor irreg no rub or gallop abd BS+ nontender and soft ext 1+ bilateral edema Mostly presacral now. Objective Data Vital Signs Vital Signs: Vital Signs - 24 hr 09/04/21 14:00 09/04/21 20:00 09/04/21 22:00 Temperature 36.8 C 36.5 C Pulse Rate 86 101 H 101 H Respiratory Rate 20 20 20 Blood Pressure 115/68 96/50 L Pulse Oximetry 94 97 97 09/04/21 23:00 09/05/21 06:00 Temperature 36.7 C Pulse Rate 75 Respiratory Rate 18 Blood Pressure 127/72 Pulse Oximetry 96 96 Intake/Output Intake/Output: Intake & Output 09/02/21 09/03/21 09/04/21 09/05/21 23:59 23:59 23:59 23:59 Intake Total 2000 1220 1260 600 Output Total 850 1000 3650 1225 Balance 1150 658 -5025 -854 Meds/Results Medications: Active Medications Generic Name Dose Route Start Last Admin Trade Name Freq PRN Reason Stop Dose Admin Acetaminophen 650 mg 09/03/21 10:12 09/04/21 22:13 Acetaminophen 325 Mg Tablet PO 650 mg Q4H PRN Administration Mild Pain (1-6) Or Fever Apixaban 5 mg 08/29/21 21:00 09/05/21 08:38 Apixaban 5 Mg Tablet PO 5 mg Q12HR RODNEY Administration Bisacodyl 10 mg 08/29/21 19:49 Bisacodyl 10 Mg Suppository RECTAL DAILY PRN Constipation Calcium Carbonate 500 mg 08/31/21 08:00 09/05/21 08:38 Calcium Carbonate (Oscal) 500 Mg Tablet PO 500 mg BIDWM RODNEY Administration Epoetin Wilfredo-epbx 10,000 units 09/03/21 09:00 09/03/21 10:15 Epoetin Wilfredo-Epbx 10,000 Units/Ml Vial SUB-Q 10,000 units TUTHSA RODNEY Administration Furosemide 40 mg 08/30/21 17:00 08/30/21 16:43 Furosemide 40 Mg Tablet PO 40 mg 1700 RODNEY Administration Furosemide 40 mg 09/04/21 09:00 09/05/21 08:39 Furosemide Inj 40 Mg/4 Ml Vial IV PUSH 40 mg BID RODNEY Administration Metoprolol Succinate 25 mg 08/30/21 09:00 08/30/21 08:25 Metoprolol Succinate Ext Rel 25 Mg Tabcr PO 25 mg DAILY RODNEY Administration Multivitamins/Calcium 1 tablet 08/30/21 09
[2021-09-05] MEDS: ACETAMINOPHEN 325 MG TABLET 650 MG PO (10:56)
[2021-09-05] MEDS: EPOETIN ALFA-EPBX 10,000 UNITS/ML VIAL 10000 UNITS SUB-Q (10:56)
[2021-09-05] MEDS: METOPROLOL SUCCINATE EXT REL 25 MG TABCR PO (10:58)
[2021-09-05] MEDS: TOLNAFTATE 1% POWDER 45 GM BTL 1 APPLIC TOPICAL (10:58)
--- NOTE | 2021-09-05 11:02 | PM.DS ---
DS: Admitting Diagnosis Discharge Date 09/05/21 Admitting Diagnosis altered mental status DS: Discharge Diagnosis Discharge Diagnosis (1) Altered mental status, unspecified: Code(s): R41.82 - Altered mental status, unspecified Status: Acute Assessment and Plan: Patient had acute change in mental status prompting this admission. CT brain sowing cerebellar and cerebral atrophy but no acute findings. [place] related to his LANETTE and UTI. He improved but worsened again. Repeat CT brain without any acute findings. ABG showing 7. on RA. Linezolid stopped and other medications adjusted. Mental status has improved. [place] probably related to medications. RN stated that patient is still having hallucination around times when he is tired. Spoke with who has noted that patient having mild confusion with hallucination since being in the [facility]. [place] patient is back to baseline now. (2) LANETTE (acute kidney injury): Code(s): N17.9 - Acute kidney failure, unspecified Status: Acute Assessment and Plan: Cr 2.2 on admission. Baseline Cr 1.1-1.6, but was normal in May 2021. Lasix was held. CT abdomen on admission showing bilateral hydronephrosis and hydroureter from Johnson obstructing urethra. Urine protein to creatinine high at 0.89. CK is normal. Johnson replaced. Cr improved so IV fluids stopped. Renal ultrasound showed no hydronephrosis. Treated with Albumin with improved Albumin level. Cr better to 1.3. Serum bicarb was low so oral bicarb added. BP soft at times requiring fluid boluses but this improved to the point that his metoprolol could be added back. Lasix IV for a few doses was started. Nephrology was consulted and appreciate thier input. (3) Acute UTI: Code(s): N39.0 - Urinary tract infection, site not specified Status: Acute Assessment and Plan: Urine culture showed Proteus mirabilis that is pansensitive. Treated with Zosyn but then narrowed to Ceftriaxone. WBC essentially normal. Remained afebrile. Complicated UTI with Johnson. He completed a course of antibiotics. (4) CHF (congestive heart failure): Code(s): I50.9 - Heart failure, unspecified Status: Acute Assessment and Plan: During his stay patient has been clinically fluid overloaded with peripheral edema and CXR showing cardiomegaly and bilateral pulmonary edema (CT abdomen showing lung bases with small pleural effusions and atelectasis) consistent with Acute/Chronic Diastolic CHF exacerbation. CT abdomen also showed trace pericardial effusion, also present in 05/07 echo which also showed EF of 60-65% with an indeterminate diastolic dysfunction. Treated with IV fluids for HoTN but able to stop. BP remained stable and able to resume metoprolol and he even tolerated Lasix IV with good UOP. (5) Decubitus ulcer: Qualifiers: Laterality: unspecified laterality Pressure injury location: buttock Pressure injury stage: stage 4 Qualified Code(s): L89.304 - Pressure ulcer of unspecified buttock, stage 4 Code(s): L89.90 - Pressure ulcer of unspecified site, unspecified stage Status: Acute Assessment and Plan: CT abd/pelvis showed large decubitus ulcer with new absence of bone in the proximal coccyx maybe from osteomyelitis or debridement. General surgery consulted and the wound appears healthy with good granulation tissue. There is some tunneling, but there does not appear to be a significant amount of necrotic tissue. No debridement recommended at this time. Wound Care consulted and appreciate their input. Wound cultures grew oxacillin sensitive Staph aureus and Bacteroides but felt more colonization then true infection. We continued current wound care. (6) Iron deficiency anemia: Code(s): D50.9 - Iron deficiency anemia, unspecified Status: Acute Assessment and Plan: Hgb dropped to 6.7 and he was transfused. Previous lab work up noted. Repeat B12
[2021-09-05 11:31] LABS: Glucose Point of Care 117 mg/dl (65-105)
[2021-09-05 12:34] LABS: EDCOVIDSCREEN Negative (Negative)
[2021-09-07 15:50] LABS: Soluble Transferrin Receptor 1.66 mg/L (0.76-1.76)
== END 2021-09-05 13:45 | DRG 698 ==
LOC: ANHED 16:19 → ANH3MED 16:35
PROVIDERS: Internal Medicine Nephrology; Student in an Organized Health Care Education/Training Program; Admitting Provider Internal Medicine; Emergency Provider Emergency Medicine; PCP Internal Medicine; Visit Provider Internal Medicine
DX: T83.518A Infection and inflammatory reaction due to other urinary catheter, initial encounter (principal); L89.154 Pressure ulcer of sacral region, stage 4; I50.33 Acute on chronic diastolic (congestive) heart failure; G93.41 Metabolic encephalopathy; G92.8 Other toxic encephalopathy; N13.6 Pyonephrosis; N17.9 Acute kidney failure, unspecified; I48.19 Other persistent atrial fibrillation; E87.1 Hypo-osmolality and hyponatremia; D68.9 Coagulation defect, unspecified; B96.4 Proteus (mirabilis) (morganii) as the cause of diseases classified elsewhere; T50.995A Adverse effect of other drugs, medicaments and biological substances, initial encounter; D50.9 Iron deficiency anemia, unspecified; F32.A Depression, unspecified; Z20.822 Contact with and (suspected) exposure to COVID-19; E86.0 Dehydration; E11.22 Type 2 diabetes mellitus with diabetic chronic kidney disease; N18.30 Chronic kidney disease, stage 3 unspecified; G47.33 Obstructive sleep apnea (adult) (pediatric); N40.1 Benign prostatic hyperplasia with lower urinary tract symptoms; R80.9 Proteinuria, unspecified; E87.5 Hyperkalemia; F41.9 Anxiety disorder, unspecified; E78.2 Mixed hyperlipidemia; E66.9 Obesity, unspecified; Z68.39 Body mass index [BMI] 39.0-39.9, adult; Z99.81 Dependence on supplemental oxygen; Z87.891 Personal history of nicotine dependence; Z79.01 Long term (current) use of anticoagulants
CPT/HCPCS: 36415; 36430; 36600; 70450; 71045; 74176; 76775; 80048; 80053; 80069; 81001; 82550; 82570; 82607; 82728; 82746; 82805; 82948; 83036; 83540; 83550; 83605; 83735; 83880; 84100; 84156; 84238; 84300; 84439; 84443; 84466; 84484; 85014; 85018; 85025; 85046; 85610; 85730; 86850; 86900; 86901; 86920; 87040; 87070; 87075; 87076; 87077; 87086; 87088; 87147; 87186; 87205; 87426; 92610; 93005; 96365; 96366; 96375; 99285; A9270; C9803; G0378; J0696; J1940; J2020; J2543; J3475; J7030; J7040; J7050; P9016; P9047; Q5105; U0003; U0005